=== PATIENT | male | born 1945 | race Caucasian/White ===

== ENCOUNTER → 2017-05-29 | Outpatient (CLI) | payer OTHER, MEDICARE | LOC: FIMAGING 08:00 | PROVIDERS: ATTEND Internal Medicine Gastroenterology | DX: R16.0 Hepatomegaly, not elsewhere classified (principal); K74.60 Unspecified cirrhosis of liver; K22.70 Barrett's esophagus without dysplasia; K50.10 Crohn's disease of large intestine without complications; N28.1 Cyst of kidney, acquired ==

== ENCOUNTER → 2017-08-28 | Outpatient (CLI) | payer OTHER, MEDICARE | LOC: FIMAGING 14:12 | PROVIDERS: ATTEND Internal Medicine | DX: H34.8111 Central retinal vein occlusion, right eye, with retinal neovascularization (principal); I10 Essential (primary) hypertension ==

== ENCOUNTER → 2017-11-28 | Outpatient (CLI) | payer OTHER, MEDICARE | LOC: FIMAGING 09:23 | PROVIDERS: ATTEND Internal Medicine Gastroenterology | DX: K70.30 Alcoholic cirrhosis of liver without ascites (principal) ==

== ENCOUNTER 2018-01-27 09:04 | Outpatient (CLI) | payer OTHER, MEDICARE ==
[2018-01-27] MEDS ORDERED: fentaNYL 100 MCG/2 ML INJ IVP PRN (09:17)
[2018-01-27] MEDS ORDERED: MEPERIDINE 25 MG/ML SYR IVP PRN (09:17)
[2018-01-27] MEDS ORDERED: MIDAZOLAM 2 MG/2 ML VIAL IVP PRN (09:17)
[2018-01-27] MEDS ORDERED: NALOXONE HCL 0.4 MG/ML INJ IVP PRN (09:17)
[2018-01-27] MEDS ORDERED: FLUMAZENIL 0.5 MG/5 ML MDV IVP PRN (09:17)
[2018-01-27] MEDS ORDERED: NS 1,000 ML IV SCH (09:30)
[2018-01-27 10:08] LABS: INR 1.09 (0.83-1.16); PROTIME(PATIENT) 14.3 SEC (12.0-15.0)
[2018-01-27] MEDS ORDERED: LIDOCAINE 1% 300 MG/30 ML SDV ONE (10:10)
--- NOTE | 2018-01-27 10:44 | PDRADPRE ---
Radiology History & Physical Indication for procedure: liver disease Home medications: Pantoprazole Sodium 20 mg PO DAILY 12/17/12 [Last Taken 01/27/18] amLODIPine BESYLATE [Norvasc 10 mg (*)] 10 mg PO DAILY 12/17/12 [Last Taken ] Levoxyl 200 mcg PO 01/27/18 [Last Taken 01/27/18] Nadolol 40 mg PO 01/27/18 [Last Taken 01/27/18] azaTHIOprine 50 mg PO 01/27/18 [Last Taken 01/27/18] Allergies/Adverse Reactions: mesalamine Allergy (Verified 06/09/15 15:23) DUST Allergy (Mild, Uncoded 12/17/12 02:53) Other-Enter Comments Mental status: A&Ox3 Heart exam: regular rate and rhythm Lungs exam: clear to auscultation Mallampati Score: Class 2
--- NOTE | 2018-01-27 10:44 | PDPROPOC ---
Sedation Plan of Care Sedation Plan of Care: vital signs stable, mental status noted, patient educated of risks, benefits, alternatives, patient can tolerate sedation ASA Classification: ASA 2 Planned drugs: fentanyl, midazolam Mallampati Score: Class 2 Mallampati Reference Image: Patient passed 3-3-2 rule?: Yes
--- NOTE | 2018-01-27 11:20 | PDRADPN ---
Radiology Procedure Note Date of Procedure: 01/27/18 Radiologist: Hemanth Joiner Anesthesia: IV Sedation Pre-op Diagnosis: Liver diseaase Post-op Diagnosis: Liver disease Indication: Elevated LFTs Procedure: US guided liver biopsy Finding(s): 18 ga cores Inf/Abcess present in the surg proc area at time of surgery?: No
[2018-01-27] MEDS ORDERED: ONDANSETRON 4 MG/2 ML VIAL IVP PRN (11:21)
[2018-01-27] MEDS ORDERED: oxyCODONE IR 5 MG TAB PO PRN (11:21)
[2018-01-27 18:50] VITALS: BP 117/76
== END 2018-01-27 14:35 | disposition home or self-care (01) ==
LOC: FIMAGING 09:04
PROVIDERS: ATTEND Internal Medicine Gastroenterology
PROC: 0FB03ZX Excision of Liver, Percutaneous Approach, Diagnostic (ICD-10-PCS; principal; 2018-01-27 11:27)
DX: K74.0 Hepatic fibrosis (principal)
CPT/HCPCS: 47000; 76942; 88307; 88312; 88313; 88342; J2250; J3010; J2310

== ENCOUNTER → 2018-04-18 | Outpatient (CLI) | payer OTHER, MEDICARE | LOC: FIMAGING 13:11 | PROVIDERS: ATTEND Nurse Practitioner Family | DX: K70.30 Alcoholic cirrhosis of liver without ascites (principal) ==

== ENCOUNTER → 2018-04-23 | Outpatient (CLI) | payer OTHER, MEDICARE | LOC: FIMAGING 14:17 | PROVIDERS: ATTEND Internal Medicine | DX: R93.2 Abnormal findings on diagnostic imaging of liver and biliary tract (principal); K74.69 Other cirrhosis of liver; K76.6 Portal hypertension; R16.1 Splenomegaly, not elsewhere classified ==

== ENCOUNTER 2018-06-07 11:29 | Inpatient (IN) | payer OTHER, MEDICARE ==
--- NOTE | 2018-06-07 12:29 | EDPHY ---
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 He had family from [place] visiting his home over the holiday and spent some time at the airport earlier this week and yesterday due to this. He describes feeling extremely low energy and fatigued with a subjective fever that he has been treating with Tylenol. He has spent much of the last 24 hours sleeping and noticed decreased appetite today. His believes he is more jaundiced and his abdomen is more distended than baseline. He denies rigors, cough, abdominal pain, vomiting, diarrhea, urinary symptoms. He had an ERCP and stent placed at the end of April and reports there's been some concern about the functioning of this stent. He is scheduled for a second ERCP in June at [facility]. REVIEW OF SYSTEMS: A comprehensive 10 system review of systems is otherwise negative aside from elements mentioned in the history of present illness. PMH: Liver disease - Suspected primary sclerosing cholangitis, ERCP and stent placed 05/08/18 at [facility] by Dr. Delgadillo; arthritis - shoulders and knees SOCIAL HISTORY: at bedside. Lives in [place]. Retired. GI: Dr. Howe PHYSICAL EXAM: General:Patient is alert, in no acute distress. ENT:Eyes are normal to inspection. ENT inspection normal. Neck: Normal inspection. Full range of motion. Respiratory:No respiratory distress. Breath sounds normal bilaterally. Cardiovascular: Regular rate and rhythm. Strong peripheral pulses. Normal cap refill. Abdomen:The abdomen is nontender to palpation. Abdominal distension. There are no peritoneal signs. Back: Normal to inspection. No tenderness to palpation. Skin: Jaundiced. No rash. Warm and dry. Extremities: Normal appearance. Full range of motion. Neuro: Oriented x3. Normal motor function. Normal sensory function. ED Course: This is a 72 y/o male with liver disease who presents with a 1-day history of progressing global weakness, fatigue, and subjective fever. He is jaundiced with a distended and nontender abdomen on exam. Lungs are clear to auscultation and he is afebrile here. Plan for IV, labs, flu swab, UA, chest x-ray. Chest x-ray: no infiltrate Bilirubin elevated at 13, the highest in recent records. LFTs also elevated. 1400: Consulted with [facility]. Their service will consult during admission. Reassessed patient and discussed findings. He agrees to admission. Spoke with hospitalist service. Dr. Eller accepts admission. - Data Points Imaging Results: Imaging Impressions Chest X-Ray 06/07/18 11:41 Impression: Question mild bronchitis. No other findings for acute cardiopulmonary abnormality. Imaging: I viewed and interpreted images myself Laboratory Results: Laboratory Results 06/07/18 12:42 06/07/18 12:42 06/07/18 06/07/18 06/07/18 12:42 12:42 12:40 WBC 5.09 10^3/uL 10^3/uL (3.80-9.50) RBC 4.02 10^6/uL L 10^6/uL (4.40-6.38) Hgb 13.3 g/dL L g/dL (13.7-17.5) Hct 39.9 % L % (40.0-51.0) MCV 99.3 fL fL (81.5-99.8) MCH 33.1 pg pg (27.9-34.1) MCHC 33.3 g/dL g/dL (32.4-36.7) RDW 16.0 % H % (11.5-15.2) Plt Count 92 10^3/uL L 10^3/uL (150-400) MPV 10.2 fL fL (8.7-11.7) Neut % (Auto) Not Reported Lymph % (Auto) Not Reported Stark % (Auto) Not Reported Eos % (Auto) Not Reported Baso % (Auto) Not Reported Nucleat RBC Rel Count Not Reported Absolute Neuts (auto) Not Reported Absolute Lymphs (auto) Not Reported Absolute Monos (auto) Not Reported Absolute Eos (auto) Not Reported Absolute Basos (auto) Not Reported Absolute Nucleated RBC Not Reported Immature Gran % Not Reported Seg Neutrophils % 67.0 % % Band Neutrophils % 18.0 % % Lymphocytes % 8.0 % % Monocytes % 1.0 % % Eosinophils % 3.0 % % Basophils % 3.0 % % Metamyelocytes % 0.0 % % Myelocytes % 0.0 % % Promyelocytes % 0.0 % % Blast Cells % 0.0 % % Immature Gran # Not Reported Absolute Seg Neuts 3.41 10^3/uL 10^3/uL (1.70-6.50) Absolute Band Neuts 0.92 10^3/uL H 10^3/uL (0.00-0.70) Absolute Lymphocytes 0.41 10^3/uL L 10^3/uL (1.00-3.00) Absolute Monocytes 0.05 10^3/uL L 10^3/uL (0.30-0.80) Absolute Eosinophils 0.15 10^3/uL 10^3/uL (0.03-0.40) Absolute Basophils 0.15 10^3/uL H 10^3/uL (0.02-0.10) Absolute Metamyelocyte 0.00 10^3/mL 10^3/mL (0.00-0.00) Absolute Myelocytes 0.00 10^3/mL 10^3/mL (0.00-0.00) Absolute Promyelocytes 0.00 10^3/uL 10^3/uL (0.00-0.00) Absolute Plasma Cells 0.00 10^3/uL 10^3/uL (0.00-0.00) Nucleated RBCs 0 /100 WBC /100 WBC (0-0) Absolute Blast Cells 0.00 10^3/uL 10^3/uL (0.00-0.00) Plasma Cells % 0.0 % % Platelet Estimate DECREASED L (ADEQ) Polychromasia 1+ H Oval Macrocytes 1+ H Echinocytes 1+ H Elliptocytes 1+ H VBG Lactic Acid 1.9 mmol/L mmol/L (0.7-2.1) Sodium 140 mEq/L mEq/L (135-145) Potassium 3.2 mEq/L L mEq/L (3.5-5.2) Chloride 105 mEq/L mEq/L (97-110) Carbon Dioxide 24 mEq/l mEq/l (22-31) Anion Gap 11 mEq/L mEq/L (6-14) BUN 14 mg/dL mg/dL (7-23) Creatinine 0.8 mg/dL mg/dL (0.7-1.3) Estimated GFR > 60 Glucose 113 mg/dL H mg/dL (70-100) Calcium 8.7 mg/dL mg/dL (8.5-10.4) Total Bilirubin 13.4 mg/dL H mg/dL (0.1-1.4) Conjugated Bilirubin 11.0 mg/dL H mg/dL (0.0-0.5) Unconjugated Bilirubin 2.4 mg/dL H mg/dL (0.0-1.1) Icterus Index 7 AST 126 IU/L H IU/L (17-59) ALT 83 IU/L H IU/L (21-72) Alkaline Phosphatase 523 IU/L H IU/L (38-126) Total Protein 7.3 g/dL g/dL (6.3-8.2) Albumin 3.7 g/dL g/dL (3.5-5.0) Nasal Influenza A PCR Nasal Influenza B PCR 06/07/18 11:45 WBC RBC Hgb Hct MCV MCH MCHC RDW Plt Count MPV Neut % (Auto) Lymph % (Auto) Stark % (Auto) Eos % (Auto) Baso % (Auto) Nucleat RBC Rel Count Absolute Neuts (auto) Absolute Lymphs (auto) Absolute Monos (auto) Absolute Eos (auto) Absolute Basos (auto) Absolute Nucleated RBC Immature Gran % Seg Neutrophils % Band Neutrophils % Lymphocytes % Monocytes % Eosinophils % Basophils % Metamyelocytes % Myelocytes % Promyelocytes % Blast Cells % Immature Gran # Absolute Seg Neuts Absolute Band Neuts Absolute Lymphocytes Absolute Monocytes Absolute Eosinophils Absolute Basophils Absolute Metamyelocyte Absolute Myelocytes Absolute Promyelocytes Absolute Plasma Cells Nucleated RBCs Absolute Blast Cells Plasma Cells % Platelet Estimate Polychromasia Oval Macrocytes Echinocytes Elliptocytes VBG Lactic Acid Sodium Potassium Chloride Carbon Dioxide Anion Gap BUN Creatinine Estimated GFR Glucose Calcium Total Bilirubin Conjugated Bilirubin Unconjugated Bilirubin Icterus Index AST ALT Alkaline Phosphatase Total Protein Albumin Nasal Influenza A PCR NEGATIVE FOR FLU A (NEGATIVE) Nasal Influenza B PCR NEGATIVE FOR FLU B (NEGATIVE) General Time Seen by Provider: 06/07/18 12:04 Initial Vital Signs: Initial Vital Signs Temperature (C) 37.1 C 06/07/18 11:33 Heart Rate 78 06/07/18 11:33 Respiratory Rate 16 06/07/18 11:33 Blood Pressure 140/80 H 06/07/18 11:33 O2 Sat (%) 94 06/07/18 11:33 O2 Delivery Mode Room Air Allergies/Adverse Reactions: No Known Allergies Allergy (Unverified 06/07/18 11:39) Home Medications: Medication Instructions Recorded azaTHIOprine [Imuran 50 mg (*)] 100 mg PO BID 01/27/18 Calcium Carbonate/Vitamin D3 1 each PO BID 06/07/18 [Calcium 500 mg-Vit D3 600 Unit] Chlorpheniramine Maleate 4 mg PO DAILY PRN 06/07/18 Ferrous Sulfate [Ferrous Sulf 325 325 mg PO DAILY 06/07/18 MG (*)] Glucosamine/Chondroitin 1 each PO BID 06/07/18 [Glucosamine/Chondroitin (*)] Levothyroxine [Synthroid 175 mcg 175 mcg PO DAILY06 06/07/18 (*)] Multivitamins [Multivitamin (*)] 1 each PO DAILY 06/07/18 Oxymetazoline HCl [Afrin Nasal 1 spray EACHNARE DAILY PRN 06/07/18 [place] (OTC)] Pantoprazole Sodium [Protonix 40mg 40 mg PO DAILY 06/07/18 (*)] Propranolol HCl [Inderal 20mg (*)] 20 mg PO BID 06/07/18 amLODIPine BESYLATE [Norvasc 10 mg 10 mg PO DAILY 06/07/18 (*)] diphenhydrAMINE [Benadryl 25 MG 25 mg PO DAILY PRN 06/07/18 (*)] Departure - Departure Disposition: [facility] Acute Clinical Impression: Hyperbilirubinemia, Weakness Fever Qualifiers: Fever type: unspecified Qualified Code(s): R50.9 - Fever, unspecified Condition: Fair Referrals: Chuckie López MD [Primary Care Provider] - As per Instructions Report Scribed for: Neptali Hawkins Report Scribed by: Catalina Medrano Date of Report: 06/07/18 Time of Report: 12:05 Physician Review and Approval Statement: Portions of this note were transcribed by an ED scribe. I personally performed the history, physical exam, and medical decision making; and confirm the accuracy of the information in the transcribed note.
[2018-06-07 13:10] LABS: PLATELET COUNT 92 10^3/uL (150-400)
[2018-06-07] MEDS ORDERED: PROTOCOL POTASSIUM 1 DOSE MISC PRN (14:31)
[2018-06-07] MEDS ORDERED: ONDANSETRON 4 MG/2 ML VIAL IVP PRN (14:31)
[2018-06-07] MEDS ORDERED: PROTOCOL MAGNESIUM 1 DOSE IV PRN (14:31)
[2018-06-07] MEDS ORDERED: ONDANSETRON DISINTEGRATING 4 MG TAB PO PRN (14:31)
[2018-06-07] MEDS ORDERED: PROTOCOL K PHOSPHATE 1 DOSE IV PRN (14:31)
--- NOTE | 2018-06-07 14:52 | PDGENHP ---
History and Physical - Chief Complaint weakness - History of Present Illness Mr. Rojas is a 72 year old male with pmh of Primary sclerosing cholangitis, portal hypertension, hypothyroid who presented to the Er with complaints of increased weakness and jaundice for the last 24 hours. Per the patients , he has had ongoing problems with becoming jaundiced intermittently for the last few months, but in the last 24 hours she noticed that he had become yellow. He has had no pain, but some subjective fevers, and chills. His only symptoms were some increased weakness. He denied any abdominal pain whatsoever and has had no nausea vomiing, chest pain, diarrhea, black or bloody stools, dysuria or other symptoms. He had a stent placed in April at [facility] with Dr. Delgadillo. He Follows with Dr. Ling (?) for his liver disease and follows with Dr. Johnston for the management of his Crohns. Apparently he has been having intermittent Jaundice and there has been discussion about evaluating the stent he had placed in April but nothing has been done yet. History Information - Allergies/Home Medication List Allergies/Adverse Reactions: No Known Allergies Allergy (Unverified 06/07/18 11:39) Home Medications: azaTHIOprine [Imuran 50 mg (*)] 100 mg PO BID 01/27/18 [Last Taken 06/07/18] Calcium Carbonate/Vitamin D3 [Calcium 500 mg-Vit D3 600 Unit] 1 each PO BID [Last Taken 06/07/18] Chlorpheniramine Maleate 4 mg PO DAILY PRN 06/07/18 [Last Taken Unknown] Ferrous Sulfate [Ferrous Sulf 325 MG (*)] 325 mg PO DAILY 06/07/18 [Last Taken 06/07/18] Glucosamine/Chondroitin [Glucosamine/Chondroitin (*)] 1 each PO BID 06/07/18 [ Last Taken 06/07/18] Levothyroxine [Synthroid 175 mcg (*)] 175 mcg PO DAILY06 06/07/18 [Last Taken ] Multivitamins [Multivitamin (*)] 1 each PO DAILY 06/07/18 [Last Taken 06/07/18] Oxymetazoline HCl [Afrin Nasal [place] (OTC)] 1 spray EACHNARE DAILY PRN 06/07/18 [Last Taken Unknown] Pantoprazole Sodium [Protonix 40mg (*)] 40 mg PO DAILY 06/07/18 [Last Taken ] Propranolol HCl [Inderal 20mg (*)] 20 mg PO BID 06/07/18 [Last Taken 06/07/18] amLODIPine BESYLATE [Norvasc 10 mg (*)] 10 mg PO DAILY 06/07/18 [Last Taken ] diphenhydrAMINE [Benadryl 25 MG (*)] 25 mg PO DAILY PRN 06/07/18 [Last Taken Unknown] I have personally reviewed and updated: family history, medical history, social history, surgical history - Past Medical History Crohn's Disease (hypothyroid, HTN, primary sclerosing cholangitis. ) - Surgical History Reports: appendectomy, cholecystectomy, thyroid surgery - Family History Positive for: non-pertinent - Social History Smoking Status: Never smoked Alcohol Use: None Drug Use: None Review of Systems Review of Systems: ROS: 10pt was reviewed & negative except for what was stated in HPI & below Physical Exam Physical Exam: Temp Pulse Resp BP Pulse Ox 37.1 C 78 16 123/78 H 94 06/07/18 11:33 06/07/18 12:57 06/07/18 12:57 06/07/18 12:57 06/07/18 12:57 Constitutional: no apparent distress, appears nourished, not in pain Eyes: PERRL, anicteric sclera, EOMI Ears, Nose, Mouth, Throat: moist mucous membranes, hearing normal, ears appear normal, no oral mucosal ulcers Cardiovascular: regular rate and rhythym, no murmur, rub, or gallop, No edema Respiratory: no respiratory distress, no rales or rhonchi, clear to auscultation Gastrointestinal: normoactive bowel sounds, soft, non-tender abdomen, no palpable masses Genitourinary: no bladder fullness, no bladder tenderness Skin: no induration, other (Jaundice noted), No mottled Musculoskeletal: full muscle strength, no muscle tenderness, normal joint ROM, no joint effusions Psychiatric: interacting appropriately, not anxious, not encephalopathic, thought process linear Lymph, Heme, Immunologic: no cervical LAD, no supraclavicular LAD Lab Data & Imaging Review 06/07/18 12:42 06/07/18 12:42 WBC 5.09 10^3/uL (3.80-9.50) 06/07/18 12:42 RBC 4.02 10^6/uL (4.40-6.38) L 06/07/18 12:42 Hgb 13.3 g/dL (13.7-17.5) L 06/07/18 12:42 Hct 39.9 % (40.0-51.0) L 06/07/18 12:42 MCV 99.3 fL (81.5-99.8) 06/07/18 12:42 MCH 33.1 pg (27.9-34.1) 06/07/18 12:42 MCHC 33.3 g/dL (32.4-36.7) 06/07/18 12:42 RDW 16.0 % (11.5-15.2) H 06/07/18 12:42 Plt Count 92 10^3/uL (150-400) L 06/07/18 12:42 MPV 10.2 fL (8.7-11.7) 06/07/18 12:42 Neut % (Auto) Not Reported 06/07/18 12:42 Lymph % (Auto) Not Reported 06/07/18 12:42 [place] % (Auto) Not Reported 06/07/18 12:42 Eos % (Auto) Not Reported 06/07/18 12:42 Baso % (Auto) Not Reported 06/07/18 12:42 Nucleat RBC Rel Count Not Reported 06/07/18 12:42 Absolute Neuts (auto) Not Reported 06/07/18 12:42 Absolute Lymphs (auto) Not Reported 06/07/18 12:42 Absolute Monos (auto) Not Reported 06/07/18 12:42 Absolute Eos (auto) Not Reported 06/07/18 12:42 Absolute Basos (auto) Not Reported 06/07/18 12:42 Absolute Nucleated RBC Not Reported 06/07/18 12:42 Immature Gran % Not Reported 06/07/18 12:42 Seg Neutrophils % 67.0 % 06/07/18 12:42 Band Neutrophils % 18.0 % 06/07/18 12:42 Lymphocytes % 8.0 % 06/07/18 12:42 Monocytes % 1.0 % 06/07/18 12:42 Eosinophils % 3.0 % 06/07/18 12:42 Basophils % 3.0 % 06/07/18 12:42 Metamyelocytes % 0.0 % 06/07/18 12:42 Myelocytes % 0.0 % 06/07/18 12:42 Promyelocytes % 0.0 % 06/07/18 12:42 Blast Cells % 0.0 % 06/07/18 12:42 Immature Gran # Not Reported 06/07/18 12:42 Absolute Seg Neuts 3.41 10^3/uL (1.70-6.50) 06/07/18 12:42 Absolute Band Neuts 0.92 10^3/uL (0.00-0.70) H 06/07/18 12:42 Absolute Lymphocytes 0.41 10^3/uL (1.00-3.00) L 06/07/18 12:42 Absolute Monocytes 0.05 10^3/uL (0.30-0.80) L 06/07/18 12:42 Absolute Eosinophils 0.15 10^3/uL (0.03-0.40) 06/07/18 12:42 Absolute Basophils 0.15 10^3/uL (0.02-0.10) H 06/07/18 12:42 Absolute Metamyelocyte 0.00 10^3/mL (0.00-0.00) 06/07/18 12:42 Absolute Myelocytes 0.00 10^3/mL (0.00-0.00) 06/07/18 12:42 Absolute Promyelocytes 0.00 10^3/uL (0.00-0.00) 06/07/18 12:42 Absolute Plasma Cells 0.00 10^3/uL (0.00-0.00) 06/07/18 12:42 Nucleated RBCs 0 /100 WBC (0-0) 06/07/18 12:42 Absolute Blast Cells 0.00 10^3/uL (0.00-0.00) 06/07/18 12:42 Plasma Cells % 0.0 % 06/07/18 12:42 Platelet Estimate DECREASED (ADEQ) L 06/07/18 12:42 Polychromasia 1+ H 06/07/18 12:42 Oval Macrocytes 1+ H 06/07/18 12:42 Echinocytes 1+ H 06/07/18 12:42 Elliptocytes 1+ H 06/07/18 12:42 VBG Lactic Acid 1.9 mmol/L (0.7-2.1) 06/07/18 12:40 Sodium 140 mEq/L (135-145) 06/07/18 12:42 Potassium 3.2 mEq/L (3.5-5.2) L 06/07/18 12:42 Chloride 105 mEq/L (97-110) 06/07/18 12:42 Carbon Dioxide 24 mEq/l (22-31) 06/07/18 12:42 Anion Gap 11 mEq/L (6-14) 06/07/18 12:42 BUN 14 mg/dL (7-23) 06/07/18 12:42 Creatinine 0.8 mg/dL (0.7-1.3) 06/07/18 12:42 Estimated GFR > 60 06/07/18 12:42 Glucose 113 mg/dL (70-100) H 06/07/18 12:42 Calcium 8.7 mg/dL (8.5-10.4) 06/07/18 12:42 Total Bilirubin 13.4 mg/dL (0.1-1.4) H 06/07/18 12:42 Conjugated Bilirubin 11.0 mg/dL (0.0-0.5) H 06/07/18 12:42 Unconjugated Bilirubin 2.4 mg/dL (0.0-1.1) H 06/07/18 12:42 Icterus Index 7 06/07/18 12:42 AST 126 IU/L (17-59) H 06/07/18 12:42 ALT 83 IU/L (21-72) H 06/07/18 12:42 Alkaline Phosphatase 523 IU/L (38-126) H 06/07/18 12:42 Total Protein 7.3 g/dL (6.3-8.2) 06/07/18 12:42 Albumin 3.7 g/dL (3.5-5.0) 06/07/18 12:42 Urine Color JERAMIE 06/07/18 14:18 Urine Appearance CLEAR 06/07/18 14:18 Urine pH 5.0 (5.0-7.5) 06/07/18 14:18 Ur Specific [place] 1.017 (1.002-1.030) 06/07/18 14:18 Urine Protein NEGATIVE (NEGATIVE) 06/07/18 14:18 Urine Ketones NEGATIVE (NEGATIVE) 06/07/18 14:18 Urine Blood 1+ (NEGATIVE) H 06/07/18 14:18 Urine Nitrate NEGATIVE (NEGATIVE) 06/07/18 14:18 Urine Bilirubin POSITIVE (NEGATIVE) H 06/07/18 14:18 Urine Urobilinogen 4.0 EU (0.2-1.0) H 06/07/18 14:18 Ur Leukocyte Esterase NEGATIVE (NEGATIVE) 06/07/18 14:18 Urine Glucose NEGATIVE (NEGATIVE) 06/07/18 14:18 Nasal Influenza A PCR NEGATIVE FOR FLU A (NEGATIVE) 06/07/18 11:45 Nasal Influenza B PCR NEGATIVE FOR FLU B (NEGATIVE) 06/07/18 11:45 Assessment & Plan Assessment: Fever (Acute) Hyperbilirubinemia (Acute) Weakness (Acute) Plan: Hyperbilirubinemia- with transaminitis suggestive of obstruction. he has no pain however. Bilirubin is 13 and has been climbing. I discussed his case with the ER physician and GI has been consulted. Dr. Armas will see patient. Examination is notable only for Marked Jaundice. Vitals remain reassuring, and aside from LFTs labs WNL as well. I reviewed his CXR as well myself and find no abnormality. -GI to see -Levaquin and flagyl -NPO until GI sees -Gentle fluids -Monitor LFTs Crohns- on azothioprine for this. Will hold until after GI sees, and in case of infection. Portal hypertension- per patient has hx of varices. on inderal. Will continue propranolol at 20mg BID HTN- On norvasc, and inderal. cont GERD- Cont Protonix. Hypothyroid- cont synthroid 175mcg PPX- SCds, No heparin until after ERCP Fluids- NS at 50 Lytes- WNL, on protocol Nutrition- NPO until after GI sees in case htey want to do ERCP tonight Cor- Full Dispo- observation for hyperbilirubinemia, transaminitis, Jaundice.
--- NOTE | 2018-06-07 16:35 | GCON ---
INPATIENT CONSULTATION NOTE REFERRING PHYSICIAN: Lesly Stokes MD REASON FOR CONSULTATION: Jaundice. Briefly, the patient is a pleasant 72-year-old male with a past medical history significant for primary sclerosing cholangitis complicated by portal hypertension, who presented to the emergency room with complaints of increased weakness, fatigue, and jaundice. He also describes subjective fevers and chills , although does not actually document a febrile episode. He has had a decreased appetite and significant weakness. He has been having a difficult time even getting out of bed due to weakness symptoms. Over the last several weeks, he reports having intermittent worsening of jaundice. He underwent an ERCP with spy glass and bile duct brushing approximately 1 month ago. At that time, he had biliary ductal stenting as well. He recovered from that procedure , but began to decline over the last several days. He also describes an underlying history of inflammatory bowel disease, as well as hypothyroidism. ALLERGIES: None. HOME MEDICATIONS: Imuran, calcium, chlorpheniramine, iron, glucosamine chondroitin sulfate, Synthroid, multivitamins, nasal spray, Protonix, propranolol, amlodipine, and Benadryl. PAST MEDICAL HISTORY: Includes Crohn disease, hypothyroidism, hypertension, and PSC. SURGICAL HISTORY: Includes appendectomy, thyroid surgery, and cholecystectomy. FAMILY HISTORY: Negative for inflammatory bowel disease or cirrhosis. SOCIAL HISTORY: Does not smoke, drink or use drugs. REVIEW OF SYSTEMS: A complete 10-system review was undertaken with the patient. The pertinent positives and negatives are detailed in the History of Present Illness. PHYSICAL EXAM: GENERAL: This is a well-developed, well-nourished male in no apparent distress. HEENT: His pupils are equal, round, reactive to light and accommodation. His sclerae are icteric. HEART: Regular without murmur. ABDOMEN: Soft, nontender with normoactive bowel sounds. EXTREMITIES: Free of cyanosis, clubbing, and edema. NEURO: Grossly nonfocal. VITAL SIGNS: His temperature was 37.1. SKIN: Warm and dry but jaundiced. PSYCH: Exam reveals normal mood and affect. LABORATORY TESTING: Shows a white count of 5.09, hemoglobin of 13.3, hematocrit of 39.9, platelet count of 92. Sodium of 140, potassium of 3.2, chloride of 105, bicarb of 24, BUN of 14, creatinine of 0.8, total bilirubin of 13.1, conjugated of 11.0, AST of 126, ALT of 83, alkaline phosphatase of 523, total protein of 7.3, albumin of 3.7, magnesium of 1.8, phosphorus of 2.4. Chest x-ray is nondiagnostic. IMPRESSION/RECOMMENDATIONS: The patient is admitted to the hospital with subjective fevers and chills and weakness in the setting of worsening jaundice. I am suspicious for mild cholangitis in the setting of primary sclerosing cholangitis. It is possible that his recently placed biliary stent has become dislodged or clogged as well. Recommend empiric antibiotic therapies. We will pursue a diagnostic imaging workup of his biliary tract to identify his stent placement and location. Recommend a febrile workup, including blood cultures. Pending the results of his clinical course and his imaging workup, we will need to consider whether or not he merits transfer to the [facility] for additional biliary tract management. This has, apparently, been under discussion as an outpatient. He currently has an appointment with the [facility] later next month. /[id number]/MODL MTDD
[2018-06-07] MEDS ORDERED: POTASSIUM CL 10 MEQ TAB PO ONE ×2 (16:54→20:25)
[2018-06-07] MEDS ORDERED: MAGNESIUM SULF 1 GM/DEXTROSE 100 ML IV ONE (16:55)
[2018-06-07] MEDS: NS 1,000 ML IV SCH (17:24)
[2018-06-07] MEDS ORDERED: PROPRANOLOL HCL 20 MG TAB PO SCH (21:00)
[2018-06-07] MEDS: PROPRANOLOL HCL 20 MG TAB PO SCH (21:17)
[2018-06-08] MEDS ORDERED: oxyCODONE IR 5 MG TAB PO ONE (00:26)
[2018-06-08 04:44] LABS: INR 1.38 (0.83-1.16); PROTIME(PATIENT) 17.1 SEC (12.0-15.0)
[2018-06-08 04:54] LABS: PLATELET COUNT 63 10^3/uL (150-400)
[2018-06-08] MEDS ORDERED: POTASSIUM CL 10 MEQ TAB PO ONE ×4 (06:02→20:23)
[2018-06-08] MEDS: LEVOTHYROXINE 175 MCG TAB PO SCH (06:08)
[2018-06-08] MEDS: PIPERACILLIN/TAZO 3.375 GM/DEX 50 ML IV SCH ×3 (08:31→20:45)
[2018-06-08] MEDS: PANTOPRAZOLE SODIUM 40 MG TAB PO SCH (08:32)
[2018-06-08] MEDS: PROPRANOLOL HCL 20 MG TAB PO SCH ×2 (08:33→20:50)
--- NOTE | 2018-06-08 08:50 | SOAPPROG ---
SOAP Progress Note Assessment/Plan: Assessment/plan: 1. PSC - jaundice and subjective fever - improved after IV abx - bili slightly improved - maybe large duct obstruction (if stent migrated or dislodged) - which would require replacement of stent - maybe small duct obstruction (in proximal branches of biliary tree) - which should improve with abx alone - MRCP today to evaluate stent and biliary tree - continue IV abx - follow LFTs 2. IBD - ok to continue imuran 3. Portal HTN - no evidence of decompensation 4. F/E/N - ok to eat - if will need ERCP, would transfer to [facility] to adopt his biliary care, so doubt intervention today is imminent 5. Dispo - will follow, call with questions - hope for ongoing improvement and possible dc home tomorrow to complete 10- 14d of oral abx 06/08/18 08:46 Subjective: CC: psc S: feeling much much better, but still weak with low appetite no fever no pain no diarrhea no sob no cp no cough Objective: Vital Signs Temp Pulse Resp BP Pulse Ox 36.6 C 63 16 112/73 94 06/08/18 07:59 06/08/18 08:33 06/08/18 07:59 06/08/18 08:33 06/08/18 07:59 Laboratory Results 06/08/18 04:14 06/08/18 04:14 06/07/18 06/08/18 06/09/18 05:59 05:59 05:59 Intake Total 1250 Output Total 224 Balance 1026 PT 17.1 SEC (12.0-15.0) H 06/08/18 04:14 INR 1.38 (0.83-1.16) H 06/08/18 04:14 Laboratory Tests 06/07/18 06/08/18 12:42 04:14 Total Bilirubin 13.4 H 10.2 H Conjugated Bilirubin 11.0 H 8.4 H Unconjugated Bilirubin 2.4 H 1.8 H AST 126 H 93 H ALT 83 H 70 Alkaline Phosphatase 523 H 373 H Physical Exam - Physical Exam EENT: TM abnormal (R), scleral icterus (L) Neck: supple Respiratory: chest non-tender, lungs clear Cardiac/Chest: normal peripheral pulses, regular rate, rhythm, No edema Abdomen: normal bowel sounds, non-tender, soft, No organomegaly, No distended, No guarding, No rebound Skin: normal color Extremities: normal range of motion Neuro/Psych: no motor/sensory deficits ICD10 Worksheet Patient Problems: Problems Problem Status Onset Fever Acute Hyperbilirubinemia Acute Weakness Acute Thyroid cancer Acute
[2018-06-08] MEDS ORDERED: levOFLOXACIN 500 MG/DEXTROSE 100 ML IV SCH (09:00)
--- NOTE | 2018-06-08 09:13 | HOSPPROG ---
Hospitalist Progress Note Assessment/Plan: 72yo M with PSC and recent biliary stent placement here with weakness and elevated bilirubin, now with bacteremia. 1. Enterococcus bacteremia: Biliary source. Not septic (appears better than expected) but had low grade fever. - Started on zosyn this AM. ID consulted. Likely need 10-14 day course of abx. - Mgmt of suspected biliary obstruction per below 2. Hyperbilirubinemia: Down-trending today. Suspect biliary obstruction in setting of PSC. - GI consulted - MRCP ordered to eval biliary system - May need ERCP depending on imaging - Trend LFTs daily 3. IBD/Crohn's: No acute flare. - Continue imuran. If gets sicker, will hold 4. Thrombocytopenia: Down a bit today. Possibly consumption in setting of infection vs imuran side effect (although has been on for years). Early for HIT. Not bleeding. - Monitor daily. If worsens, will send DIC panel 5. Portal HTN: Compensated. 6. HTN: Continue home meds for now 7. GERD: On PPI 8. Hypothyroid: Cont home LT4 replacement VTE ppx: SCDs given thrombocytopenia Diet: ok to eat per GI Code: full Dispo: Remain inpatient. If needs ERCP, GI recommends transfer to [facility] as they are planning on taking over his biliary care. Subjective: No fevers. Feeling pretty well, just weak. No abdominal pain, n/v/d. Objective: Vital Signs Temp Pulse Resp BP Pulse Ox 36.6 C 63 16 112/73 94 06/08/18 07:59 06/08/18 08:33 06/08/18 07:59 06/08/18 08:33 06/08/18 07:59 Laboratory Results 06/08/18 04:14 06/08/18 04:14 06/07/18 06/08/18 06/09/18 05:59 05:59 05:59 Intake Total 1250 Output Total 224 Balance 1026 PT 17.1 SEC (12.0-15.0) H 06/08/18 04:14 INR 1.38 (0.83-1.16) H 06/08/18 04:14 - Physical Exam Constitutional: no apparent distress, appears nourished, not in pain Eyes: icteric sclera Ears, Nose, Mouth, Throat: moist mucous membranes, hearing normal, ears appear normal, no oral mucosal ulcers Cardiovascular: regular rate and rhythym, no murmur, rub, or gallop, No edema Respiratory: no respiratory distress, no rales or rhonchi, clear to auscultation Gastrointestinal: normoactive bowel sounds, soft, non-tender abdomen, no palpable masses Genitourinary: no bladder fullness, no bladder tenderness, no renal bruits Skin: other (jaundiced) Musculoskeletal: full muscle strength, no muscle tenderness, normal joint ROM Neurologic: AAOx3, sensation intact bilaterally, No asterixes Psychiatric: interacting appropriately, not anxious, not encephalopathic, thought process linear ICD10 Worksheet Patient Problems: Problems Problem Status Onset Fever Acute Hyperbilirubinemia Acute Weakness Acute Thyroid cancer Acute
--- NOTE | 2018-06-08 13:23 | ASMTCMCOM ---
CM Note CM Note Notes: Patient plan of care reviewed in rounds. Patient is a 72 year old male with known liver disease and Chrons admitted with weakness and elevated bilirubin, consult to GI. CM to follow for needs. Plan: TBD Date Signed: 06/08/2018 01:23 PM Electronically Signed By:Laura Hernandez RN
[2018-06-08] MEDS: azaTHIOprine 50 MG TAB PO SCH ×3 (13:33→20:54)
--- NOTE | 2018-06-08 15:10 | GCON ---
INFECTIOUS DISEASE CONSULT DATE OF CONSULTATION: 06/08/2018 PERSON REQUESTING CONSULT: Dr. Kofi Gamboa. REASON FOR CONSULTATION: To assist in management of this 72-year-old male with primary sclerosing cholangitis, now admitted with bacteremia. HISTORY OF PRESENT ILLNESS: Mr. Rojas is a very pleasant 72-year-old male whose previous medical history is notable for the followin. 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 2. Hypothyroidism. 3. Hypertension. 4. History of alcoholism, sober for 30 years. Regarding his present issues, the patient states that his [address] Howe [address]. Johnston, but he is in the process of transitioning all of his care to the [facility], where apparently there is a primary sclerosing cholangitis center. He states that his new interventional rheologist is Dr. Mehul Ledezma. By report, the patient underwent an ERCP with Spyglass and bile duct brushing approximately [address] Kaylyn Delgadillo. He had a biliary duct stent placed, in addition. The patient states he has had 1 other stent in the past that was previously removed. The patient states that he had no complications from that procedure. Upon talking with him today, he tells me that he has been feeling more phlegmatic and not himself over the past several weeks. However, he has been acutely unwell over the past 72 hours. He states that on Saturday, he drove to the airport to transport his daughter and family there, and when he came back, he felt that he had done "too much." He states he felt extremely tired and felt the need to go to bed. Also of note, his around that time noticed increasing jaundice. He adamantly denies any abdominal pain whatsoever, nausea or vomiting. He denies any fevers or shaking chills at home. On Saturday, he continued to feel unwell and called the rheologist conveyor technician and was told to come to the emergency room. In the emergency room, the patient had a temperature of 37.9. He was also found to have a significantly elevated bilirubin of 13.4, with an alkaline phosphatase of 523. Blood cultures were drawn, and he was started on levofloxacin and metronidazole and admitted to the floor. Blood cultures are now growing a gram-negative stacia, as well as an Enterococcus. I am now asked to assist in his management. The patient states he feels much better since hospital admission. Again, he has no abdominal pain. He underwent an MRCP earlier today that I reviewed with Dr. Barraza. It appears that the biliary stent is in place, but the function of the stent is not obtainable through this study. Otherwise, there was no evidence of hepatic abscess or other acute abnormality. REVIEW OF SYSTEMS: Although he feels tired, 10 systems were reviewed otherwise and all are negative. PREVIOUS MEDICAL HISTORY: As outlined above. ALLERGIES: No known drug allergies. MEDICATIONS: 1. Presently includes Zosyn 3.375 g IV q.6 hours (I discontinued levofloxacin and metronidazole this morning upon reviewing the patient's microbiologic data prior to performing this consult). 2. Azathioprine 100 mg p.o. twice daily. 3. Amlodipine 10 mg p.o. daily. 4. Levothyroxine 175 mcg daily. 5. Zofran. 6. Protonix 40 mg p.o. daily. 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 He has a cat and a puppy. No recent travel within or outside the [place]. No tobacco. He is a recovering alcoholic and sober for 30 years. FAMILY HISTORY: Not relevant. PHYSICAL EXAM: VITAL SIGNS: T-current 36.6, T-max is 37.9, heart rate is 63, blood pressure 112/73. GENERAL: Jaundiced male, nontoxic, sitting up in bed, no apparent distress. HEENT: Atraumatic, normocephalic. Pupils are equal, round, reactive to light. Extraocular movements are intact. He clearly has scleral icterus. Mucous membranes are moist. No oral lesions noted. Dentition in fair repair. No sinus tenderness or discharge from the nares. Trachea is midline. No cervical or supraclavicular adenopathy. CARDIOVASCULAR : S1, S2. No rubs, gallops, or murmurs. LUNGS: No increased respiratory effort. Clear to auscultation bilaterally with no rales, rhonchi or wheeze. ABDOMEN: Protuberant but soft. No tenderness to palpation. No stigmata of end -stage liver disease. No tenderness whatsoever in his right upper quadrant. EXTREMITIES: No clubbing, cyanosis, or edema. No muscle belly tenderness or evidence of osteoarthritis. SKIN: Jaundiced, large ecchymoses of prior blood drawn on his right forearm, otherwise no rashes. No embolic stigmata. NEUROLOGIC: He is alert and oriented x3. LABORATORY DATA: Blood cultures on 06/07 are growing a gram-negative stacia and Enterococcus species. BUN and creatinine 14/0.7, total bilirubin 10.2, down from 13.4, direct of 8.4, indirect of 1.8, AST 93, ALT 70, alkaline phosphatase 373 down from 523, albumin of 2.6, white blood cell count of 2.68, down from 5 on admission, hematocrit 33, platelet count of 63, down from 92. RADIOGRAPHIC DATA: MRCP as outlined above. Chest x-ray without evidence of infiltrates. IMPRESSION: 72-year-old male with Crohn's disease, primary sclerosing cholangitis and portal hypertension status post biliary stenting in April, who now presents with polymicrobial bacteremia. This is almost certainly secondary to a transient biliary obstruction. MRCP does not show evidence of dislodged stent or hepatic abscess, but functionality of stent cannot be assessed via MRCP. Discussed with the patient that stent should be evaluated by ERCP sooner than later, preferably while he is on antibiotics and stent should be replaced. PLAN: 1. Continue Zosyn at present dose pending further cultivation of blood cultures. 2. Would like repeat blood cultures to be obtained in this setting; I have ordered them for tomorrow. 3. The patient will likely need 10 days of therapy for bacteremia. Thank you very much for consulting Infectious Diseases. We will continue to follow this patient with you. /[id number]/MODL MTDD
--- NOTE | 2018-06-08 17:04 | PDMN ---
Medical Necessity Medical necessity: [facility] Systemic or Infectious Condition: 72 yo presents w / hyperbilirubinemia w/ transaminitis suggestive of obstruction, fevers and weakness. Initially OBS for workup but after dx testing pt dx w/ enterococcus bacteremia, biliary source. ID consult. GI consulted for hyperbilirubinemia. Pt meets [facility] IP criteria for [facility] w/ +bacteremia w/ bili>4 (10.2), remains on IVF and IV antibx. Hx chrohn's, HTN, sclerosing cholangitis, hypothyroid. Change to IP status 06/08/18@1612 per order.
[2018-06-08] MEDS: NS 1,000 ML IV SCH (19:07)
[2018-06-09] MEDS: PIPERACILLIN/TAZO 3.375 GM/DEX 50 ML IV SCH ×4 (01:14→21:14)
[2018-06-09] MEDS: LEVOTHYROXINE 175 MCG TAB PO SCH (05:56)
[2018-06-09] MEDS ORDERED: POTASSIUM CL 10 MEQ TAB PO ONE ×2 (07:25→19:54)
[2018-06-09] MEDS: azaTHIOprine 50 MG TAB PO SCH (08:01)
[2018-06-09] MEDS: PROPRANOLOL HCL 20 MG TAB PO SCH ×2 (08:01→21:19)
[2018-06-09] MEDS: PANTOPRAZOLE SODIUM 40 MG TAB PO SCH (08:01)
--- NOTE | 2018-06-09 08:22 | CPEKG ---
Test Reason : OPEN Blood Pressure : / mmHG Vent. Rate : 073 BPM Atrial Rate : 073 BPM P-R Int : 164 ms QRS Dur : 116 ms QT Int : 447 ms P-R-T Axes : 013 -21 025 degrees QTc Int : 493 ms Sinus rhythm Nonspecific intraventricular conduction delay Confirmed by Tenzin Ma ([id number]) on 06/09/2018 8:22:24 AM Referred By: Confirmed By:Tenzin Ma
[2018-06-09] MEDS ORDERED: LR 1,000 ML IV ONE (14:09)
[2018-06-09] MEDS ORDERED: GLUCAGON HCL 1 MG VIAL ONE (14:11)
[2018-06-09] MEDS ORDERED: IOTHALAMATE MEG (CONRAY) 50 ML VIAL IV ONE (14:11)
--- NOTE | 2018-06-09 14:34 | PCMIDPN ---
Assessment/Plan: Assessment: Plan: Subjective: I, Barb Ospina, am scribing for, and in the presence of, Navarro Urias MD. I, Navarro Urias MD, personally performed the services described in this documentation, as scribed by Barb Ospina in my presence, and it is both accurate and complete. Objective: Vital Signs Temp Pulse Resp BP Pulse Ox 36.4 C 67 16 101/70 94 06/09/18 11:30 06/09/18 08:01 06/09/18 07:45 06/09/18 08:01 06/09/18 07:45 Laboratory Results 06/09/18 04:50 06/09/18 04:50 06/08/18 06/09/18 06/10/18 05:59 05:59 05:59 Intake Total 1290 835 Balance 1290 835 Microbiology: 06/05/18 Blood cx 2/2 sets grew, Enterococcus and Klebsiella variicola. Blood cx (2) pending results. ICD10 Worksheet Patient Problems: Problems Problem Status Onset Fever Acute Hyperbilirubinemia Acute Weakness Acute Thyroid cancer Acute
--- NOTE | 2018-06-09 15:08 | ASMTCMCOM ---
CM Note CM Note Notes: Patient discussed during clinical rounds. Patient to undergo ERCP this afternoon. CM to follow. D/C Plan: TBD. Date Signed: 06/09/2018 03:07 PM Electronically Signed By:Elva Godinez
[2018-06-09] MEDS ORDERED: MIDAZOLAM 2 MG/2 ML VIAL IVP ONE (15:24)
[2018-06-09] MEDS ORDERED: MIDAZOLAM 2 MG/2 ML VIAL ONE (15:25)
--- NOTE | 2018-06-09 15:30 | PDANEPAE ---
ANE History of Present Illness ERCP stent change ANE Past Medical History - Cardiovascular History Hx Hypertension: Yes Hx Arrhythmias: No Hx Chest Pain: No Hx Coronary Artery / Peripheral Vascular Disease: No Hx CHF / Valvular Disease: No Hx Palpitations: No - Pulmonary History Hx COPD: No Hx Asthma/Reactive Airway Disease: No Hx Recent Upper Respiratory Infection: No Hx Oxygen in Use at Home: No Hx Sleep Apnea: No Sleep Apnea Screening Result - Last Documented: Positive - Neurologic History Hx Cerebrovascular Accident: No Hx Seizures: No Hx Dementia: No - Endocrine History Hx Diabetes: No Endocrine History Comment: THYROIDECTOMY - Renal History Hx Renal Disorders: No - Liver History Hx Hepatic Disorders: Yes Hepatic History Comment: CIRRHOSIS. PREV ETOH ABUSE - NONE IN 27 YRS - Neurological & Psychiatric Hx Hx Neurological and Psychiatric Disorders: No - Cancer History Hx Cancer: Yes Cancer History Comment: THYROID - Congenital Disorder History Hx Congenital Disorders: No - GI History Hx Gastrointestinal Disorders: Yes Gastrointestinal History Comment: CHRONS DISEASE - CONTROLLED. ESOPHAGEAL VARICES - Other Health History Other Health History: NEG - Chronic Pain History Chronic Pain: No - Surgical History Prior Surgeries: APPY. THYROID. VASECTOMY ANE Review of Systems Review of Systems: - Exercise capacity METS (RN): 4 METS ANE Patient History - Allergies Allergies/Adverse Reactions: No Known Allergies Allergy (Unverified 06/07/18 11:39) - Home Medications Home Medications: azaTHIOprine [Imuran 50 mg (*)] 100 mg PO DAILY 01/27/18 [Last Taken 06/07/18] Calcium Carbonate/Vitamin D3 [Calcium 500 mg-Vit D3 600 Unit] 1 each PO BID [Last Taken 06/07/18] Chlorpheniramine Maleate 4 mg PO DAILY PRN 06/07/18 [Last Taken Unknown] Ferrous Sulfate [Ferrous Sulf 325 MG (*)] 325 mg PO DAILY 06/07/18 [Last Taken 06/07/18] Glucosamine/Chondroitin [Glucosamine/Chondroitin (*)] 1 each PO BID 06/07/18 [ Last Taken 06/07/18] Levothyroxine [Synthroid 175 mcg (*)] 175 mcg PO DAILY06 06/07/18 [Last Taken ] Multivitamins [Multivitamin (*)] 1 each PO DAILY 06/07/18 [Last Taken 06/07/18] Oxymetazoline HCl [Afrin Nasal [place] (OTC)] 1 spray EACHNARE DAILY PRN 06/07/18 [Last Taken Unknown] Pantoprazole Sodium [Protonix 40mg (*)] 40 mg PO DAILY 06/07/18 [Last Taken ] Propranolol HCl [Inderal 20mg (*)] 20 mg PO BID 06/07/18 [Last Taken 06/07/18] amLODIPine BESYLATE [Norvasc 10 mg (*)] 10 mg PO DAILY 06/07/18 [Last Taken ] diphenhydrAMINE [Benadryl 25 MG (*)] 25 mg PO DAILY PRN 06/07/18 [Last Taken Unknown] - NPO status NPO Status: no food or drink >8 hours NPO Since - Liquids (Date): 06/09/18 NPO Since - Liquids (Time): 07:00 NPO Since - Solids (Date): 06/09/18 NPO Since - Solids (Time): 07:00 - Smoking Hx Smoking Status: Never smoked - Alcohol Use Alcohol Use: None - Family Anes Hx Family Hx Anesthesia Complications: NEG ANE Labs/Vital Signs - Labs Result Diagrams: 06/09/18 04:50 06/09/18 04:50 - Vital Signs Blood Pressure: 101/78 Heart Rate: 61 Respiratory Rate: 16 O2 Sat (%): 93 Height: 177.8 cm Weight: 97.9 kg ANE Physical Exam - Airway Neck exam: decreased ROM Mallampati Score: Class 2 Mouth exam: normal dental/mouth exam, poor dentition - Pulmonary Pulmonary: no respiratory distress, no rales or rhonchi - Cardiovascular Cardiovascular: regular rate and rhythym, no murmur, rub, or gallop - ASA Status ASA Status: III ANE Anesthesia Plan Anesthesia Plan: general endotracheal anesthesia
[2018-06-09] MEDS ORDERED: PROPOFOL/EMULSION 500 MG/50 ML BOTTLE IV ONE (15:38)
[2018-06-09] MEDS ORDERED: fentaNYL 100 MCG/2 ML INJ ONE ×2 (15:38→15:55)
--- NOTE | 2018-06-09 16:23 | SUROPNOTE ---
[facility]N Operative Report - Surgery BRIEF ERCP NOTE INDICATION: cholangitis, PSC MEDICATION: per anesthesia COMPLICATION: none acutely FINDINGS: 1. clogged [id number] plastic stent noted, removed with snare 2. cannulation/injection of bile duct revealed filling defects, sludge, stones 3. 15mm balloon sweep from bifurcation delivered stones and debris 4. proximal biliary tree with strictures consistent with PSC, unable to advance wire about the bifurcation 5. new [id number] stent places across sphincter, with good bile flow through stent noted IMPRESSION/RECS: 1. cholangitis - suspect clogged biliary drain partly to blame - now replaced with shorter 10Fr stent for better flow - no CBD stenosis noted - sludge and debris removed - continue abx, per ID - follow-up 06/24/18 at [facility] therapeutic endo, as already scheduled for additional bile duct manipulation and spyglass and biliary duct sampling - clears tonight, can advance diet in AM if doing well - monitor for ERCP complications - will follow, call with questions
[2018-06-09] MEDS ORDERED: NEOSTIGMINE METHYLSULFATE 5 MG/5 ML SYR ONE (16:24)
[2018-06-09] MEDS ORDERED: GLYCOPYRROLATE 0.2 MG/1 ML VIAL ONE ×2 (16:24→16:25)
[2018-06-09] MEDS ORDERED: PHENYLEPHRINE HCL 100 MCG/ML SYR ONE (16:25)
--- NOTE | 2018-06-09 16:33 | GIREPORT ---
[facility] - Endoscopy Department Patient Name: Cullen Rojas Procedure Date: 06/09/2018 2:28 PM Patient Type: Inpatient Attending MD/ ER Physician: Lisa Sparrow MD Procedure: ERCP Indications: Primary sclerosing cholangitis, Elevated liver enzymes Providers: Lisa Sparrow MD Medicines: See the Anesthesia note for documentation of the administered medicatio ns Complications: No immediate complications. Description of Procedure: After obtaining informed consent, the scope was passed under direct vis ion. Throughout the procedure, the patient's blood pressure, pulse, and oxyg en saturations were monitored continuously. The Duodenalscope was introduc ed through the mouth, and advanced to the duodenum and used to inject cont rast into the bile duct. The ERCP was accomplished without difficulty. The patient tolerated the procedure well. Findings: A biliary stent was visible on the panel cutter film. The esophagus was successfully intubated under direct vision. The scope was advanced to a normal major papilla in the descending duodenum without detailed examin ation of the pharynx, larynx and associated structures, and upper GI tract. T he upper GI tract was grossly normal. One stent was removed from the bilia ry tree using a snare. The bile duct was deeply cannulated with the short- nosed traction sphincterotome. Contrast was injected. I personally interprete d the bile duct images. The middle third of the main bile duct contained fill ing defect(s) thought to be sludge. A straight Roadrunner wire was passed i nto the biliary tree. The biliary tree was swept with a 15 mm balloon start ing at the bifurcation. Sludge was swept from the duct. Many stones were removed. No stones remained. One 10 Fr by 5 cm plastic stent with a sin gle external flap and a single internal flap was placed 4.5 cm into the com mon bile duct. Bile flowed through the stent. The stent was in good positio n. Estimated Blood Loss: Estimated blood loss: none. Post Op Diagnosis: - The examination was suspicious for sludge. - Choledocholithiasis was found. Complete removal was accomplished by balloon extraction. - One 10Fr x 7cm plastic stent was removed from the biliary tree. - The biliary tree was swept. Stone/Debris removed. - One 10Fr x 5cm plastic stent was placed into the common bile duct. Recommendation: - [facility]. - Use broad spectrum antibiotics, per ID, to treat GNR bacteremia. - [place] [facility] [place] for additional PSC manag ement. - Clear liquids tonight, consider diet advancement tomorrow, if clinica lly well. - Monitor for complications. Attending Participation: I personally performed the entire procedure. Lisa Sparrow MD Lisa Sparrow MD 06/09/2018 4:33:20 PM This report has been signed electronicallyDaus Kyara MD Number of Addenda: 0 Note Initiated On: 06/09/2018 2:28 PM [email or web address]
[2018-06-09] MEDS ORDERED: fentaNYL 100 MCG/2 ML INJ IVP PRN (16:52)
[2018-06-09] MEDS ORDERED: ONDANSETRON 4 MG/2 ML VIAL IVP PRN (16:52)
[2018-06-09] MEDS ORDERED: HYDROmorphONE/DILAUDID 2 MG/ML INJ IVP PRN (16:52)
[2018-06-09] MEDS ORDERED: NALOXONE HCL 0.4 MG/ML INJ IVP PRN (16:52)
--- NOTE | 2018-06-09 16:54 | POSTANESTH ---
Post Anesthetic Evaluation Cardiovascular Status: Normal, Stable Respiratory Status: Normal, Stable Level of Consciousness/Mental Status: Can Participate in Eval Pain Control: Adequate, Prn Tx Ordered Nausea/Vomiting Control: Adequate, Prn Tx Ordered Complications Possibly Related to Anesthesia: None Noted
--- NOTE | 2018-06-09 17:57 | HOSPPROG ---
Hospitalist Progress Note Assessment/Plan: 72yo M with PSC and recent biliary stent placement here with weakness and elevated bilirubin, now with bacteremia. 1. Polymicrobial bacteremia: Biliary source. Klebsiella and Enterococcus. Not septic, no fevers. - Continue IV zosyn, ID following, awaiting sensitivities - Follow up repeat BCx from today 2. Cholangitis/choledocholithiasis: Bilirubin down-trending today. - s/p ERCP today with removal of stones, swept biliary tree, removed and replaced CBD stent - Trend LFTs daily, monitor for complications of ERCP (ie. pancreatitis) 3. IBD/Crohn's: No acute flare. - Continue imuran. If gets sicker, will hold 4. Thrombocytopenia: Improved, likely due to infection. Not bleeding. - Monitor daily 5. Portal HTN: Compensated. 6. HTN: Continue home meds for now 7. GERD: On PPI 8. Hypothyroid: Cont home LT4 replacement VTE ppx: SCDs given thrombocytopenia Diet: clears, advance to regular tomorrow Code: full Dispo: Remain inpatient. Dc once tolerating PO, repeat cultures cleared, antibiotic plan. Subjective: Did well with ERCP. Strength coming back. No n/v/d. No fevers. Objective: Vital Signs Temp Pulse Resp BP Pulse Ox 36.4 C 56 L 16 102/73 91 L 06/09/18 17:30 06/09/18 17:30 06/09/18 17:30 06/09/18 17:30 06/09/18 17:30 Laboratory Results 06/09/18 04:50 06/08/18 06/09/18 06/10/18 05:59 05:59 05:59 Intake Total 1290 2313 Output Total 0 Balance 1290 2313 PT 17.1 SEC (12.0-15.0) H 06/08/18 04:14 INR 1.38 (0.83-1.16) H 06/08/18 04:14 - Physical Exam Constitutional: no apparent distress, appears nourished, not in pain Eyes: PERRL, EOMI, icteric sclera Ears, Nose, Mouth, Throat: moist mucous membranes, hearing normal, ears appear normal, no oral mucosal ulcers Cardiovascular: regular rate and rhythym, no murmur, rub, or gallop Respiratory: no respiratory distress, no rales or rhonchi, clear to auscultation Gastrointestinal: normoactive bowel sounds, soft, non-tender abdomen, no palpable masses Genitourinary: no bladder fullness, no bladder tenderness, no renal bruits Skin: other (jaundiced) Musculoskeletal: full muscle strength, no muscle tenderness, normal joint ROM Neurologic: AAOx3, sensation intact bilaterally Psychiatric: interacting appropriately, not anxious, not encephalopathic, thought process linear ICD10 Worksheet Patient Problems: Problems Problem Status Onset Fever Acute Hyperbilirubinemia Acute Weakness Acute Thyroid cancer Acute
[2018-06-09] MEDS: NS 1,000 ML IV SCH (21:14)
[2018-06-10] MEDS: PIPERACILLIN/TAZO 3.375 GM/DEX 50 ML IV SCH ×3 (03:03→13:20)
[2018-06-10] MEDS: LEVOTHYROXINE 175 MCG TAB PO SCH (06:18)
[2018-06-10] MEDS ORDERED: POTASSIUM CL 10 MEQ TAB PO ONE (07:13)
--- NOTE | 2018-06-10 07:48 | SOAPPROG ---
SOAP Progress Note Assessment/Plan: Assessment/plan: 1. PSC - jaundice and subjective fever - blood cultures with GNR, now on IV abx - s/p ERC on 06/09 with biliary stent change (prior stent did appear to have reduced flow, but not much change in bili overnight) 2. IBD - ok to continue imuran - of note, patient reports intake error with dose of this medication, now on correct dose 3. Portal HTN - no evidence of decompensation 4. Bacteremia - on abx - appreciate ID involvement - has intervention on 06/24/18, may want to consider abx coverage up until that procedure? defer to ID on the length of abx course - repeat blood cultures pending 4. Dispo - at this point depends on ID care - has f/u with [facility] GI therapeutic division 06/24 - will sign off, call for any evidence of clinical worsening. 06/10/18 08:02 Subjective: CC: jaundice S: no fever no pain hungry and wants to eat more energy no cp no sob no nausea/vomiting Objective: Vital Signs Temp Pulse Resp BP Pulse Ox 36.6 C 54 L 18 101/71 94 06/10/18 03:06 06/10/18 03:06 06/10/18 03:06 06/10/18 03:06 06/10/18 03:06 Laboratory Results 06/10/18 04:22 06/10/18 04:22 06/09/18 06/10/18 06/11/18 05:59 05:59 05:59 Intake Total 1290 4119 Output Total 100 Balance 1290 4019 PT 17.1 SEC (12.0-15.0) H 06/08/18 04:14 INR 1.38 (0.83-1.16) H 06/08/18 04:14 Microbiology 06/07/18 13:05 Blood Blood Culture - Final 06/07/18 13:05 Blood Blood Panel (PCR) - Final Klebsiella Variicola No Organism Detected By Pcr 06/09/18 04:55 Blood Blood Culture - Preliminary 06/09/18 04:50 Blood Blood Culture - Preliminary Laboratory Tests 06/10/18 06/10/18 04:22 04:22 WBC 2.72 L Hct 35.3 L MCV 102.3 H Plt Count 95 L Total Bilirubin 9.5 H Conjugated Bilirubin 7.6 H Unconjugated Bilirubin 1.9 H AST 112 H ALT 62 Alkaline Phosphatase 370 H Physical Exam - Physical Exam General Appearance: WD/WN, alert, no apparent distress EENT: PERRL/EOMI, scleral icterus (R), scleral icterus (L) Respiratory: chest non-tender, lungs clear, normal breath sounds Cardiac/Chest: normal peripheral pulses, regular rate, rhythm, No edema Abdomen: normal bowel sounds, non-tender, soft, No distended, No guarding, No rebound Skin: normal color Extremities: normal range of motion Neuro/Psych: no motor/sensory deficits ICD10 Worksheet Patient Problems: Problems Problem Status Onset Fever Acute Hyperbilirubinemia Acute Weakness Acute Thyroid cancer Acute
[2018-06-10] MEDS: PROPRANOLOL HCL 20 MG TAB PO SCH (08:20)
[2018-06-10] MEDS: PANTOPRAZOLE SODIUM 40 MG TAB PO SCH (08:20)
[2018-06-10] MEDS ORDERED: azaTHIOprine 50 MG TAB PO SCH (09:00)
--- NOTE | 2018-06-10 09:15 | HOSPPROG ---
Hospitalist Progress Note Assessment/Plan: 72yo M with PSC and recent biliary stent placement here with weakness and elevated bilirubin, now with bacteremia. 1. Polymicrobial bacteremia: Biliary source. Klebsiella and Enterococcus. Not septic, no fevers. - Continue IV zosyn, awaiting sensitivities to Enterococcus. Possibly switch to PO antibiotics to complete outpatient course, appreciate ID recs - Repeat BCx negative thus far 2. Cholangitis/choledocholithiasis with underlying PSC: Bilirubin same. - s/p ERCP with removal of stones, swept biliary tree, removed and replaced CBD stent - Trend LFTs daily, monitor for complications of ERCP (ie. pancreatitis) - planning on establishing care with GI group at [facility] on 06/24 3. IBD/Crohn's: No acute flare. - Continue imuran. If gets sicker, will hold 4. Thrombocytopenia: Improved, likely due to infection. Not bleeding. - Monitor daily 5. Portal HTN: Compensated. 6. HTN: Continue home meds for now 7. GERD: On PPI 8. Hypothyroid: Cont home LT4 replacement VTE ppx: SCDs given thrombocytopenia Diet: advance to regular today Code: full Dispo: Remain inpatient. Dc once have antibiotic plan Subjective: Getting stronger. No abdominal pain, n/v. No fevers Objective: Vital Signs Temp Pulse Resp BP Pulse Ox 36.9 C 53 L 18 110/74 94 06/10/18 08:00 06/10/18 08:00 06/10/18 08:00 06/10/18 08:20 06/10/18 08:00 Laboratory Results 06/10/18 04:22 06/10/18 04:22 06/09/18 06/10/18 06/11/18 05:59 05:59 05:59 Intake Total 1290 4119 Output Total 100 Balance 1290 4019 PT 17.1 SEC (12.0-15.0) H 06/08/18 04:14 INR 1.38 (0.83-1.16) H 06/08/18 04:14 - Physical Exam Constitutional: no apparent distress, appears nourished, not in pain Eyes: PERRL, EOMI, icteric sclera Ears, Nose, Mouth, Throat: moist mucous membranes, hearing normal, ears appear normal, no oral mucosal ulcers Cardiovascular: regular rate and rhythym, no murmur, rub, or gallop, No edema Respiratory: no respiratory distress, no rales or rhonchi, clear to auscultation Gastrointestinal: normoactive bowel sounds, soft, non-tender abdomen, no palpable masses, distension Genitourinary: no bladder fullness, no bladder tenderness, no renal bruits Skin: other (jaundiced) Musculoskeletal: full muscle strength, no muscle tenderness, normal joint ROM Neurologic: AAOx3, sensation intact bilaterally Psychiatric: interacting appropriately, not anxious, not encephalopathic, thought process linear ICD10 Worksheet Patient Problems: Problems Problem Status Onset Fever Acute Hyperbilirubinemia Acute Weakness Acute Thyroid cancer Acute
--- NOTE | 2018-06-10 09:33 | PCMIDPN ---
Assessment/Plan: Assessment: Klebsiella bacteremia with Enterococcus in 1/2 sets of cultures. Patient has been on IV Zosyn since admission. Suspect that we can change antibiotic coverage to p.o. Levaquin and metronidazole to complete another 10 days from discharge. Patient is going to have another ERCP on June 24 at the [facility]. Plan: 1. Change antibiotics to oral Levaquin 750 mg daily. Also will need metronidazole 500 mg orally 3 times a day. Duration another 10 days. 2. Cleared for discharge home by Infectious Disease. 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 Yesterday, pt underwent removal of his 10Fr x 7 cm plastic stent from the biliary tree notable for choledocholithiasis. A new 10 Fr x 5 cm plastic stent was replaced in the common bile duct. He is currently on Zosyn for polymicrobial bacteremia with no new complaints. Today states that he is feeling much better, able to ambulate independently, and is very happy about that. Provides that his appetite is improving. Notes that his ERCP is scheduled for 06/24/2018. Also, would like to note that when he was 16 years of age, in 1960, was dx with hepatitis with associated jaundice and was tx successful. 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 No known allergies to antibiotics. Is unable to recall if he has been treated with Cipro or Levaquin in the past. IBarb, am scribing for, and in the presence of, Navarro Urias MD. INavarro MD, personally performed the services described in this documentation, as scribed by Barb Ospina in my presence, and it is both accurate and complete. Objective: Vital Signs Temp Pulse Resp BP Pulse Ox 36.9 C 53 L 18 110/74 94 06/10/18 08:00 06/10/18 08:00 06/10/18 08:00 06/10/18 08:20 06/10/18 08:00 Laboratory Results 06/10/18 04:22 06/10/18 04:22 06/09/18 06/10/18 06/11/18 05:59 05:59 05:59 Intake Total 1290 4119 Output Total 100 Balance 1290 4019 Microbiology: 06/07/18 Blood cx 2/2 sets grew, Enterococcus and Klebsiella variicola. Blood cx (2) pending results, NGTD. - Physical Exam General Appearance: alert, no apparent distress Skin: normal color, No rash Neuro/Psych: oriented x 3 - Time Spent With Patient Time Spent with Patient: greater than 25 minutes Time Spent with Patient: Greater than 25 minutes spent on this patients care, greater than 50% of time spent counseling, educating, and coordinating care regarding the above mentioned plan. ICD10 Worksheet Patient Problems: Problems Problem Status Onset Fever Acute Hyperbilirubinemia Acute Weakness Acute Thyroid cancer Acute
[2018-06-10] MEDS ORDERED: MAGNESIUM SULF 1 GM/DEXTROSE 100 ML IV ONE (09:36)
[2018-06-10 11:47] VITALS: BP 96/58
--- NOTE | 2018-06-10 13:26 | PDDCSUM ---
Discharge Summary Discharge Summary: Date of Admission: 06/07/2018 Date of Discharge: 06/10/2018 Consultants: gastroenterology (Lisa Sparrow), ID (Adonay Jauregui) Studies: 1. MRCP 2. ERCP with removal of CBD stones and CBD stent exchange Discharge Diagnoses: 1. Cholangitis with choledocholithiasis 2. Polymicrobial bacteremia 3. Primary sclerosing cholangitis with recent CBD stent placement 4. Hyperbilirubinemia and transaminitis 5. Thrombocytopenia 6. Portal hypertension, compensated 7. Crohn's disease on imuran 8. HTN 9. Hypothyroidism Brief Hospital Course: 72yo M with PSC and recent biliary stent placement presented with several days of worsening weakness and yellowing of skin. He was found to have hyperbilirubinemia and bacteremia. MRCP showed previous biliary stent with good placement but because of his bacteremia he underwent ERCP. CBD stent was exchanged and CBD stones were retrieved and biliary system swept. He had no complications from the ERCP. His bilirubin was stable at time of discharge and I suspect this will decrease over the coming days. His blood cultures grew Enterococcus and Klebsiella and he was discharged to complete 10 more days of levofloxacin and flagyl per ID recommendations. Repeat blood cultures remained negative. He did develop a mild thrombocytopenia while here which I suspect was consumptive in the setting of infection. His platelets had improved prior to discharging. He was continued on his imuran for his Crohn's disease. There was no evidence of a flare of this. Medications: Please refer to EMR. Prescriptions for the following were sent to his pharmacy: 1. Levofloxacin 750mg QD #10, 0 refills 2. Metronidazole 500mg TID #30, 0 refills Follow Up Plan: 1. He is planning on establishing care with the GI group at [facility] 2. Follow up finalized blood cultures from 06/09/2018 Physical Exam: Vitals reviewed, afebrile and normotensive. Alert and oriented, rrr without m/r/g, lungs clear, abdomen soft and nontender, jaundiced with scleral icterus, no asterixis, no edema.
--- NOTE | 2018-06-10 13:55 | ASMTLACE ---
LACE Length of stay for Answers: 3 days current admission Acuity / Level of Answers: Yes Care: Did the patient have an inpatient admission? Comorbidities - select Answers: Moderate or severe liver all that apply or renal disease # of Emergency department Answers: 1-2 visits in the last 6 months Score: 11 Date Signed: 06/10/2018 01:55 PM Electronically Signed By:SHANNAN Boogie
--- NOTE | 2018-06-10 13:57 | ASMTCMCOM ---
CM Note CM Note Notes: Pt medically stable for d/c on oral antibiotics. Pt to have another ERCP at [place] 06/24/18. No CM d/c needs identified. Date Signed: 06/10/2018 01:56 PM Electronically Signed By:SHANNAN Boogie
== END 2018-06-10 14:37 | disposition home or self-care (01) | DRG 445 ==
LOC: INTOOBSV 14:14 → F1N 16:28 → OBSVTOIN 06-08 16:12
PROVIDERS: ADMIT Internal Medicine; ATTEND Internal Medicine
PROC: 0FPB8DZ Removal of Intraluminal Device from Hepatobiliary Duct, Via Natural or Artificial Opening Endoscopic (ICD-10-PCS; principal; 2018-06-09 15:15)
PROC: 0F798DZ Dilation of Common Bile Duct with Intraluminal Device, Via Natural or Artificial Opening Endoscopic (ICD-10-PCS; principal; 2018-06-09 15:15)
PROC: 0FC98ZZ Extirpation of Matter from Common Bile Duct, Via Natural or Artificial Opening Endoscopic (ICD-10-PCS; principal; 2018-06-09 15:15)
DX: K80.30 Calculus of bile duct with cholangitis, unspecified, without obstruction (principal); R78.81 Bacteremia; K76.6 Portal hypertension; K50.90 Crohn's disease, unspecified, without complications; D69.6 Thrombocytopenia, unspecified; I10 Essential (primary) hypertension; E03.9 Hypothyroidism, unspecified; B95.2 Enterococcus as the cause of diseases classified elsewhere; B96.1 Klebsiella pneumoniae [K. pneumoniae] as the cause of diseases classified elsewhere
CPT/HCPCS: 96374; C2625; G0378; J1610; J1956; J2250; J2370; J2543; J2704; J2710; J3010; J3475; J7500; Q9961

== ENCOUNTER → 2018-07-23 | Outpatient (CLI) | payer OTHER, MEDICARE ==
[~2018-07-23] MED LIST: GADOBUTROL 10 ML VIAL IVP ONE
== END ==
LOC: FIMAGING 12:25
DX: K74.60 Unspecified cirrhosis of liver (principal); R16.1 Splenomegaly, not elsewhere classified; I85.00 Esophageal varices without bleeding
CPT/HCPCS: 74183; A9585

== ENCOUNTER 2018-08-31 18:28 | Inpatient (IN) | payer OTHER, MEDICARE ==
--- NOTE | 2018-08-31 18:39 | EDPHY ---
H & P Time Seen by Provider: 08/31/18 18:39 HPI/ROS: CHIEF COMPLAINT: Vomiting blood HISTORY OF PRESENT ILLNESS: 73-year-old man with history of primary sclerosing cholangitis and varices presents with a single episode of vomiting blood today at 6:15 p.m. He has a history of esophageal varices and Crohn's disease and cirrhosis. He felt unwell all day with nausea, had a single episode at 6:15 p.m. Of vomiting blood. Associated with feeling dizzy and lightheaded but not with abdominal pain. No melena. Denies chest pain or shortness of breath. Symptoms moderate. REVIEW OF SYSTEMS: Eye: no change in vision ENT: no sore throat Cardiac: no chest pain or syncope Pulmonary: no cough or SOB Abdomen: HPI Musculoskeletal: no back pain Skin: Jaundice Neuro: no headache Constitutional: no fever : no urinary symptoms A comprehensive 10 point review of systems is otherwise negative aside from elements mentioned in the history of present illness. PAST MEDICAL HISTORY: Includes primary sclerosing cholangitis, Crohn's, thyroid disease, hypertension, cholecystectomy and appendectomy, renal stones, portal hypertension and esophageal varices. Social history: , Dr. Johnston and Dr. López General Appearance: Alert and conversant, cooperative. Eyes: Scleral icterus. ENT, Mouth: Normal mucous membranes. Respiratory: Normal respiratory effort, breath sounds equal, lungs are clear to auscultation. Cardiovascular: Regular rate and rhythm. Gastrointestinal: Abdomen is soft and non tender. Neurological: Alert, face symmetric, normal motor and sensory in extremities. Skin: Jaundice. Musculoskeletal: No peripheral edema. Psychiatric: Not agitated. Emergency Department course/MDM: Patient presents with upper GI bleed and history of esophageal varices and initial blood pressure of 77 systolic. Normal saline 1 L IV, i-STAT hematocrit, labs to include CBC chemistry LFTs and coags. IV ceftriaxone 1 g, started on octreotide and proton pump inhibitor drip. Type and screen. GI consulted to see the patient tonight in the ICU. Zofran 4 mg IV for nausea. 1941: Systolic blood pressure greater than 80. 1857: I-STAT hemoglobin hematocrit is 8 and 25. Transfusion ordered, ICU admission; fresh frozen plasma and packed red blood cells ordered for active bleeding and history of varices and elevated INR and hypotension. Smoking Status: Never smoked Constitutional: Initial Vital Signs Temperature (C) 36.9 C 08/31/18 18:33 Heart Rate 71 08/31/18 18:33 Respiratory Rate 18 08/31/18 18:33 Blood Pressure 77/60 L 08/31/18 18:33 O2 Sat (%) 97 08/31/18 18:33 O2 Delivery Mode Room Air Allergies/Adverse Reactions: No Known Allergies Allergy (Verified 08/31/18 19:48) Home Medications: Medication Instructions Recorded azaTHIOprine [Imuran 50 mg (*)] 100 mg PO DAILY 01/27/18 Levothyroxine [Synthroid 175 mcg 175 mcg PO DAILY06 06/07/18 (*)] Pantoprazole Sodium [Protonix 40mg 40 mg PO DAILY 06/07/18 (*)] Propranolol HCl [Inderal 20mg (*)] 20 mg PO BID 06/07/18 amLODIPine BESYLATE [Amlodipine 5 mg PO DAILY 08/31/18 Besylate] Medical Decision Making - Diagnostics EKG Interpretation: 12-lead EKG interpreted by me; official reading is in computer system. My interpretation is sinus rhythm rate 68 with intraventricular conduction delay, and low precordial voltage rate 68 Consult/Admit Bed Type: [facility] , [facility] [address] Critical Care Time: Critical care time spent by me, Dr. Coats, exclusively with the care of this patient was 45 minutes, exclusive of PA or MANAGEMENT TECH time and exclusive of separate procedures. The organ system at risk was gastrointestinal and I ordered transfusion, ppi, octreotide, antibiotics, IV fluids and specialist consultation to stabilize the patient and prevent worsening of the patient's condition. - Data Points Laboratory Results: Laboratory Results 08/31/18 18:52 08/31/18 18:52 08/31/18 08/31/18 08/31/18 18:57 18:52 18:52 WBC RBC Hgb POC Hgb 8.5 gm/dL L gm/dL (13.7-17.5) Hct POC Hct 25 % L % (40-51) MCV MCH MCHC RDW Plt Count MPV Neut % (Auto) Lymph % (Auto) [place] % (Auto) Eos % (Auto) Baso % (Auto) Nucleat RBC Rel Count Absolute Neuts (auto) Absolute Lymphs (auto) Absolute Monos (auto) Absolute Eos (auto) Absolute Basos (auto) Absolute Nucleated RBC Immature Gran % Immature Gran # Platelet Estimate Hypochromasia Oval Macrocytes PT INR APTT POC Sodium 146 mEq/L H mEq/L (135-145) Sodium 140 mEq/L mEq/L (135-145) POC Potassium 3.8 mEq/L mEq/L (3.3-5.0) Potassium 3.8 mEq/L mEq/L (3.5-5.2) POC Chloride 115 mEq/L H mEq/L (97-110) Chloride 117 mEq/L H mEq/L (97-110) Carbon Dioxide 16 mEq/l L mEq/l (22-31) POC Total CO2 17 mEq/L L mEq/L (22-31) Anion Gap 7 mEq/L mEq/L (6-14) POC BUN 24 mg/dL H mg/dL (7-23) BUN 25 mg/dL H mg/dL (7-23) Creatinine 1.3 mg/dL mg/dL (0.7-1.3) POC Creatinine 1.3 mg/dL mg/dL (0.7-1.3) Estimated GFR 54 Glucose 128 mg/dL H mg/dL (70-100) POC Glucose 135 mg/dL H mg/dL (70-100) Calcium 7.9 mg/dL L mg/dL (8.5-10.4) Total Bilirubin 16.9 mg/dL H mg/dL (0.1-1.4) Conjugated Bilirubin 15.0 mg/dL H mg/dL (0.0-0.5) Unconjugated Bilirubin 1.9 mg/dL H mg/dL (0.0-1.1) Icterus Index 14 AST 145 IU/L H IU/L (17-59) ALT 59 IU/L IU/L (21-72) Alkaline Phosphatase 588 IU/L H IU/L (38-126) Total Protein 5.2 g/dL L g/dL (6.3-8.2) Albumin 2.2 g/dL L g/dL (3.5-5.0) Patient ABO/Rh O POSITIVE Antibody Screen NEGATIVE Crossmatch IS Only See Detail 08/31/18 08/31/18 18:52 18:52 WBC 6.77 10^3/uL 10^3/uL (3.80-9.50) RBC 2.35 10^6/uL L 10^6/uL (4.40-6.38) Hgb 8.6 g/dL L g/dL (13.7-17.5) POC Hgb Hct 25.8 % L % (40.0-51.0) POC Hct MCV 109.8 fL H fL (81.5-99.8) MCH 36.6 pg H pg (27.9-34.1) MCHC 33.3 g/dL g/dL (32.4-36.7) RDW 20.4 % H % (11.5-15.2) Plt Count 234 10^3/uL 10^3/uL (150-400) MPV 10.5 fL fL (8.7-11.7) Neut % (Auto) 67.9 % % (39.3-74.2) Lymph % (Auto) 19.9 % % (15.0-45.0) [place] % (Auto) 4.9 % % (4.5-13.0) Eos % (Auto) 5.2 % % (0.6-7.6) Baso % (Auto) 1.5 % % (0.3-1.7) Nucleat RBC Rel Count 0.9 % H % (0.0-0.2) Absolute Neuts (auto) 4.60 10^3/uL 10^3/uL (1.70-6.50) Absolute Lymphs (auto) 1.35 10^3/uL 10^3/uL (1.00-3.00) Absolute Monos (auto) 0.33 10^3/uL 10^3/uL (0.30-0.80) Absolute Eos (auto) 0.35 10^3/uL 10^3/uL (0.03-0.40) Absolute Basos (auto) 0.10 10^3/uL 10^3/uL (0.02-0.10) Absolute Nucleated RBC 0.06 10^3/uL H 10^3/uL (0-0.01) Immature Gran % 0.6 % % (0.0-1.1) Immature Gran # 0.04 10^3/uL 10^3/uL (0.00-0.10) Platelet Estimate ADEQUATE (ADEQ) Hypochromasia 2+ H Oval Macrocytes 2+ H PT 16.7 SEC H SEC (12.0-15.0) INR 1.42 H (0.83-1.16) APTT 41.9 SEC H SEC (23.0-38.0) POC Sodium Sodium POC Potassium Potassium POC Chloride Chloride Carbon Dioxide POC Total CO2 Anion Gap POC BUN BUN Creatinine POC Creatinine Estimated GFR Glucose POC Glucose Calcium Total Bilirubin Conjugated Bilirubin Unconjugated Bilirubin Icterus Index AST ALT Alkaline Phosphatase Total Protein Albumin Patient ABO/Rh Antibody Screen Crossmatch IS Only Medications Given: Hydromorphone HCl (Dilaudid) 0.2 - 0.4 mg IVP Q4HRS PRN PRN Reason: pain, moderate to severe Stop: 09/10/18 19:37 Last Admin: 09/01/18 05:32 Dose: 0.2 mg Octreotide Acetate 500 mcg/ (Sodium Chloride) 51 mls @ 5 mls/hr IV CONT JAMES Stop: 02/28/19 01:59 Last Admin: 09/01/18 02:12 Dose: 51 mls Ondansetron HCl (Zofran) 4 mg IVP Q4HRS PRN PRN Reason: Nausea/Vomiting, Can't Take PO Stop: 02/27/19 19:37 Last Admin: 08/31/18 22:18 Dose: 4 mg Pantoprazole Sodium (Protonix) 40 mg IVP Q6HRS JAMES Stop: 02/28/19 00:00 Last Admin: 09/01/18 05:37 Dose: 40 mg Promethazine HCl (Phenergan) 6.25 - 12.5 mg IVP Q6HRS PRN PRN Reason: Nausea/Vomiting, Use 2nd Stop: 02/27/19 19:37 Last Admin: 09/01/18 00:53 Dose: 6.25 mg Discontinued Medications Ceftriaxone Sodium/Dextrose (Rocephin 1 Gm (Premix)) 50 mls @ 100 mls/hr IV EDNOW ONE PRN Reason: Protocol Stop: 08/31/18 19:17 Last Admin: 08/31/18 19:03 Dose: 50 mls Octreotide Acetate 500 mcg/ (Sodium Chloride) 51 mls @ 5 mls/hr IV CONT JAMES Stop: 09/01/18 05:00 Last Admin: 08/31/18 19:15 Dose: 51 mls Sodium Chloride (Ns) 1,000 mls @ 0 mls/hr IV EDNOW ONE; Wide Open PRN Reason: Protocol Stop: 08/31/18 18:50 Last Admin: 08/31/18 19:02 Dose: 1,000 mls Ondansetron HCl (Zofran) 4 mg IVP EDNOW ONE Stop: 08/31/18 18:52 Last Admin: 08/31/18 19:02 Dose: 4 mg Pantoprazole Sodium (Protonix) 80 mg IVP EDNOW ONE Stop: 08/31/18 18:49 Last Admin: 08/31/18 19:06 Dose: 80 mg Point of Care Test Results: Chemistry 08/31/18 18:57 POC Sodium 146 mEq/L H mEq/L (135-145) POC Potassium 3.8 mEq/L mEq/L (3.3-5.0) POC Chloride 115 mEq/L H mEq/L (97-110) POC Total CO2 17 mEq/L L mEq/L (22-31) POC BUN 24 mg/dL H mg/dL (7-23) POC Creatinine 1.3 mg/dL mg/dL (0.7-1.3) POC Glucose 135 mg/dL H mg/dL (70-100) ISTAT H&H 08/31/18 18:57 POC Hgb 8.5 gm/dL L gm/dL (13.7-17.5) POC Hct 25 % L % (40-51) Departure - Departure Disposition: [facility] Inpatient Acute Clinical Impression: Upper GI hemorrhage Condition: Critical
[2018-08-31] MEDS ORDERED: PANTOPRAZOLE SODIUM 40 MG VIAL IVP ONE (18:48)
[2018-08-31] MEDS ORDERED: NS 1,000 ML IV ONE (18:49)
[2018-08-31] MEDS ORDERED: ONDANSETRON 4 MG/2 ML VIAL IVP ONE (18:51)
[2018-08-31] MEDS ORDERED: OCTREOTIDE ACETATE 500 MCG in NS 50 ML IV SCH (19:00)
[2018-08-31 19:14] LABS: PLATELET COUNT 234 10^3/uL (150-400)
[2018-08-31 19:27] LABS: INR 1.42 (0.83-1.16); PROTIME(PATIENT) 16.7 SEC (12.0-15.0)
[2018-08-31] MEDS ORDERED: ACETAMINOPHEN 325 MG TAB PO PRN (19:38)
[2018-08-31] MEDS ORDERED: ONDANSETRON 4 MG/2 ML VIAL IVP PRN (19:38)
[2018-08-31] MEDS ORDERED: ONDANSETRON DISINTEGRATING 4 MG TAB PO PRN (19:38)
[2018-08-31] MEDS ORDERED: LORazepam 2 MG/ML INJ IVP PRN (19:38)
--- NOTE | 2018-08-31 20:55 | PDGENHP ---
History and Physical - Chief Complaint vomiting blood - History of Present Illness 73 yo M with PMH that includes PSC and resultant cirrhosis and portal HTN with known gastroesophageal varices status post banding with reported bands having fallen off since then presenting with vomiting bright red blood today. He notes that he did not feel well all day, though also admits that he really has not felt well in quite some time. Regardless, today, he was feeling worse than usual though he has a hard time describing in what way. He notes that he has not been able to eat much, had no appetite really, felt exhausted and just overall sick. He began vomiting shortly before coming to the ER and notes that it was some phlegm mixed with bright red blood, and it filled about a 1/2 inch of the bottom of a large cup. He has felt dizzy since then. He has not had any change in his usual abdominal discomfort. He has had more swelling recently both in his legs and abdomen. He is followed by GI both at [facility] and GI of the [facility], he has had issues with recurrent biliary strictures and multiple biliary stents and stent replacements but has been getting increasingly jaundiced despite that. History Information - Allergies/Home Medication List Allergies/Adverse Reactions: No Known Allergies Allergy (Verified 08/31/18 19:48) Home Medications: azaTHIOprine [Imuran 50 mg (*)] 100 mg PO DAILY 01/27/18 [Last Taken 08/31/18] Levothyroxine [Synthroid 175 mcg (*)] 175 mcg PO DAILY06 06/07/18 [Last Taken ] Pantoprazole Sodium [Protonix 40mg (*)] 40 mg PO DAILY 06/07/18 [Last Taken ] Propranolol HCl [Inderal 20mg (*)] 20 mg PO BID 06/07/18 [Last Taken 08/31/18 08 :00] amLODIPine BESYLATE [Amlodipine Besylate] 5 mg PO DAILY 08/31/18 [Last Taken ] I have personally reviewed and updated: family history, medical history, social history, surgical history - Past Medical History coronary artery disease, Crohn's Disease (hypothyroid, HTN, primary sclerosing cholangitis. ), hypertension, SVT Additional medical history: PSC. cirrhosis/portal htn. recurrent biliary strictures. hypothyroid. SVT - Surgical History Reports: appendectomy, cholecystectomy, thyroid surgery - Family History Positive for: non-pertinent - Social History Smoking Status: Never smoked Alcohol Use: None Drug Use: None ( lives with his ) Review of Systems Review of Systems: ROS: 10pt was reviewed & negative except for what was stated in HPI & below Physical Exam Physical Exam: Temp Pulse Resp BP Pulse Ox 36.9 C 65 20 84/60 L 95 08/31/18 18:33 08/31/18 19:42 08/31/18 19:42 08/31/18 19:42 08/31/18 19:42 Constitutional: chronically ill appearing, uncomfortable Eyes: EOMI, icteric sclera Ears, Nose, Mouth, Throat: dry mucous membranes, other (blood in mouth/lips) Cardiovascular: regular rate and rhythym, no murmur, rub, or gallop, edema (2-3+ pitting edema) Respiratory: no respiratory distress, reduced air movement Gastrointestinal: tenderness, ascites, distension Genitourinary: no bladder tenderness Skin: warm, other (jaundiced) Musculoskeletal: generalized weakness, No asymmetric calves Neurologic: AAOx3 Psychiatric: interacting appropriately, not anxious, not encephalopathic Lab Data & Imaging Review 08/31/18 18:52 08/31/18 18:52 WBC 6.77 10^3/uL (3.80-9.50) 08/31/18 18:52 RBC 2.35 10^6/uL (4.40-6.38) L 08/31/18 18:52 Hgb 8.6 g/dL (13.7-17.5) L 08/31/18 18:52 POC Hgb 8.5 gm/dL (13.7-17.5) L 08/31/18 18:57 Hct 25.8 % (40.0-51.0) L 08/31/18 18:52 POC Hct 25 % (40-51) L 08/31/18 18:57 MCV 109.8 fL (81.5-99.8) H 08/31/18 18:52 MCH 36.6 pg (27.9-34.1) H 08/31/18 18:52 MCHC 33.3 g/dL (32.4-36.7) 08/31/18 18:52 RDW 20.4 % (11.5-15.2) H 08/31/18 18:52 Plt Count 234 10^3/uL (150-400) 08/31/18 18:52 MPV 10.5 fL (8.7-11.7) 08/31/18 18:52 Neut % (Auto) 67.9 % (39.3-74.2) 08/31/18 18:52 Lymph % (Auto) 19.9 % (15.0-45.0) 08/31/18 18:52 Mcdowell % (Auto) 4.9 % (4.5-13.0) 08/31/18 18:52 Eos % (Auto) 5.2 % (0.6-7.6) 08/31/18 18:52 Baso % (Auto) 1.5 % (0.3-1.7) 08/31/18 18:52 Nucleat RBC Rel Count 0.9 % (0.0-0.2) H 08/31/18 18:52 Absolute Neuts (auto) 4.60 10^3/uL (1.70-6.50) 08/31/18 18:52 Absolute Lymphs (auto) 1.35 10^3/uL (1.00-3.00) 08/31/18 18:52 Absolute Monos (auto) 0.33 10^3/uL (0.30-0.80) 08/31/18 18:52 Absolute Eos (auto) 0.35 10^3/uL (0.03-0.40) 08/31/18 18:52 Absolute Basos (auto) 0.10 10^3/uL (0.02-0.10) 08/31/18 18:52 Absolute Nucleated RBC 0.06 10^3/uL (0-0.01) H 08/31/18 18:52 Immature Gran % 0.6 % (0.0-1.1) 08/31/18 18:52 Immature Gran # 0.04 10^3/uL (0.00-0.10) 08/31/18 18:52 Platelet Estimate ADEQUATE (ADEQ) 08/31/18 18:52 Hypochromasia 2+ H 08/31/18 18:52 Oval Macrocytes 2+ H 08/31/18 18:52 PT 16.7 SEC (12.0-15.0) H 08/31/18 18:52 INR 1.42 (0.83-1.16) H 08/31/18 18:52 APTT 41.9 SEC (23.0-38.0) H 08/31/18 18:52 VBG Lactic Acid 2.4 mmol/L (0.7-2.1) H 08/31/18 20:00 POC Sodium 146 mEq/L (135-145) H 08/31/18 18:57 Sodium 140 mEq/L (135-145) 08/31/18 18:52 POC Potassium 3.8 mEq/L (3.3-5.0) 08/31/18 18:57 Potassium 3.8 mEq/L (3.5-5.2) 08/31/18 18:52 POC Chloride 115 mEq/L (97-110) H 08/31/18 18:57 Chloride 117 mEq/L (97-110) H 08/31/18 18:52 Carbon Dioxide 16 mEq/l (22-31) L 08/31/18 18:52 POC Total CO2 17 mEq/L (22-31) L 08/31/18 18:57 Anion Gap 7 mEq/L (6-14) 08/31/18 18:52 POC BUN 24 mg/dL (7-23) H 08/31/18 18:57 BUN 25 mg/dL (7-23) H 08/31/18 18:52 Creatinine 1.3 mg/dL (0.7-1.3) 08/31/18 18:52 POC Creatinine 1.3 mg/dL (0.7-1.3) 08/31/18 18:57 Estimated GFR 54 08/31/18 18:52 Glucose 128 mg/dL (70-100) H 08/31/18 18:52 POC Glucose 135 mg/dL (70-100) H 08/31/18 18:57 Calcium 7.9 mg/dL (8.5-10.4) L 08/31/18 18:52 Total Bilirubin 16.9 mg/dL (0.1-1.4) H 08/31/18 18:52 Conjugated Bilirubin 15.0 mg/dL (0.0-0.5) H 08/31/18 18:52 Unconjugated Bilirubin 1.9 mg/dL (0.0-1.1) H 08/31/18 18:52 Icterus Index 14 08/31/18 18:52 AST 145 IU/L (17-59) H 08/31/18 18:52 ALT 59 IU/L (21-72) 08/31/18 18:52 Alkaline Phosphatase 588 IU/L (38-126) H 08/31/18 18:52 Total Protein 5.2 g/dL (6.3-8.2) L 08/31/18 18:52 Albumin 2.2 g/dL (3.5-5.0) L 08/31/18 18:52 Patient ABO/Rh O POSITIVE 08/31/18 18:52 Antibody Screen NEGATIVE 08/31/18 18:52 Crossmatch IS Only See Detail 08/31/18 18:52 Assessment & Plan Assessment: Upper GI hemorrhage (Acute) 73 yo M with cirrhosis 2/2 PSC with known gastroesophageal varices presenting with UGIB # UGIB: patient vomiting bright red blood at home in the setting of known varices and recent failed banding. Started on PPI, octreotide gtts. Serial h/h ordered. GI consulted and plans to perform EGD tonight. # acute blood loss anemia: in the setting of above with hct of 25 on arrival with a baseline closer to 35, trending h/h as above, will transfuse for h/h < 7/ 21 or recurrent bleeding # cirrhosis: due to PSC with recurrent biliary strictures requiring stents but worsening jaundice recently, followed by Dr. Howe as well as [facility] GI service. Sounds as though most recent stent was placed on 08/11 with biopsies obtained at that time. # crohns disease: continued on imuran, followed by Dr. Johnston # hx of SVT, CAD: will monitor on tele, no complaints of chest pain or palpitations # IP status, patient critically ill and will require ICU level care for emergent EGD and close monitoring of h/h and vital signs, > 35 minutes of critical care time in addition to usual care required for evaluation of labs and reviewing records and plan of care with specialists and ER doctor Patient new to my care. Old records reviewed and summarized as above. Further hx obtained from patients present at bedside.
--- NOTE | 2018-08-31 22:33 | PDANEPAE ---
ANE History of Present Illness here for EGD banding variceal bleed ANE Past Medical History - Cardiovascular History Hx Hypertension: Yes Hx Arrhythmias: No Hx Chest Pain: No Hx Coronary Artery / Peripheral Vascular Disease: No Hx CHF / Valvular Disease: No Hx Palpitations: No - Pulmonary History Hx COPD: No Hx Asthma/Reactive Airway Disease: No Hx Recent Upper Respiratory Infection: No Hx Oxygen in Use at Home: No Hx Sleep Apnea: No - Neurologic History Hx Cerebrovascular Accident: No Hx Seizures: No Hx Dementia: No - Endocrine History Hx Diabetes: No Endocrine History Comment: THYROIDECTOMY - Renal History Hx Renal Disorders: No - Liver History Hx Hepatic Disorders: Yes Hepatic History Comment: CIRRHOSIS. PREV ETOH ABUSE - NONE IN 27 YRS - Neurological & Psychiatric Hx Hx Neurological and Psychiatric Disorders: No - Cancer History Hx Cancer: Yes Cancer History Comment: THYROID - Congenital Disorder History Hx Congenital Disorders: No - GI History Hx Gastrointestinal Disorders: Yes Gastrointestinal History Comment: CHRONS DISEASE - CONTROLLED. ESOPHAGEAL VARICES - Other Health History Other Health History: NEG - Chronic Pain History Chronic Pain: No - Surgical History Prior Surgeries: APPY. THYROID. VASECTOMY ANE Review of Systems Review of systems is: negative Review of Systems: - Exercise capacity Exercise capacity: <4 METS ANE Patient History - Allergies Allergies/Adverse Reactions: No Known Allergies Allergy (Verified 08/31/18 19:48) - Home Medications Home medications: home medication list seen and reviewed Home Medications: azaTHIOprine [Imuran 50 mg (*)] 100 mg PO DAILY 01/27/18 [Last Taken 08/31/18] Levothyroxine [Synthroid 175 mcg (*)] 175 mcg PO DAILY06 06/07/18 [Last Taken ] Pantoprazole Sodium [Protonix 40mg (*)] 40 mg PO DAILY 06/07/18 [Last Taken ] Propranolol HCl [Inderal 20mg (*)] 20 mg PO BID 06/07/18 [Last Taken 08/31/18 08 :00] amLODIPine BESYLATE [Amlodipine Besylate] 5 mg PO DAILY 08/31/18 [Last Taken ] - NPO status NPO Status: no food or drink >8 hours - Smoking Hx Smoking Status: Never smoked - Alcohol Use Alcohol Use: None - Family Anes Hx Family Hx Anesthesia Complications: NEG ANE Labs/Vital Signs - Labs Result Diagrams: 08/31/18 18:52 08/31/18 18:52 - Vital Signs Vital Signs: reviewed preoperatively; see RN documention for details Blood Pressure: 90/54 Heart Rate: 62 Respiratory Rate: 26 O2 Sat (%): 94 Height: 180.34 cm Weight: 99.79 kg ANE Physical Exam - Airway Neck exam: FROM Mallampati Score: Class 1 Mouth exam: normal dental/mouth exam - Pulmonary Pulmonary: no respiratory distress - Cardiovascular Cardiovascular: regular rate and rhythym - ASA Status ASA Status: IV, E ANE Anesthesia Plan Anesthesia Plan: general endotracheal anesthesia
[2018-08-31] MEDS ORDERED: PROPOFOL/EMULSION 500 MG/50 ML BOTTLE IV ONE (22:53)
[2018-08-31] MEDS ORDERED: PHENYLEPHRINE HCL 100 MCG/ML SYR ONE (22:53)
[2018-08-31] MEDS ORDERED: fentaNYL 100 MCG/2 ML INJ ONE (23:01)
--- NOTE | 2018-08-31 23:51 | GIREPORT ---
[facility] Surgical Services - Endoscopy Department Patient Name: Cullen Rojas Procedure Date: 08/31/2018 10:50 PM Patient Type: Inpatient Attending MD/ ER Physician: William Mercedes MD Procedure: Upper GI endoscopy Indications: Hematemesis, Cirrhosis with UGI bleeding suspected esophageal varices , Acute post hemorrhagic anemia Providers: William Mercedes MD Medicines: General Anesthesia Complications: No immediate complications. Description of Procedure: After obtaining informed consent, the endoscope was passed under direct vision. Throughout the procedure, the patient's blood pressure, pulse, and oxygen saturations were monitored continuously. The Endoscope was intro duced through the mouth, and advanced to the second part of duodenum. [facility]oscopy was accomplished without difficulty. The patient tolerated th e procedure well. Findings: Three columns of spurting grade III, large (> 5 mm) varices were found in the middle third of the esophagus and in the lower third of the esophag us, 30 cm from the incisors. They were 8 mm in largest diameter. Stigmata o f recent bleeding were evident and no red jeri signs were present. Five b ands were successfully placed with complete eradication, resulting in deflat ion of varices. Bleeding had stopped at the end of the procedure. Red blood was found in the gastric fundus and in the gastric body. Red blood was found in the duodenal bulb, in the first portion of the duodenum and in the second portion of the duodenum. Estimated Blood Loss: Estimated blood loss was minimal. Post Op Diagnosis: - Bleeding grade III and large (> 5 mm) esophageal varices. Completely eradicated. Banded. - Red blood in the gastric fundus and in the gastric body. - Blood in the duodenal bulb and in the second portion of the duodenum. - No specimens collected. Recommendation: - Return patient to ICU for ongoing care. - NPO today. - Continue present medications. - Check hemoglobin q 6 hours for one day. Attending Participation: I personally performed the entire procedure. William Mercedes MD William Mercedes MD 08/31/2018 11:50:54 PM This report has been signed electronicallyWilliam Mercedes MD Number of Addenda: 0 Note Initiated On: 08/31/2018 10:50 PM [email or web address]
[2018-09-01] MEDS: HYDROmorphONE/DILAUDID 1 MG/ML INJ IVP PRN ×2 (00:28→05:32)
[2018-09-01] MEDS: PANTOPRAZOLE SODIUM 40 MG VIAL IVP SCH ×4 (00:31→19:38)
[2018-09-01] MEDS: PROMETHAZINE HCL 25 MG/ML INJ IVP PRN ×2 (00:53→08:46)
[2018-09-01] MEDS: OCTREOTIDE ACETATE 500 MCG in NS 50 ML IV SCH ×3 (02:12→22:59)
--- NOTE | 2018-09-01 05:53 | GCON ---
[f rep st] CONSULTATION GI CONSULTATION DATE OF CONSULTATION: 08/31/2018 REQUESTING PHYSICIAN: Dr. Brianne Richard. REASON FOR CONSULTATION: Hematemesis, in the setting of known esophageal varices. HISTORY OF PRESENT ILLNESS: The patient is a 73-year-old gentleman with a chronic history of Crohn's colitis, as well as a history of primary sclerosing cholangitis, with cirrhosis, portal hypertension, esophageal varices, and bile duct stricture, with high-grade dysplasia. Patient has been followed in our practice by Dr. Papito Johnston since 2001 for Crohn's colitis, which has been treated effectively with immunomodulators. He did present with cirrhosis first noted on CT scan in 2010, and then later developed biliary dilation, choledocholithiasis, and multiple bile duct strictures in 2014. He was noted to develop esophageal varices, initially grade 1 in 2010, although this did progress to grade 2 varices on his most recent EGD on 08/06/2018, at which time Dr. Johnston noted grade 2 varices in the mid and lower esophagus, which were banded x5. The patient was seen at the [facility] for liver transplant evaluation in late 2017, and early 2018. He did have stents placed in his bile duct initially in our practice in 2017 and 2017, and has had stents recently placed at the [facility] several weeks ago. He was deemed not to be a liver transplant candidate due to high-grade dysplasia and a stricture, and advanced age. The patient was admitted through the emergency room today after 2 episodes of hematemesis and passage of dark bowel movements. This was associated with dizziness. He is now in the ICU, has received IV hydration, 1 unit of packed red blood cells, and 2 units of FFP. Again, he is hemodynamically stable. HOME MEDICATIONS: Azathioprine 100 mg p.o. daily, levothyroxine 175 mcg p.o. daily, pantoprazole 40 mg p.o. daily, propranolol 20 mg p.o. b.i.d., , amlodipine 5 mg p.o. daily. ALLERGIES: He has no known drug allergies. PAST MEDICAL HISTORY: As noted in HPI. Also positive for coronary artery disease, Crohn disease, which has been inactive for many years, and had every 2 year surveillance colonoscopy with random biopsies, negative for dysplasia, hypothyroidism, hypertension, primary sclerosing cholangitis with strictures and chronic stenting, history of SVT. PAST SURGICAL HISTORY: Significant for appendectomy, cholecystectomy, and thyroid surgery. FAMILY HISTORY: Negative for inflammatory bowel disease or GI malignancies. SOCIAL HISTORY: He is a nonsmoker. He does not consume alcohol. He lives with his in [facility]. REVIEW OF SYSTEMS: Other than as noted in HPI were negative for comprehensive review of systems. PHYSICAL EXAMINATION: VITAL SIGNS: On my examination today, temperature was 36.3 Celsius, pulse 61 and regular, blood pressure 90/54, respiratory rate was 18 to 20, O2 saturation 94% on room air. GENERAL: A well-developed, deeply jaundiced gentleman, looking fatigued. INTEGUMENT: Jaundice, and AVMs of the chest and upper arms, and abdomen. HEENT: Head atraumatic, normocephalic. Pupils equally round, and reactive to light. Sclerae icteric. Nares patent. Mucous membranes moist. Dentition good. NECK: Supple. Trachea midline. LYMPHATICS: No axillary or cervical adenopathy palpated. PULMONARY: Lungs clear to percussion and auscultation. CARDIOVASCULAR: Regular rhythm and rate. Normal S1, S2, without murmur. Peripheral pulses decreased bilaterally, with +1 to 2 pedal edema bilaterally. GASTROINTESTINAL: Abdomen distended. Positive bowel sounds. No liver or spleen tip palpable. No appreciable fluid wave. EXTREMITIES: Without deformity. NEURO: Patient was alert and oriented x3, with no focal neurologic deficits. LABS: White count 6.77, hemoglobin 8.6, hematocrit 25.8, MCV 109.8, platelets 234,000. Pro time 16.7, INR 1.42, PTT 41.9. Lactic acid 2.4. Electrolytes normal. Anion gap 7, BUN 25, creatinine 1.3, glucose 128, total bilirubin 16.9 , conjugated 15, unconjugated 1.9, AST 145, ALT 59, ALT 588, albumin 2.2. IMPRESSION: 1. Hematemesis in a gentleman with known esophageal varices, with last banding on 08/06/2018, rule out recurrent variceal bleed. 2. Primary sclerosing cholangitis with cirrhosis, portal hypertension, and biliary strictures, with chronic indwelling stents.Not deemed at liver transplant candidate per [facility]. 3. History of high-grade dysplasia on dominant distal common bile duct stricture. 4. Coagulopathy, secondary to liver disease. RECOMMENDATIONS: 1. Agree with transfusion of 2 units of fresh frozen plasma, and 2 units of packed red blood cells (1 given so far). 2. IV proton pump inhibitor therapy. 3. IV octreotide drip. 4. Urgent esophagogastroduodenoscopy, with endotracheal intubation tonight. Patient is at very high risk of complication due to multiple medical problems as listed above and probable acute esophageal variceal bleed. He is ASA IV. /[id number]/MODL MTDD
[2018-09-01 06:00] LABS: INR 1.52 (0.83-1.16); PROTIME(PATIENT) 17.6 SEC (12.0-15.0)
[2018-09-01 06:05] LABS: PLATELET COUNT 80 10^3/uL (150-400)
[2018-09-01] MEDS: NS 1,000 ML IV SCH (10:36)
--- NOTE | 2018-09-01 10:43 | HOSPPROG ---
Hospitalist Progress Note Assessment/Plan: #Acute GIB: due to known varices. s/p banding. NPO today, serial H/H. Octreotide , CTX, IV PPI #ABLA: due to above. 2 units blood last night #PSC with cirrhosis: followed by Hepatology at [facility] -resume Imuran when taking PO -BR 15 today #CAD: no CP #Metabolic encephalopathy: due to acute GIB. Electrolytes WNL. No asterixis #Crohn's: follows with Dr. Johnston #HTN: hold antihypertensives with soft BP, GIB #Hypothyroidism: resume when taking PO #Diet: IVFs #DVT ppx: SCDs Disp: inpatient admission with hematemesis, high-risk for bleeding Subjective: "when can I eat?" Objective: Vital Signs Temp Pulse Resp BP Pulse Ox 36.4 C 60 11 L 91/56 L 96 09/01/18 04:15 09/01/18 09:00 09/01/18 09:00 09/01/18 09:00 09/01/18 09:00 Laboratory Results 09/01/18 08:45 09/01/18 05:35 08/31/18 09/01/18 09/02/18 05:59 05:59 05:59 Intake Total 4826 Output Total 825 Balance 4001 PT 17.6 SEC (12.0-15.0) H 09/01/18 05:35 INR 1.52 (0.83-1.16) H 09/01/18 05:35 - Time Spent With Patient Time Spent with Patient: greater than 35 minutes Time Spent with Patient: Greater than 35 minutes spent on this patients care, greater than 50% of time spent counseling, educating, and coordinating care regarding the above mentioned plan. - Physical Exam Constitutional: other Eyes: PERRL, icteric sclera Ears, Nose, Mouth, Throat: moist mucous membranes Cardiovascular: regular rate and rhythym Gastrointestinal: normoactive bowel sounds, distension, No tenderness Genitourinary: no bladder fullness Skin: warm, other (jaundiced) Neurologic: CN II-XII Intact, No asterixes Psychiatric: encephalopathic ICD10 Worksheet Patient Problems: Problems Problem Status Onset Upper GI hemorrhage Acute Fever Acute Hyperbilirubinemia Acute Thyroid cancer Acute Weakness Acute
--- NOTE | 2018-09-01 11:05 | PDMN ---
Medical Necessity Medical necessity: Pt meets IP criteria as of 08/31/18 per MD and MCG M-180 ( Gastrointestinal bleeding, upper); est los > 2 mn for ongoing tx and management of upper GI bleed with acute blood loss anemia and hypotension in the setting of known varices and recent failed banding, pt with cirrhosis secondary to PSC. Hx CAD, Crohn's disease, hypothyroid, HTN, primary sclerosing cholangitis, and SVT.
--- NOTE | 2018-09-01 11:17 | ASMTCMCOM ---
CM Note CM Note Notes: Patient admitted after vomiting BRB at home. He has a hx of known varices w recent failed banding. Also hx of Crohn's and cirrhosis secondary to PSC. He lives with his Corin and is normally independent. PT/OT evals and GI consult ordered. Case Management will follow for d.c planning. Date Signed: 09/01/2018 11:16 AM Electronically Signed By:Erika Arteaga RN
--- NOTE | 2018-09-01 15:17 | SOAPPROG ---
SOAP Progress Note Assessment/Plan: Assessment: 1. EVB; stable without evidence of active bleeding today after EV Banding last night. 2. PSC with cirrhosis/portal HTN and likely some ascites today. 3. Post hemorrhagic anemia. Plan: 1. Full liquid diet. 2. Continue octreotide gtt addition 48 hours. 3. Will follow with you. William Mercedes MD [phone] 09/01/18 15:18 Subjective: CC: No complaints of abdominal pain or N/V. No BRB per rectum today. Objective: Vital Signs Temp Pulse Resp BP Pulse Ox 36.4 C 64 14 90/57 L 96 09/01/18 04:15 09/01/18 13:00 09/01/18 13:00 09/01/18 13:00 09/01/18 13:00 Laboratory Results 09/01/18 13:25 09/01/18 05:35 08/31/18 09/01/18 09/02/18 05:59 05:59 05:59 Intake Total 4826 Output Total 825 Balance 4001 PT 17.6 SEC (12.0-15.0) H 09/01/18 05:35 INR 1.52 (0.83-1.16) H 09/01/18 05:35 Physical Exam - Physical Exam General Appearance: WD/WN, no apparent distress Respiratory: lungs clear, normal breath sounds Abdomen: non-tender, soft, distended Skin: jaundice Neuro/Psych: alert, normal mood/affect, oriented x 3 ICD10 Worksheet Patient Problems: Problems Problem Status Onset Upper GI hemorrhage Acute Fever Acute Hyperbilirubinemia Acute Thyroid cancer Acute Weakness Acute
--- NOTE | 2018-09-01 18:10 | GCON ---
[f rep st] CONSULTATION CRITICAL CARE CONSULTATION DATE OF CONSULTATION: 09/01/2018 REASON FOR CONSULTATION: Upper GI bleed. HISTORY: Patient is a very pleasant 73-year-old man with a long history of GI disease. 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 This is associated w ith cirrhosis, portal hypertension, and known esophageal varices. He has had banding in the past, bu t no previous upper GI bleed. He is followed at the [place] for his primary sclerosing cholangiti s and in [place] by Dr. Ponce for his Crohn's. He presented yesterday with hematemesis. Endoscopy wa s performed. He was found to have bleeding varices and banding was performed. He has received a total of 2 units of packed red blood cells and 1 unit of fresh frozen plasma. Alvaro tocrit was 21.7 on admission. Subsequent hematocrits have been in the 24 range, with the most recent hematocrit this afternoon of 25.1. He is no longer lightheaded. He has ambulated in the siu with a walker. He denies any pain or any shortness of breath. PAST MEDICAL HISTORY: Remarkable for the GI issues as noted above, including Crohn's, sclerosing cho langitis, esophageal varices, biliary stenting, coronary artery disease, systemic hypertension, hypot hyroidism, and a history of SVT in the past. PAST SURGICAL HISTORY: Remarkable for the stenting procedures with a biopsy showing biliary dysplasi a. He has had a cholecystectomy, appendectomy, and thyroid surgery. SOCIAL HISTORY: The patient is . He drank alcohol last approximately 20 years ago. Tobacco is negative. He is . FAMILY HISTORY: Noncontributory/negative. REVIEW OF SYSTEMS: A 10-point review of systems is negative except as mentioned above. PHYSICAL EXAMINATION: GENERAL: Reveals a gentleman who is icteric, somewhat thin in appearance. He is in no distress. He is on room air. VITAL SIGNS: Saturations are 96%. Blood pressure is approx imately 90/60, heart rate 64 with sinus rhythm on the monitor. Respiratory rate is 14. He is afebri le. NECK: Unremarkable for lymphadenopathy or thyromegaly. There is no jugular venous distention. CHEST: Clear bilaterally. HEART: Regular in rate and rhythm. There are no significant murmurs, n o gallops. ABDOMEN: Distended. Ascites is present. Bowel sounds are present but diminished. Ther e is no significant tenderness. No Higgins catheter is in place. EXTREMITIES: Remarkable for 1+ daniel a bilaterally. NEUROLOGIC: Examination is nonfocal with mental status intact and normal. LABORATORY: Current hematocrit is 25. This is stable from 24 this morning. Hematocrit on admission was 25.8 and dropped to 21.7 prior to blood. White blood cell count is 5400, platelets are 80,000, down from 234,000 on admission. PT is 17.6 with an INR of 1.52. Sodium is 144, potassium 4.2, CO2 2 0, BUN 25, with creatinine of 1.1. Glucose is 121, bilirubin 15.4 with an AST of 122, and an ALT of 59. Albumin is 1.9. ASSESSMENT: 1. Upper gastrointestinal bleed secondary to varices. He is status post banding with no evidence of recurrent bleeding thus far. Hemoglobin and hematocrit are being followed. He is allowed to have o nly clear liquids. He is on pantoprazole at 40 mg every 6 hours, an octreotide drip, and prophylacti c ceftriaxone. 2. Cirrhosis. 3. Sclerosing cholangitis. 4. History of Crohn's, inactive. 5. History of other medical problems as outlined in the HPI. These include systemic hypertension an d coronary artery disease. 6. Immunosuppression. The patient is being treated with azathioprine 100 mg daily. This is current ly on hold. PLAN AND RECOMMENDATIONS: Patient will be kept in the intensive care unit. Hemoglobin and hematocri t will be followed. Clinical status for recurrent bleeding will be followed. GI will continue to fo llow the patient for now. Octreotide, pantoprazole, and ceftriaxone will all be continued. Anti-hyp ertensives will be held for now as blood pressure remains low. Clear liquids will be continued. Further plans and recommendations will be made based on his progress over the next 12-24 hours. /[id number]/MODL
[2018-09-02] MEDS: PANTOPRAZOLE SODIUM 40 MG VIAL IVP SCH ×4 (02:08→18:24)
[2018-09-02] MEDS: NS 1,000 ML IV SCH (06:22)
[2018-09-02 06:50] LABS: INR 1.5 (0.83-1.16); PROTIME(PATIENT) 17.4 SEC (12.0-15.0)
--- NOTE | 2018-09-02 09:49 | HOSPPROG ---
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 if will need further transfusion * stop iv fluid * continue octreotide drip and protonix * I have stopped the prn narcotic and ativan orders in this pt w encephalopathy hx * resume his levothyroxine * will review w Dr Mercedes if he should resume imuran at this time or any reason to delay that Seen by me today on hospitalist rounds as well as multidisciplinary rounds Reviewed with Dr. 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: Exam: alert oriented skin warm dry color ok resps not labored lungs clear BSs heart regular abd soft nondistended nontender, bowel sounds present limbs warm, no edema iv site ok Lab data: Hemoglobin down a bit further at 7.4 this morning Platelets low 83,000 INR 1.5 Objective: Vital Signs Temp Pulse Resp BP Pulse Ox 36.4 C 70 14 98/60 L 93 09/02/18 07:48 09/02/18 07:48 09/02/18 07:48 09/02/18 07:48 09/02/18 07:48 Laboratory Results 09/02/18 06:10 09/01/18 05:35 09/01/18 09/02/18 09/03/18 06:59 06:59 06:59 Intake Total 4826 3555.3 Output Total 825 Balance 4001 3555.3 PT 17.4 SEC (12.0-15.0) H 09/02/18 06:10 INR 1.50 (0.83-1.16) H 09/02/18 06:10 - Time Spent With Patient Time Spent with Patient: greater than 35 minutes Time Spent with Patient: Greater than 35 minutes spent on this patients care, greater than 50% of time spent counseling, educating, and coordinating care regarding the above mentioned plan. ICD10 Worksheet Patient Problems: Problems Problem Status Onset Upper GI hemorrhage Acute Fever Acute Hyperbilirubinemia Acute Thyroid cancer Acute Weakness Acute
[2018-09-02] MEDS: LEVOTHYROXINE 175 MCG TAB PO SCH (12:03)
[2018-09-02] MEDS: OCTREOTIDE ACETATE 500 MCG in NS 50 ML IV SCH ×2 (12:03→21:47)
--- NOTE | 2018-09-02 14:13 | PDINTPN ---
[employer] Progress Note Assessment/Plan: Assessment: Variceal bleed. Status post banding. No evidence of recurrent bleeding. Plan is for repeat upper endoscopy. Timing to be determined by GI. Remains on an octreotide drip, high-dose pantoprazole, and Rocephin. Acute blood-loss anemia. Hematocrit drifting down to 22. 25 range yesterday post transfusion of 2 units. For repeat H/H this afternoon. History of cirrhosis, sclerosing cholangitis, Crohn's disease. LFTs remain elevated. History of hypertension. Blood pressures remain soft, in the 95 systolic range. Antihypertensives on hold. History of coronary artery disease. DVT prophylaxis: SCDs only. Lovenox contraindicated. Plan: Continue care in the intensive care unit for now. He potentially could be transferred to a medical-surgical bed today. For upper endoscopy per Gastroenterology: ? later today versus tomorrow.. Continue octreotide and pantoprazole. Follow hemoglobin/hematocrit later this afternoon. Follow laboratory in a.m.. Continue to monitor hemodynamic status. 25 min of critical care time spent directly with the patient. Discussed with the patient and his , hospitalist, nursing, and the ICU multi disciplinary team. Subjective: Feels okay, tired, no further hemoptysis or melena. Objective: Vital Signs Temp Pulse Resp BP Pulse Ox 36.3 C 63 18 95/71 L 96 09/02/18 12:32 09/02/18 12:32 09/02/18 12:32 09/02/18 12:32 09/02/18 12:32 Laboratory Results 09/02/18 06:10 09/01/18 05:35 09/01/18 09/02/18 09/03/18 05:59 05:59 05:59 Intake Total 4826 3555.3 Output Total 825 Balance 4001 3555.3 PT 17.4 SEC (12.0-15.0) H 09/02/18 06:10 INR 1.50 (0.83-1.16) H 09/02/18 06:10 Physical Exam - Physical Exam General Appearance: alert, no apparent distress EENT: PERRL/EOMI, scleral icterus (R), other (On room air) Neck: normal inspection (No JVD) Respiratory: lungs clear, decreased breath sounds Cardiac/Chest: regular rate, rhythm, systolic murmur Abdomen: non-tender, distended, ascites, No normal bowel sounds (Decreased, present) Male Genitalia: other (Using urinal) Skin: warm/dry, jaundice Extremities: pedal edema (Trace +. Significantly decreased) Neuro/Psych: no motor/sensory deficits, No cognition abnormalities ICD10 Worksheet Patient Problems: Problems Problem Status Onset Upper GI hemorrhage Acute Fever Acute Hyperbilirubinemia Acute Thyroid cancer Acute Weakness Acute
--- NOTE | 2018-09-02 16:25 | SOAPPROG ---
[facility] Progress Note Assessment/Plan: Assessment: 1. EVB; stable without evidence of active bleeding today after EV Banding last night. 2. PSC with cirrhosis/portal HTN and worsening ascites. 3. Post hemorrhagic anemia. 4. Poor appetitie. Plan: 1. Full liquid diet. 2. Continue octreotide gtt. 3. High volume paracentesis. William Mercedes MD [phone] 09/02/18 16:22 Subjective: CC: EV Bleed, PSC, Ascites. Interval HPI: C/O abdominal distension and poor appetite. No melena or hematemesis. Objective: Vital Signs Temp Pulse Resp BP Pulse Ox 36.3 C 73 18 102/74 94 09/02/18 12:32 09/02/18 16:00 09/02/18 16:00 09/02/18 16:00 09/02/18 16:00 Laboratory Results 09/02/18 15:42 09/01/18 05:35 09/01/18 09/02/18 09/03/18 05:59 05:59 05:59 Intake Total 4826 3555.3 Output Total 825 Balance 4001 3555.3 PT 17.4 SEC (12.0-15.0) H 09/02/18 06:10 INR 1.50 (0.83-1.16) H 09/02/18 06:10 Physical Exam - Physical Exam General Appearance: alert, mild distress Respiratory: lungs clear, normal breath sounds Cardiac/Chest: regular rate, rhythm, edema (pedal) Abdomen: normal bowel sounds, non-tender, soft, ascites Skin: jaundice Neuro/Psych: alert, oriented x 3 ICD10 Worksheet Patient Problems: Problems Problem Status Onset Upper GI hemorrhage Acute Fever Acute Hyperbilirubinemia Acute Thyroid cancer Acute Weakness Acute
[2018-09-02] MEDS ORDERED: HYDROmorphONE/DILAUDID 1 MG/ML INJ IVP PRN (21:36)
[2018-09-03] MEDS: PANTOPRAZOLE SODIUM 40 MG VIAL IVP SCH ×4 (02:18→19:13)
[2018-09-03 05:40] LABS: INR 1.42 (0.83-1.16); PROTIME(PATIENT) 16.7 SEC (12.0-15.0)
[2018-09-03] MEDS: LEVOTHYROXINE 175 MCG TAB PO SCH (06:41)
[2018-09-03] MEDS ORDERED: NS 500 ML IV ONE (07:53)
[2018-09-03] MEDS: OCTREOTIDE ACETATE 500 MCG in NS 50 ML IV SCH (08:33)
--- NOTE | 2018-09-03 08:53 | HOSPPROG ---
Hospitalist Progress Note Assessment/Plan: Responded to stat team this morning Call was for tachycardia hypotension > 45 mins Critical Care bedside time today So arrived the patient was sleeping but easily arousable. He was in no discomfort not complaining of shortness of breath. The per nurses had noted 1 episode of clots passed per rectum last night. No further bleeding since then There been no fevers. His respirations are relaxed at 18 per minute. On my initial exam this morning his pulse is 100 50s and regular with a narrow complex. Voltages are low and it is not possible to determine whether there are P waves or flutter waves though looking at this EKG a believe that he probably has some retrograde conducted P-waves. His blood pressure 82/50 with a mean pressure of 62. He does have some ankle edema but no other signs of heart failure and is not having any anginal type symptoms. Neither the bus monitor or 12 lead EKG showed definite signs of ischemia though there are some slight ST abnormalities on the 12 lead EKG. Again voltages very low and drawing conclusions difficult. Hands and feet are warm, mentation is at baseline we wake him up. IV saline bolus was started and after 500 mL there are no change in any other vital signs or his examination. Labs were drawn and his hemoglobin is stable at 8.6 however his creatinine this morning is up to 1.5. Patient was given 6 mg adenosine bolus injection and this did result in a break in the cardiac rhythm leading to a sinus rhythm. I did not see any kind of flutter waves or fibrillations from the atria during the bradycardic. After adenosine. The after converting him to sinus rhythm his blood pressure has improved to his baseline which is mid 90s to 100s over 60s. 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 With his episode of SVT and hypotension this morning will . As he became fairly hypotensive with the SVT will PLANS: * transfer him to [facility] for further monitoring * repeat Hg this afternoon * check an echocardiogram to make sure that no other cardiac abnormalities * continue octreotide drip and protonix * I have stopped the prn narcotic and ativan orders in this pt w encephalopathy hx * Continue levothyroxine * will review w Dr Mercedes if he should resume imuran at this time or any reason to delay that SUBJECTIVE: feeling well no headache or other pain eating liquid diet without difficulty pt and nurses note no bleed or bruise OBJECTIVE Vitals reviewed: Blood pressure is borderline low, otherwise stable vitals without fever 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, 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: Exam: alert oriented skin warm dry color ok resps not labored lungs clear BSs heart regular abd soft nondistended nontender, bowel sounds present limbs warm, no edema iv site ok Lab data: Hemoglobin down a bit further at 7.4 this morning Platelets low 83,000 INR 1.5 Objective: Vital Signs Temp Pulse Resp BP Pulse Ox 36.3 C 154 H 16 82/62 L 94 09/03/18 07:45 09/03/18 07:45 09/03/18 07:45 09/03/18 07:45 09/03/18 07:45 Laboratory Results 09/03/18 08:00 09/03/18 04:50 09/02/18 09/03/18 09/04/18 06:59 06:59 06:59 Intake Total 3555.3 400 Balance 3555.3 400 PT 16.7 SEC (12.0-15.0) H 09/03/18 04:50 INR 1.42 (0.83-1.16) H 09/03/18 04:50 ICD10 Worksheet Patient Problems: Problems Problem Status Onset Upper GI hemorrhage Acute Fever Acute Hyperbilirubinemia Acute Thyroid cancer Acute Weakness Acute
[2018-09-03] MEDS ORDERED: ADENOSINE 6 MG/2 ML VIAL IVP ONE (09:00)
[2018-09-03] MEDS ORDERED: LIDOCAINE 1% 300 MG/30 ML SDV ONE (12:24)
[2018-09-03 15:23] LABS: INR 1.44 (0.83-1.16); PROTIME(PATIENT) 16.9 SEC (12.0-15.0)
--- NOTE | 2018-09-03 16:03 | PDANEPAE ---
ANE History of Present Illness GI bleeding ANE Past Medical History - Cardiovascular History Hx Hypertension: Yes Hx Arrhythmias: Yes Hx Chest Pain: No Hx Coronary Artery / Peripheral Vascular Disease: No Hx CHF / Valvular Disease: No Hx Palpitations: No Cardiovascular History Comment: episode of SVT resolved with adenosine - Pulmonary History Hx COPD: No Hx Asthma/Reactive Airway Disease: No Hx Recent Upper Respiratory Infection: No Hx Oxygen in Use at Home: No Hx Sleep Apnea: No Sleep Apnea Screening Result - Last Documented: Negative - Neurologic History Hx Cerebrovascular Accident: No Hx Seizures: No Hx Dementia: No - Endocrine History Hx Diabetes: No Hypothyroid: Yes Hyperthyroid: No Obesity: yes, mild Endocrine History Comment: THYROIDECTOMY - Renal History Hx Renal Disorders: Yes Renal History Comment: ARF Cr 1.5 - Liver History Hx Hepatic Disorders: Yes Hepatic History Comment: primary sclerosising cholangitis with CIRRHOSIS. PREV ETOH ABUSE - NONE IN 29 YRS - Neurological & Psychiatric Hx Hx Neurological and Psychiatric Disorders: No - Cancer History Hx Cancer: Yes Cancer History Comment: THYROID - Congenital Disorder History Hx Congenital Disorders: No - GI History GERD: no Hx Gastrointestinal Disorders: Yes Gastrointestinal History Comment: CHRONS DISEASE - CONTROLLED. ESOPHAGEAL VARICES - Other Health History Other Health History: NEG - Chronic Pain History Chronic Pain: No - Surgical History Prior Surgeries: APPY. THYROID. VASECTOMY ANE Review of Systems Review of systems is: negative Review of Systems: ANE Patient History - Allergies Allergies/Adverse Reactions: No Known Allergies Allergy (Verified 08/31/18 19:48) - Home Medications Home medications: home medication list seen and reviewed Home Medications: azaTHIOprine [Imuran 50 mg (*)] 100 mg PO DAILY 01/27/18 [Last Taken 08/31/18] Levothyroxine [Synthroid 175 mcg (*)] 175 mcg PO DAILY06 06/07/18 [Last Taken ] Pantoprazole Sodium [Protonix 40mg (*)] 40 mg PO DAILY 06/07/18 [Last Taken ] Propranolol HCl [Inderal 20mg (*)] 20 mg PO BID 06/07/18 [Last Taken 08/31/18 08 :00] amLODIPine BESYLATE [Amlodipine Besylate] 5 mg PO DAILY 08/31/18 [Last Taken ] - NPO status NPO Status: no food or drink >8 hours NPO Since - Liquids (Date): 09/03/18 NPO Since - Liquids (Time): 15:00 NPO Since - Solids (Date): 08/31/18 NPO Since - Solids (Time): 15:00 - Anes Hx Anes Hx: no prior problems - Smoking Hx Smoking Status: Never smoked - Alcohol Use Alcohol Use: None - Family Anes Hx Family Anes Hx: none Family Hx Anesthesia Complications: NEG ANE Labs/Vital Signs - Labs Result Diagrams: 09/03/18 15:05 09/03/18 04:50 - Vital Signs Blood Pressure: 97/69 Heart Rate: 65 Respiratory Rate: 16 O2 Sat (%): 98 Height: 177.8 cm Weight: 109.6 kg ANE Physical Exam - Airway Neck exam: FROM Mallampati Score: Class 2 Mouth exam: normal dental/mouth exam - Pulmonary Pulmonary: no respiratory distress, clear to auscultation - Cardiovascular Cardiovascular: regular rate and rhythym, no murmur, rub, or gallop - ASA Status ASA Status: IV, E ANE Anesthesia Plan Anesthesia Plan: general endotracheal anesthesia
[2018-09-03] MEDS ORDERED: LIDOCAINE 2% 2 ML INJ ONE ×2 (16:08→16:09)
[2018-09-03] MEDS ORDERED: PROPOFOL 200 MG/20 ML VIAL ONE (16:08)
[2018-09-03] MEDS ORDERED: LR 1,000 ML IV ONE (16:47)
[2018-09-03] MEDS ORDERED: SUCCINYLCHOLINE CHLORIDE 200 MG/10 ML SYR IVP ONE (17:01)
[2018-09-03] MEDS ORDERED: PHENYLEPHRINE HCL 100 MCG/ML SYR ONE (17:01)
--- NOTE | 2018-09-03 17:35 | GIREPORT ---
[facility] - Endoscopy Department Patient Name: Cullen Rojas Procedure Date: 09/03/2018 4:58 PM Patient Type: Inpatient Attending MD/ ER Physician: William Mercedes MD Procedure: Upper GI endoscopy Indications: Active gastrointestinal bleeding, For therapy of esophageal varices Providers: William Mercedes MD Medicines: General Anesthesia Complications: No immediate complications. Description of Procedure: After obtaining informed consent, the endoscope was passed under direct vision. Throughout the procedure, the patient's blood pressure, pulse, and oxygen saturations were monitored continuously. The Endoscope was intro duced through the mouth, and advanced to the fundus of the stomach. The upper GI endoscopy was accomplished without difficulty. The patient tolerated th e procedure well. Findings: Two columns of spurting grade II varices were found in the lower third of the esophagus,. They were 6 mm in largest diameter. Stigmata of recent bleeding were evident and no red jeri signs were present. The varices appeared smaller than they were at prior exam. Four bands were successf ully placed with complete eradication, resulting in deflation of varices. Bleeding had stopped at the end of the procedure. The cardia and gastric fundus were normal. Estimated Blood Loss: Estimated blood loss: none. Post Op Diagnosis: - Bleeding grade II esophageal varices. Completely eradicated. Banded. - Normal cardia and gastric fundus. - No specimens collected. Recommendation: - Return patient to [facility] for [facility] care. - Clear liquid diet today. - Continue present medications. - Check hemogram with white blood cell count and platelets and NH3 in morning. - The findings and recommendations were discussed with the patient and their spouse. Attending Participation: I personally performed the entire procedure. William Mercedes MD William Mercedes MD 09/03/2018 5:34:17 PM This report has been signed electronicallyWilliam Mercedes MD Number of Addenda: 0 Note Initiated On: 09/03/2018 4:58 PM [email or web address]
[2018-09-03] MEDS ORDERED: NALOXONE HCL 0.4 MG/ML INJ IVP PRN (17:39)
[2018-09-04] MEDS: PANTOPRAZOLE SODIUM 40 MG VIAL IVP SCH ×4 (00:56→18:40)
[2018-09-04] MEDS: OCTREOTIDE ACETATE 500 MCG in NS 50 ML IV SCH ×3 (02:24→21:06)
[2018-09-04 03:59] LABS: PLATELET COUNT 121 10^3/uL (150-400)
[2018-09-04] MEDS: LEVOTHYROXINE 175 MCG TAB PO SCH (05:59)
--- NOTE | 2018-09-04 08:57 | CPEKG ---
Test Reason : Blood Pressure : / mmHG Vent. Rate : 068 BPM Atrial Rate : 068 BPM P-R Int : 192 ms QRS Dur : 116 ms QT Int : 506 ms P-R-T Axes : 007 -22 -04 degrees QTc Int : 539 ms Sinus rhythm Nonspecific intraventricular conduction delay Low voltage, precordial leads Nonspecific T abnormalities, anterior leads Low voltage is new in comparison to prior Confirmed by Tenzin Ma ([id number]) on 09/04/2018 8:56:59 AM Referred By: Brianne Richard Confirmed By:Tenzin Ma
--- NOTE | 2018-09-04 09:52 | HOSPPROG ---
Hospitalist Progress Note Assessment/Plan: Responded to stat team this morning Call was for tachycardia hypotension > 45 mins Critical Care bedside time today So arrived the patient was sleeping but easily arousable. He was in no discomfort not complaining of shortness of breath. The per nurses had noted 1 episode of clots passed per rectum last night. No further bleeding since then There been no fevers. His respirations are relaxed at 18 per minute. On my initial exam this morning his pulse is 100 50s and regular with a narrow complex. Voltages are low and it is not possible to determine whether there are P waves or flutter waves though looking at this EKG a believe that he probably has some retrograde conducted P-waves. His blood pressure 82/50 with a mean pressure of 62. He does have some ankle edema but no other signs of heart failure and is not having any anginal type symptoms. Neither the monitoring and evaluation advisor or 12 lead EKG showed definite signs of ischemia though there are some slight ST abnormalities on the 12 lead EKG. Again voltages very low and drawing conclusions difficult. Hands and feet are warm, mentation is at baseline we wake him up. IV saline bolus was started and after 500 mL there are no change in any other vital signs or his examination. Labs were drawn and his hemoglobin is stable at 8.6 however his creatinine this morning is up to 1.5. Patient was given 6 mg adenosine bolus injection and this did result in a break in the cardiac rhythm leading to a sinus rhythm. I did not see any kind of flutter waves or fibrillations from the atria during the bradycardic. After adenosine. The after converting him to sinus rhythm his blood pressure has improved to his baseline which is mid 90s to 100s over 60s. 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, on chronic Imuran * Acute metabolic encephalopathy, resolved * History of Crohn's disease * History of CAD, hypertension, stable PLANS: * continue monitoring and evaluation advisor * follow closely for any further sign bleeding * check an echocardiogram to make sure that no other cardiac abnormalities * continue octreotide drip and protonix * Continue levothyroxine * await creatinine results, electroytes SUBJECTIVE: has no recollection of yesterday's events no pain or nausea had a BM just now w very small amt of dark clot no nausea or vomiting OBJECTIVE Vitals reviewed: Blood pressure is borderline low, otherwise stable vitals without fever 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, 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: Exam: alert oriented skin warm dry color ok resps not labored lungs clear BSs heart regular abd soft nondistended nontender, bowel sounds present limbs warm, no edema iv site ok Lab data: Hemoglobin stable 8.4 Platelets up to 121k creat pending Objective: Vital Signs Temp Pulse Resp BP Pulse Ox 36.7 C 75 12 117/74 97 09/04/18 03:46 09/04/18 03:46 09/04/18 03:46 09/04/18 03:46 09/04/18 03:46 Laboratory Results 09/04/18 03:52 09/03/18 04:50 09/03/18 09/04/18 09/05/18 06:59 06:59 06:59 Intake Total 400 400 Output Total 1200 Balance 400 -800 PT 16.9 SEC (12.0-15.0) H 09/03/18 15:05 INR 1.44 (0.83-1.16) H 09/03/18 15:05 - Time Spent With Patient Time Spent with Patient: greater than 35 minutes Time Spent with Patient: Greater than 35 minutes spent on this patients care, greater than 50% of time spent counseling, educating, and coordinating care regarding the above mentioned plan. ICD10 Worksheet Patient Problems: Problems Problem Status Onset Upper GI hemorrhage Acute Fever Acute Hyperbilirubinemia Acute Thyroid cancer Acute Weakness Acute
--- NOTE | 2018-09-04 10:28 | CPEKG ---
Test Reason : OPEN Blood Pressure : / mmHG Vent. Rate : 157 BPM Atrial Rate : 000 BPM P-R Int : 000 ms QRS Dur : 088 ms QT Int : 282 ms P-R-T Axes : 000 000 230 degrees QTc Int : 456 ms Supraventricular tachycardia Repolarization abnormality, prob rate related SVT is new in comparison to prior Confirmed by Tenzin Ma ([id number]) on 09/04/2018 10:28:30 AM Referred By: Brianne Richard Confirmed By:Tenzin Ma
--- NOTE | 2018-09-04 10:36 | CPEKG ---
Test Reason : OPEN Blood Pressure : / mmHG Vent. Rate : 079 BPM Atrial Rate : 079 BPM P-R Int : 151 ms QRS Dur : 109 ms QT Int : 462 ms P-R-T Axes : 013 -09 015 degrees QTc Int : 530 ms Sinus rhythm Low voltage, precordial leads Nonspecific T abnormalities, anterior leads Prolonged QT interval sinus rhythm has replaced SVT noted on prior ECG Confirmed by Tenzin Ma ([id number]) on 09/04/2018 10:35:25 AM Referred By: Brianne iRchard Confirmed By:Tenzin Ma
--- NOTE | 2018-09-04 11:53 | ASMTCMCOM ---
CM Note CM Note Notes: Pts case discussed w/ LIAT Gimenez. Therapies are recommending SNF. CM met w/ pt and Corin for dispo planning. CM provided them w/ the senior blue book. Corin wants CM to hold off on making referrals to SNF. Corin wants to see how pt will progress. Corin ideally wants to have pt back home. CM to follow. Plan: TBD Date Signed: 09/04/2018 11:52 AM Electronically Signed By:MAGALYS Patrick
[2018-09-04] MEDS ORDERED: POTASSIUM CL 20 MEQ/15 ML UDCUP PO ONE (15:33)
--- NOTE | 2018-09-04 17:49 | SOAPPROG ---
SOAP Progress Note Assessment/Plan: Assessment: 1. EVB; stable without evidence of active bleeding today after 2nd EV Banding of acutely bleeding EV's last night. 2. PSC with cirrhosis/portal HTN. 3. Ascites; taped. 3. Post hemorrhagic anemia; stable. 4. Mild hepatic encephalopathy secondary to blood in ISAK tract; clearing. Plan: 1. Full liquid diet. 2. Continue octreotide gtt. 3. Continue IV antibiotics. William Mercedes MD [phone] 09/04/18 17:46 Subjective: CC: EVB. Interval HPI: No signs of GI bleed after second EGD with variceal banding. Patient mentally brighter today. Objective: Vital Signs Temp Pulse Resp BP Pulse Ox 37.0 C 68 17 114/73 96 09/04/18 16:13 09/04/18 16:13 09/04/18 16:13 09/04/18 16:13 09/04/18 16:13 Laboratory Results 09/04/18 03:52 09/04/18 03:52 09/03/18 09/04/18 09/05/18 05:59 05:59 05:59 Intake Total 400 400 905 Output Total 1200 Balance 400 -800 905 PT 16.9 SEC (12.0-15.0) H 09/03/18 15:05 INR 1.44 (0.83-1.16) H 09/03/18 15:05 Laboratory Tests 09/04/18 03:52 Ammonia 43.0 H Physical Exam - Physical Exam General Appearance: alert, no apparent distress Respiratory: lungs clear, normal breath sounds Cardiac/Chest: regular rate, rhythm, edema (bilateral pedal) Abdomen: normal bowel sounds, non-tender, soft, distended Neuro/Psych: alert, normal mood/affect, oriented x 3 ICD10 Worksheet Patient Problems: Problems Problem Status Onset Upper GI hemorrhage Acute Fever Acute Hyperbilirubinemia Acute Thyroid cancer Acute Weakness Acute
[2018-09-05] MEDS: PANTOPRAZOLE SODIUM 40 MG VIAL IVP SCH ×4 (00:11→14:27)
[2018-09-05] MEDS: OCTREOTIDE ACETATE 500 MCG in NS 50 ML IV SCH ×2 (05:30→14:45)
[2018-09-05] MEDS: LEVOTHYROXINE 175 MCG TAB PO SCH (05:31)
--- NOTE | 2018-09-05 12:06 | SOAPPROG ---
SOAP Progress Note Assessment/Plan: Assessment: 1. EVB; stable without evidence of active bleeding x 48hrs since last EVB. 2. PSC with cirrhosis/portal HTN. 3. Ascites; taped. 3. Post hemorrhagic anemia; stable. 4. Mild hepatic encephalopathy secondary to blood in ISAK tract; cleared.. Plan: 1. Change to Protonix 40 mg PO BID. 2. Continue octreotide gtt. 3. Continue IV antibiotics. William Mercedes MD [phone] 09/05/18 12:03 Subjective: CC: Brown BM today. Mentally more clear per patient and . Tolerating po diet. Objective: Vital Signs Temp Pulse Resp BP Pulse Ox 36.4 C 86 12 105/77 96 09/05/18 11:08 09/05/18 11:08 09/05/18 11:08 09/05/18 11:08 09/05/18 11:08 Laboratory Results 09/04/18 03:52 09/04/18 03:52 09/04/18 09/05/18 09/06/18 05:59 05:59 05:59 Intake Total 400 2215 Output Total 1200 1000 Balance -800 1215 PT 16.9 SEC (12.0-15.0) H 09/03/18 15:05 INR 1.44 (0.83-1.16) H 09/03/18 15:05 Physical Exam - Physical Exam General Appearance: alert, no apparent distress Respiratory: lungs clear, normal breath sounds Cardiac/Chest: regular rate, rhythm, edema (+1 pedal edema) Abdomen: normal bowel sounds, non-tender, distended Skin: jaundice Neuro/Psych: alert, normal mood/affect, oriented x 3 ICD10 Worksheet Patient Problems: Problems Problem Status Onset Upper GI hemorrhage Acute Fever Acute Hyperbilirubinemia Acute Thyroid cancer Acute Weakness Acute
[2018-09-05] MEDS ORDERED: PANTOPRAZOLE SODIUM 40 MG VIAL IVP ONE (13:00)
--- NOTE | 2018-09-05 15:22 | HOSPPROG ---
Hospitalist Progress Note Assessment/Plan: Responded to stat team this morning Call was for tachycardia hypotension > 45 mins Critical Care bedside time today So arrived the patient was sleeping but easily arousable. He was in no discomfort not complaining of shortness of breath. The per nurses had noted 1 episode of clots passed per rectum last night. No further bleeding since then There been no fevers. His respirations are relaxed at 18 per minute. On my initial exam this morning his pulse is 100 50s and regular with a narrow complex. Voltages are low and it is not possible to determine whether there are P waves or flutter waves though looking at this EKG a believe that he probably has some retrograde conducted P-waves. His blood pressure 82/50 with a mean pressure of 62. He does have some ankle edema but no other signs of heart failure and is not having any anginal type symptoms. Neither the personnel monitor or 12 lead EKG showed definite signs of ischemia though there are some slight ST abnormalities on the 12 lead EKG. Again voltages very low and drawing conclusions difficult. Hands and feet are warm, mentation is at baseline we wake him up. IV saline bolus was started and after 500 mL there are no change in any other vital signs or his examination. Labs were drawn and his hemoglobin is stable at 8.6 however his creatinine this morning is up to 1.5. Patient was given 6 mg adenosine bolus injection and this did result in a break in the cardiac rhythm leading to a sinus rhythm. I did not see any kind of flutter waves or fibrillations from the atria during the bradycardic. After adenosine. The after converting him to sinus rhythm his blood pressure has improved to his baseline which is mid 90s to 100s over 60s. 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, on chronic Imuran * Acute metabolic encephalopathy, resolved * History of Crohn's disease * History of CAD, hypertension, stable PLANS: * continue personnel monitor * follow closely for any further sign bleeding * continue octreotide ip and protonix, antibiotic * Continue levothyroxine * continue to increase activity as able * repeat labs in am * begin planning for probable SNF rehab at [place], if not then home PT OT SUBJECTIVE: Feels stronger today did some walking No pain OBJECTIVE Vitals reviewed: Blood pressure is a bit better fuller stable without fever Field Enumerator, my review: Sinus without recurrence of SVT Exam: alert oriented looks slightly more energetic today skin warm dry remains jaundiced resps not labored lungs clear BSs heart regular abd soft nondistended nontender, bowel sounds present limbs warm, no edema iv site ok Objective: Vital Signs Temp Pulse Resp BP Pulse Ox 36.4 C 86 12 105/77 96 09/05/18 11:08 09/05/18 11:08 09/05/18 11:08 09/05/18 11:08 09/05/18 11:08 Laboratory Results 09/04/18 03:52 09/04/18 03:52 09/04/18 09/05/18 09/06/18 06:59 06:59 06:59 Intake Total 400 2215 Output Total 1200 1000 400 Balance -800 1215 -400 PT 16.9 SEC (12.0-15.0) H 09/03/18 15:05 INR 1.44 (0.83-1.16) H 09/03/18 15:05 - Time Spent With Patient Time Spent with Patient: greater than 35 minutes Time Spent with Patient: Greater than 35 minutes spent on this patients care, greater than 50% of time spent counseling, educating, and coordinating care regarding the above mentioned plan. ICD10 Worksheet Patient Problems: Problems Problem Status Onset Upper GI hemorrhage Acute Fever Acute Hyperbilirubinemia Acute Thyroid cancer Acute Weakness Acute
--- NOTE | 2018-09-05 15:40 | ASMTCMCOM ---
CM Note CM Note Notes: Spoke with OT and pt's in the room. Per MD wants to plan for SNF in the event pt is not well enough to dc home on Saturday or Saturday as planned. Referrals sent to [facility] per 's request. CM to follow. d/c Plan: SNF v HHC. Date Signed: 09/05/2018 03:40 PM Electronically Signed By:Oksana Casillas
[2018-09-05] MEDS: PANTOPRAZOLE SODIUM 40 MG TAB PO SCH (22:12)
[2018-09-06] MEDS: OCTREOTIDE ACETATE 500 MCG in NS 50 ML IV SCH (02:46)
[2018-09-06] MEDS: LEVOTHYROXINE 175 MCG TAB PO SCH (05:35)
--- NOTE | 2018-09-06 08:02 | SOAPPROG ---
SOAP Progress Note Assessment/Plan: Assessment: GIB secondary to esophageal/varices/portal HTN. Patient with cirrhosis underlying PSC, crohns colitis. No signs or symptoms of GI bleeding. Plan: 1. PO PPI, Pantoprazole 40 mg PO BID 2. Can discontinue Octreotide today 3. Diet as tolerated 4. Monitor for signs or symptoms of rebleeding 5. Repeat EGD with banding in 4 weeks 09/06/18 08:05 Subjective: CC: GI bleed portal hypertension. cirrhosis. PSC Patient is s/p banding or esophageal varies. No signs or symptoms of recurrent bleeding. Objective: Vital Signs Temp Pulse Resp BP Pulse Ox 36.2 C 85 19 119/75 95 09/06/18 07:48 09/06/18 07:48 09/06/18 07:48 09/06/18 07:48 09/06/18 07:48 Laboratory Results 09/04/18 03:52 09/04/18 03:52 09/05/18 09/06/18 09/07/18 05:59 05:59 05:59 Intake Total 2215 1520 Output Total 1000 800 Balance 1215 720 PT 16.9 SEC (12.0-15.0) H 09/03/18 15:05 INR 1.44 (0.83-1.16) H 09/03/18 15:05 Generic Name Dose Route Start Last Admin Trade Name Freq PRN Reason Stop Dose Admin Acetaminophen 650 mg 08/31/18 19:38 09/03/18 18:35 Tylenol PO 02/27/19 19:37 650 mg Q4HRS PRN Administration Pain, Mild/Fever, Can Take PO Hydromorphone HCl 0.2 mg 09/02/18 21:36 09/03/18 02:25 Dilaudid IVP 09/12/18 21:35 0.2 mg Q2HRS PRN Administration Severe pain Ceftriaxone Sodium/Dextrose 50 mls @ 100 mls/hr 09/01/18 09:00 09/05/18 09:01 Rocephin 1 Gm (Premix) IV 10/01/18 08:59 50 mls DAILY JAMES Administration Protocol Octreotide Acetate 500 mcg/ 51 mls @ 5 mls/hr 09/01/18 02:00 09/06/18 02:46 Sodium Chloride IV 02/28/19 01:59 51 mls CONT JAMES Administration Levothyroxine Sodium 175 mcg 09/02/18 10:45 09/06/18 05:35 Synthroid PO 03/01/19 10:44 175 mcg DAILY06 JAMES Administration Ondansetron HCl 4 mg 08/31/18 19:38 Zofran Odt PO 02/27/19 19:37 Q4HRS PRN Nausea/Vomiting, Use 1st Pantoprazole Sodium 40 mg 09/05/18 21:00 09/05/18 22:12 Protonix PO 03/04/19 20:59 40 mg BID JAMES Administration Promethazine HCl 6.25 - 12.5 mg 08/31/18 19:38 09/01/18 08:46 Phenergan IVP 02/27/19 19:37 6.25 mg Q6HRS PRN Administration Nausea/Vomiting, Use 2nd Discontinued Medications Generic Name Dose Route Start Last Admin Trade Name Freq PRN Reason Stop Dose Admin Adenosine 6 mg 09/03/18 09:00 09/03/18 09:28 Adenosine IVP 09/03/18 09:01 Not Given ONCE ONE Fentanyl Confirm 08/31/18 23:01 Sublimaze Administered 08/31/18 23:02 Dose 100 mcg .ROUTE .STK-MED ONE Hydromorphone HCl 0.2 - 0.4 mg 08/31/18 19:38 09/01/18 05:32 Dilaudid IVP 09/10/18 19:37 0.2 mg Q4HRS PRN Administration pain, moderate to severe Ceftriaxone Sodium/Dextrose 50 mls @ 100 mls/hr 08/31/18 18:48 08/31/18 19:03 Rocephin 1 Gm (Premix) IV 08/31/18 19:17 50 mls EDNOW ONE Administration Protocol Octreotide Acetate 500 mcg/ 51 mls @ 5 mls/hr 08/31/18 19:00 08/31/18 19:15 Sodium Chloride IV 09/01/18 05:00 51 mls CONT JAMES Administration Sodium Chloride 1,000 mls @ 0 mls/hr 08/31/18 18:49 08/31/18 19:02 Ns IV 08/31/18 18:50 1,000 mls EDNOW ONE Administration Protocol Wide Open Sodium Chloride 1,000 mls @ 75 mls/hr 08/31/18 19:45 09/02/18 06:22 Ns IV 02/27/19 19:44 1,000 mls CONT JAMES Administration Sodium Chloride 500 mls @ 1,500 mls/hr 09/03/18 07:53 09/03/18 08:00 Ns IV 09/03/18 08:12 500 mls ONCE ONE Administration Lactated Ringer's 1,000 mls @ 0 mls/hr 09/03/18 16:47 09/03/18 18:13 Lr IV 09/03/18 16:48 Not Given ONCE ONE Per Protocol Lidocaine HCl Confirm 09/03/18 12:24 Lidocaine Hcl 1% Administered 09/03/18 12:25 Dose 300 mg .ROUTE .STK-MED ONE Lidocaine HCl Confirm 09/03/18 16:08 Lidocaine Hcl 2% Administered 09/03/18 16:09 Dose 2 ml .ROUTE .STK-MED ONE Lidocaine HCl Confirm 09/03/18 16:09 Lidocaine Hcl 2% Administered 09/03/18 16:10 Dose 2 ml .ROUTE .STK-MED ONE Lorazepam 0.5 - 1 mg 08/31/18 19:38 Ativan Injection IVP 02/27/19 19:37 Q8HRS PRN Anxiety, Unable to Take PO Naloxone HCl 0.1 mg 09/03/18 17:39 Narcan IVP 09/03/18 18:39 Q2M PRN PACU Resp Rate <10/min Ondansetron HCl 4 mg 08/31/18 18:51 08/31/18 19:02 Zofran IVP 08/31/18 18:52 4 mg EDNOW ONE Administration Ondansetron HCl 4 mg 08/31/18 19:38 08/31/18 22:18 Zofran IVP 02/27/19 19:37 4 mg Q4HRS PRN Administration Nausea/Vomiting, Can't Take PO Pantoprazole Sodium 80 mg 08/31/18 18:48 08/31/18 19:06 Protonix IVP 08/31/18 18:49 80 mg EDNOW ONE Administration Pantoprazole Sodium 40 mg 09/01/18 00:00 09/05/18 14:27 Protonix IVP 02/28/19 00:00 Not Given Q6HRS JAMES Pantoprazole Sodium 40 mg 09/05/18 13:00 09/05/18 14:19 Protonix IVP 09/05/18 13:01 40 mg ONCE ONE Administration Phenylephrine HCl Confirm 08/31/18 22:53 Neosynephrine Administered 08/31/18 22:54 Dose 1,000 mcg .ROUTE .STK-MED ONE Phenylephrine HCl Confirm 09/03/18 17:01 Neosynephrine Administered 09/03/18 17:02 Dose 1,000 mcg .ROUTE .STK-MED ONE Potassium Chloride 20 meq 09/04/18 15:33 09/04/18 16:32 Potassium Chloride Oral Liquid PO 09/04/18 15:34 20 meq ONCE ONE Administration Propofol Confirm 08/31/18 22:53 Diprivan 10 Mg/Ml (Premix) Administered 08/31/18 22:54 Dose 500 mg IV .STK-MED ONE Propofol Confirm 09/03/18 16:08 Diprivan Administered 09/03/18 16:09 Dose 200 mg .ROUTE .STK-MED ONE Succinylcholine Chloride Confirm 09/03/18 17:01 Quelicin Administered 09/03/18 17:02 Dose 200 mg IVP .STK-MED ONE Physical Exam - Physical Exam General Appearance: alert, no apparent distress Respiratory: normal breath sounds Cardiac/Chest: regular rate, rhythm Abdomen: soft, distended Skin: normal color, warm/dry Neuro/Psych: alert, normal mood/affect, oriented x 3 ICD10 Worksheet Patient Problems: Problems Problem Status Onset Upper GI hemorrhage Acute Fever Acute Hyperbilirubinemia Acute Thyroid cancer Acute Weakness Acute
[2018-09-06] MEDS: PANTOPRAZOLE SODIUM 40 MG TAB PO SCH ×2 (08:43→20:30)
--- NOTE | 2018-09-06 08:53 | HOSPPROG ---
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, on chronic Imuran * Acute metabolic encephalopathy, resolved * History of Crohn's disease * History of CAD, hypertension, stable PLANS: * continue cafeteria monitor * DC octreotide this am, continue protonix, antibiotic * trial of solid foods * follow closely for any further sign bleeding * Continue levothyroxine * continue to increase activity as able * repeat labs in am * begin planning for probable SNF rehab at [place], if not then home PT OT SUBJECTIVE: got better sleep last night though says still only 3 hours urine is lightening in color tolerating clear liquids well OBJECTIVE Vitals reviewed: one low BP yest tiana, otherwise stable without fever Instrumentation Instructor, my review: Sinus without recurrence of SVT Exam: alert oriented looks slightly more energetic today skin warm dry remains jaundiced though a bit less so today resps not labored lungs clear BSs heart regular abd soft nondistended nontender, bowel sounds present limbs warm, no edema iv site ok Objective: Vital Signs Temp Pulse Resp BP Pulse Ox 36.2 C 85 19 119/75 95 09/06/18 07:48 09/06/18 07:48 09/06/18 07:48 09/06/18 07:48 09/06/18 07:48 Laboratory Results 09/04/18 03:52 09/04/18 03:52 09/05/18 09/06/18 09/07/18 06:59 06:59 06:59 Intake Total 2215 1520 Output Total 1000 800 Balance 1215 720 PT 16.9 SEC (12.0-15.0) H 09/03/18 15:05 INR 1.44 (0.83-1.16) H 09/03/18 15:05 ICD10 Worksheet Patient Problems: Problems Problem Status Onset Upper GI hemorrhage Acute Fever Acute Hyperbilirubinemia Acute Thyroid cancer Acute Weakness Acute
[2018-09-07] MEDS: LEVOTHYROXINE 175 MCG TAB PO SCH (06:30)
[2018-09-07] MEDS: PANTOPRAZOLE SODIUM 40 MG TAB PO SCH ×2 (08:57→19:57)
[2018-09-07] MEDS ORDERED: SPIRONOLACTONE 50 MG TAB PO SCH (09:15)
[2018-09-07] MEDS ORDERED: ALBUMIN 25% 200 ML IV ONE (09:18)
--- NOTE | 2018-09-07 09:32 | HOSPPROG ---
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, on chronic Imuran -Bilirubin up notably today 16 > 20 * Hypokalemia: needs close follow now as beginning diuresis * Acute kidney injury, improving well * Acute metabolic encephalopathy, resolved * History of Crohn's disease * History of CAD, hypertension, stable PLANS: * continue secured entrance monitor * is off octreotide , continue protonix, * is on rocephin for banding varices - will review timing to stop w Dr Greer as he has had 2 banding procedures * continue solid foods and follow * follow closely for any further sign bleeding * begin diuresis for ascites/edema, will give albumin today as well * K protocol * continue to increase activity as able * repeat labs in am * begin planning for probable SNF rehab at [place], if not then home PT OT SUBJECTIVE: still sleeping only 3 hours tolerating solid food ok so far no pain, still very weak OBJECTIVE Vitals reviewed: overall stable w/o fever [employer] Driver, my review: Sinus without recurrence of SVT Exam: alert oriented looks slightly more energetic today skin warm dry remains jaundiced though a bit less so today resps not labored lungs clear BSs heart regular abd more distended and a bit tense this am, nontender, bowel sounds present limbs warm, notably increased bilateral leg edema today iv site ok Lab Data: Bili up to 20 today K still low BUN and creat improved Hg stable 8.2 Objective: Vital Signs Temp Pulse Resp BP Pulse Ox 36.4 C 90 19 113/86 H 94 09/07/18 07:36 09/07/18 07:36 09/07/18 07:36 09/07/18 07:36 09/07/18 07:36 Laboratory Results 09/07/18 03:25 09/07/18 03:25 09/06/18 09/07/18 09/08/18 06:59 06:59 06:59 Intake Total 1520 350 Output Total 800 375 200 Balance 720 -25 -200 PT 16.9 SEC (12.0-15.0) H 09/03/18 15:05 INR 1.44 (0.83-1.16) H 09/03/18 15:05 - Time Spent With Patient Time Spent with Patient: greater than 35 minutes Time Spent with Patient: Greater than 35 minutes spent on this patients care, greater than 50% of time spent counseling, educating, and coordinating care regarding the above mentioned plan. ICD10 Worksheet Patient Problems: Problems Problem Status Onset Upper GI hemorrhage Acute Fever Acute Hyperbilirubinemia Acute Thyroid cancer Acute Weakness Acute
[2018-09-07] MEDS: SPIRONOLACTONE 25 MG TAB PO SCH (10:26)
[2018-09-07] MEDS: FUROSEMIDE 40 MG TAB PO SCH (10:26)
--- NOTE | 2018-09-07 11:50 | SOAPPROG ---
SOAP Progress Note Assessment/Plan: Assessment: Crohns disease, PSC, Cirrhosis, portal HTN and ascites. No signs of recurrent GIB. s/p esophageal variceal banding. Plan: 1. Continue on PPI, Pantoprazole 40 mg PO BID 2. Low sodium diet. 3. Continue on diuretics. Currently on 40 mg Lasix Daily, Can increase Aldactone to 100 mg daily 4. Continue on antibiotics while in the hospital in setting of ascites and GIB 5. Large volume paracentesis as needed 6. Repeat EGD with banding in 4 weeks 09/07/18 11:52 Subjective: CC: GIB, PSC, Cirrhosis, portal HTN. Esophageal varices s/p banding. Objective: Vital Signs Temp Pulse Resp BP Pulse Ox 36.6 C 82 15 112/66 94 09/07/18 11:41 09/07/18 11:41 09/07/18 11:41 09/07/18 11:41 09/07/18 11:41 Laboratory Results 09/07/18 03:25 09/07/18 03:25 09/06/18 09/07/18 09/08/18 05:59 05:59 05:59 Intake Total 1520 350 Output Total 800 375 200 Balance 720 -25 -200 PT 16.9 SEC (12.0-15.0) H 09/03/18 15:05 INR 1.44 (0.83-1.16) H 09/03/18 15:05 Generic Name Dose Route Start Last Admin Trade Name Freq PRN Reason Stop Dose Admin Acetaminophen 650 mg 08/31/18 19:38 09/03/18 18:35 Tylenol PO 02/27/19 19:37 650 mg Q4HRS PRN Administration Pain, Mild/Fever, Can Take PO Azathioprine 100 mg 09/07/18 11:30 Imuran PO 03/06/19 11:29 DAILY JAMES Furosemide 40 mg 09/07/18 09:15 09/07/18 10:26 Lasix PO 03/06/19 09:14 40 mg DAILY JAMES Administration Ceftriaxone Sodium/Dextrose 50 mls @ 100 mls/hr 09/01/18 09:00 09/07/18 08:57 Rocephin 1 Gm (Premix) IV 10/01/18 08:59 50 mls DAILY JAMES Administration Protocol Levothyroxine Sodium 175 mcg 09/02/18 10:45 09/07/18 06:30 Synthroid PO 03/01/19 10:44 175 mcg DAILY06 JAMES Administration Ondansetron HCl 4 mg 08/31/18 19:38 Zofran Odt PO 02/27/19 19:37 Q4HRS PRN Nausea/Vomiting, Use 1st Pantoprazole Sodium 40 mg 09/05/18 21:00 09/07/18 08:57 Protonix PO 03/04/19 20:59 40 mg BID JAMES Administration Promethazine HCl 6.25 - 12.5 mg 08/31/18 19:38 09/01/18 08:46 Phenergan IVP 02/27/19 19:37 6.25 mg Q6HRS PRN Administration Nausea/Vomiting, Use 2nd Spironolactone 25 mg 09/07/18 09:30 09/07/18 10:26 Aldactone PO 03/06/19 09:29 25 mg DAILY JAMES Administration Discontinued Medications Generic Name Dose Route Start Last Admin Trade Name Freq PRN Reason Stop Dose Admin Adenosine 6 mg 09/03/18 09:00 09/03/18 09:28 Adenosine IVP 09/03/18 09:01 Not Given ONCE ONE Fentanyl Confirm 08/31/18 23:01 Sublimaze Administered 08/31/18 23:02 Dose 100 mcg .ROUTE .STK-MED ONE Hydromorphone HCl 0.2 - 0.4 mg 08/31/18 19:38 09/01/18 05:32 Dilaudid IVP 09/10/18 19:37 0.2 mg Q4HRS PRN Administration pain, moderate to severe Hydromorphone HCl 0.2 mg 09/02/18 21:36 09/03/18 02:25 Dilaudid IVP 09/12/18 21:35 0.2 mg Q2HRS PRN Administration Severe pain Ceftriaxone Sodium/Dextrose 50 mls @ 100 mls/hr 08/31/18 18:48 08/31/18 19:03 Rocephin 1 Gm (Premix) IV 08/31/18 19:17 50 mls EDNOW ONE Administration Protocol Octreotide Acetate 500 mcg/ 51 mls @ 5 mls/hr 08/31/18 19:00 08/31/18 19:15 Sodium Chloride IV 09/01/18 05:00 51 mls CONT JAMES Administration Sodium Chloride 1,000 mls @ 0 mls/hr 08/31/18 18:49 08/31/18 19:02 Ns IV 08/31/18 18:50 1,000 mls EDNOW ONE Administration Protocol Wide Open Sodium Chloride 1,000 mls @ 75 mls/hr 08/31/18 19:45 09/02/18 06:22 Ns IV 02/27/19 19:44 1,000 mls CONT JAMES Administration Octreotide Acetate 500 mcg/ 51 mls @ 5 mls/hr 09/01/18 02:00 09/06/18 02:46 Sodium Chloride IV 02/28/19 01:59 51 mls CONT JAMES Administration Sodium Chloride 500 mls @ 1,500 mls/hr 09/03/18 07:53 09/03/18 08:00 Ns IV 09/03/18 08:12 500 mls ONCE ONE Administration Lactated Ringer's 1,000 mls @ 0 mls/hr 09/03/18 16:47 09/03/18 18:13 Lr IV 09/03/18 16:48 Not Given ONCE ONE Per Protocol Albumin Human 200 mls @ 0 mls/hr 09/07/18 09:18 09/07/18 10:26 Flexbumin 25 % (Premix) IV 09/07/18 09:19 200 mls ONCE ONE Administration As Directed Lidocaine HCl Confirm 09/03/18 12:24 Lidocaine Hcl 1% Administered 09/03/18 12:25 Dose 300 mg .ROUTE .STK-MED ONE Lidocaine HCl Confirm 09/03/18 16:08 Lidocaine Hcl 2% Administered 09/03/18 16:09 Dose 2 ml .ROUTE .STK-MED ONE Lidocaine HCl Confirm 09/03/18 16:09 Lidocaine Hcl 2% Administered 09/03/18 16:10 Dose 2 ml .ROUTE .STK-MED ONE Lorazepam 0.5 - 1 mg 08/31/18 19:38 Ativan Injection IVP 02/27/19 19:37 Q8HRS PRN Anxiety, Unable to Take PO Naloxone HCl 0.1 mg 09/03/18 17:39 Narcan IVP 09/03/18 18:39 Q2M PRN PACU Resp Rate <10/min Ondansetron HCl 4 mg 08/31/18 18:51 08/31/18 19:02 Zofran IVP 08/31/18 18:52 4 mg EDNOW ONE Administration Ondansetron HCl 4 mg 08/31/18 19:38 08/31/18 22:18 Zofran IVP 02/27/19 19:37 4 mg Q4HRS PRN Administration Nausea/Vomiting, Can't Take PO Pantoprazole Sodium 80 mg 08/31/18 18:48 08/31/18 19:06 Protonix IVP 08/31/18 18:49 80 mg EDNOW ONE Administration Pantoprazole Sodium 40 mg 09/01/18 00:00 09/05/18 14:27 Protonix IVP 02/28/19 00:00 Not Given Q6HRS JAMES Pantoprazole Sodium 40 mg 09/05/18 13:00 09/05/18 14:19 Protonix IVP 09/05/18 13:01 40 mg ONCE ONE Administration Phenylephrine HCl Confirm 08/31/18 22:53 Neosynephrine Administered 08/31/18 22:54 Dose 1,000 mcg .ROUTE .STK-MED ONE Phenylephrine HCl Confirm 09/03/18 17:01 Neosynephrine Administered 09/03/18 17:02 Dose 1,000 mcg .ROUTE .STK-MED ONE Potassium Chloride 20 meq 09/04/18 15:33 09/04/18 16:32 Potassium Chloride Oral Liquid PO 09/04/18 15:34 20 meq ONCE ONE Administration Propofol Confirm 08/31/18 22:53 Diprivan 10 Mg/Ml (Premix) Administered 08/31/18 22:54 Dose 500 mg IV .STK-MED ONE Propofol Confirm 09/03/18 16:08 Diprivan Administered 09/03/18 16:09 Dose 200 mg .ROUTE .STK-MED ONE Spironolactone 50 mg 09/07/18 09:15 09/07/18 10:21 Aldactone PO 03/06/19 09:14 Not Given DAILY JAMES Succinylcholine Chloride Confirm 09/03/18 17:01 Quelicin Administered 09/03/18 17:02 Dose 200 mg IVP .STK-MED ONE Physical Exam - Physical Exam General Appearance: alert, no apparent distress Respiratory: lungs clear, normal breath sounds Cardiac/Chest: regular rate, rhythm Abdomen: distended, other (Ascites) Skin: warm/dry Neuro/Psych: alert, normal mood/affect, oriented x 3 ICD10 Worksheet Patient Problems: Problems Problem Status Onset Upper GI hemorrhage Acute Fever Acute Hyperbilirubinemia Acute Thyroid cancer Acute Weakness Acute
[2018-09-07] MEDS: azaTHIOprine 50 MG TAB PO SCH (12:43)
--- NOTE | 2018-09-07 16:10 | ASMTCMCOM ---
CM Note CM Note Notes: Spoke with the patient and his today. Cullen is hoping to go home with home health care vs. [facility]. They wondered if he is doing better, would it be an option and were reassured it would be an option. Patient's did visit [facility] this morning and it remains their first choice if he needs that level of care. CM will follow. Date Signed: 09/07/2018 04:10 PM Electronically Signed By:Tiffany Thrasher LCSW
[2018-09-08] MEDS ORDERED: ADENOSINE 6 MG/2 ML VIAL IVP ONE (05:09)
--- NOTE | 2018-09-08 05:41 | HOSPPROG ---
Hospitalist Progress Note Assessment/Plan: Hospitalist Night Float Note Called by RN. reporting patient with development of SVT 150s. pt feels a little fatigued but otherwise denies chest pain, palpitations, SOB worse from baseline. Pt reports 3rd episode of SVT recently. received 6mg adenosine yesterday with resolution. currently undergoing diuresis. 6mg adenosine given with continuous cardiac monitoring and myself at bedside. Patient responsive and converted to NSR initially sy briefly 10s-30s and subsequently stabilized 90s. Patient reported improvement in his symptoms immediately with improvement of HR to 70. check am labs/electrolytes. replacement prn. cards consult. Objective: Vital Signs Temp Pulse Resp BP Pulse Ox 36.8 C 70 13 111/72 95 09/08/18 04:00 09/08/18 04:00 09/08/18 04:00 09/08/18 04:00 09/08/18 04:00 Laboratory Results 09/07/18 03:25 09/07/18 03:25 09/06/18 09/07/18 09/08/18 05:59 05:59 05:59 Intake Total 1520 350 550 Output Total 609 545 5020 Balance PT 16.9 SEC (12.0-15.0) H 09/03/18 15:05 INR 1.44 (0.83-1.16) H 09/03/18 15:05 ICD10 Worksheet Patient Problems: Problems Problem Status Onset Upper GI hemorrhage Acute Fever Acute Hyperbilirubinemia Acute Thyroid cancer Acute Weakness Acute
[2018-09-08] MEDS: LEVOTHYROXINE 175 MCG TAB PO SCH (06:27)
--- NOTE | 2018-09-08 08:03 | SOAPPROG ---
SOAP Progress Note Assessment/Plan: Assessment: Crohns disease, PSC, Cirrhosis, portal HTN and ascites. Had episode of SVT this morning. Treated with Adenosine. No signs of bleeding. Plan: 1. Pantoprazole 40 mg PO BID 2. Continue low sodium diet. 3. Can use Lasix 40 mg daily and Aldactone 100 mg daily 4. Monitor renal function on diuretics 4. Continue on antibiotics for 7 - 10 days post bleed. Can swithc to oral anitbiotic, Cipro 500 mg po BID 5. s/p large volume paracentesis on 09/03. Repeat large volume paracentesis as needed 6. Repeat EGD with banding in 4 weeks 09/08/18 08:10 Subjective: CC: PSC, Cirrhosis, GIB esophageal varices. Feeling ok, nos signs of bleeding. No abdominal discomfort. Had SVT this am responded to adenosine. Objective: Vital Signs Temp Pulse Resp BP Pulse Ox 36.3 C 94 18 98/65 L 94 09/08/18 07:45 09/08/18 07:45 09/08/18 07:45 09/08/18 07:45 09/08/18 07:45 09/07/18 09/08/18 09/09/18 05:59 05:59 05:59 Intake Total 350 550 Output Total 375 2300 500 Balance -25 -1750 -500 PT 16.9 SEC (12.0-15.0) H 09/03/18 15:05 INR 1.44 (0.83-1.16) H 09/03/18 15:05 Generic Name Dose Route Start Last Admin Trade Name Freq PRN Reason Stop Dose Admin Acetaminophen 650 mg 08/31/18 19:38 09/03/18 18:35 Tylenol PO 02/27/19 19:37 650 mg Q4HRS PRN Administration Pain, Mild/Fever, Can Take PO Azathioprine 100 mg 09/07/18 11:30 09/07/18 12:43 Imuran PO 03/06/19 11:29 100 mg DAILY JAMES Administration Furosemide 40 mg 09/07/18 09:15 09/07/18 10:26 Lasix PO 03/06/19 09:14 40 mg DAILY JAMES Administration Ceftriaxone Sodium/Dextrose 50 mls @ 100 mls/hr 09/01/18 09:00 09/07/18 08:57 Rocephin 1 Gm (Premix) IV 10/01/18 08:59 50 mls DAILY JAMES Administration Protocol Levothyroxine Sodium 175 mcg 09/02/18 10:45 09/08/18 06:27 Synthroid PO 03/01/19 10:44 175 mcg DAILY06 JAMES Administration Ondansetron HCl 4 mg 08/31/18 19:38 Zofran Odt PO 02/27/19 19:37 Q4HRS PRN Nausea/Vomiting, Use 1st Pantoprazole Sodium 40 mg 09/05/18 21:00 09/07/18 19:57 Protonix PO 03/04/19 20:59 40 mg BID JAMES Administration Promethazine HCl 6.25 - 12.5 mg 08/31/18 19:38 09/01/18 08:46 Phenergan IVP 02/27/19 19:37 6.25 mg Q6HRS PRN Administration Nausea/Vomiting, Use 2nd Spironolactone 25 mg 09/07/18 09:30 09/07/18 10:26 Aldactone PO 03/06/19 09:29 25 mg DAILY JAMES Administration Discontinued Medications Generic Name Dose Route Start Last Admin Trade Name Freq PRN Reason Stop Dose Admin Adenosine 6 mg 09/03/18 09:00 09/03/18 09:28 Adenosine IVP 09/03/18 09:01 Not Given ONCE ONE Adenosine 6 mg 09/08/18 05:09 09/08/18 05:26 Adenosine IVP 09/08/18 05:10 6 mg ONCE ONE Administration Fentanyl Confirm 08/31/18 23:01 Sublimaze Administered 08/31/18 23:02 Dose 100 mcg .ROUTE .STK-MED ONE Hydromorphone HCl 0.2 - 0.4 mg 08/31/18 19:38 09/01/18 05:32 Dilaudid IVP 09/10/18 19:37 0.2 mg Q4HRS PRN Administration pain, moderate to severe Hydromorphone HCl 0.2 mg 09/02/18 21:36 09/03/18 02:25 Dilaudid IVP 09/12/18 21:35 0.2 mg Q2HRS PRN Administration Severe pain Ceftriaxone Sodium/Dextrose 50 mls @ 100 mls/hr 08/31/18 18:48 08/31/18 19:03 Rocephin 1 Gm (Premix) IV 08/31/18 19:17 50 mls EDNOW ONE Administration Protocol Octreotide Acetate 500 mcg/ 51 mls @ 5 mls/hr 08/31/18 19:00 08/31/18 19:15 Sodium Chloride IV 09/01/18 05:00 51 mls CONT JAMES Administration Sodium Chloride 1,000 mls @ 0 mls/hr 08/31/18 18:49 08/31/18 19:02 Ns IV 08/31/18 18:50 1,000 mls EDNOW ONE Administration Protocol Wide Open Sodium Chloride 1,000 mls @ 75 mls/hr 08/31/18 19:45 09/02/18 06:22 Ns IV 02/27/19 19:44 1,000 mls CONT JAMES Administration Octreotide Acetate 500 mcg/ 51 mls @ 5 mls/hr 09/01/18 02:00 09/06/18 02:46 Sodium Chloride IV 02/28/19 01:59 51 mls CONT JAMES Administration Sodium Chloride 500 mls @ 1,500 mls/hr 09/03/18 07:53 09/03/18 08:00 Ns IV 09/03/18 08:12 500 mls ONCE ONE Administration Lactated Ringer's 1,000 mls @ 0 mls/hr 09/03/18 16:47 09/03/18 18:13 Lr IV 09/03/18 16:48 Not Given ONCE ONE Per Protocol Albumin Human 200 mls @ 0 mls/hr 09/07/18 09:18 09/07/18 10:26 Flexbumin 25 % (Premix) IV 09/07/18 09:19 200 mls ONCE ONE Administration As Directed Lidocaine HCl Confirm 09/03/18 12:24 Lidocaine Hcl 1% Administered 09/03/18 12:25 Dose 300 mg .ROUTE .STK-MED ONE Lidocaine HCl Confirm 09/03/18 16:08 Lidocaine Hcl 2% Administered 09/03/18 16:09 Dose 2 ml .ROUTE .STK-MED ONE Lidocaine HCl Confirm 09/03/18 16:09 Lidocaine Hcl 2% Administered 09/03/18 16:10 Dose 2 ml .ROUTE .STK-MED ONE Lorazepam 0.5 - 1 mg 08/31/18 19:38 Ativan Injection IVP 02/27/19 19:37 Q8HRS PRN Anxiety, Unable to Take PO Naloxone HCl 0.1 mg 09/03/18 17:39 Narcan IVP 09/03/18 18:39 Q2M PRN PACU Resp Rate <10/min Ondansetron HCl 4 mg 08/31/18 18:51 08/31/18 19:02 Zofran IVP 08/31/18 18:52 4 mg EDNOW ONE Administration Ondansetron HCl 4 mg 08/31/18 19:38 08/31/18 22:18 Zofran IVP 02/27/19 19:37 4 mg Q4HRS PRN Administration Nausea/Vomiting, Can't Take PO Pantoprazole Sodium 80 mg 08/31/18 18:48 08/31/18 19:06 Protonix IVP 08/31/18 18:49 80 mg EDNOW ONE Administration Pantoprazole Sodium 40 mg 09/01/18 00:00 09/05/18 14:27 Protonix IVP 02/28/19 00:00 Not Given Q6HRS JAMES Pantoprazole Sodium 40 mg 09/05/18 13:00 09/05/18 14:19 Protonix IVP 09/05/18 13:01 40 mg ONCE ONE Administration Phenylephrine HCl Confirm 08/31/18 22:53 Neosynephrine Administered 08/31/18 22:54 Dose 1,000 mcg .ROUTE .STK-MED ONE Phenylephrine HCl Confirm 09/03/18 17:01 Neosynephrine Administered 09/03/18 17:02 Dose 1,000 mcg .ROUTE .STK-MED ONE Potassium Chloride 20 meq 09/04/18 15:33 09/04/18 16:32 Potassium Chloride Oral Liquid PO 09/04/18 15:34 20 meq ONCE ONE Administration Propofol Confirm 08/31/18 22:53 Diprivan 10 Mg/Ml (Premix) Administered 08/31/18 22:54 Dose 500 mg IV .STK-MED ONE Propofol Confirm 09/03/18 16:08 Diprivan Administered 09/03/18 16:09 Dose 200 mg .ROUTE .STK-MED ONE Spironolactone 50 mg 09/07/18 09:15 09/07/18 10:21 Aldactone PO 03/06/19 09:14 Not Given DAILY JAMES Succinylcholine Chloride Confirm 09/03/18 17:01 Quelicin Administered 09/03/18 17:02 Dose 200 mg IVP .STK-MED ONE Physical Exam - Physical Exam General Appearance: alert Respiratory: lungs clear Cardiac/Chest: regular rate, rhythm Abdomen: normal bowel sounds, non-tender, soft, distended Skin: jaundice Neuro/Psych: no motor/sensory deficits, alert, normal mood/affect ICD10 Worksheet Patient Problems: Problems Problem Status Onset Upper GI hemorrhage Acute Fever Acute Hyperbilirubinemia Acute Thyroid cancer Acute Weakness Acute
[2018-09-08] MEDS: FUROSEMIDE 40 MG TAB PO SCH (08:31)
[2018-09-08] MEDS: azaTHIOprine 50 MG TAB PO SCH (08:31)
[2018-09-08] MEDS: SPIRONOLACTONE 25 MG TAB PO SCH (08:31)
[2018-09-08] MEDS: PANTOPRAZOLE SODIUM 40 MG TAB PO SCH ×2 (08:31→20:28)
--- NOTE | 2018-09-08 09:30 | HOSPPROG ---
Hospitalist Progress Note Assessment/Plan: #Acute GIB: due to known varices. s/p banding 09/01 & 09/03 -s/p Octreotide. Cont PPI #ABLA: due to above. 2 units blood 09/01 #PSC with decompensated cirrhosis: followed by Hepatology at [facility] [place] -3.3L paracentesis 09/03 -increase diuretics to Lasix 40mg , Aldactone 100mg #Acute metabolic encephalopathy: resolved #BIN: resolved h/o Crohn's: Imuran #h/o CAD #HTN: hold BP with ABLA #Recurrent SVT: 09/03, 09/08. Responded to Adenosine. Dr. Ma evaluated will have EP consult #Hypokalemia: repleting #Diet: regular #DVT ppx: SCDs Inpatient admission for telemetry, diuresis. bedside and questions answered. Subjective: chest discomfort this morning with adenosine. None now Objective: Vital Signs Temp Pulse Resp BP Pulse Ox 36.3 C 94 18 98/65 L 94 09/08/18 07:45 09/08/18 07:45 09/08/18 07:45 09/08/18 07:45 09/08/18 07:45 Laboratory Results 09/08/18 07:04 09/08/18 07:04 09/07/18 09/08/18 09/09/18 05:59 05:59 05:59 Intake Total 350 550 Output Total 375 2300 500 Balance -25 -1750 -500 PT 16.9 SEC (12.0-15.0) H 09/03/18 15:05 INR 1.44 (0.83-1.16) H 09/03/18 15:05 - Time Spent With Patient Time Spent with Patient: greater than 35 minutes Time Spent with Patient: Greater than 35 minutes spent on this patients care, greater than 50% of time spent counseling, educating, and coordinating care regarding the above mentioned plan. - Physical Exam Constitutional: no apparent distress, chronically ill appearing Eyes: icteric sclera Ears, Nose, Mouth, Throat: moist mucous membranes Cardiovascular: regular rate and rhythym, edema Respiratory: no respiratory distress Gastrointestinal: normoactive bowel sounds, distension Genitourinary: no bladder fullness Skin: warm, other (jaundice) Musculoskeletal: generalized weakness Neurologic: CN II-XII Intact Psychiatric: interacting appropriately ICD10 Worksheet Patient Problems: Problems Problem Status Onset Upper GI hemorrhage Acute Fever Acute Hyperbilirubinemia Acute Thyroid cancer Acute Weakness Acute
[2018-09-08] MEDS ORDERED: POTASSIUM CL 20 MEQ TAB PO ONE (11:15)
--- NOTE | 2018-09-08 14:39 | PDCARCONS ---
Cardiology Consult Reason for Consult: Episodes of SVT Chief Complaint: Admission for vomiting up blood Requesting Physician: Hospitalist Team History of Present Illness: Patient is a 73 y/o male with history of PSC (primary sclerosing cholangitis) with cirrhosis, esophageal varices s/p banding in past as well as recently (09/01 and 09/03/18), portal HTN, and Crohn's Disease, who presented to [facility] with complaints of hematemasis on 08-31-18. Patient was admitted and GI consultation was rendered with aforementioned esophageal banding performed. Given the anemia appreciated, PRBC with two units of 09/01/18. Patient had been seen by [facility] for liver transplant work up, but deemed not a candidate. Over hospital stay, several bouts of pSVT have been noted - all of which reportedly required Adenosine to break the arrhythmia. In speaking with the patient and today, there is a remote history of SVT noted, but events have been quite rare and not of particularly long duration (from what patient described). No active cardiovascular complaints of chest pains or pressure. No PND or orthopnea. Patient with jaundice appearance, and severe abdominal distention noted. Patient does not, and has not been seen by cardiology in the past. Remainder of the 12 point review of systems was unremarkable. History Information - Allergies/Home Medication List Allergies/Adverse Reactions: No Known Allergies Allergy (Verified 08/31/18 19:48) Home Medications: azaTHIOprine [Imuran 50 mg (*)] 100 mg PO DAILY 01/27/18 [Last Taken 08/31/18] Levothyroxine [Synthroid 175 mcg (*)] 175 mcg PO DAILY06 06/07/18 [Last Taken ] Pantoprazole Sodium [Protonix 40mg (*)] 40 mg PO DAILY 06/07/18 [Last Taken ] Propranolol HCl [Inderal 20mg (*)] 20 mg PO BID 06/07/18 [Last Taken 08/31/18 08 :00] amLODIPine BESYLATE [Amlodipine Besylate] 5 mg PO DAILY 08/31/18 [Last Taken ] I have personally reviewed and updated: family history, medical history, social history, surgical history Past Medical History: - Past Medical History Crohn's Disease Additional medical history: Primary Sclerosing Cholangitis with cirrhosis and portal hypertension - Surgical History Additional surgical history: esophageal varicies with numerous banding procedures. bile duct stenting. - Family History Positive for: non-pertinent - Social History Smoking Status: Never smoked Alcohol Use: Sober (patient with history of "alcoholism" many years prior - sober for >30 years) Drug Use: None ( lives with his ) Cardiac History - Cardiac History Cardiac Risk Factors: age > 65, male Timing/Duration: Days Severity: moderate Severity Scale: 8 Activities at Onset: none Modifying Factors: improves with: other (variceal banding) Associated Symptoms: loss of appetite, nausea/vomiting, weakness Physical Exam Physical Exam: Temp Pulse Resp BP Pulse Ox 36.3 C 83 21 H 96/73 L 94 09/08/18 12:48 09/08/18 12:48 09/08/18 12:48 09/08/18 12:48 09/08/18 12:48 O2 (L/minute) 6 Constitutional: no apparent distress, not in pain, chronically ill appearing Eyes: PERRL, EOMI, icteric sclera Ears, Nose, Mouth, Throat: moist mucous membranes, hearing normal, ears appear normal Cardiovascular: regular rate and rhythym, no murmur, rub, or gallop, JVD Peripheral Pulses: 2+: dorsalis-pedis (R), dorsalis-pedis (L) Respiratory: no respiratory distress, no rales or rhonchi, clear to auscultation Gastrointestinal: ascites, distension Skin: other (jaundiced) Musculoskeletal: full muscle strength Neurologic: AAOx3, CN II-XII Intact Psychiatric: interacting appropriately, encephalopathic Lab and Imaging 09/08/18 07:04 09/08/18 07:04 WBC 5.19 10^3/uL (3.80-9.50) 09/04/18 03:52 RBC 2.45 10^6/uL (4.40-6.38) L 09/04/18 03:52 Hgb 9.6 g/dL (13.7-17.5) L 09/08/18 07:04 POC Hgb 8.5 gm/dL (13.7-17.5) L 08/31/18 18:57 Hct 28.3 % (40.0-51.0) L 09/08/18 07:04 POC Hct 25 % (40-51) L 08/31/18 18:57 MCV 104.1 fL (81.5-99.8) H 09/04/18 03:52 MCH 35.5 pg (27.9-34.1) H 09/04/18 03:52 MCHC 34.1 g/dL (32.4-36.7) 09/04/18 03:52 RDW 21.8 % (11.5-15.2) H 09/04/18 03:52 Plt Count 121 10^3/uL (150-400) L 09/04/18 03:52 MPV 9.9 fL (8.7-11.7) 09/04/18 03:52 Neut % (Auto) 66.0 % (39.3-74.2) 09/04/18 03:52 Lymph % (Auto) 21.2 % (15.0-45.0) 09/04/18 03:52 [place] % (Auto) 5.6 % (4.5-13.0) 09/04/18 03:52 Eos % (Auto) 5.2 % (0.6-7.6) 09/04/18 03:52 Baso % (Auto) 1.2 % (0.3-1.7) 09/04/18 03:52 Nucleat RBC Rel Count 0.8 % (0.0-0.2) H 09/04/18 03:52 Absolute Neuts (auto) 3.43 10^3/uL (1.70-6.50) 09/04/18 03:52 Absolute Lymphs (auto) 1.10 10^3/uL (1.00-3.00) 09/04/18 03:52 Absolute Monos (auto) 0.29 10^3/uL (0.30-0.80) L 09/04/18 03:52 Absolute Eos (auto) 0.27 10^3/uL (0.03-0.40) 09/04/18 03:52 Absolute Basos (auto) 0.06 10^3/uL (0.02-0.10) 09/04/18 03:52 Absolute Nucleated RBC 0.04 10^3/uL (0-0.01) H 09/04/18 03:52 Immature Gran % 0.8 % (0.0-1.1) 09/04/18 03:52 Immature Gran # 0.04 10^3/uL (0.00-0.10) 09/04/18 03:52 Platelet Estimate DECREASED (ADEQ) L 09/04/18 03:52 Polychromasia 1+ H 09/04/18 03:52 Hypochromasia 1+ H 09/04/18 03:52 Tear Drop Cells 1+ H 09/04/18 03:52 Oval Macrocytes 2+ H 09/04/18 03:52 Keratocytes 1+ H 09/04/18 03:52 Schistocytes 1+ H 09/04/18 03:52 PT 16.9 SEC (12.0-15.0) H 09/03/18 15:05 INR 1.44 (0.83-1.16) H 09/03/18 15:05 APTT 41.2 SEC (23.0-38.0) H 09/03/18 04:50 VBG Lactic Acid 2.4 mmol/L (0.7-2.1) H 08/31/18 20:00 POC Sodium 146 mEq/L (135-145) H 08/31/18 18:57 Sodium 140 mEq/L (135-145) 09/08/18 07:04 POC Potassium 3.8 mEq/L (3.3-5.0) 08/31/18 18:57 Potassium 3.1 mEq/L (3.5-5.2) L 09/08/18 07:04 POC Chloride 115 mEq/L (97-110) H 08/31/18 18:57 Chloride 108 mEq/L (97-110) 09/08/18 07:04 Carbon Dioxide 22 mEq/l (22-31) 09/08/18 07:04 POC Total CO2 17 mEq/L (22-31) L 08/31/18 18:57 Anion Gap 10 mEq/L (6-14) 09/08/18 07:04 POC BUN 24 mg/dL (7-23) H 08/31/18 18:57 BUN 16 mg/dL (7-23) 09/08/18 07:04 Creatinine 1.2 mg/dL (0.7-1.3) 09/08/18 07:04 POC Creatinine 1.3 mg/dL (0.7-1.3) 08/31/18 18:57 Estimated GFR 60 09/08/18 07:04 Glucose 99 mg/dL (70-100) 09/08/18 07:04 POC Glucose 135 mg/dL (70-100) H 08/31/18 18:57 Calcium 7.8 mg/dL (8.5-10.4) L 09/08/18 07:04 Phosphorus 4.6 mg/dL (2.5-4.5) H 09/01/18 05:35 Magnesium 1.9 mg/dL (1.6-2.3) 09/08/18 07:04 Total Bilirubin 26.0 mg/dL (0.1-1.4) H 09/08/18 07:04 Conjugated Bilirubin 23.0 mg/dL (0.0-0.5) H 09/08/18 07:04 Unconjugated Bilirubin 3.0 mg/dL (0.0-1.1) H 09/08/18 07:04 Icterus Index > 25 09/08/18 07:04 AST 170 IU/L (17-59) H 09/08/18 07:04 ALT 66 IU/L (21-72) 09/08/18 07:04 Alkaline Phosphatase 718 IU/L (38-126) H 09/08/18 07:04 Ammonia 43.0 uMOL/L (9.0-30.0) H 09/04/18 03:52 Total Protein 5.7 g/dL (6.3-8.2) L 09/08/18 07:04 Albumin 2.6 g/dL (3.5-5.0) L 09/08/18 07:04 Patient ABO/Rh O POSITIVE 08/31/18 18:52 Antibody Screen NEGATIVE 08/31/18 18:52 Crossmatch IS Only See Detail 08/31/18 18:52 EKG Interpretation: Positive for: normal sinsus rhythm, NS ST wave abnormalities Telemetry: Sinus rhythm A/P Assessment: Patient is a 73 y/o male with history of cirrhosis and PSC with close outpatient GI following (from [facility]). Patient had been seen by GI at for possible liver transplant, but comorbidities led to ineligibility for the patient. Admission to [facility] with hematemasis, and further esophageal banding was performed with this hospitalization. While in house, there have been two bouts of SVT noted, with one episode prior to this admission to [facility]. Remote history, according to the patient of SVT, but the frequency of the arrhythmia has not been bothersome to the patient. Both events noted in house have required Adenosine for conversion, and both are notably symptomatic for the patient. Plan: Would arrange for patient to be seen in consultation by EP for discussion about options, specifically ablation. I did speak with EP PA today, and attempt to see patient today is in motion, but EP clinic was relatively robust this afternoon. Patient likely not to be discharged today, and worst case scenario, patient to be seen tomorrow by the EP team for further discussion on treatment options.
--- NOTE | 2018-09-09 05:53 | CPEKG ---
Test Reason : OPEN Blood Pressure : / mmHG Vent. Rate : 155 BPM Atrial Rate : 156 BPM P-R Int : 236 ms QRS Dur : 099 ms QT Int : 288 ms P-R-T Axes : -35 -14 208 degrees QTc Int : 463 ms Atrial fibrillation Low voltage, precordial leads ST depression diffusely Confirmed by Aldo Barber ([id number]) on 09/09/2018 5:53:27 AM Referred By: Brianne Richard Confirmed By:Aldo Barber
--- NOTE | 2018-09-09 05:54 | CPEKG ---
Test Reason : OPEN Blood Pressure : / mmHG Vent. Rate : 086 BPM Atrial Rate : 086 BPM P-R Int : 161 ms QRS Dur : 114 ms QT Int : 444 ms P-R-T Axes : 016 -07 032 degrees QTc Int : 531 ms Sinus rhythm Low voltage, precordial leads Borderline T abnormalities, anterior leads Prolonged QT interval Confirmed by Aldo Barber ([id number]) on 09/09/2018 5:53:57 AM Referred By: Brianne Richard Confirmed By:Aldo Barber
[2018-09-09] MEDS: LEVOTHYROXINE 175 MCG TAB PO SCH (06:50)
[2018-09-09] MEDS: PANTOPRAZOLE SODIUM 40 MG TAB PO SCH ×2 (08:23→21:16)
[2018-09-09] MEDS: FUROSEMIDE 40 MG TAB PO SCH (08:23)
[2018-09-09] MEDS: azaTHIOprine 50 MG TAB PO SCH (08:24)
[2018-09-09] MEDS ORDERED: POTASSIUM CL 20 MEQ TAB PO ONE (08:37)
--- NOTE | 2018-09-09 08:38 | HOSPPROG ---
Hospitalist Progress Note Assessment/Plan: #Acute GIB: due to known varices. s/p banding 09/01 & 09/03 -s/p Octreotide. Cont PPI #Recurrent SVT: 09/03, 09/08. Responded to Adenosine. Dr. Ma evaluated will have EP consult -TSH <0.015. h/o thyroidectomy. Will d/w Dr. Guzman how much suppression desired -Atenolol added. Ablation would be risky with esophageal varices #ABLA: due to above. 2 units blood 09/01. H/H remains stable #PSC with decompensated cirrhosis: followed by Hepatology at [facility] -3.3L paracentesis 09/03 -change to IV Lasix for more aggressive diuresis, follow BMP #Acute metabolic encephalopathy: resolved #BIN: resolved h/o Crohn's: Imuran #h/o CAD #HTN: hold BP with ABLA #Hypokalemia: from diuresis, repleting #Diet: regular #DVT ppx: SCDs Inpatient admission for telemetry, diuresis. bedside and questions answered. Subjective: legs more swollen today Objective: Vital Signs Temp Pulse Resp BP Pulse Ox 36.7 C 86 20 108/71 92 09/09/18 08:00 09/09/18 08:00 09/09/18 08:00 09/09/18 08:00 09/09/18 08:00 Laboratory Results 09/09/18 03:25 09/09/18 03:25 09/08/18 09/09/18 09/10/18 05:59 05:59 05:59 Intake Total 550 1425 400 Output Total 2300 2075 Balance -1750 -650 400 PT 16.9 SEC (12.0-15.0) H 09/03/18 15:05 INR 1.44 (0.83-1.16) H 09/03/18 15:05 - Time Spent With Patient Time Spent with Patient: greater than 35 minutes Time Spent with Patient: Greater than 35 minutes spent on this patients care, greater than 50% of time spent counseling, educating, and coordinating care regarding the above mentioned plan. - Physical Exam Constitutional: no apparent distress, other Eyes: icteric sclera Ears, Nose, Mouth, Throat: moist mucous membranes Cardiovascular: regular rate and rhythym, edema (+2-3 LE edema) Gastrointestinal: normoactive bowel sounds, distension, No tenderness Genitourinary: No núñez in urethra Skin: warm, other (jaundiced) Musculoskeletal: full muscle strength Neurologic: AAOx3, CN II-XII Intact Psychiatric: interacting appropriately ICD10 Worksheet Patient Problems: Problems Problem Status Onset Upper GI hemorrhage Acute Fever Acute Hyperbilirubinemia Acute Thyroid cancer Acute Weakness Acute
[2018-09-09] MEDS ORDERED: SPIRONOLACTONE 25 MG TAB PO SCH (09:00)
[2018-09-09] MEDS ORDERED: SPIRONOLACTONE 50 MG TAB PO SCH (09:00)
[2018-09-09] MEDS ORDERED: ATENOLOL 25 MG TAB PO ONE (11:54)
--- NOTE | 2018-09-09 13:30 | PDCARPN ---
Cardiology Progress Note Chief Complaint: No cardiovascular complaints today. EP met with the patient yesterday Assessment/Plan: Assessment: 09-09-18 Patient with good discussion with EP yesterday (formal consult to be generated) . Patient without cardiovascular complaints today. No chest pains. No further bouts of SVT have been noted. Ongoing work with GI for management of PSC and esophageal varices. 09-08-18 Patient is a 73 y/o male with history of PSC (primary sclerosing cholangitis) with cirrhosis, esophageal varices s/p banding in past as well as recently (09/01 and 09/03/18), portal HTN, and Crohn's Disease, who presented to [facility] with complaints of hematemasis on 08-31-18. Patient was admitted and GI consultation was rendered with aforementioned esophageal banding performed. Given the anemia appreciated, PRBC with two units of 09/01/18. Patient had been seen by [facility] for liver transplant work up, but deemed not a candidate. Over hospital stay, several bouts of pSVT have been noted - all of which reportedly required Adenosine to break the arrhythmia. In speaking with the patient and today, there is a remote history of SVT noted, but events have been quite rare and not of particularly long duration (from what patient described). No active cardiovascular complaints of chest pains or pressure. No PND or orthopnea. Patient with jaundice appearance, and severe abdominal distention noted. Patient does not, and has not been seen by cardiology in the past. Remainder of the 12 point review of systems was unremarkable. Plan: (1) EP discussion was very helpful for the patient (2) Would continue outpatient management with GI (3) Further recommendations with EP consult report Subjective: No complaints Reviewed/Discussed With: family Objective: Vital Signs (8 Hrs) Temp Pulse Resp BP Pulse Ox 09/09/18 12:25 36.4 C 95 16 105/74 95 09/09/18 12:22 98 105/74 09/09/18 08:00 36.7 C 86 20 108/71 92 Intake/Output (24 Hrs) 09/08/18 09/09/18 09/10/18 05:59 05:59 05:59 Intake Total 550 1425 1020 Output Total 2300 2075 375 Balance -1750 -650 645 Intake: Oral (ml) 550 1425 1020 Output: Urine (ml) 2300 2075 375 Bedside Commode 200 200 Toilet 1200 1425 175 Urinal 900 650 Other: Weight 104.8 kg Number of Voids Bedside Commode 2 Number of Stools Bedside Commode 1 Toilet 1 1 Result Diagrams: 09/09/18 03:25 09/09/18 03:25 Telemetry: sinus rhythm - Physical Exam Constitutional: WDWN, no apparent distress Eyes: PERRL, EOMI, icteric sclera Ears, Nose, Mouth, Throat: moist mucous membranes Cardiovascular: regular rate and rhythm, jugular vein distention, pulses symmetric bilat, No systolic murmur Peripheral Pulses: 2+: dorsalis-pedis (R), dorsalis-pedis (L) Respiratory: clear to auscultate bilat, no crackles, no wheezes Gastrointestinal: ascites Skin: no edema Musculoskeletal: no muscular tenderness Neurologic: AAOx3, CN II-XII grossly intact Psychiatric: cooperative, interactive, following commands ICD10 Worksheet Patient Problems: Problems Problem Status Onset Upper GI hemorrhage Acute Fever Acute Hyperbilirubinemia Acute Thyroid cancer Acute Weakness Acute
--- NOTE | 2018-09-09 14:14 | SOAPPROG ---
SOAP Progress Note Assessment/Plan: Assessment: Crohns disease, PSC, Cirrhosis, portal HTN and ascites. SVT, cardiology seeing. Jaundice, liver failure and ascites. Review of outpatient records. 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 Given comorbid disease, [facility] had nothing to offer. Not a candidate for transplant of chemo or radiation and given high bilirubin not a candidate for chemo. Liver failure, as above. 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 No signs of bleeding. Plan: 1. Continue on Pantoprazole 40 mg PO BID 2. Continue low sodium diet. 3. Lasix 40 mg daily and Aldactone 100 mg daily,m onitor renal function on diuretics 4. As previously recommended continue on antibiotics for 7 - 10 days post bleed. Can switch to oral antibiotic, Cipro 500 mg po BID 5. s/p large volume paracentesis on 09/03. Repeat large volume paracentesis as needed 6. Repeat EGD with banding in 4 weeks 7. Supportive care. Consider palliative care consult 09/09/18 14:01 Subjective: CC: PSC, Crohns disease, cirrhosis. GIB from varices Edema, ascites. Had SVT yesterday. Objective: Vital Signs Temp Pulse Resp BP Pulse Ox 36.4 C 95 16 105/74 95 09/09/18 12:25 09/09/18 12:25 09/09/18 12:25 09/09/18 12:25 09/09/18 12:25 Laboratory Results 09/09/18 03:25 09/09/18 03:25 09/08/18 09/09/18 09/10/18 05:59 05:59 05:59 Intake Total 550 1425 1020 Output Total 2300 2075 375 Balance -1750 -650 645 PT 16.9 SEC (12.0-15.0) H 09/03/18 15:05 INR 1.44 (0.83-1.16) H 09/03/18 15:05 Generic Name Dose Route Start Last Admin Trade Name Freq PRN Reason Stop Dose Admin Acetaminophen 650 mg 08/31/18 19:38 09/03/18 18:35 Tylenol PO 02/27/19 19:37 650 mg Q4HRS PRN Administration Pain, Mild/Fever, Can Take PO Azathioprine 100 mg 09/07/18 11:30 09/09/18 08:24 Imuran PO 03/06/19 11:29 100 mg DAILY JAMES Administration Furosemide 40 mg 09/07/18 09:15 09/09/18 08:23 Lasix PO 03/06/19 09:14 40 mg DAILY JAMES Administration Levothyroxine Sodium 125 mcg 09/10/18 06:00 Synthroid PO 03/09/19 05:59 DAILY06 JAMES Ondansetron HCl 4 mg 08/31/18 19:38 Zofran Odt PO 02/27/19 19:37 Q4HRS PRN Nausea/Vomiting, Use 1st Pantoprazole Sodium 40 mg 09/05/18 21:00 09/09/18 08:23 Protonix PO 03/04/19 20:59 40 mg BID JAMES Administration Promethazine HCl 6.25 - 12.5 mg 08/31/18 19:38 09/01/18 08:46 Phenergan IVP 02/27/19 19:37 6.25 mg Q6HRS PRN Administration Nausea/Vomiting, Use 2nd Spironolactone 100 mg 09/09/18 09:00 09/09/18 08:24 Aldactone PO 03/08/19 08:59 100 mg DAILY JAMES Administration Discontinued Medications Generic Name Dose Route Start Last Admin Trade Name Freq PRN Reason Stop Dose Admin Adenosine 6 mg 09/03/18 09:00 09/03/18 09:28 Adenosine IVP 09/03/18 09:01 Not Given ONCE ONE Adenosine 6 mg 09/08/18 05:09 09/08/18 05:26 Adenosine IVP 09/08/18 05:10 6 mg ONCE ONE Administration Atenolol 12.5 mg 09/09/18 11:54 09/09/18 12:22 Tenormin PO 09/09/18 11:55 12.5 mg ONCE ONE Administration Fentanyl Confirm 08/31/18 23:01 Sublimaze Administered 08/31/18 23:02 Dose 100 mcg .ROUTE .STK-MED ONE Hydromorphone HCl 0.2 - 0.4 mg 08/31/18 19:38 09/01/18 05:32 Dilaudid IVP 09/10/18 19:37 0.2 mg Q4HRS PRN Administration pain, moderate to severe Hydromorphone HCl 0.2 mg 09/02/18 21:36 09/03/18 02:25 Dilaudid IVP 09/12/18 21:35 0.2 mg Q2HRS PRN Administration Severe pain Ceftriaxone Sodium/Dextrose 50 mls @ 100 mls/hr 08/31/18 18:48 08/31/18 19:03 Rocephin 1 Gm (Premix) IV 08/31/18 19:17 50 mls EDNOW ONE Administration Protocol Octreotide Acetate 500 mcg/ 51 mls @ 5 mls/hr 08/31/18 19:00 08/31/18 19:15 Sodium Chloride IV 09/01/18 05:00 51 mls CONT JAMES Administration Sodium Chloride 1,000 mls @ 0 mls/hr 08/31/18 18:49 08/31/18 19:02 Ns IV 08/31/18 18:50 1,000 mls EDNOW ONE Administration Protocol Wide Open Ceftriaxone Sodium/Dextrose 50 mls @ 100 mls/hr 09/01/18 09:00 09/08/18 08:31 Rocephin 1 Gm (Premix) IV 10/01/18 08:59 50 mls DAILY JAMES Administration Protocol Sodium Chloride 1,000 mls @ 75 mls/hr 08/31/18 19:45 09/02/18 06:22 Ns IV 02/27/19 19:44 1,000 mls CONT JAMES Administration Octreotide Acetate 500 mcg/ 51 mls @ 5 mls/hr 09/01/18 02:00 09/06/18 02:46 Sodium Chloride IV 02/28/19 01:59 51 mls CONT JAMES Administration Sodium Chloride 500 mls @ 1,500 mls/hr 09/03/18 07:53 09/03/18 08:00 Ns IV 09/03/18 08:12 500 mls ONCE ONE Administration Lactated Ringer's 1,000 mls @ 0 mls/hr 09/03/18 16:47 09/03/18 18:13 Lr IV 09/03/18 16:48 Not Given ONCE ONE Per Protocol Albumin Human 200 mls @ 0 mls/hr 09/07/18 09:18 09/07/18 10:26 Flexbumin 25 % (Premix) IV 09/07/18 09:19 200 mls ONCE ONE Administration As Directed Levothyroxine Sodium 175 mcg 09/02/18 10:45 09/09/18 06:50 Synthroid PO 03/01/19 10:44 175 mcg DAILY06 JAMES Administration Levothyroxine Sodium 150 mcg 09/10/18 06:00 Synthroid PO 03/09/19 05:59 DAILY06 JAMES Lidocaine HCl Confirm 09/03/18 12:24 Lidocaine Hcl 1% Administered 09/03/18 12:25 Dose 300 mg .ROUTE .STK-MED ONE Lidocaine HCl Confirm 09/03/18 16:08 Lidocaine Hcl 2% Administered 09/03/18 16:09 Dose 2 ml .ROUTE .STK-MED ONE Lidocaine HCl Confirm 09/03/18 16:09 Lidocaine Hcl 2% Administered 09/03/18 16:10 Dose 2 ml .ROUTE .STK-MED ONE Lorazepam 0.5 - 1 mg 08/31/18 19:38 Ativan Injection IVP 02/27/19 19:37 Q8HRS PRN Anxiety, Unable to Take PO Naloxone HCl 0.1 mg 09/03/18 17:39 Narcan IVP 09/03/18 18:39 Q2M PRN PACU Resp Rate <10/min Ondansetron HCl 4 mg 08/31/18 18:51 08/31/18 19:02 Zofran IVP 08/31/18 18:52 4 mg EDNOW ONE Administration Ondansetron HCl 4 mg 08/31/18 19:38 08/31/18 22:18 Zofran IVP 02/27/19 19:37 4 mg Q4HRS PRN Administration Nausea/Vomiting, Can't Take PO Pantoprazole Sodium 80 mg 08/31/18 18:48 08/31/18 19:06 Protonix IVP 08/31/18 18:49 80 mg EDNOW ONE Administration Pantoprazole Sodium 40 mg 09/01/18 00:00 09/05/18 14:27 Protonix IVP 02/28/19 00:00 Not Given Q6HRS JAMES Pantoprazole Sodium 40 mg 09/05/18 13:00 09/05/18 14:19 Protonix IVP 09/05/18 13:01 40 mg ONCE ONE Administration Phenylephrine HCl Confirm 08/31/18 22:53 Neosynephrine Administered 08/31/18 22:54 Dose 1,000 mcg .ROUTE .STK-MED ONE Phenylephrine HCl Confirm 09/03/18 17:01 Neosynephrine Administered 09/03/18 17:02 Dose 1,000 mcg .ROUTE .STK-MED ONE Potassium Chloride 20 meq 09/04/18 15:33 09/04/18 16:32 Potassium Chloride Oral Liquid PO 09/04/18 15:34 20 meq ONCE ONE Administration Potassium Chloride 40 meq 09/08/18 11:15 09/08/18 11:10 Klor-Con PO 09/08/18 11:16 40 meq ONCE ONE Administration Potassium Chloride 40 meq 09/09/18 08:37 09/09/18 10:01 Klor-Con PO 09/09/18 08:38 40 meq ONCE ONE Administration Propofol Confirm 08/31/18 22:53 Diprivan 10 Mg/Ml (Premix) Administered 08/31/18 22:54 Dose 500 mg IV .STK-MED ONE Propofol Confirm 09/03/18 16:08 Diprivan Administered 09/03/18 16:09 Dose 200 mg .ROUTE .STK-MED ONE Spironolactone 50 mg 09/07/18 09:15 09/07/18 10:21 Aldactone PO 03/06/19 09:14 Not Given DAILY JAMES Spironolactone 25 mg 09/07/18 09:30 09/08/18 08:31 Aldactone PO 03/06/19 09:29 25 mg DAILY JAMES Administration Succinylcholine Chloride Confirm 09/03/18 17:01 Quelicin Administered 09/03/18 17:02 Dose 200 mg IVP .STK-MED ONE Physical Exam - Physical Exam General Appearance: alert, no apparent distress Respiratory: lungs clear Cardiac/Chest: regular rate, rhythm Abdomen: distended Skin: jaundice Extremities: swelling Neuro/Psych: alert, normal mood/affect, oriented x 3 ICD10 Worksheet Patient Problems: Problems Problem Status Onset Upper GI hemorrhage Acute Fever Acute Hyperbilirubinemia Acute Thyroid cancer Acute Weakness Acute
[2018-09-09] MEDS ORDERED: FUROSEMIDE 40 MG/4 ML VIAL IVP SCH (15:00)
--- NOTE | 2018-09-09 16:58 | PDCARCONS ---
Cardiology Consult Reason for Consult: Electrophysiology consultation for supraventricular tachycardia Chief Complaint: 3 recent episodes of SVT requiring chemical cardioversion with Adenosine Requesting Physician: Dr. Tenzin Ma History of Present Illness: Mr. Cullen Rojas is a 73yo male with a h/o CAD, primary sclerosing cholangitis, cirrhosis, and esophageal varices. He is currently admitted for ongoing management of his PSC, GI bleed, and decompensated cirrhosis. He has had 3 recent episodes of asymptomatic SVT, which ultimately terminated with Adenosine each time. His initial episode occurred 08/12 at [facility] following an ERCP. His subsequent 2 episodes occurred during his current hospitalization, most recently 09/08 around 0445. No associated symptoms during these episodes. No history of syncope or pre-syncope. Longstanding history of brief, infrequent palpitations occurring every 2-3 years since age 20. History Information - Allergies/Home Medication List Allergies/Adverse Reactions: No Known Allergies Allergy (Verified 08/31/18 19:48) Home Medications: azaTHIOprine [Imuran 50 mg (*)] 100 mg PO DAILY 01/27/18 [Last Taken 08/31/18] Levothyroxine [Synthroid 175 mcg (*)] 175 mcg PO DAILY06 06/07/18 [Last Taken ] Pantoprazole Sodium [Protonix 40mg (*)] 40 mg PO DAILY 06/07/18 [Last Taken ] Propranolol HCl [Inderal 20mg (*)] 20 mg PO BID 06/07/18 [Last Taken 08/31/18 08 :00] amLODIPine BESYLATE [Amlodipine Besylate] 5 mg PO DAILY 08/31/18 [Last Taken ] I have personally reviewed and updated: family history, medical history, social history, surgical history Past Medical History: - Past Medical History Additional medical history: As above, see HPI. PmHx also includes thyroid resection and Crohn's. - Surgical History Additional surgical history: Vasectomy, thyroid resection, appendix and gallbladder removal - Family History Additional family history: Grandfather second to trauma after driving his car into a tree, unknown cause - Social History Smoking Status: Never smoked Alcohol Use: Sober (patient with history of "alcoholism" many years prior - sober for >30 years) Drug Use: None ( lives with his ) Additional social history: He is and lives at home with his and 39yo disabled son. He also has a daughter who lives out of state. Cardiac History - Cardiac History Past Cardiac History: CAD Associated Symptoms: denies symptoms Physical Exam Physical Exam: Temp Pulse Resp BP Pulse Ox 36.6 C 79 18 89/65 L 95 09/09/18 16:00 09/09/18 16:00 09/09/18 16:00 09/09/18 16:00 09/09/18 16:00 O2 (L/minute) 6 Ears, Nose, Mouth, Throat: moist mucous membranes, hearing normal Cardiovascular: regular rate and rhythym Gastrointestinal: ascites, distension Skin: other (Jaundiced) Musculoskeletal: normal joint ROM, no joint effusions, generalized weakness Neurologic: AAOx3 Psychiatric: interacting appropriately, not anxious, not encephalopathic, thought process linear Lab and Imaging 09/09/18 03:25 09/09/18 03:25 WBC 5.19 10^3/uL (3.80-9.50) 09/04/18 03:52 RBC 2.45 10^6/uL (4.40-6.38) L 09/04/18 03:52 Hgb 8.6 g/dL (13.7-17.5) L 09/09/18 03:25 POC Hgb 8.5 gm/dL (13.7-17.5) L 08/31/18 18:57 Hct 25.1 % (40.0-51.0) L 09/09/18 03:25 POC Hct 25 % (40-51) L 08/31/18 18:57 MCV 104.1 fL (81.5-99.8) H 09/04/18 03:52 MCH 35.5 pg (27.9-34.1) H 09/04/18 03:52 MCHC 34.1 g/dL (32.4-36.7) 09/04/18 03:52 RDW 21.8 % (11.5-15.2) H 09/04/18 03:52 Plt Count 121 10^3/uL (150-400) L 09/04/18 03:52 MPV 9.9 fL (8.7-11.7) 09/04/18 03:52 Neut % (Auto) 66.0 % (39.3-74.2) 09/04/18 03:52 Lymph % (Auto) 21.2 % (15.0-45.0) 09/04/18 03:52 [place] % (Auto) 5.6 % (4.5-13.0) 09/04/18 03:52 Eos % (Auto) 5.2 % (0.6-7.6) 09/04/18 03:52 Baso % (Auto) 1.2 % (0.3-1.7) 09/04/18 03:52 Nucleat RBC Rel Count 0.8 % (0.0-0.2) H 09/04/18 03:52 Absolute Neuts (auto) 3.43 10^3/uL (1.70-6.50) 09/04/18 03:52 Absolute Lymphs (auto) 1.10 10^3/uL (1.00-3.00) 09/04/18 03:52 Absolute Monos (auto) 0.29 10^3/uL (0.30-0.80) L 09/04/18 03:52 Absolute Eos (auto) 0.27 10^3/uL (0.03-0.40) 09/04/18 03:52 Absolute Basos (auto) 0.06 10^3/uL (0.02-0.10) 09/04/18 03:52 Absolute Nucleated RBC 0.04 10^3/uL (0-0.01) H 09/04/18 03:52 Immature Gran % 0.8 % (0.0-1.1) 09/04/18 03:52 Immature Gran # 0.04 10^3/uL (0.00-0.10) 09/04/18 03:52 Platelet Estimate DECREASED (ADEQ) L 09/04/18 03:52 Polychromasia 1+ H 09/04/18 03:52 Hypochromasia 1+ H 09/04/18 03:52 Tear Drop Cells 1+ H 09/04/18 03:52 Oval Macrocytes 2+ H 09/04/18 03:52 Keratocytes 1+ H 09/04/18 03:52 Schistocytes 1+ H 09/04/18 03:52 PT 16.9 SEC (12.0-15.0) H 09/03/18 15:05 INR 1.44 (0.83-1.16) H 09/03/18 15:05 APTT 41.2 SEC (23.0-38.0) H 09/03/18 04:50 VBG Lactic Acid 2.4 mmol/L (0.7-2.1) H 08/31/18 20:00 POC Sodium 146 mEq/L (135-145) H 08/31/18 18:57 Sodium 140 mEq/L (135-145) 09/08/18 07:04 POC Potassium 3.8 mEq/L (3.3-5.0) 08/31/18 18:57 Potassium 3.3 mEq/L (3.5-5.2) L 09/09/18 03:25 POC Chloride 115 mEq/L (97-110) H 08/31/18 18:57 Chloride 108 mEq/L (97-110) 09/08/18 07:04 Carbon Dioxide 22 mEq/l (22-31) 09/08/18 07:04 POC Total CO2 17 mEq/L (22-31) L 08/31/18 18:57 Anion Gap 10 mEq/L (6-14) 09/08/18 07:04 POC BUN 24 mg/dL (7-23) H 08/31/18 18:57 BUN 16 mg/dL (7-23) 09/08/18 07:04 Creatinine 1.2 mg/dL (0.7-1.3) 09/08/18 07:04 POC Creatinine 1.3 mg/dL (0.7-1.3) 08/31/18 18:57 Estimated GFR 60 09/08/18 07:04 Glucose 99 mg/dL (70-100) 09/08/18 07:04 POC Glucose 135 mg/dL (70-100) H 08/31/18 18:57 Calcium 7.8 mg/dL (8.5-10.4) L 09/08/18 07:04 Phosphorus 4.6 mg/dL (2.5-4.5) H 09/01/18 05:35 Magnesium 1.9 mg/dL (1.6-2.3) 09/08/18 07:04 Total Bilirubin 26.0 mg/dL (0.1-1.4) H 09/08/18 07:04 Conjugated Bilirubin 23.0 mg/dL (0.0-0.5) H 09/08/18 07:04 Unconjugated Bilirubin 3.0 mg/dL (0.0-1.1) H 09/08/18 07:04 Icterus Index > 25 09/08/18 07:04 AST 170 IU/L (17-59) H 09/08/18 07:04 ALT 66 IU/L (21-72) 09/08/18 07:04 Alkaline Phosphatase 718 IU/L (38-126) H 09/08/18 07:04 Ammonia 43.0 uMOL/L (9.0-30.0) H 09/04/18 03:52 Total Protein 5.7 g/dL (6.3-8.2) L 09/08/18 07:04 Albumin 2.6 g/dL (3.5-5.0) L 09/08/18 07:04 TSH < 0.015 uIU/mL (0.465-4.680) L 09/09/18 03:25 Free T4 3.05 ng/dL (0.59-2.19) H 09/09/18 03:25 Free T3 2.61 pg/mL (2.77-5.27) L 09/09/18 03:25 Patient ABO/Rh O POSITIVE 08/31/18 18:52 Antibody Screen NEGATIVE 08/31/18 18:52 Crossmatch IS Only See Detail 08/31/18 18:52 A/P Assessment: 73yo male with asymptomatic supraventricular tachycardia, CAD, PSC, cirrhosis, and esophageal varices. Episodes of SVT have converted with adenosine x3. First documented episode 3/5 at [facility] with 2 subsequent episodes during his current hospitalization at [facility]. Episodes are completely asymptomatic. With his complicated GI and liver issues, Mr. Rojas is not a candidate for SVT ablation at this time. In addition, a number of antiarrhythmic medications not viable options related to hepatic metabolism. He will start low-dose atenolol at this time. His case was discussed with Dr. William Mercedes, who is in agreement with this plan. Plan: 1. Start Atenolol 12.5mg daily (ok per GI) 2. EP will continue to follow
[2018-09-10] MEDS ORDERED: LEVOTHYROXINE 150 MCG TAB PO SCH (06:00)
[2018-09-10] MEDS ORDERED: LEVOTHYROXINE 125 MCG TAB PO SCH (06:00)
--- NOTE | 2018-09-10 07:50 | SOAPPROG ---
SOAP Progress Note Assessment/Plan: Assessment: Crohns disease, PSC, Cirrhosis, portal HTN and ascites. SVT, cardiology started on low dose atenolol. Jaundice with liver failure, edema and ascites. Hilar stricture with HGD, worrisome for cholangiocarcinoma. l Lasix increased yesterday. Plan: 1. Pantoprazole 40 mg PO BID 2. Continue low sodium diet. 3. Monitor weight 4. Closely monitor renal function with increase in diuretics. 5. Antibiotics for 7 - 10 days post bleed. 5. Repeat large volume paracentesis as needed with SPA 6. Repeat EGD with banding in 4 weeks 7. Continue supportive care. 09/10/18 07:50 Subjective: CC: GI bleed. PSC, Cirrhosis, portal HTN and Esophageal varices Had a bad night, could not sleep. Appetite poor. Objective: Vital Signs Temp Pulse Resp BP Pulse Ox 36.4 C 72 16 92/63 L 95 09/10/18 04:00 09/10/18 04:00 09/10/18 04:00 09/10/18 04:00 09/10/18 04:00 Laboratory Results 09/09/18 03:25 09/10/18 04:18 09/09/18 09/10/18 09/11/18 05:59 05:59 05:59 Intake Total 1425 1870 Output Total 2075 3725 300 Balance -650 -1855 -300 PT 16.9 SEC (12.0-15.0) H 09/03/18 15:05 INR 1.44 (0.83-1.16) H 09/03/18 15:05 Generic Name Dose Route Start Last Admin Trade Name Freq PRN Reason Stop Dose Admin Acetaminophen 650 mg 08/31/18 19:38 09/03/18 18:35 Tylenol PO 02/27/19 19:37 650 mg Q4HRS PRN Administration Pain, Mild/Fever, Can Take PO Atenolol 12.5 mg 09/10/18 09:00 Tenormin PO 03/09/19 08:59 DAILY JAMES Azathioprine 100 mg 09/07/18 11:30 09/09/18 08:24 Imuran PO 03/06/19 11:29 100 mg DAILY JAMES Administration Furosemide 40 mg 09/09/18 15:00 09/09/18 14:56 Lasix Injection IVP 03/08/19 14:59 40 mg BID@0900,1500 JAMES Administration Levothyroxine Sodium 125 mcg 09/10/18 06:00 09/10/18 04:03 Synthroid PO 03/09/19 05:59 125 mcg DAILY06 JAMES Administration Ondansetron HCl 4 mg 08/31/18 19:38 Zofran Odt PO 02/27/19 19:37 Q4HRS PRN Nausea/Vomiting, Use 1st Pantoprazole Sodium 40 mg 09/05/18 21:00 09/09/18 21:16 Protonix PO 03/04/19 20:59 40 mg BID JAMES Administration Promethazine HCl 6.25 - 12.5 mg 08/31/18 19:38 09/01/18 08:46 Phenergan IVP 02/27/19 19:37 6.25 mg Q6HRS PRN Administration Nausea/Vomiting, Use 2nd Spironolactone 100 mg 09/09/18 09:00 09/09/18 08:24 Aldactone PO 03/08/19 08:59 100 mg DAILY JAMES Administration Discontinued Medications Generic Name Dose Route Start Last Admin Trade Name Freq PRN Reason Stop Dose Admin Adenosine 6 mg 09/03/18 09:00 09/03/18 09:28 Adenosine IVP 09/03/18 09:01 Not Given ONCE ONE Adenosine 6 mg 09/08/18 05:09 09/08/18 05:26 Adenosine IVP 09/08/18 05:10 6 mg ONCE ONE Administration Atenolol 12.5 mg 09/09/18 11:54 09/09/18 12:22 Tenormin PO 09/09/18 11:55 12.5 mg ONCE ONE Administration Fentanyl Confirm 08/31/18 23:01 Sublimaze Administered 08/31/18 23:02 Dose 100 mcg .ROUTE .STK-MED ONE Furosemide 40 mg 09/07/18 09:15 09/09/18 08:23 Lasix PO 03/06/19 09:14 40 mg DAILY JAMES Administration Hydromorphone HCl 0.2 - 0.4 mg 08/31/18 19:38 09/01/18 05:32 Dilaudid IVP 09/10/18 19:37 0.2 mg Q4HRS PRN Administration pain, moderate to severe Hydromorphone HCl 0.2 mg 09/02/18 21:36 09/03/18 02:25 Dilaudid IVP 09/12/18 21:35 0.2 mg Q2HRS PRN Administration Severe pain Ceftriaxone Sodium/Dextrose 50 mls @ 100 mls/hr 08/31/18 18:48 08/31/18 19:03 Rocephin 1 Gm (Premix) IV 08/31/18 19:17 50 mls EDNOW ONE Administration Protocol Octreotide Acetate 500 mcg/ 51 mls @ 5 mls/hr 08/31/18 19:00 08/31/18 19:15 Sodium Chloride IV 09/01/18 05:00 51 mls CONT JAMES Administration Sodium Chloride 1,000 mls @ 0 mls/hr 08/31/18 18:49 08/31/18 19:02 Ns IV 08/31/18 18:50 1,000 mls EDNOW ONE Administration Protocol Wide Open Ceftriaxone Sodium/Dextrose 50 mls @ 100 mls/hr 09/01/18 09:00 09/08/18 08:31 Rocephin 1 Gm (Premix) IV 10/01/18 08:59 50 mls DAILY JAMES Administration Protocol Sodium Chloride 1,000 mls @ 75 mls/hr 08/31/18 19:45 09/02/18 06:22 Ns IV 02/27/19 19:44 1,000 mls CONT JAMES Administration Octreotide Acetate 500 mcg/ 51 mls @ 5 mls/hr 09/01/18 02:00 09/06/18 02:46 Sodium Chloride IV 02/28/19 01:59 51 mls CONT JAMES Administration Sodium Chloride 500 mls @ 1,500 mls/hr 09/03/18 07:53 09/03/18 08:00 Ns IV 09/03/18 08:12 500 mls ONCE ONE Administration Lactated Ringer's 1,000 mls @ 0 mls/hr 09/03/18 16:47 09/03/18 18:13 Lr IV 09/03/18 16:48 Not Given ONCE ONE Per Protocol Albumin Human 200 mls @ 0 mls/hr 09/07/18 09:18 09/07/18 10:26 Flexbumin 25 % (Premix) IV 09/07/18 09:19 200 mls ONCE ONE Administration As Directed Levothyroxine Sodium 175 mcg 09/02/18 10:45 09/09/18 06:50 Synthroid PO 03/01/19 10:44 175 mcg DAILY06 JAMES Administration Levothyroxine Sodium 150 mcg 09/10/18 06:00 Synthroid PO 03/09/19 05:59 DAILY06 JAMES Lidocaine HCl Confirm 09/03/18 12:24 Lidocaine Hcl 1% Administered 09/03/18 12:25 Dose 300 mg .ROUTE .STK-MED ONE Lidocaine HCl Confirm 09/03/18 16:08 Lidocaine Hcl 2% Administered 09/03/18 16:09 Dose 2 ml .ROUTE .STK-MED ONE Lidocaine HCl Confirm 09/03/18 16:09 Lidocaine Hcl 2% Administered 09/03/18 16:10 Dose 2 ml .ROUTE .STK-MED ONE Lorazepam 0.5 - 1 mg 08/31/18 19:38 Ativan Injection IVP 02/27/19 19:37 Q8HRS PRN Anxiety, Unable to Take PO Naloxone HCl 0.1 mg 09/03/18 17:39 Narcan IVP 09/03/18 18:39 Q2M PRN PACU Resp Rate <10/min Ondansetron HCl 4 mg 08/31/18 18:51 08/31/18 19:02 Zofran IVP 08/31/18 18:52 4 mg EDNOW ONE Administration Ondansetron HCl 4 mg 08/31/18 19:38 08/31/18 22:18 Zofran IVP 02/27/19 19:37 4 mg Q4HRS PRN Administration Nausea/Vomiting, Can't Take PO Pantoprazole Sodium 80 mg 08/31/18 18:48 08/31/18 19:06 Protonix IVP 08/31/18 18:49 80 mg EDNOW ONE Administration Pantoprazole Sodium 40 mg 09/01/18 00:00 09/05/18 14:27 Protonix IVP 02/28/19 00:00 Not Given Q6HRS JAMES Pantoprazole Sodium 40 mg 09/05/18 13:00 09/05/18 14:19 Protonix IVP 09/05/18 13:01 40 mg ONCE ONE Administration Phenylephrine HCl Confirm 08/31/18 22:53 Neosynephrine Administered 08/31/18 22:54 Dose 1,000 mcg .ROUTE .STK-MED ONE Phenylephrine HCl Confirm 09/03/18 17:01 Neosynephrine Administered 09/03/18 17:02 Dose 1,000 mcg .ROUTE .STK-MED ONE Potassium Chloride 20 meq 09/04/18 15:33 09/04/18 16:32 Potassium Chloride Oral Liquid PO 09/04/18 15:34 20 meq ONCE ONE Administration Potassium Chloride 40 meq 09/08/18 11:15 09/08/18 11:10 Klor-Con PO 09/08/18 11:16 40 meq ONCE ONE Administration Potassium Chloride 40 meq 09/09/18 08:37 09/09/18 10:01 Klor-Con PO 09/09/18 08:38 40 meq ONCE ONE Administration Propofol Confirm 08/31/18 22:53 Diprivan 10 Mg/Ml (Premix) Administered 08/31/18 22:54 Dose 500 mg IV .STK-MED ONE Propofol Confirm 09/03/18 16:08 Diprivan Administered 09/03/18 16:09 Dose 200 mg .ROUTE .STK-MED ONE Spironolactone 50 mg 09/07/18 09:15 09/07/18 10:21 Aldactone PO 03/06/19 09:14 Not Given DAILY JAMES Spironolactone 25 mg 09/07/18 09:30 09/08/18 08:31 Aldactone PO 03/06/19 09:29 25 mg DAILY JAMES Administration Succinylcholine Chloride Confirm 09/03/18 17:01 Quelicin Administered 09/03/18 17:02 Dose 200 mg IVP .STK-MED ONE Physical Exam - Physical Exam General Appearance: alert, no apparent distress Respiratory: lungs clear Cardiac/Chest: regular rate, rhythm, edema Abdomen: distended Skin: normal color, jaundice Neuro/Psych: alert, normal mood/affect, oriented x 3 ICD10 Worksheet Patient Problems: Problems Problem Status Onset Upper GI hemorrhage Acute Fever Acute Hyperbilirubinemia Acute Thyroid cancer Acute Weakness Acute
[2018-09-10] MEDS: PANTOPRAZOLE SODIUM 40 MG TAB PO SCH ×2 (08:44→20:00)
[2018-09-10] MEDS: azaTHIOprine 50 MG TAB PO SCH (08:45)
[2018-09-10] MEDS ORDERED: ATENOLOL 25 MG TAB PO SCH (09:00)
[2018-09-10] MEDS ORDERED: NS 1,000 ML IV SCH (12:45)
--- NOTE | 2018-09-10 14:30 | HOSPPROG ---
Hospitalist Progress Note Assessment/Plan: #BIN: from diuresis vs intermittent hypotension with SVT. Hold diuretics today. Monitor BP and Cr. Discussed with Dr. Greer #Goals: had lengthy conversation with he and about plans for next steps. I broached Palliative/Hospice care. His prognosis is poor and has significantly declined during this hospitalization. Concern for cholangiocarcinoma at [facility]. Explained we can continue comfort treatment like paracentesis and diuretics -Palliative will meet with them tomorrow morning #Acute GIB: due to known varices. s/p banding 09/01 & 09/03 -s/p Octreotide. Cont PPI #Recurrent SVT: 09/03, 09/08. Responded to Adenosine. Dr. Ma evaluated will have EP consult -TSH <0.015. h/o thyroidectomy. Spoke with Will d/w Dr. Guzman who recs TSH 0.4-2 with h/o cancer. Decrease to 150mcg -Atenolol added. Ablation would be risky with esophageal varices #ABLA: due to above. 2 units blood 09/01. H/H remains stable #PSC with decompensated cirrhosis: followed by Hepatology at [facility] -3.3L paracentesis 09/03 -change to IV Lasix for more aggressive diuresis, follow BMP #Acute metabolic encephalopathy: resolved h/o Crohn's: Imuran #h/o CAD #HTN: hold BP with ABLA #Hypokalemia: from diuresis, repleting #Diet: regular #DVT ppx: SCDs Inpatient admission for telemetry, diuresis. bedside and questions answered. Subjective: mild dizziness after walk today Objective: Vital Signs Temp Pulse Resp BP Pulse Ox 36.3 C 65 18 83/55 L 96 09/10/18 11:50 09/10/18 11:50 09/10/18 11:50 09/10/18 12:10 09/10/18 11:50 Laboratory Results 09/09/18 03:25 09/10/18 04:18 09/09/18 09/10/18 09/11/18 05:59 05:59 05:59 Intake Total 1425 1870 450 Output Total 2075 3725 300 Balance -650 -1855 150 PT 16.9 SEC (12.0-15.0) H 09/03/18 15:05 INR 1.44 (0.83-1.16) H 09/03/18 15:05 - Time Spent With Patient Time Spent with Patient: greater than 35 minutes Time Spent with Patient: Greater than 35 minutes spent on this patients care, greater than 50% of time spent counseling, educating, and coordinating care regarding the above mentioned plan. - Physical Exam Constitutional: chronically ill appearing Eyes: icteric sclera Ears, Nose, Mouth, Throat: moist mucous membranes Cardiovascular: regular rate and rhythym, edema (+2-3 pitting edema BL legs) Respiratory: no respiratory distress Gastrointestinal: normoactive bowel sounds, distension (soft, no pain), No tenderness Genitourinary: No núñez in urethra Skin: warm Neurologic: AAOx3, CN II-XII Intact Psychiatric: interacting appropriately ICD10 Worksheet Patient Problems: Problems Problem Status Onset Upper GI hemorrhage Acute Fever Acute Hyperbilirubinemia Acute Thyroid cancer Acute Weakness Acute
--- NOTE | 2018-09-10 14:56 | ASMTCMCOM ---
CM Note CM Note Notes: Pts case discussed w/ Dr. Chauhan and Greyson w/ palliative. There will be a palliative tomorrow at 10:30AM w/ the family and [facility] palliative team. Pt is not medically stable to d/c at this time. Referral made to [facility]. CM to follow. Plan: [facility] Date Signed: 09/10/2018 02:55 PM Electronically Signed By:MAGALYS Patrick
[2018-09-10] MEDS ORDERED: POTASSIUM CL 20 MEQ TAB PO ONE (15:55)
[2018-09-10] MEDS ORDERED: ADENOSINE 6 MG/2 ML VIAL IVP ONE (22:18)
--- NOTE | 2018-09-10 23:08 | HOSPPROG ---
Hospitalist Progress Note Assessment/Plan: Called as patients heart rate at around 150. Patient has had numerous episodes of SVT that have responded to adenosine pushes. EKG with a tachycardia consistent with SVT. Patient is asymptomatic but blood pressure is mildly low. EKG showed tachycardia with rates in the 150s consistent with an SVT. Ordered 6 mg IV push of adenosine., after 6 mg push patient's heart rate returned to the 70s. Blood pressure still mildly low. Will give 250 cc bolus. Objective: Vital Signs Temp Pulse Resp BP Pulse Ox 36.8 C 67 16 99/63 L 95 09/10/18 20:00 09/10/18 20:00 09/10/18 20:00 09/10/18 20:00 09/10/18 20:00 Laboratory Results 09/09/18 03:25 09/10/18 04:18 09/09/18 09/10/18 09/11/18 05:59 05:59 05:59 Intake Total 1425 1870 450 Output Total 0965 6155 500 Balance -650 -1855 -50 PT 16.9 SEC (12.0-15.0) H 09/03/18 15:05 INR 1.44 (0.83-1.16) H 09/03/18 15:05 ICD10 Worksheet Patient Problems: Problems Problem Status Onset Upper GI hemorrhage Acute Fever Acute Hyperbilirubinemia Acute Thyroid cancer Acute Weakness Acute
[2018-09-11] MEDS ORDERED: ALBUMIN 5% 250 ML IV ONE ×2 (04:05→14:09)
[2018-09-11] MEDS: LEVOTHYROXINE 150 MCG TAB PO SCH (04:44)
[2018-09-11] MEDS ORDERED: NS 1,000 ML IV SCH (08:00)
[2018-09-11] MEDS: PANTOPRAZOLE SODIUM 40 MG TAB PO SCH ×2 (08:18→22:28)
[2018-09-11] MEDS: azaTHIOprine 50 MG TAB PO SCH (08:19)
--- NOTE | 2018-09-11 09:27 | SOAPPROG ---
SOAP Progress Note Assessment/Plan: Assessment: Crohn's disease, PSC, Cirrhosis, portal HTN and ascites. Jaundice with liver failure, edema and ascites. Hilar stricture with HGD, worrisome for cholangiocarcinoma. Patient with increase in creatine to 1.4 yesterday and 1.7 today. Patient with recurrent episodes of SVT. Plan: Worsening renal function with diuresis, D/C Diuretics. Daily BMP Would consider IV SPA Would recommend renal consult. 09/11/18 09:13 Subjective: CC: PSC, Crohn's disease, GI bleed from esophageal varices Had another episode of SVT, Patient had Lasix increased and had bump in creatine. Objective: Vital Signs Temp Pulse Resp BP Pulse Ox 36.2 C 72 18 78/55 L 93 09/11/18 07:38 09/11/18 07:38 09/11/18 07:38 09/11/18 08:22 09/11/18 07:38 Laboratory Results 09/11/18 03:52 09/11/18 03:52 09/10/18 09/11/18 09/12/18 05:59 05:59 05:59 Intake Total 1870 650 Output Total 3725 800 Balance -1855 -150 PT 16.9 SEC (12.0-15.0) H 09/03/18 15:05 INR 1.44 (0.83-1.16) H 09/03/18 15:05 Generic Name Dose Route Start Last Admin Trade Name Freq PRN Reason Stop Dose Admin Acetaminophen 650 mg 08/31/18 19:38 09/03/18 18:35 Tylenol PO 02/27/19 19:37 650 mg Q4HRS PRN Administration Pain, Mild/Fever, Can Take PO Atenolol 12.5 mg 09/10/18 09:00 09/10/18 08:44 Tenormin PO 03/09/19 08:59 12.5 mg DAILY JAMES Administration Azathioprine 100 mg 09/07/18 11:30 09/11/18 08:19 Imuran PO 03/06/19 11:29 100 mg DAILY JAMES Administration Sodium Chloride 1,000 mls @ 75 mls/hr 09/11/18 08:00 09/11/18 08:37 Ns IV 09/11/18 10:59 1,000 mls CONT JAMES Administration Levothyroxine Sodium 150 mcg 09/11/18 06:00 09/11/18 04:44 Synthroid PO 03/10/19 05:59 150 mcg DAILY AT 6AM JAMES Administration Ondansetron HCl 4 mg 08/31/18 19:38 Zofran Odt PO 02/27/19 19:37 Q4HRS PRN Nausea/Vomiting, Use 1st Pantoprazole Sodium 40 mg 09/05/18 21:00 09/11/18 08:18 Protonix PO 03/04/19 20:59 40 mg BID JAMES Administration Promethazine HCl 6.25 - 12.5 mg 08/31/18 19:38 09/01/18 08:46 Phenergan IVP 02/27/19 19:37 6.25 mg Q6HRS PRN Administration Nausea/Vomiting, Use 2nd Spironolactone 100 mg 09/09/18 09:00 09/09/18 08:24 Aldactone PO 03/08/19 08:59 100 mg DAILY JAMES Administration Discontinued Medications Generic Name Dose Route Start Last Admin Trade Name Daveq PRN Reason Stop Dose Admin Adenosine 6 mg 09/03/18 09:00 09/03/18 09:28 Adenosine IVP 09/03/18 09:01 Not Given ONCE ONE Adenosine 6 mg 09/08/18 05:09 09/08/18 05:26 Adenosine IVP 09/08/18 05:10 6 mg ONCE ONE Administration Adenosine 6 mg 09/10/18 22:18 09/10/18 22:30 Adenosine IVP 09/10/18 22:19 6 mg ONCE ONE Administration Atenolol 12.5 mg 09/09/18 11:54 09/09/18 12:22 Tenormin PO 09/09/18 11:55 12.5 mg ONCE ONE Administration Fentanyl Confirm 08/31/18 23:01 Sublimaze Administered 08/31/18 23:02 Dose 100 mcg .ROUTE .STK-MED ONE Furosemide 40 mg 09/07/18 09:15 09/09/18 08:23 Lasix PO 03/06/19 09:14 40 mg DAILY JAMES Administration Furosemide 40 mg 09/09/18 15:00 09/09/18 14:56 Lasix Injection IVP 03/08/19 14:59 40 mg BID@0900,1500 JAMES Administration Hydromorphone HCl 0.2 - 0.4 mg 08/31/18 19:38 09/01/18 05:32 Dilaudid IVP 09/10/18 19:37 0.2 mg Q4HRS PRN Administration pain, moderate to severe Hydromorphone HCl 0.2 mg 09/02/18 21:36 09/03/18 02:25 Dilaudid IVP 09/12/18 21:35 0.2 mg Q2HRS PRN Administration Severe pain Ceftriaxone Sodium/Dextrose 50 mls @ 100 mls/hr 08/31/18 18:48 08/31/18 19:03 Rocephin 1 Gm (Premix) IV 08/31/18 19:17 50 mls EDNOW ONE Administration Protocol Octreotide Acetate 500 mcg/ 51 mls @ 5 mls/hr 08/31/18 19:00 08/31/18 19:15 Sodium Chloride IV 09/01/18 05:00 51 mls CONT JAMES Administration Sodium Chloride 1,000 mls @ 0 mls/hr 08/31/18 18:49 08/31/18 19:02 Ns IV 08/31/18 18:50 1,000 mls EDNOW ONE Administration Protocol Wide Open Ceftriaxone Sodium/Dextrose 50 mls @ 100 mls/hr 09/01/18 09:00 09/08/18 08:31 Rocephin 1 Gm (Premix) IV 10/01/18 08:59 50 mls DAILY JAMES Administration Protocol Sodium Chloride 1,000 mls @ 75 mls/hr 08/31/18 19:45 09/02/18 06:22 Ns IV 02/27/19 19:44 1,000 mls CONT JAMES Administration Octreotide Acetate 500 mcg/ 51 mls @ 5 mls/hr 09/01/18 02:00 09/06/18 02:46 Sodium Chloride IV 02/28/19 01:59 51 mls CONT JAMES Administration Sodium Chloride 500 mls @ 1,500 mls/hr 09/03/18 07:53 09/03/18 08:00 Ns IV 09/03/18 08:12 500 mls ONCE ONE Administration Lactated Ringer's 1,000 mls @ 0 mls/hr 09/03/18 16:47 09/03/18 18:13 Lr IV 09/03/18 16:48 Not Given ONCE ONE Per Protocol Albumin Human 200 mls @ 0 mls/hr 09/07/18 09:18 09/07/18 10:26 Flexbumin 25 % (Premix) IV 09/07/18 09:19 200 mls ONCE ONE Administration As Directed Sodium Chloride 1,000 mls @ 100 mls/hr 09/10/18 12:45 Ns IV 09/10/18 15:44 CONT JAMES Albumin Human 250 mls @ 0 mls/hr 09/11/18 04:05 09/11/18 04:44 Alburx 5 IV 09/11/18 04:06 250 mls ONCE ONE Administration As Directed Levothyroxine Sodium 175 mcg 09/02/18 10:45 09/09/18 06:50 Synthroid PO 03/01/19 10:44 175 mcg DAILY06 JAMES Administration Levothyroxine Sodium 150 mcg 09/10/18 06:00 Synthroid PO 03/09/19 05:59 DAILY06 JAMES Levothyroxine Sodium 125 mcg 09/10/18 06:00 09/10/18 04:03 Synthroid PO 03/09/19 05:59 125 mcg DAILY06 JAMES Administration Lidocaine HCl Confirm 09/03/18 12:24 Lidocaine Hcl 1% Administered 09/03/18 12:25 Dose 300 mg .ROUTE .STK-MED ONE Lidocaine HCl Confirm 09/03/18 16:08 Lidocaine Hcl 2% Administered 09/03/18 16:09 Dose 2 ml .ROUTE .STK-MED ONE Lidocaine HCl Confirm 09/03/18 16:09 Lidocaine Hcl 2% Administered 09/03/18 16:10 Dose 2 ml .ROUTE .STK-MED ONE Lorazepam 0.5 - 1 mg 08/31/18 19:38 Ativan Injection IVP 02/27/19 19:37 Q8HRS PRN Anxiety, Unable to Take PO Naloxone HCl 0.1 mg 09/03/18 17:39 Narcan IVP 09/03/18 18:39 Q2M PRN PACU Resp Rate <10/min Ondansetron HCl 4 mg 08/31/18 18:51 08/31/18 19:02 Zofran IVP 08/31/18 18:52 4 mg EDNOW ONE Administration Ondansetron HCl 4 mg 08/31/18 19:38 08/31/18 22:18 Zofran IVP 02/27/19 19:37 4 mg Q4HRS PRN Administration Nausea/Vomiting, Can't Take PO Pantoprazole Sodium 80 mg 08/31/18 18:48 08/31/18 19:06 Protonix IVP 08/31/18 18:49 80 mg EDNOW ONE Administration Pantoprazole Sodium 40 mg 09/01/18 00:00 09/05/18 14:27 Protonix IVP 02/28/19 00:00 Not Given Q6HRS [facility] Pantoprazole Sodium 40 mg 09/05/18 13:00 09/05/18 14:19 Protonix IVP 09/05/18 13:01 40 mg ONCE ONE Administration Phenylephrine HCl Confirm 08/31/18 22:53 Neosynephrine Administered 08/31/18 22:54 Dose 1,000 mcg .ROUTE .STK-MED ONE Phenylephrine HCl Confirm 09/03/18 17:01 Neosynephrine Administered 09/03/18 17:02 Dose 1,000 mcg .ROUTE .STK-MED ONE Potassium Chloride 20 meq 09/04/18 15:33 09/04/18 16:32 Potassium Chloride Oral Liquid PO 09/04/18 15:34 20 meq ONCE ONE Administration Potassium Chloride 40 meq 09/08/18 11:15 09/08/18 11:10 Klor-Con PO 09/08/18 11:16 40 meq ONCE ONE Administration Potassium Chloride 40 meq 09/09/18 08:37 09/09/18 10:01 Klor-Con PO 09/09/18 08:38 40 meq ONCE ONE Administration Potassium Chloride 20 meq 09/10/18 15:55 09/10/18 16:09 Klor-Con PO 09/10/18 15:56 20 meq ONCE ONE Administration Propofol Confirm 08/31/18 22:53 Diprivan 10 Mg/Ml (Premix) Administered 08/31/18 22:54 Dose 500 mg IV .STK-MED ONE Propofol Confirm 09/03/18 16:08 Diprivan Administered 09/03/18 16:09 Dose 200 mg .ROUTE .STK-MED ONE Spironolactone 50 mg 09/07/18 09:15 09/07/18 10:21 Aldactone PO 03/06/19 09:14 Not Given DAILY [facility] Spironolactone 25 mg 09/07/18 09:30 09/08/18 08:31 Aldactone PO 03/06/19 09:29 25 mg DAILY JAMES Administration Succinylcholine Chloride Confirm 09/03/18 17:01 Quelicin Administered 09/03/18 17:02 Dose 200 mg IVP .STK-MED ONE Physical Exam - Physical Exam Respiratory: lungs clear Cardiac/Chest: regular rate, rhythm Abdomen: distended Skin: warm/dry, jaundice Extremities: pedal edema, swelling Neuro/Psych: alert, normal mood/affect, oriented x 3 ICD10 Worksheet Patient Problems: Problems Problem Status Onset Upper GI hemorrhage Acute Fever Acute Hyperbilirubinemia Acute Thyroid cancer Acute Weakness Acute
--- NOTE | 2018-09-11 12:28 | CPEKG ---
Test Reason : OPEN Blood Pressure : / mmHG Vent. Rate : 136 BPM Atrial Rate : 000 BPM P-R Int : 000 ms QRS Dur : 114 ms QT Int : 346 ms P-R-T Axes : 000 -22 -02 degrees QTc Int : [address] Depression anterior-lateral leads. Prolonged QT interval Confirmed by Aldo Barber ([id number]) on 09/11/2018 12:27:55 PM Referred By: Brianne Richard Confirmed By:Aldo Barber
--- NOTE | 2018-09-11 13:09 | PDCARPN ---
Cardiology Progress Note Chief Complaint: SVT Assessment/Plan: Assessment: 1. Supraventricular tachycardia: 4-5 episodes of SVT this hospitalization requiring chemical cardioversion with Adenosine. Patient is extremely fearful of receiving additional doses of adenosine. Options for management of SVT are markedly limited by the presence of multiple comorbidities. Currently on Atenolol 12.5.mg daily, dose limited by BPs. 2. Primary sclerosing cholangitis 3. Cirrhosis 4. Acute kidney injury: Cr 1.4 5. GIB Plan: 1. For recurrent SVT, strongly recommend trial of carotid massage prior to proceeding with additional interventions 2. If SVT is hemodynamically stable, recommend holding off on additional intervention 3. For hemodynamically unstable SVT, adenosine may be required. May aso consider a bolus of Diltiazem 5mg 4. [facility] were contacted to request a trial of Etrimapil for compassionate care purposes (Right to Try Act) - awaiting call back 09/11/18 13:04 Subjective: Exhausted today, very fearful to receive additional adenosine for recurrent SVT Reviewed/Discussed With: multidisciplinary team Time Spent with Patient: greater than 25 minutes Time Spent with Patient: Greater than 25 minutes spent on this patients care, greater than 50% of time spent counseling, educating, and coordinating care regarding the above mentioned plan. Objective: Vital Signs (8 Hrs) Temp Pulse Resp BP Pulse Ox 09/11/18 12:03 73 18 86/63 L 93 09/11/18 08:22 78/55 L 09/11/18 07:38 36.2 C 72 18 78/55 L 93 09/11/18 06:25 81/58 L Intake/Output (24 Hrs) 09/10/18 09/11/18 09/12/18 05:59 05:59 05:59 Intake Total 1870 650 Output Total 3725 800 300 Balance -1855 -150 -300 Intake: Oral (ml) 1870 650 Output: Urine (ml) 3725 800 300 Bedside Commode 900 Toilet 2825 500 300 Urinal 300 Other: Weight 103.6 kg Output Comment Toilet Stool cox in color Number of Voids Toilet 2 1 Number of Stools Toilet 1 1 1 Result Diagrams: 09/11/18 03:52 09/11/18 03:52 - Physical Exam Constitutional: WDWN, no apparent distress Neurologic: AAOx3, CN II-XII grossly intact Psychiatric: cooperative, interactive, following commands ICD10 Worksheet Patient Problems: Problems Problem Status Onset Upper GI hemorrhage Acute Fever Acute Hyperbilirubinemia Acute Thyroid cancer Acute Weakness Acute
--- NOTE | 2018-09-11 14:06 | HOSPPROG ---
Hospitalist Progress Note Assessment/Plan: #BIN: from diuresis; have been on old. Hypotensive this AM. Give 250cc slowly. Stable onRA -urine studies pending, trial albumin. Concern hepatorenal vs ATN vs dehydration. Echo pending -appreciate Renal consultation #Recurrent SVT: x2 last night. Dosed once with Adenosine. Cards rec maneuver tx first rather than adenosine. Can give Dilt 5mg #Goals: had lengthy conversation with he and about plans for next steps. His prognosis is poor and has significantly declined during this hospitalization. Concern for cholangiocarcinoma at [facility]. Explained we can continue comfort treatment like paracentesis and diuretics -PC evaluated today and wants to continue therapies. Will discuss cor status with #Acute GIB: due to known varices. s/p banding 09/01 & 09/03 -s/p Octreotide. Cont PPI -h/o thyroid cancer: s/p thyroidectomy. Spoke with Dr. Guzman; goal TSH 0.4-2; decrease LT4 to 150mcg #ABLA: due to above. 2 units blood 09/01. H/H remains stable #PSC with decompensated cirrhosis: followed by Hepatology at [facility] -3.3L paracentesis 09/03 -consider another para once Cr stable #Acute metabolic encephalopathy: resolved h/o Crohn's: Imuran #h/o CAD: no chest pain #HTN: hold BP with ABLA #Hypokalemia: from diuresis, repleting #Diet: regular #DVT ppx: SCDs Inpatient admission for telemetry, diuresis. bedside and questions answered. Subjective: SVT x 2 last night. Did not have symptoms. Adenosine x 1 Objective: Vital Signs Temp Pulse Resp BP Pulse Ox 36.2 C 73 18 86/63 L 93 09/11/18 07:38 09/11/18 12:03 09/11/18 12:03 09/11/18 12:03 09/11/18 12:03 Laboratory Results 09/11/18 03:52 09/11/18 03:52 09/10/18 09/11/18 09/12/18 05:59 05:59 05:59 Intake Total 1870 650 Output Total 3725 800 300 Balance -1855 -150 -300 PT 16.9 SEC (12.0-15.0) H 09/03/18 15:05 INR 1.44 (0.83-1.16) H 09/03/18 15:05 - Time Spent With Patient Time Spent with Patient: greater than 35 minutes Time Spent with Patient: Greater than 35 minutes spent on this patients care, greater than 50% of time spent counseling, educating, and coordinating care regarding the above mentioned plan. - Physical Exam Constitutional: chronically ill appearing Eyes: PERRL, scleral injection Ears, Nose, Mouth, Throat: moist mucous membranes Cardiovascular: regular rate and rhythym, edema (+2-3 LE edema) Respiratory: no respiratory distress, No no rales or rhonchi, No expiratory wheeze Gastrointestinal: ascites, distension, No tenderness Genitourinary: no bladder fullness Skin: warm, other (jaundiced) Musculoskeletal: full muscle strength Neurologic: AAOx3, CN II-XII Intact Psychiatric: interacting appropriately ICD10 Worksheet Patient Problems: Problems Problem Status Onset Upper GI hemorrhage Acute Fever Acute Hyperbilirubinemia Acute Thyroid cancer Acute Weakness Acute
[2018-09-11] MEDS: MIDODRINE HCL 5 MG TAB PO SCH (15:20)
[2018-09-11] MEDS: OCTREOTIDE 100 MCG/1 ML INJ SC SCH ×2 (15:20→22:29)
--- NOTE | 2018-09-11 15:40 | ASMTCMCOM ---
CM Note CM Note Notes: 09/11/2018 Case Management Note Palliative meeting today. Please see note for updates. At request of Greyson from Palliative Care faxed referral to [facility] via [employer]. Case Management d/c poc: [facility]IATRIC vs [facility] with [facility] to follow. Case Management to follow. Date Signed: 09/11/2018 03:39 PM Electronically Signed By:Brianna Rnakin RN
[2018-09-12] MEDS ORDERED: ALBUMIN 5% 250 ML IV ONE (02:48)
[2018-09-12] MEDS: LEVOTHYROXINE 150 MCG TAB PO SCH ×2 (05:43→05:45)
[2018-09-12] MEDS ORDERED: NOREPINEPHRINE BITARTRATE 4 MG in NS 500 ML IV SCH (07:30)
[2018-09-12] MEDS: MIDODRINE HCL 5 MG TAB PO SCH ×3 (07:32→16:48)
[2018-09-12] MEDS ORDERED: ALTEPLASE 2 MG VIAL IVP PRN (08:24)
--- NOTE | 2018-09-12 08:28 | SOAPPROG ---
SOAP Progress Note Assessment/Plan: Assessment: BIN, borderline oliguric despite IVF and IV albumin x 4 pre-renal urinary indices, possibly due to cardiac issues, echo ordered, but remains very tachy, hasn't been done. Other possibility would be hepatorenal syndrome renal U/S reviewed, no obstruction or stones hypotension despite fluids and albumin SVT, moving to ICU PSC associated with longstanding crohn's disease not a liver transplant candidate per his understanding, ? cholangiocarcinoma. [facility] Plan: agree with transfer to ICU continue midodrine, octreotide and albumin had discussion with patient and that if this is HRS, would not be candidate for dialysi all questions answered 09/12/18 08:21 Subjective: didn't sleep well, lots of interruptions due to bp and tacchycardia says he feels fine today no cp sob nausea or vomiting about to eat his breakfast spirits good today Objective: Vital Signs Temp Pulse Resp BP Pulse Ox 36.9 C 137 H 18 62/51 L 91 L 09/12/18 07:07 09/12/18 07:07 09/12/18 07:07 09/12/18 07:07 09/12/18 07:07 Laboratory Results 09/11/18 03:52 09/12/18 04:10 09/11/18 09/12/18 09/13/18 05:59 05:59 05:59 Intake Total 650 950 Output Total 800 625 Balance -150 325 PT 16.9 SEC (12.0-15.0) H 09/03/18 15:05 INR 1.44 (0.83-1.16) H 09/03/18 15:05 Physical Exam - Physical Exam General Appearance: alert Neck: other (JVD) Respiratory: No rhonchi, No wheezing Cardiac/Chest: tachycardia (regular, no rub) Abdomen: other (bs+ distended with ascites) Skin: warm/dry, jaundice Extremities: swelling Neuro/Psych: alert, normal mood/affect, oriented x 3 ICD10 Worksheet Patient Problems: Problems Problem Status Onset Upper GI hemorrhage Acute Fever Acute Hyperbilirubinemia Acute Thyroid cancer Acute Weakness Acute
--- NOTE | 2018-09-12 09:03 | GCON ---
[f rep st] CONSULTATION DATE OF CONSULTATION: 09/11/2018 REASON FOR CONSULTATION: Opinion regarding acute kidney injury. HISTORY OF PRESENT ILLNESS: The patient is a very pleasant 73-year-old gentleman diagnosed with Croh n disease approximately 20 years ago, and subsequently about 2 years ago, was diagnosed with sclerosi ng cholangitis with cirrhosis, portal hypertension, and esophageal varices. The patient was admitted on 08/31/2018, with upper gastrointestinal bleed. He underwent upper endoscopy. He was noted to felix ve esophageal varices, they were banded. A couple of days later, he had another esophageal bleed aft er vomiting. He had to have another endoscopy and banding at that time. He received several units o f packed red blood cells. Through this, his creatinine was reasonable in the low 1s; however, over t he course of the past several days, his serum creatinine is increased from his baseline of 1.2 up to 1.7. Serum creatinine was 1.2 on 09/09, on 09/10, it was 1.4 on 09/11, 1.7. We have been asked to s for further evaluation and management of his rising creatinine. The patient did have some difficulty the night of 09/10/2018, with supraventricular tachycardia and s ome low blood pressures. He was given adenosine without much improvement, he did not like the way he felt with the adenosine. He has not been having fevers, chills, nausea, vomiting, chest pain. He d oes have some chronic shortness of breath due to ascites. No cough or sputum production. No hemopty sis. He did have hematemesis on admission. No epistaxis. No melena, hematochezia, blurry vision, d ouble vision, headache, orthopnea, paroxysmal nocturnal dyspnea, palpitations, or syncope. PAST MEDICAL HISTORY: Significant for: 1. Crohn disease for which he takes Imuran. 2. Chronic immunosuppression (Imuran). 3. Primary sclerosing cholangitis diagnosed about 2 years ago. 4. Cirrhosis due to his PSC. 5. Hypertension for approximately 20 years. 6. Coronary artery disease. 7. History of a stented bile duct. 8. Not a transplant candidate per [facility]. ALLERGIES: None known. MEDICATIONS: Include normal saline at 75 cc an hour, atenolol 12.5 mg daily, Imuran 100 mg daily, Sy nthroid 150 mcg daily, Protonix 40 mg twice daily, Phenergan, albumin 250 cc. FAMILY HISTORY: Negative for renal disease. SOCIAL HISTORY: He is . He has 2 children. 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 He does not use tob acco. 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 He col lects [place] and silver watch bands. REVIEW OF SYSTEMS: A complete 12-point review of systems were performed with the pertinent positives and negatives as per the previous sections. PHYSICAL EXAMINATION: VITAL SIGNS: Blood pressure 86/63, pulse 73, respirations 18, temperature 36. 2. Urine output 800 cc over the course of the past 24 hours. His systolic blood pressures are a bit low, generally speaking, they have been in the low 100s. GENERAL: He is alert, cooperative, but is somewhat ill appearing. HEENT: He does have some scleral icterus. NECK: Positive for some JVD. No lymphadenopathy. HEART: Tachycardic, regular. No rub. No S3. LUNGS: Decreased breath sounds in the bases. Occasional rales. No rhonchi or wheezes. ABDOMEN: Distended with ascites. Bowel so unds are positive. The abdomen is nontender. EXTREMITIES: Positive for edema. No cyanosis or club latrice. NEUROLOGIC: Mild asterixis. SKIN: Jaundiced. LYMPH: No palpable lymphadenopathy. MUSCULO SKELETAL: No effusions or tenderness. LABORATORY: Serum sodium 139, potassium 4.4, chloride 111, CO2 16, BUN 20, creatinine 1.7 up from 1. 4 the day prior and 1.2 the day prior to that. Total bilirubin of 26, albumin 2.6, AST 170, ALT 66. Hemoglobin 9.1, hematocrit 27.5, platelet count 121,000. TSH is less than 0.015, free T4 of 3.05. IMPRESSION: 1. Acute kidney injury. Certainly has a number of reasons, including possible hepatic renal syndrom e, possible hypotension from his supraventricular tachycardia with hypoperfusion of his kidneys. 2. Vascular volume depletion in the face of total body water access. RECOMMENDATIONS: 1. I am concerned that this is hepatorenal syndrome from his cirrhosis. We will be checking urine c hemistries. We will may some diuresis, although with his hypotension and SVC, that might be problema tic. 2. Continue with his IV albumin. 3. We will start some midodrine 5 mg 3 times daily, as well as octreotide 100 mcg subcutaneously 3 t imes daily. 4. Check an echocardiogram. 5. Check an abdominal ultrasound. Thank you for allowing me to participate in the care of your patient. If there are any questions, pl ease do not hesitate to contact us. We will be following along with you. /[id number]/MODL
--- NOTE | 2018-09-12 09:41 | SOAPPROG ---
SOAP Progress Note Assessment/Plan: Assessment: Crohn's disease, PSC, Cirrhosis, portal HTN and ascites. Jaundice with liver failure, edema and ascites. Hilar stricture with HGD, worrisome for cholangiocarcinoma. Bilirubin 26. Previous bilirubin at [facility] 26. Last stent placement was in July. Azotemia in setting of diuresis and cirrhosis/ascites. Seen by Nephrology, appreciate there input. Creatinine elevated but did not rise significantly over night. Started on Midodrine, SPA and Octreotide. Patient with recurrent episodes of SVT, transferred to ICU. Plan: 1. Fluid management per Nephrology, appreciate their assistance 2. Prior variceal bleed, stable 3. PSC, Jaundice. Previous biliary stent. Prior Cholangitis in 05/27. Bilirubin elevated but stable from 07/29. 4. 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 Overall prognosis poor. 09/12/18 09:44 Subjective: CC: UGI Bleed. PSC, Crohn's disease, portal HTN with recent variceal bleed s/p banding. Transferred to ICU for recurrent runs of SVT. Worsening renal function started on IV albumin, Octreotide and Midodrine. Patient feeling somewhat better today. Objective: Vital Signs Temp Pulse Resp BP Pulse Ox 36.9 C 67 30 H 111/73 95 09/12/18 07:07 09/12/18 09:15 09/12/18 09:15 09/12/18 09:15 09/12/18 09:15 Laboratory Results 09/11/18 03:52 09/12/18 04:10 09/11/18 09/12/18 09/13/18 05:59 05:59 05:59 Intake Total 650 950 Output Total 800 625 Balance -150 325 PT 16.9 SEC (12.0-15.0) H 09/03/18 15:05 INR 1.44 (0.83-1.16) H 09/03/18 15:05 Generic Name Dose Route Start Last Admin Trade Name Freq PRN Reason Stop Dose Admin Acetaminophen 650 mg 08/31/18 19:38 09/03/18 18:35 Tylenol PO 02/27/19 19:37 650 mg Q4HRS PRN Administration Pain, Mild/Fever, Can Take PO Alteplase, Recombinant 2 mg 09/12/18 08:24 Cathflo Activase IVP 03/11/19 08:23 PRN PRN Per PICC line policy Atenolol 12.5 mg 09/10/18 09:00 09/10/18 08:44 Tenormin PO 03/09/19 08:59 12.5 mg DAILY JAMES Administration Azathioprine 100 mg 09/07/18 11:30 09/11/18 08:19 Imuran PO 03/06/19 11:29 100 mg DAILY JAMES Administration Norepinephrine 4 mg/ Sodium 504 mls @ 0 mls/hr 09/12/18 07:30 09/12/18 08:46 Chloride IV 03/11/19 07:29 504 mls CONT JAMES Administration Protocol Per Protocol Levothyroxine Sodium 150 mcg 09/11/18 06:00 09/12/18 05:45 Synthroid PO 03/10/19 05:59 150 mcg DAILY AT 6AM JAMES Administration Midodrine 5 mg 09/11/18 16:00 09/12/18 07:32 Proamatine PO 03/10/19 15:59 5 mg TID@0800,1200,1600 JAMES Administration Octreotide Acetate 100 mcg 09/11/18 16:00 09/11/18 22:29 Sandostatin SC 03/10/19 15:59 100 mcg TID JAMES Administration Ondansetron HCl 4 mg 08/31/18 19:38 Zofran Odt PO 02/27/19 19:37 Q4HRS PRN Nausea/Vomiting, Use 1st Pantoprazole Sodium 40 mg 09/05/18 21:00 09/11/18 22:28 Protonix PO 03/04/19 20:59 40 mg BID JAMES Administration Promethazine HCl 6.25 - 12.5 mg 08/31/18 19:38 09/01/18 08:46 Phenergan IVP 02/27/19 19:37 6.25 mg Q6HRS PRN Administration Nausea/Vomiting, Use 2nd Discontinued Medications Generic Name Dose Route Start Last Admin Trade Name Freq PRN Reason Stop Dose Admin Adenosine 6 mg 09/03/18 09:00 09/03/18 09:28 Adenosine IVP 09/03/18 09:01 Not Given ONCE ONE Adenosine 6 mg 09/08/18 05:09 09/08/18 05:26 Adenosine IVP 09/08/18 05:10 6 mg ONCE ONE Administration Adenosine 6 mg 09/10/18 22:18 09/10/18 22:30 Adenosine IVP 09/10/18 22:19 6 mg ONCE ONE Administration Atenolol 12.5 mg 09/09/18 11:54 09/09/18 12:22 Tenormin PO 09/09/18 11:55 12.5 mg ONCE ONE Administration Fentanyl Confirm 08/31/18 23:01 Sublimaze Administered 08/31/18 23:02 Dose 100 mcg .ROUTE .STK-MED ONE Furosemide 40 mg 09/07/18 09:15 09/09/18 08:23 Lasix PO 03/06/19 09:14 40 mg DAILY JAMES Administration Furosemide 40 mg 09/09/18 15:00 09/09/18 14:56 Lasix Injection IVP 03/08/19 14:59 40 mg BID@0900,1500 JAMES Administration Hydromorphone HCl 0.2 - 0.4 mg 08/31/18 19:38 09/01/18 05:32 Dilaudid IVP 09/10/18 19:37 0.2 mg Q4HRS PRN Administration pain, moderate to severe Hydromorphone HCl 0.2 mg 09/02/18 21:36 09/03/18 02:25 Dilaudid IVP 09/12/18 21:35 0.2 mg Q2HRS PRN Administration Severe pain Ceftriaxone Sodium/Dextrose 50 mls @ 100 mls/hr 08/31/18 18:48 08/31/18 19:03 Rocephin 1 Gm (Premix) IV 08/31/18 19:17 50 mls EDNOW ONE Administration Protocol Octreotide Acetate 500 mcg/ 51 mls @ 5 mls/hr 08/31/18 19:00 08/31/18 19:15 Sodium Chloride IV 09/01/18 05:00 51 mls CONT JAMES Administration Sodium Chloride 1,000 mls @ 0 mls/hr 08/31/18 18:49 08/31/18 19:02 Ns IV 08/31/18 18:50 1,000 mls EDNOW ONE Administration Protocol Wide Open Ceftriaxone Sodium/Dextrose 50 mls @ 100 mls/hr 09/01/18 09:00 09/08/18 08:31 Rocephin 1 Gm (Premix) IV 10/01/18 08:59 50 mls DAILY JAMES Administration Protocol Sodium Chloride 1,000 mls @ 75 mls/hr 08/31/18 19:45 09/02/18 06:22 Ns IV 02/27/19 19:44 1,000 mls CONT JAMES Administration Octreotide Acetate 500 mcg/ 51 mls @ 5 mls/hr 09/01/18 02:00 09/06/18 02:46 Sodium Chloride IV 02/28/19 01:59 51 mls CONT JAMES Administration Sodium Chloride 500 mls @ 1,500 mls/hr 09/03/18 07:53 09/03/18 08:00 Ns IV 09/03/18 08:12 500 mls ONCE ONE Administration Lactated Ringer's 1,000 mls @ 0 mls/hr 09/03/18 16:47 09/03/18 18:13 Lr IV 09/03/18 16:48 Not Given ONCE ONE Per Protocol Albumin Human 200 mls @ 0 mls/hr 09/07/18 09:18 09/07/18 10:26 Flexbumin 25 % (Premix) IV 09/07/18 09:19 200 mls ONCE ONE Administration As Directed Sodium Chloride 1,000 mls @ 100 mls/hr 09/10/18 12:45 Ns IV 09/10/18 15:44 CONT JAMES Albumin Human 250 mls @ 0 mls/hr 09/11/18 04:05 09/11/18 04:44 Alburx 5 IV 09/11/18 04:06 250 mls ONCE ONE Administration As Directed Sodium Chloride 1,000 mls @ 75 mls/hr 09/11/18 08:00 09/11/18 08:37 Ns IV 09/11/18 10:59 1,000 mls CONT JAMES Administration Albumin Human 250 mls @ 0 mls/hr 09/11/18 14:09 09/11/18 15:17 Alburx 5 IV 09/11/18 14:10 250 mls ONCE ONE Administration As Directed Albumin Human 250 mls @ 0 mls/hr 09/12/18 02:48 09/12/18 03:21 Alburx 5 IV 09/12/18 02:49 250 mls ONCE ONE Administration As Directed Levothyroxine Sodium 175 mcg 09/02/18 10:45 09/09/18 06:50 Synthroid PO 03/01/19 10:44 175 mcg DAILY06 JAMES Administration Levothyroxine Sodium 150 mcg 09/10/18 06:00 Synthroid PO 03/09/19 05:59 DAILY06 JAMES Levothyroxine Sodium 125 mcg 09/10/18 06:00 09/10/18 04:03 Synthroid PO 03/09/19 05:59 125 mcg DAILY06 JAMES Administration Lidocaine HCl Confirm 09/03/18 12:24 Lidocaine Hcl 1% Administered 09/03/18 12:25 Dose 300 mg .ROUTE .STK-MED ONE Lidocaine HCl Confirm 09/03/18 16:08 Lidocaine Hcl 2% Administered 09/03/18 16:09 Dose 2 ml .ROUTE .STK-MED ONE Lidocaine HCl Confirm 09/03/18 16:09 Lidocaine Hcl 2% Administered 09/03/18 16:10 Dose 2 ml .ROUTE .STK-MED ONE Lorazepam 0.5 - 1 mg 08/31/18 19:38 Ativan Injection IVP 02/27/19 19:37 Q8HRS PRN Anxiety, Unable to Take PO Naloxone HCl 0.1 mg 09/03/18 17:39 Narcan IVP 09/03/18 18:39 Q2M PRN PACU Resp Rate <10/min Ondansetron HCl 4 mg 08/31/18 18:51 08/31/18 19:02 Zofran IVP 08/31/18 18:52 4 mg EDNOW ONE Administration Ondansetron HCl 4 mg 08/31/18 19:38 08/31/18 22:18 Zofran IVP 02/27/19 19:37 4 mg Q4HRS PRN Administration Nausea/Vomiting, Can't Take PO Pantoprazole Sodium 80 mg 08/31/18 18:48 08/31/18 19:06 Protonix IVP 08/31/18 18:49 80 mg EDNOW ONE Administration Pantoprazole Sodium 40 mg 09/01/18 00:00 09/05/18 14:27 Protonix IVP 02/28/19 00:00 Not Given Q6HRS JAMES Pantoprazole Sodium 40 mg 09/05/18 13:00 09/05/18 14:19 Protonix IVP 09/05/18 13:01 40 mg ONCE ONE Administration Phenylephrine HCl Confirm 08/31/18 22:53 Neosynephrine Administered 08/31/18 22:54 Dose 1,000 mcg .ROUTE .STK-MED ONE Phenylephrine HCl Confirm 09/03/18 17:01 Neosynephrine Administered 09/03/18 17:02 Dose 1,000 mcg .ROUTE .STK-MED ONE Potassium Chloride 20 meq 09/04/18 15:33 09/04/18 16:32 Potassium Chloride Oral Liquid PO 09/04/18 15:34 20 meq ONCE ONE Administration Potassium Chloride 40 meq 09/08/18 11:15 09/08/18 11:10 Klor-Con PO 09/08/18 11:16 40 meq ONCE ONE Administration Potassium Chloride 40 meq 09/09/18 08:37 09/09/18 10:01 Klor-Con PO 09/09/18 08:38 40 meq ONCE ONE Administration Potassium Chloride 20 meq 09/10/18 15:55 09/10/18 16:09 Klor-Con PO 09/10/18 15:56 20 meq ONCE ONE Administration Propofol Confirm 08/31/18 22:53 Diprivan 10 Mg/Ml (Premix) Administered 08/31/18 22:54 Dose 500 mg IV .STK-MED ONE Propofol Confirm 09/03/18 16:08 Diprivan Administered 09/03/18 16:09 Dose 200 mg .ROUTE .STK-MED ONE Spironolactone 50 mg 09/07/18 09:15 09/07/18 10:21 Aldactone PO 03/06/19 09:14 Not Given DAILY JAMES Spironolactone 25 mg 09/07/18 09:30 09/08/18 08:31 Aldactone PO 03/06/19 09:29 25 mg DAILY JAMES Administration Spironolactone 100 mg 09/09/18 09:00 09/09/18 08:24 Aldactone PO 03/08/19 08:59 100 mg DAILY JAMES Administration Succinylcholine Chloride Confirm 09/03/18 17:01 Quelicin Administered 09/03/18 17:02 Dose 200 mg IVP .STK-MED ONE Physical Exam - Physical Exam General Appearance: alert, no apparent distress Respiratory: lungs clear, normal breath sounds Cardiac/Chest: regular rate, rhythm Abdomen: distended Skin: jaundice Neuro/Psych: alert, normal mood/affect, oriented x 3 ICD10 Worksheet Patient Problems: Problems Problem Status Onset Upper GI hemorrhage Acute Fever Acute Hyperbilirubinemia Acute Thyroid cancer Acute Weakness Acute
[2018-09-12] MEDS: azaTHIOprine 50 MG TAB PO SCH (10:05)
[2018-09-12] MEDS: OCTREOTIDE 100 MCG/1 ML INJ SC SCH ×3 (10:05→21:02)
[2018-09-12] MEDS: PANTOPRAZOLE SODIUM 40 MG TAB PO SCH ×2 (10:05→21:02)
--- NOTE | 2018-09-12 10:48 | HOSPPROG ---
Hospitalist Progress Note Assessment/Plan: #Hypotension: persistent overnight despite albumin/IVFs. Midodrine started yesterday. SVT likely contributing -start Levophed. Cont midodrine, octreotide #BIN: mild bump Cr 1.7-->1.8. Near oliguric. Pre-renal vs HPS. Plan as above. -not a dialysis candidate #Recurrent SVT: converted spontaneously. Dosed once with Adenosine, but very long pause. Cards rec maneuver tx first rather than adenosine. Can give Dilt 5mg -atenolol on hold with hypotension #Goals: -now DNR, MOST form in chart -Palliative Care following #Acute GIB: due to known varices. s/p banding 09/01 & 09/03 -s/p Octreotide. Cont PPI, serial H/H -h/o thyroid cancer: s/p thyroidectomy. Spoke with Dr. Guzman; goal TSH 0.4-2; decrease LT4 to 150mcg #ABLA: due to above. 2 units blood 09/01. H/H remains stable #PSC with decompensated cirrhosis: followed by [facility]atology at [facility] -3.3L paracentesis 09/03 -consider another para once Cr stable #Acute metabolic encephalopathy: resolved h/o Crohn's: Imuran #h/o CAD: no chest pain #HTN: hold BP with ABLA #Hypokalemia: from diuresis, repleting #Diet: regular #DVT ppx: SCDs Critical care time spent: 60 min bedside, evaluating pt/labs. D/w Renal Advance care plannin min discussing goals and completed MOST form Subjective: Recurrent SVT and hypotension overnight. No sypmtoms Objective: Vital Signs Temp Pulse Resp BP Pulse Ox 36.9 C 65 16 95/64 L 95 09/12/18 07:07 09/12/18 10:00 09/12/18 10:00 09/12/18 10:00 09/12/18 10:00 Laboratory Results 09/11/18 03:52 09/12/18 04:10 09/11/18 09/12/18 09/13/18 05:59 05:59 05:59 Intake Total 650 950 Output Total 800 625 Balance -150 325 PT 16.9 SEC (12.0-15.0) H 09/03/18 15:05 INR 1.44 (0.83-1.16) H 09/03/18 15:05 - Time Spent With Patient Time Spent with Patient: greater than 35 minutes Time Spent with Patient: Greater than 35 minutes spent on this patients care, greater than 50% of time spent counseling, educating, and coordinating care regarding the above mentioned plan. - Physical Exam Constitutional: chronically ill appearing Eyes: PERRL, icteric sclera Ears, Nose, Mouth, Throat: moist mucous membranes Cardiovascular: regular rate and rhythym Respiratory: no respiratory distress Gastrointestinal: distension (soft, non-tender) Genitourinary: hemorrhoids, No núñez in urethra Skin: warm, other (jaundiced) Neurologic: AAOx3, CN II-XII Intact Psychiatric: interacting appropriately ICD10 Worksheet Patient Problems: Problems Problem Status Onset Upper GI hemorrhage Acute Fever Acute Hyperbilirubinemia Acute Thyroid cancer Acute Weakness Acute
--- NOTE | 2018-09-12 15:47 | ASMTCMCOM ---
CM Note CM Note Notes: CM met with patient and family. Patient continues to want to be flexible on rather he will go home with [facility] or [facility]. Family connected with [facility] yesterday. It is unclear when patient will be medically ready for discharge. Will continue to follow for discharge plan. Plan: [facility] vs [facility] with [facility] Date Signed: 09/12/2018 03:46 PM Electronically Signed By:Lori Sims
[2018-09-12] MEDS: ALBUMIN 5% 250 ML IV SCH (21:02)
[2018-09-13] MEDS: MIDODRINE HCL 5 MG TAB PO SCH ×4 (07:49→16:03)
[2018-09-13] MEDS: LEVOTHYROXINE 150 MCG TAB PO SCH (07:49)
[2018-09-13] MEDS: ALBUMIN 5% 250 ML IV SCH (09:27)
[2018-09-13] MEDS: OCTREOTIDE 100 MCG/1 ML INJ SC SCH ×3 (09:28→21:08)
[2018-09-13] MEDS: PANTOPRAZOLE SODIUM 40 MG TAB PO SCH ×2 (09:28→21:08)
[2018-09-13] MEDS: azaTHIOprine 50 MG TAB PO SCH (10:41)
[2018-09-13] MEDS: ALBUMIN 25% 100 ML IV SCH ×2 (11:26→17:48)
--- NOTE | 2018-09-13 11:30 | SOAPPROG ---
SOAP Progress Note Assessment/Plan: Assessment: 1. BIN - -Possible HRS, pre-renal urine indices -Starting to improve now s/p IVF and albumin, + midodrine and octreotide; still some relative hypotension, will increase midodrine to 10mg TID -Recheck urine chemistries to see if it has improved (more likely volume/cardiac ) or not (HRS) -Renal U/S showed no obstruction or stones 2. SVT - -Moved to ICU, transiently on levo now off 3. PSC associated with longstanding crohn's disease -Not a liver transplant candidate per his understanding, ? cholangiocarcinoma. follows closely with [facility] team Plan: 09/13/18 11:26 09/13/18 11:27 09/13/18 11:29 09/13/18 11:30 Subjective: Pt reports feeling better than he has in two weeks. Appetite improved. Objective: Vital Signs Temp Pulse Resp BP Pulse Ox 36.4 C 67 19 88/62 L 98 09/13/18 07:22 09/13/18 10:00 09/13/18 10:00 09/13/18 10:00 09/13/18 10:00 Laboratory Results 09/13/18 05:20 09/13/18 05:20 09/12/18 09/13/18 09/14/18 05:59 05:59 05:59 Intake Total 950 1131 Output Total 625 1250 Balance 325 -119 PT 16.9 SEC (12.0-15.0) H 09/03/18 15:05 INR 1.44 (0.83-1.16) H 09/03/18 15:05 Physical Exam - Physical Exam General Appearance: WD/WN, alert, no apparent distress Respiratory: lungs clear, normal breath sounds Cardiac/Chest: regular rate, rhythm Abdomen: non-tender, distended (+ascites) Skin: jaundice Extremities: No swelling ICD10 Worksheet Patient Problems: Problems Problem Status Onset Upper GI hemorrhage Acute Fever Acute Hyperbilirubinemia Acute Thyroid cancer Acute Weakness Acute
[2018-09-13 12:02] LABS: PLATELET COUNT 56 10^3/uL (150-400)
--- NOTE | 2018-09-13 12:29 | PDCARPN ---
Cardiology Progress Note Assessment/Plan: Assessment: 1. Supraventricular tachycardia: 4-5 episodes of SVT this hospitalization requiring chemical cardioversion with Adenosine with prolonged pause after most recent administration. Patient is extremely fearful of receiving additional doses of adenosine. Options for management of SVT are markedly limited by the presence of multiple comorbidities. Atenolol on hold 2nd to BPs 2. Primary sclerosing cholangitis 3. Cirrhosis 4. Acute kidney injury 5. GIB Plan: 1. If SVT is hemodynamically stable, recommend holding off on additional intervention 2. Recommend a trial of Adenosine 3mg if required for hemodynamically unstable SVT. May also consider a bolus of Diltiazem 5mg 3. Re-start home propranolol, DC atenolol 4. EP will continue to follow 09/13/18 12:28 Subjective: Feeling much better today after a great night's sleep Objective: Vital Signs (8 Hrs) Temp Pulse Resp BP Pulse Ox 09/13/18 12:00 67 16 92/60 L 95 09/13/18 10:00 67 19 88/62 L 98 09/13/18 08:00 78 25 H 93/63 L 97 09/13/18 07:22 36.4 C 65 17 92/56 L 95 09/13/18 06:00 71 19 92/56 L 97 Intake/Output (24 Hrs) 09/12/18 09/13/18 09/14/18 05:59 05:59 05:59 Intake Total 950 1131 Output Total 625 1250 Balance 325 -119 Intake: Oral (ml) 450 600 IV Intake (ml) 380 IV Infused (ml) 500 151 Albumin 5% 250 ml @ As 250 Directed IV ONCE ONE Rx#: [id number] Norepinephrine Bitartrate 151 4 mg In Ns 500 ml @ Per Protocol IV CONT JAMES Rx#: [id number] Ns 1,000 ml @ 75 mls/hr 250 IV CONT JAMES Rx#: [id number] Output: Urine (ml) 625 900 Toilet 350 600 Urinal 275 300 Urine/Stool Mix (ml) 350 Toilet 350 Other: Output Comment Toilet Stool cox in color Number of Voids Toilet 1 Urinal 1 Number of Stools Toilet 1 Result Diagrams: 09/13/18 11:45 09/13/18 05:20 - Physical Exam Constitutional: no apparent distress Ears, Nose, Mouth, Throat: moist mucous membranes Cardiovascular: regular rate and rhythm Peripheral Pulses: 2+: dorsalis-pedis (R), dorsalis-pedis (L) Skin: other (jaundiced) Neurologic: AAOx3, CN II-XII grossly intact Psychiatric: cooperative, interactive, following commands, not anxious ICD10 Worksheet Patient Problems: Problems Problem Status Onset Upper GI hemorrhage Acute Fever Acute Hyperbilirubinemia Acute Thyroid cancer Acute Weakness Acute
--- NOTE | 2018-09-13 12:37 | SOAPPROG ---
[facility] Progress Note Assessment/Plan: Assessment: 1. PSC 2. Cirrhosis 3. Ascites 4. Edema 5. Jaundice 6. SVT 7. Renal insufficiency 8. 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 Crohn's disease Plan: 1. Continue albumin but recommend 25% salt poor albumin infusions until serum albumin 3.0 or higher 2. Octreotide 100mcg TID 3. [id number] po TID 4. Consider stopping propranolol if only for variceal prophylaxis given renal insufficiency. I have seen beta blockers worsen renal function and worsen portal HTN related liver problems in advanced cirrhosis 5. Paracentesis only if distended with difficulty breathing or in abdominal pain 6. Low sodium 2gm diet 7. Maybe able to transition to rehab center soon. 09/13/18 12:41 Subjective: CC: Feels better. slept some more than usual overnight Less swollen he feels Objective: Vital Signs Temp Pulse Resp BP Pulse Ox 36.4 C 67 16 92/60 L 95 09/13/18 07:22 09/13/18 12:00 09/13/18 12:00 09/13/18 12:00 09/13/18 12:00 Laboratory Results 09/13/18 11:45 09/13/18 05:20 09/12/18 09/13/18 09/14/18 05:59 05:59 05:59 Intake Total 950 1131 Output Total 625 1250 Balance 325 -119 PT 16.9 SEC (12.0-15.0) H 09/03/18 15:05 INR 1.44 (0.83-1.16) H 09/03/18 15:05 Physical Exam - Physical Exam General Appearance: no apparent distress Neck: supple Respiratory: decreased breath sounds Cardiac/Chest: regular rate, rhythm Abdomen: non-tender, distended, ascites Skin: jaundice Extremities: pedal edema, swelling Neuro/Psych: alert, oriented x 3 ICD10 Worksheet Patient Problems: Problems Problem Status Onset Upper GI hemorrhage Acute Fever Acute Hyperbilirubinemia Acute Thyroid cancer Acute Weakness Acute
--- NOTE | 2018-09-13 14:27 | HOSPPROG ---
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 thurman regarding ICU plan abd us - positive for ascites - Physical Exam Constitutional: no apparent distress, appears nourished, not in pain Cardiovascular: regular rate and rhythym, no murmur, rub, or gallop, edema Respiratory: no respiratory distress, no rales or rhonchi, clear to auscultation Gastrointestinal: ascites, distension, No tenderness, No guarding, No rebound Skin: no rashes or abrasions, no fluctuance, no induration, other (jaundice) Neurologic: AAOx3, sensation intact bilaterally Psychiatric: interacting appropriately, not anxious, not encephalopathic, thought process linear ICD10 Worksheet Patient Problems: Problems Problem Status Onset Upper GI hemorrhage Acute Fever Acute Hyperbilirubinemia Acute Thyroid cancer Acute Weakness Acute
[2018-09-13] MEDS ORDERED: PROPRANOLOL HCL 10 MG TAB PO SCH (16:00)
[2018-09-13] MEDS: PROPRANOLOL HCL 10 MG TAB PO SCH ×2 (21:08→23:46)
[2018-09-14] MEDS: ALBUMIN 25% 100 ML IV SCH ×4 (01:13→17:49)
[2018-09-14] MEDS: LEVOTHYROXINE 150 MCG TAB PO SCH (06:17)
[2018-09-14 06:20] LABS: PLATELET COUNT 59 10^3/uL (150-400)
[2018-09-14] MEDS: MIDODRINE HCL 5 MG TAB PO SCH ×3 (08:11→17:08)
[2018-09-14] MEDS: PANTOPRAZOLE SODIUM 40 MG TAB PO SCH ×2 (08:11→21:29)
[2018-09-14] MEDS: azaTHIOprine 50 MG TAB PO SCH (08:18)
[2018-09-14] MEDS: OCTREOTIDE 100 MCG/1 ML INJ SC SCH ×3 (08:20→21:27)
--- NOTE | 2018-09-14 09:10 | PDCARPN ---
Cardiology Progress Note Chief Complaint: SVT Assessment/Plan: Assessment: 1. Supraventricular tachycardia: 4-5 episodes of SVT this hospitalization requiring chemical cardioversion with Adenosine with prolonged pause after most recent administration. Patient is extremely fearful of receiving additional doses of adenosine. Options for management of SVT are markedly limited by the presence of multiple comorbidities. Switched from atenolol back to propranolol yesterday 2. Primary sclerosing cholangitis 3. Cirrhosis 4. Acute kidney injury 5. GIB Plan: 1. If SVT is hemodynamically stable, recommend holding off on additional intervention 2. Recommend a trial of Adenosine 3mg if intervention is required for hemodynamically unstable SVT. May also consider a bolus of Diltiazem 5mg 3. EP will sign off for now, happy to consult for any recurrent SVT or new issues. SVT ablation may be considered as a last resort for recurrent SVT. With his multiple comorbidities, this would be completed without anesthesia and would carry a high risk of intraprocedure mortality. 09/14/18 11:03 Objective: Vital Signs (8 Hrs) Temp Pulse Resp BP Pulse Ox 09/14/18 07:52 36.1 C 60 17 87/59 L 97 09/14/18 04:00 36.7 C 63 17 87/59 L 94 09/14/18 03:00 64 15 93/63 L 93 Intake/Output (24 Hrs) 09/13/18 09/14/18 09/15/18 05:59 05:59 05:59 Intake Total 1131 1300 Output Total 1250 250 Balance -119 1050 Intake: Oral (ml) 600 850 IV Intake (ml) 380 450 IV Infused (ml) 151 Norepinephrine Bitartrate 151 4 mg In Ns 500 ml @ Per Protocol IV CONT JAMES Rx#: [id number] Output: Urine (ml) 900 250 Toilet 600 250 Urinal 300 Urine/Stool Mix (ml) 350 Toilet 350 Other: Weight 108.7 kg Number of Voids Toilet 1 1 1 Number of Stools Toilet 1 Result Diagrams: 09/14/18 06:10 09/14/18 06:10 - Physical Exam Skin: other (jaundiced) Neurologic: AAOx3, CN II-XII grossly intact Psychiatric: cooperative, interactive, following commands, not anxious ICD10 Worksheet Patient Problems: Problems Problem Status Onset Upper GI hemorrhage Acute Fever Acute Hyperbilirubinemia Acute Thyroid cancer Acute Weakness Acute
--- NOTE | 2018-09-14 16:19 | HOSPPROG ---
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 Avelar ICU rounds, stable for transfer to PCU ABD us - no bile duct dilation TELE - SVT x 2 last night, but brief - Physical Exam Constitutional: no apparent distress, appears nourished, not in pain Cardiovascular: regular rate and rhythym, no murmur, rub, or gallop Gastrointestinal: ascites, distension, No guarding, No rebound Skin: no rashes or abrasions, no fluctuance, no induration, other (severe jaundice) Neurologic: AAOx3, sensation intact bilaterally ICD10 Worksheet Patient Problems: Problems Problem Status Onset Thyroid cancer Acute Hyperbilirubinemia Acute Fever Acute Weakness Acute Upper GI hemorrhage Acute
--- NOTE | 2018-09-14 19:18 | SOAPPROG ---
SOAP Progress Note Assessment/Plan: Assessment: 1. BIN - -Initially concern for HRS with pre-renal urine indices -Starting to improve now s/p IVF and albumin, + midodrine and octreotide; still some relative hypotension, increased midodrine to 10mg TID -Recheck urine chemistries show improvement in urine sodium indicating this was likely volume/cardiac-mediated and not HRS -Renal U/S showed no obstruction or stones 2. SVT - -Moved to ICU, transiently on levo now off, now in PCU 3. PSC associated with longstanding crohn's disease -Not a liver transplant candidate per his understanding, ? cholangiocarcinoma. [facility] Plan: 09/14/18 19:17 09/14/18 19:17 Subjective: Slept well last night, fair appetite today, feels better overall Objective: Vital Signs Temp Pulse Resp BP Pulse Ox 36.6 C 55 L 20 97/63 L 97 09/14/18 16:00 09/14/18 16:00 09/14/18 16:00 09/14/18 16:00 09/14/18 16:00 Laboratory Results 09/14/18 12:30 09/14/18 06:10 09/13/18 09/14/18 09/15/18 05:59 05:59 05:59 Intake Total 1131 1300 900 Output Total 1250 250 Balance -119 1050 900 PT 16.9 SEC (12.0-15.0) H 09/03/18 15:05 INR 1.44 (0.83-1.16) H 09/03/18 15:05 ICD10 Worksheet Patient Problems: Problems Problem Status Onset Upper GI hemorrhage Acute Fever Acute Hyperbilirubinemia Acute Thyroid cancer Acute Weakness Acute
[2018-09-14] MEDS: PROPRANOLOL HCL 10 MG TAB PO SCH (21:47)
[2018-09-15] MEDS: ALBUMIN 25% 100 ML IV SCH ×4 (00:51→17:45)
[2018-09-15 05:12] LABS: PLATELET COUNT 57 10^3/uL (150-400)
[2018-09-15] MEDS: LEVOTHYROXINE 150 MCG TAB PO SCH (05:17)
[2018-09-15 05:20] LABS: INR 1.74 (0.83-1.16); PROTIME(PATIENT) 19.5 SEC (12.0-15.0)
[2018-09-15] MEDS: MIDODRINE HCL 5 MG TAB PO SCH ×3 (07:42→15:17)
[2018-09-15] MEDS: azaTHIOprine 50 MG TAB PO SCH (08:13)
[2018-09-15] MEDS: OCTREOTIDE 100 MCG/1 ML INJ SC SCH ×3 (08:14→21:17)
[2018-09-15] MEDS: PANTOPRAZOLE SODIUM 40 MG TAB PO SCH ×2 (08:14→21:17)
[2018-09-15] MEDS: PROPRANOLOL HCL 10 MG TAB PO SCH (08:14)
--- NOTE | 2018-09-15 08:46 | ECHO ---
[email or web address] [address] [address] Main: [phone] Echocardiography Examination Transthoracic Name: JUDY TERRY MR#: [id number] Study Date: 09/04/2018 Study Time: 11:01 AM Date of : 1945 Age: 73 year(s) Height: 177.8 cm (70 in.) Weight: 103.87 kg (229 lb.) BSA: 2.21 m2 Gender: Male Examination: Echo Contrast: Image Quality: Adequate Rhythm: Heart Rate: 85 bpm BP: 108 mmHg/71 mmHg Indication: GI Bleed, Hypotension during SVT episode Procedure Staff Referring Physician: Business Editor: Jaylen Reddy RDCS Reading Physician: Felix Hernandez MD Requesting Provider: Indication: GI Bleed, Hypotension during SVT episode Measurements Chambers AV/MV Label Value Normal Value Label Value Normal Value EF lower range (%) 75 % AV PGmax 10 mmHg EF upper range (%) 80 % AV PGmean 6 mmHg IVSd, 2D 1 cm (0.6cm - 1.1cm) AV Vmax 1.55 m/s LVDd, 2D 4.5 cm (4.2cm - 5.9cm) YVONNE (continuity eq. 1.7 cm2 LVDs, 2D 2.4 cm (2.1cm - 4cm) Vmax) LVEF, 2D 79 % (54% - 74%) YVONNE D (continuity eq. 2.4 cm2 LVOT PGmax 3 mmHg VTI) LVOT PGmean 2 mmHg MV A Vmax 0.76 m/s LVOT Vmax 0.83 m/s (0.7m/s - 1.1m/s) MV E' lateral 0.08 m/s LVOT Vmean 0.62 m/s MV E' mean 0.08 m/s LVOTd 2 cm (1.9cm - 2.1cm) MV E' septal 0.07 m/s LVPWd, 2D 1.2 cm (0.6cm - 1cm) MV E Vmax 0.54 m/s RVDd, 2D 2.4 cm (1.9cm - 3.8cm) MV E/A 0.71 LA Volume, BP 53 ml (18ml - 58ml) MV E/E' lateral 6.6 LAESV index, BP 24 ml/m2 MV E/E' mean 7.2 Additional Vessels MV E/E' septal 7.8 (0.45 - 1.25) Label Value Normal Value TV/PV AoRoot, MM 4.4 cm (2.2cm - 3.7cm) Label Value Normal Value OH End ramos Mihir 1.1 cm/s PV PGmax 6 mmHg Patient: JUDY TERRY Study Date: 09/04/2018 Page 1 of 2 11:01 AM PV Vmax, Caliper 1.26 m/s (0.6m/s - 0.9m/s) Conclusions Overall Conclusions: Limited study. Preserved LV systolic function with ejection fraction of 75-80%. No significant valvular abnormalities by Doppler 2 dimensional study. The aortic root may be dilated. It measures 4.4 cm by M-mode. Findings Left Ventricle: Left ventricle is normal in size. Global hypercontractility of the left ventricle. EF range is estimated at 75 % - 80 %. The LV wall thickness is at the upper limits of normal. Cannot determine LAP and Diastolic Dysfunction Grade. Right Ventricle: Normal size right ventricle. Right ventricular wall thickness is normal. Right ventricular systolic function is normal. Left Atrium: The left atrium is normal in size. Right Atrium: The right atrium is normal in size. Mitral Valve: Mitral valve appears structurally normal. No mitral regurgitation. No mitral valve stenosis. Aortic Valve: No aortic valve regurgitation. There is no aortic stenosis. Aortic leaflets exhibit no calcification. The aortic valve is trileaflet. Tricuspid Valve: No significant tricuspid regurgitation. Pulmonary artery pressure normal. Pulmonic Valve: Pulmonic leaflets are structurally normal. Trivial pulmonic valve regurgitation is present. Aorta: The aorta is normal. The aortic root size in M-mode measures 4.4 cm. Aorta Measurements AoRoot, MM is 4.4 cm. Pericardium: No pericardial effusion. Exam Details Procedure Ordered: Echo Procedure Status: Routine study Image Quality: Adequate Facility Location: Cardiac Echo 1 (No Signature Object) Patient: JUDY TERRY Study Date: 09/04/2018 Page 2 of 2 11:01 AM [id number]
[2018-09-15] MEDS ORDERED: LACTULOSE 20 GM/30 ML UDCUP PO SCH (09:15)
[2018-09-15] MEDS ORDERED: RIFAXIMIN 550 MG TAB PO SCH (11:15)
--- NOTE | 2018-09-15 12:14 | ECHO ---
[email or web address] [address] [address] Main: [phone] Echocardiography Examination Transthoracic Name: JUDY TERRY MR#: [id number] Study Date: 08/31/2018 Study Time: 10:09 AM Date of : 1945 Age: 73 year(s) Height: 177.8 cm (70 in.) Weight: 103.42 kg (228 lb.) BSA: 2.21 m2 Gender: Male Examination: Echo Contrast: Image Quality: Adequate Rhythm: Normal sinus rhythm Heart Rate: 68 bpm BP: 95 mmHg/64 mmHg Indication: CHF Procedure Staff Referring Physician: Scrap Preparer: Isabella Vergara [facility] Reading Physician: Justin Guevara MD Requesting Provider: Indication: CHF Measurements Chambers AV/MV Label Value Normal Value Label Value Normal Value LVOT Vmax 1.11 m/s (0.7m/s - 1.1m/s) AV PGmax 5 mmHg LVOTd 2.3 cm (1.9cm - 2.1cm) AV Vmax 1.17 m/s LVOT PGmax 5 mmHg YVONNE (Vmax) 3.9 cm2 LVDd, 2D 5 cm (4.2cm - 5.9cm) MV E Vmax 0.8 m/s LVDs, 2D 3.4 cm (2.1cm - 4cm) MV A Vmax 0.49 m/s IVSd, 2D 0.8 cm (0.6cm - 1.1cm) MV E/A 1.63 LVPWd, 2D 1 cm (0.6cm - 1cm) MV E/E' lateral 6.3 LVEF, BP 64 % (55% - 70%) MV E/E' septal 9.5 (0.45 - 1.25) LVEF, 2D 61 % (54% - 74%) MV DT 190 ms RVDd, 2D 4.3 cm (1.9cm - 3.8cm) MV E' septal 0.08 m/s TAPSE 2.1 cm MV E' lateral 0.13 m/s LA Volume, BP 83 ml (18ml - 58ml) MV E/E' mean 7.62 LADs, 2D 4.3 cm (3cm - 4cm) MV E' mean 0.1 m/s LAESV index, BP 37.6 ml/m2 TV/PV RA Area 16.6 cm2 Label Value Normal Value Additional Vessels RA Pressure 5 mmHg Label Value Normal Value RVSP 33 mmHg AoAsc 3.7 cm TR Pmax 28 mmHg AoRoot, 2D 4.2 cm (1.4cm - 2.6cm) TR Vmax 2.64 m/s PV PGmax 5 mmHg Patient: JUDY TERRY Study Date: 08/31/2018 Page 1 of 2 10:09 AM PV Vmax, Caliper 1.07 m/s (0.6m/s - 0.9m/s) Conclusions Normal left ventricular size and systolic function. LVEF visually estimated to be 65-70% and calculated at 60 4% by Castle's. No evidence of regional wall motion abnormalities. Large left pleural effusion. Mild left atrial enlargement. Normal-appearing valvular structures. Trivial mitral regurgitation. Mild tricuspid regurgitation. Normal estimated RVSP at 33 mmHg. Mildly dilated aortic root at 4.2 cm. The patient had a previous study 09/04/2018. There has been essentially no significant change. Findings Left Ventricle: Left ventricle is normal in size. Normal global systolic left ventricular function. EF evaluated by EF (biplane Castle's). The ejection fraction, measured by Simpsons method, is 64 %. EF range is estimated at 65 % - 70 %. Left ventricle wall thickness is normal. There are no regional wall motion abnormalities. Left ventricular diastolic function parameters are normal. Right Ventricle: Normal size right ventricle. Right ventricular systolic function is normal. Left Atrium: The left atrium is mildly dilated. Right Atrium: The right atrium is borderline dilated. Mitral Valve: Mitral valve appears structurally normal. Trivial mitral regurgitation. No mitral valve stenosis. Aortic Valve: The aortic valve is structurally normal and trileaflet. No aortic valve regurgitation. There is no aortic stenosis. Tricuspid Valve: Tricuspid valve leaflets are normal in appearance and function. Mild tricuspid regurgitation. Right Ventricular systolic pressure is measured at 33 mmHg. Pulmonary artery pressure slightly increased. Pulmonic Valve: Pulmonic valve is poorly visualized. Aorta: The aortic root size in 2D measures 4.2 cm. The aortic root exhibits mild dilatation. The ascending aorta measures 3.7 cm. Ascending aorta is normal in size. Aorta Measurements AoRoot, 2D is 4.2 cm. Pericardium: Trivial pericardial effusion. There is a pleural effusion present. Exam Details Procedure Ordered: Echo Procedure Status: Routine study Image Quality: Adequate Facility Location: Cardiac Echo 1 (No Signature Object) Patient: JUDY TERRY Study Date: 08/31/2018 Page 2 of 2 10:09 AM [id number]
--- NOTE | 2018-09-15 12:32 | PDPCPN ---
Palliative Care Progress Note Assessment/Plan: Assessment: 73 yo man who has primary sclerosing cholangitis related to a history of Crohn' s disease. He was admitted to the hospital on August 31 with an UGIB. His hospital course has been complicated by a rising bilirubin, encephalopathy and acute kidney injury. Plan: 1. Pruritus. Discussed likely related to rising bilirubin. Cholestyramine is an option. Will defer to GI. 2. Insomnia and anorexia. May benefit from low dose remeron (mirtazapine) at 7.5 mg PO QHS. While remeron generally benefits renal pruritus, may have some benefit in this setting as well. 3. Will follow up after discharge at rehab. Supported the patient's desire to pursue rehab. 09/15/18 12:24 Subjective: He has slept well for 3 nights in a row, but has had on and off problems with sleep. His appetite is poor. His confusion is improving. He denies problems with nausea. He does have new pruritus (just in the past few days). Objective: Vital Signs Temp Pulse Resp BP Pulse Ox 36.6 C 62 23 H 126/78 H 96 09/15/18 11:57 09/15/18 11:57 09/15/18 11:57 09/15/18 11:57 09/15/18 11:57 Laboratory Results 09/15/18 04:51 09/15/18 04:51 09/14/18 09/15/18 09/16/18 05:59 05:59 05:59 Intake Total 1300 1400 Output Total 250 3 Balance 1050 1397 PT 19.5 SEC (12.0-15.0) H 09/15/18 04:51 INR 1.74 (0.83-1.16) H 09/15/18 04:51 - Time Spent With Patient Time Spent With Patient: 20 minutes focused on review of chart and patient assessment and counseling. His and daughter were also present for the visit. ICD10 Worksheet Patient Problems: Problems Problem Status Onset Upper GI hemorrhage Acute Fever Acute Hyperbilirubinemia Acute Thyroid cancer Acute Weakness Acute
--- NOTE | 2018-09-15 13:28 | ASMTCMCOM ---
CM Note CM Note Notes: CM met with pt and family. They are advocating for discharge to [facility] SNF. At this time pt has been accepted to [place] pending bed availability. Pt is linked with [facility]. CM to follow. Plan: [facility] pending bed availability and [facility]. Date Signed: 09/15/2018 11:52 AM Electronically Signed By:MAGALYS Cavanaugh
--- NOTE | 2018-09-15 14:56 | SOAPPROG ---
SOAP Progress Note Assessment/Plan: Assessment/Plan: 73 y/o M with BIN possibly 2/2 to HRS vs pre-renal azotemia or ATN. 1. BIN - -Cr now stable at 1.4 -BP improved with midodrine tid -keep MAP>65, ideally SBP 10-20mmHg over baseline -agree with albumin -Renal U/S showed no obstruction or stones -continue to monitor UO 2. PSC associated with longstanding crohn's disease -following with [facility] -LFTs trending down -agree with palliative 3. Acidosis -possibly compensatory -hold bicarb supplement -abg prn, stable at 21 Will sign off, please contact if further ?'s. #[phone] 09/15/18 14:56 Subjective: UO less documented yesterday. Feeling a little improved. Discussed treatment of symptoms with palliative. Objective: Vital Signs Temp Pulse Resp BP Pulse Ox 36.6 C 62 23 H 126/78 H 96 09/15/18 11:57 09/15/18 11:57 09/15/18 11:57 09/15/18 11:57 09/15/18 11:57 Laboratory Results 09/15/18 04:51 09/15/18 04:51 09/14/18 09/15/18 09/16/18 05:59 05:59 05:59 Intake Total 1300 1400 1000 Output Total 250 3 Balance 1050 1397 1000 PT 19.5 SEC (12.0-15.0) H 09/15/18 04:51 INR 1.74 (0.83-1.16) H 09/15/18 04:51 Physical Exam - Physical Exam General Appearance: alert, mild distress EENT: PERRL/EOMI Neck: non-tender, supple Respiratory: decreased breath sounds Cardiac/Chest: regular rate, rhythm, tachycardia Abdomen: normal bowel sounds, soft, distended Skin: warm/dry, jaundice Extremities: non-tender Neuro/Psych: normal mood/affect ICD10 Worksheet Patient Problems: Problems Problem Status Onset Upper GI hemorrhage Acute Fever Acute Hyperbilirubinemia Acute Thyroid cancer Acute Weakness Acute
--- NOTE | 2018-09-15 16:54 | HOSPPROG ---
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 Tang GIBBS octreotide 3 days after renal improvement - DC tomorrow * Recurrent SVT -BP not tolerating propranolol -consider digoxin if recurrent SVT * UGIB due to varices s/p banding 09/01 and 09/03 -PPI -H/H decreasing - per Dr. 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 Objective: Vital Signs Temp Pulse Resp BP Pulse Ox 36.9 C 63 17 102/68 95 09/15/18 15:15 09/15/18 15:15 09/15/18 15:15 09/15/18 15:15 09/15/18 15:15 Laboratory Results 09/15/18 04:51 09/15/18 04:51 09/14/18 09/15/18 09/16/18 05:59 05:59 05:59 Intake Total 1300 1400 1000 Output Total 250 3 Balance 1050 1397 1000 PT 19.5 SEC (12.0-15.0) H 09/15/18 04:51 INR 1.74 (0.83-1.16) H 09/15/18 04:51 - Time Spent With Patient Time Spent with Patient: greater than 35 minutes (long discussion with patient and Dr. Beckwith regarding plan forward) Time Spent with Patient: Greater than 35 minutes spent on this patients care, greater than 50% of time spent counseling, educating, and coordinating care regarding the above mentioned plan. - Physical Exam Constitutional: no apparent distress, appears nourished, not in pain Cardiovascular: regular rate and rhythym, no murmur, rub, or gallop, edema Respiratory: no respiratory distress, no rales or rhonchi, clear to auscultation Gastrointestinal: ascites, No tenderness, No rebound, No distension Skin: no rashes or abrasions, no fluctuance, no induration Neurologic: AAOx3, sensation intact bilaterally Psychiatric: interacting appropriately, not anxious, not encephalopathic, thought process linear ICD10 Worksheet Patient Problems: Problems Problem Status Onset Thyroid cancer Acute Hyperbilirubinemia Acute Fever Acute Weakness Acute Upper GI hemorrhage Acute
[2018-09-16] MEDS: ALBUMIN 25% 100 ML IV SCH ×2 (00:07→06:16)
[2018-09-16] MEDS: MIRTAZAPINE 15 MG TAB PO SCH ×2 (04:06→21:06)
[2018-09-16 04:15] LABS: PLATELET COUNT 64 10^3/uL (150-400)
[2018-09-16 04:30] LABS: INR 1.74 (0.83-1.16); PROTIME(PATIENT) 19.5 SEC (12.0-15.0)
[2018-09-16] MEDS: LEVOTHYROXINE 150 MCG TAB PO SCH (06:18)
[2018-09-16] MEDS: LACTULOSE 20 GM/30 ML UDCUP PO SCH (08:43)
[2018-09-16] MEDS: azaTHIOprine 50 MG TAB PO SCH (08:44)
[2018-09-16] MEDS: OCTREOTIDE 100 MCG/1 ML INJ SC SCH (08:44)
[2018-09-16] MEDS: PANTOPRAZOLE SODIUM 40 MG TAB PO SCH ×2 (08:44→21:06)
[2018-09-16] MEDS: MIDODRINE HCL 5 MG TAB PO SCH ×3 (08:44→16:03)
[2018-09-16] MEDS ORDERED: PROTOCOL POTASSIUM 1 DOSE MISC PRN (08:50)
[2018-09-16] MEDS ORDERED: POTASSIUM CL 10 MEQ TAB PO ONE ×3 (08:54→20:04)
[2018-09-16] MEDS: SPIRONOLACTONE 50 MG TAB PO SCH (11:10)
--- NOTE | 2018-09-16 16:09 | HOSPPROG ---
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 Tang GIBBS octreotide 3 days after renal improvement - now off -restart diuretics gently * Recurrent SVT -BP not tolerating propranolol -consider digoxin if recurrent SVT * UGIB due to varices s/p banding 09/01 and 09/03 -PPI -H/H decreasing - per Dr. 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 -concern for possible cholangiocarcinoma -stent okay on imaging * Crohn's -Imuran * Insomnia/anorexia -try remeron qhs per palliative Subjective: No new complaints Objective: Vital Signs Temp Pulse Resp BP Pulse Ox 36.6 C 67 20 109/72 96 09/16/18 15:22 09/16/18 15:22 09/16/18 15:22 09/16/18 15:22 09/16/18 15:22 Laboratory Results 09/16/18 04:00 09/16/18 04:00 09/15/18 09/16/18 09/17/18 05:59 05:59 05:59 Intake Total 1400 1950 382 Output Total 3 1 300 Balance 1397 1949 82 PT 19.5 SEC (12.0-15.0) H 09/16/18 04:00 INR 1.74 (0.83-1.16) H 09/16/18 04:00 - Physical Exam Constitutional: no apparent distress, appears nourished, not in pain Cardiovascular: regular rate and rhythym, no murmur, rub, or gallop Respiratory: no respiratory distress, no rales or rhonchi, clear to auscultation Gastrointestinal: ascites, distension, No tenderness, No guarding, No rebound Skin: no rashes or abrasions, no fluctuance, no induration, other (extreme jaundice) Neurologic: AAOx3, sensation intact bilaterally Psychiatric: interacting appropriately, not anxious, not encephalopathic, thought process linear ICD10 Worksheet Patient Problems: Problems Problem Status Onset Thyroid cancer Acute Hyperbilirubinemia Acute Fever Acute Weakness Acute Upper GI hemorrhage Acute
[2018-09-17] MEDS ORDERED: NS 500 ML IV ONE (01:25)
[2018-09-17] MEDS ORDERED: DILTIAZEM 25 MG/5 ML VIAL IVP ONE (03:00)
[2018-09-17 03:20] LABS: PLATELET COUNT 66 10^3/uL (150-400)
--- NOTE | 2018-09-17 03:27 | HOSPPROG ---
Hospitalist Progress Note Assessment/Plan: XC: Notified by RN of recurrent SVT w/ HR>160. Per review of records this has occurred at least 5 times this admission. Previous episodes have terminated with adenosine but patient states cardiology told him he should no longer have this medication because of the length of pause it induced during the last administration. Instead I ordered diltiazem 5 mg IVP x1 as suggested by Dr Dianne Carlisle in his last note. This successfully terminated the arrhythmia and patient is now hemodynamically stable in sinus rhythm with HR in the 70s. He was asymptomatic throughout. Objective: Vital Signs Temp Pulse Resp BP Pulse Ox 36.5 C 157 H 15 90/70 L 94 09/17/18 02:44 09/17/18 03:09 09/17/18 02:44 09/17/18 02:44 09/17/18 02:44 Laboratory Results 09/17/18 02:55 09/15/18 09/16/18 09/17/18 05:59 05:59 05:59 Intake Total 1400 1950 2132 Output Total 3 1 525 Balance 1397 1949 1607 PT 19.5 SEC (12.0-15.0) H 09/16/18 04:00 INR 1.74 (0.83-1.16) H 09/16/18 04:00 ICD10 Worksheet Patient Problems: Problems Problem Status Onset Thyroid cancer Acute Hyperbilirubinemia Acute Fever Acute Weakness Acute Upper GI hemorrhage Acute
[2018-09-17] MEDS: LEVOTHYROXINE 150 MCG TAB PO SCH (06:13)
[2018-09-17] MEDS: MIDODRINE HCL 5 MG TAB PO SCH ×3 (09:42→16:58)
[2018-09-17] MEDS: PANTOPRAZOLE SODIUM 40 MG TAB PO SCH ×2 (09:42→20:57)
[2018-09-17] MEDS: azaTHIOprine 50 MG TAB PO SCH (09:42)
[2018-09-17] MEDS: SPIRONOLACTONE 50 MG TAB PO SCH (09:42)
[2018-09-17] MEDS: FUROSEMIDE 40 MG TAB PO SCH (09:42)
[2018-09-17] MEDS: LACTULOSE 20 GM/30 ML UDCUP PO SCH (09:43)
[2018-09-17] MEDS ORDERED: POTASSIUM CL 10 MEQ TAB PO ONE ×2 (11:20→20:20)
--- NOTE | 2018-09-17 13:32 | ASMTCMCOM ---
CM Note CM Note Notes: Pts case discussed w/ Dr. Rodriguez. [facility] has accepted pt. Anticipate d/c for tomorrow. Updates sent to [facility]. CM to follow. Plan: [facility] Date Signed: 09/17/2018 01:31 PM Electronically Signed By:MAGALYS Patrick
--- NOTE | 2018-09-17 14:01 | HOSPPROG ---
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 Tang GIBBS octreotide 3 days after renal improvement - now off -restart diuretics gently, will cont at current dose * Recurrent SVT with SVT overnight -BP not tolerating propranolol -consider digoxin if recurrent SVT but for now will monitor overnight * UGIB due to varices s/p banding 09/01 and 09/03 -PPI -H/H stable- per Dr. 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 Likely D/C tomorrow if remains stable Subjective: no cp or sob. no n/v. has SVT last night, none since Objective: Vital Signs Temp Pulse Resp BP Pulse Ox 36.6 C 67 17 105/67 96 09/17/18 11:55 09/17/18 11:55 09/17/18 11:55 09/17/18 11:55 09/17/18 11:55 Laboratory Results 09/17/18 02:55 09/17/18 02:55 09/16/18 09/17/18 09/18/18 05:59 05:59 05:59 Intake Total 1950 2132 500 Output Total 1 525 Balance 1949 1607 500 PT 19.5 SEC (12.0-15.0) H 09/16/18 04:00 INR 1.74 (0.83-1.16) H 09/16/18 04:00 - Physical Exam Constitutional: no apparent distress, chronically ill appearing Eyes: PERRL, EOMI Ears, Nose, Mouth, Throat: moist mucous membranes, hearing normal Cardiovascular: regular rate and rhythym, edema Respiratory: no respiratory distress, no rales or rhonchi Gastrointestinal: normoactive bowel sounds, distension, No tenderness Skin: warm Neurologic: AAOx3 Psychiatric: interacting appropriately, not anxious, not encephalopathic Lymph, Heme, Immunologic: No petechiae ICD10 Worksheet Patient Problems: Problems Problem Status Onset Upper GI hemorrhage Acute Fever Acute Hyperbilirubinemia Acute Thyroid cancer Acute Weakness Acute
[2018-09-17] MEDS: MIRTAZAPINE 15 MG TAB PO SCH (20:57)
[2018-09-18] MEDS: LEVOTHYROXINE 150 MCG TAB PO SCH (04:18)
[2018-09-18 04:44] LABS: PLATELET COUNT 68 10^3/uL (150-400)
[2018-09-18] MEDS ORDERED: POTASSIUM CL 10 MEQ TAB PO ONE (07:40)
[2018-09-18] MEDS: MIDODRINE HCL 5 MG TAB PO SCH ×3 (09:34→17:04)
[2018-09-18] MEDS: PANTOPRAZOLE SODIUM 40 MG TAB PO SCH ×2 (09:34→22:09)
[2018-09-18] MEDS: azaTHIOprine 50 MG TAB PO SCH (09:34)
[2018-09-18] MEDS: SPIRONOLACTONE 50 MG TAB PO SCH (09:34)
[2018-09-18] MEDS: FUROSEMIDE 40 MG TAB PO SCH (09:35)
[2018-09-18] MEDS: LACTULOSE 20 GM/30 ML UDCUP PO SCH (09:35)
--- NOTE | 2018-09-18 15:49 | HOSPPROG ---
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 Tang GIBBS octreotide 3 days after renal improvement - now off -restart diuretics gently, will cont at current dose * SVT -BP not tolerating propranolol -consider digoxin if recurrent SVT but will cont to monitor off it. * UGIB due to varices s/p banding 09/01 and 09/03 -PPI -H/H stable- per Dr. Beckwith no repeat scope until clinical evidence for GIB * Thyroid cancer s/p thyroidectomy -goal TSH 0.4-2, reduced Synthroid * Acute blood loss anemia -s/p 3 units PRBC -repeat EGD only if clinically bleeding * Metabolic encephalopathy -possible hepatic encephalopathy - cont low dose lactulose * Ascites -s/p paracentesis on August 31 -now with increasing distention, will get paracentesis. 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 needs paracentesis. Subjective: Feels a little sob. reports increased abd distention. Objective: Vital Signs Temp Pulse Resp BP Pulse Ox 36.6 C 77 19 112/78 97 09/18/18 15:36 09/18/18 15:36 09/18/18 15:36 09/18/18 15:36 09/18/18 15:36 Laboratory Results 09/18/18 04:25 09/18/18 04:25 09/17/18 09/18/18 09/19/18 05:59 05:59 05:59 Intake Total 2132 1750 670 Output Total 525 700 Balance 1607 1750 -30 PT 19.5 SEC (12.0-15.0) H 09/16/18 04:00 INR 1.74 (0.83-1.16) H 09/16/18 04:00 - Physical Exam Constitutional: no apparent distress, chronically ill appearing Eyes: PERRL Ears, Nose, Mouth, Throat: moist mucous membranes, hearing normal Cardiovascular: regular rate and rhythym Respiratory: no respiratory distress Gastrointestinal: distension Skin: warm Musculoskeletal: generalized weakness Neurologic: AAOx3 Psychiatric: interacting appropriately, not anxious, not encephalopathic Lymph, Heme, Immunologic: No petechiae ICD10 Worksheet Patient Problems: Problems Problem Status Onset Upper GI hemorrhage Acute Fever Acute Hyperbilirubinemia Acute Thyroid cancer Acute Weakness Acute
[2018-09-18] MEDS ORDERED: LIDOCAINE 1% 300 MG/30 ML SDV ONE (15:54)
[2018-09-18] MEDS: MIRTAZAPINE 15 MG TAB PO SCH (22:09)
[2018-09-18] MEDS ORDERED: DILTIAZEM 25 MG/5 ML VIAL IVP ONE ×2 (23:15→23:18)
--- NOTE | 2018-09-18 23:33 | HOSPPROG ---
Hospitalist Progress Note Assessment/Plan: XC: Patient again in SVT tonight, HR 160s. Patient is asymptomatic with SBP in the 90's. I ordered diltiazem 5 mg IVP x1 and SVT converted to NSR. Patient tolerated this well. Objective: Vital Signs Temp Pulse Resp BP Pulse Ox 36.7 C 158 H 17 87/57 L 95 09/18/18 23:21 09/18/18 23:28 09/18/18 23:21 09/18/18 23:21 09/18/18 23:21 Laboratory Results 09/18/18 04:25 09/18/18 04:25 09/17/18 09/18/18 09/19/18 05:59 05:59 05:59 Intake Total 2132 1750 670 Output Total 525 700 Balance 1607 1750 -30 PT 19.5 SEC (12.0-15.0) H 09/16/18 04:00 INR 1.74 (0.83-1.16) H 09/16/18 04:00 ICD10 Worksheet Patient Problems: Problems Problem Status Onset Thyroid cancer Acute Hyperbilirubinemia Acute Fever Acute Weakness Acute Upper GI hemorrhage Acute
[2018-09-19] MEDS: LEVOTHYROXINE 150 MCG TAB PO SCH (04:00)
[2018-09-19] MEDS: MIDODRINE HCL 5 MG TAB PO SCH ×3 (08:30→16:19)
[2018-09-19] MEDS: PANTOPRAZOLE SODIUM 40 MG TAB PO SCH ×2 (08:59→23:30)
[2018-09-19] MEDS: LACTULOSE 20 GM/30 ML UDCUP PO SCH (08:59)
[2018-09-19] MEDS: azaTHIOprine 50 MG TAB PO SCH (08:59)
[2018-09-19] MEDS ORDERED: POTASSIUM CL 10 MEQ TAB PO ONE ×2 (11:40→19:59)
--- NOTE | 2018-09-19 12:47 | ASMTCMCOM ---
CM Note CM Note Notes: 09/19/2018 Case Management Note Discussed with MD and RN. Anticipating d/c tomorrow, adjusting medications today. Faxed updates to [facility] rehab. Case Management d/c poc: [facility] rehab with [facility]. Case Management to follow. Date Signed: 09/19/2018 12:46 PM Electronically Signed By:Brianna Rankin RN
--- NOTE | 2018-09-19 13:36 | HOSPPROG ---
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 Mcguire in October -[facility] scheduled [facility] * Hypotension - weaned off IV Levophed -continue midodrine -lactate normalized -Stop IV albumin as albumin is > 3 * ARF, resolved -suspect pre-renal > HRS -per Dr. Beckwith DC octreotide 3 days after renal improvement - now off -restart diuretics gently, will cont at current dose * SVT -BP not tolerating propranolol -start digoxin. We discussed this today and went over the risk and benefits. We also went over some side effects. Initially they were leaning towards getting an glass mechanic consult, but after further discussion as to why a BB or CCB could not be used (Hypotension) they agreed to start the Digoxin w/ o a glass mechanic consult * UGIB due to varices s/p banding 09/01 and 09/03 -PPI -H/H stable- per Dr. Beckwith no repeat scope until clinical evidence for GIB -during f/u with Dr. Mcguire, a discussion about need repeat banding can occurr. 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 If clinically stable, will d/c to SNF tomorrow I discussed this plan with his Administrative Officer Dr. Mcguire today Subjective: no cp or sob. no n/v. BP stable. Had SVT last night Objective: Vital Signs Temp Pulse Resp BP Pulse Ox 36.5 C 79 22 H 103/62 97 09/19/18 11:12 09/19/18 11:12 09/19/18 11:12 09/19/18 11:12 09/19/18 11:12 Laboratory Results 09/19/18 04:00 09/19/18 04:00 09/18/18 09/19/18 09/20/18 05:59 05:59 05:59 Intake Total 1750 1070 Output Total 975 500 Balance 1750 95 -500 PT 19.5 SEC (12.0-15.0) H 09/16/18 04:00 INR 1.74 (0.83-1.16) H 09/16/18 04:00 - Time Spent With Patient Time Spent with Patient: greater than 35 minutes Time Spent with Patient: Greater than 35 minutes spent on this patients care, greater than 50% of time spent counseling, educating, and coordinating care regarding the above mentioned plan. - Physical Exam Constitutional: no apparent distress, chronically ill appearing Eyes: PERRL Ears, Nose, Mouth, Throat: moist mucous membranes, hearing normal Cardiovascular: regular rate and rhythym, edema Respiratory: no respiratory distress, no rales or rhonchi, clear to auscultation Gastrointestinal: normoactive bowel sounds, distension Skin: warm Neurologic: AAOx3 Psychiatric: interacting appropriately, not anxious, not encephalopathic Lymph, Heme, Immunologic: No petechiae ICD10 Worksheet Patient Problems: Problems Problem Status Onset Upper GI hemorrhage Acute Fever Acute Hyperbilirubinemia Acute Thyroid cancer Acute Weakness Acute
[2018-09-19] MEDS: DIGOXIN 125 MCG TAB PO SCH (14:26)
[2018-09-19] MEDS: FUROSEMIDE 40 MG TAB PO SCH (14:26)
[2018-09-19] MEDS: SPIRONOLACTONE 50 MG TAB PO SCH (14:26)
[2018-09-19] MEDS: diphenhydrAMINE 12.5 MG/5 ML UDCUP PO PRN ×2 (15:19→23:31)
[2018-09-19] MEDS: MIRTAZAPINE 15 MG TAB PO SCH (23:30)
[2018-09-19] MEDS ORDERED: POTASSIUM CL 20 MEQ TAB PO ONE (23:30)
[2018-09-20] MEDS: LEVOTHYROXINE 150 MCG TAB PO SCH (05:09)
[2018-09-20 05:38] LABS: PLATELET COUNT 55 10^3/uL (150-400)
[2018-09-20] MEDS ORDERED: POTASSIUM CL 10 MEQ TAB PO ONE (08:38)
[2018-09-20] MEDS: MIDODRINE HCL 5 MG TAB PO SCH ×2 (08:58→13:03)
[2018-09-20] MEDS: FUROSEMIDE 40 MG TAB PO SCH (08:58)
[2018-09-20] MEDS: azaTHIOprine 50 MG TAB PO SCH (08:58)
[2018-09-20] MEDS: PANTOPRAZOLE SODIUM 40 MG TAB PO SCH (08:58)
[2018-09-20] MEDS: DIGOXIN 125 MCG TAB PO SCH (08:59)
[2018-09-20] MEDS: SPIRONOLACTONE 50 MG TAB PO SCH (08:59)
[2018-09-20] MEDS: diphenhydrAMINE 12.5 MG/5 ML UDCUP PO PRN (08:59)
[2018-09-20] MEDS: LACTULOSE 20 GM/30 ML UDCUP PO SCH (08:59)
[2018-09-20 11:01] VITALS: BP 104/62
--- NOTE | 2018-09-20 12:29 | PDIAF ---
- Diagnosis Diagnosis: ASCITES, WEAKNESS Code Status: Do Not Resuscitate - Medication Management Discharge Medications: electronically signed and located in the Home Medication List. - Orders Isolation Type: Chemotherapy Isolation Diet Recommendation: sodium restricted Diet Texture: Regular Texture Diet Additional Instructions: Activity: as tolerated F/U: 1) With Dr Mcguire at [facility] in October 2) f/u ERCP, to be schedule by [facility] - Follow Up Care Current Providers and Referrals: Chuckie López MD [Primary Care Provider] - As per Instructions
--- NOTE | 2018-09-20 12:29 | PDDCSUM ---
Discharge Summary Discharge Summary: This is a 73 yo male who was admitted on 08/31 for a UGI bleed which was due to Varices. He was admitted. Dr. Beckwith consulted. He had banding on 09/01 and 09/03. Per GI no f/u scopes are needed unless there is a clinical e/o recurrent GIB. He has signficant ascites and he had ongoing hypotension which made volume mgmt difficult. He had therapeutic paracentesis on 08/31 and 09/18. He is currently on Lasix 40mg and Spironolactone 50mg daily which he has tolerated well. He has not tolerated further diuretics including restarting of a BB. He has required starting Midodrine TID. He required Albumin earlier in the course, but none for several days. He had BIN, but this resolved He has PSC with Cirrhosis. TB has been elevated for quite some time and he has had w/u at the [facility]. Here Bilirubin cont to increase slightly but there is no e/o stent malfunction. It is likely that this is due to progression of the PSC. He has f/u with Dr. Mcguire, his air carrier inspector, in October. He had issues with SVT and has been started on Digoxin. Due to hypotension, treatment options were limited He is being d/c to rehab. 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 Mcguire in October -[facility] will call him to scheduled a repeat ERCP * Hypotension - weaned off IV Levophed -continue midodrine -lactate normalized -Stop IV albumin several days ago * ARF, resolved -suspect pre-renal > HRS -per Dr. Beckwith DC octreotide 3 days after renal improvement - now off -restart diuretics gently, will cont at current dose * SVT -BP not tolerating propranolol -start digoxin. * UGIB due to varices s/p banding 09/01 and 09/03 -PPI -H/H stable- per Dr. Beckwith no repeat scope until clinical evidence for GIB -during f/u with Dr. Mcguire, a discussion about need repeat banding can be discussed at that time. 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 F/u at the [facility] -stent okay on imaging * Crohn's -Imuran * Insomnia/anorexia -try remeron qhs per palliative Exam: NAD, JAUNDICE RRR CTA B SOFT, DISTENDED TRACE TO 1+ EDEMA MEDS: SEE MED REC TOTAL TIME SPENT ON D/C IS 35 MIN
--- NOTE | 2018-09-20 12:43 | ASMTLACE ---
LACE Length of stay for Answers: 14 days or more current admission Acuity / Level of Answers: Yes Care: Did the patient have an inpatient admission? Comorbidities - select Answers: Other Notes: Primary sclerosing all that apply cholangitis; Chrohn's disease; HYN # of Emergency department Answers: 1-2 visits in the last 6 months Score: 12 Date Signed: 09/20/2018 12:42 PM Electronically Signed By:Erika Arteaga RN
--- NOTE | 2018-09-20 12:52 | ASMTDCNOTE ---
Case Management Discharge Discharge Order Complete? Answers: Yes Patient to Obtain Answers: Other Notes: [facility] Transportation Arranged Answers: Other Notes: [place] per [facility] Transport will Pick (Date 09/20/2018 03:00 PM & Time) Faxed Final Orders Answers: Yes Discharge Comments Notes: Patient discharged to [facility]. Transport arranged by Lisa at facility. [facility] notified of patient's discharge. LIAT Pelaez to call report Date Signed: 09/20/2018 12:51 PM Electronically Signed By:Erika Arteaga RN
--- NOTE | 2018-09-21 10:40 | ASDISCHSUM ---
Discharge Information Plan Status:SNF Medically Cleared to Leave: Discharge Date:09/20/2018 03:11 PM CM D/C Disposition: ADT D/C Disposition:Longterm Facility Projected Discharge Date:09/15/2018 11:00 AM Transportation at D/C: Discharge Delay Reason: Follow-Up Date:09/15/2018 11:00 AM Discharge Slot: Final Diagnosis: Placement Information Referral Type:*Prison/SNF Referral ID:[id number] Provider Name:[facility] Address 1:[address] [facility] [address] Address 2: City:[place] Selection Factors: State:[place] Referral Type:Palliative Care Referral ID:[id number] Provider Name:[facility] Address 1:[address] [place] Address 2: City:[place] Selection Factors: State:[place] Referral Type:*Home Health Care Services Referral ID:[id number] Provider Name: Address 1: Phone Number: Address 2: Fax Number: City: Selection Factors: State: Patient Contact Information Contact Name:YINKA Relationship: Address:[address] City:[place] Alternate Phone: [facility]/Zip Code:[place] [address] Email: Financial Information Financial Class:Medicare Primary Plan Desc:MEDICARE OUTPATIENT Primary Plan Number:[id number] Secondary Plan Desc:ADAN/COLT SUPPLEMENT Secondary Plan Number:[id number] Assessment Information LACE LACE Length of stay for Answers: 14 days or more current admission Acuity / Level of Answers: Yes Care: Did the patient have an inpatient admission? Comorbidities - select Answers: Other Notes: Primary sclerosing all that apply cholangitis; Chrohn's disease; HYN # of Emergency department Answers: 1-2 visits in the last 6 months Score: 12 Date Signed: 09/20/2018 12:42 PM Electronically Signed By:Erika Arteaga RN [facility] CM Progress Note CM Note CM Note Notes: Patient admitted after vomiting BRB at home. He has a hx of known varices w recent failed banding. Also hx of Crohn's and cirrhosis secondary to PSC. He lives with his Corin and is normally independent. PT/OT evals and GI consult ordered. Case Management will follow for d.c planning. Date Signed: 09/01/2018 11:16 AM Electronically Signed By:Erika Arteaga RN [facility] CM Progress Note CM Note CM Note Notes: Pts case discussed w/ LIAT Gimenez. Therapies are recommending SNF. CM met w/ pt and Corin for dispo planning. CM provided them w/ the senior blue book. Corin wants CM to hold off on making referrals to SNF. Corin wants to see how pt will progress. Corin ideally wants to have pt back home. CM to follow. Plan: TBD Date Signed: 09/04/2018 11:52 AM Electronically Signed By:MAGALYS Patrick [facility] CM Progress Note CM Note CM Note Notes: Spoke with OT and pt's in the room. Per MD wants to plan for SNF in the event pt is not well enough to dc home on Saturday or Saturday as planned. Referrals sent to [facility] per 's request. CM to follow. d/c Plan: SNF v [facility]. Date Signed: 09/05/2018 03:40 PM Electronically Signed By:Oksana Casillas [facility] CM Progress Note CM Note CM Note Notes: Spoke with the patient and his today. Cullen is hoping to go home with home health care vs. [facility]. They wondered if he is doing better, would it be an option and were reassured it would be an option. Patient's did visit [facility] this morning and it remains their first choice if he needs that level of care. CM will follow. Date Signed: 09/07/2018 04:10 PM Electronically Signed By:Tiffany Thrasher LCSW [facility] CM Progress Note CM Note CM Note Notes: Pts case discussed w/ Dr. Chauhan and Greyson w/ palliative. There will be a palliative tomorrow at 10:30AM w/ the family and [facility] palliative team. Pt is not medically stable to d/c at this time. Referral made to [facility]. CM to follow. Plan: [facility] Date Signed: 09/10/2018 02:55 PM Electronically Signed By:MAGALYS Patrick [facility] CM Progress Note CM Note CM Note Notes: 09/11/2018 Case Management Note Palliative meeting today. Please see note for updates. At request of Greyson from Palliative Care faxed referral to [facility] via [employer]. Case Management d/c poc: [facility] vs [facility] with [facility] to follow. Case Management to follow. Date Signed: 09/11/2018 03:39 PM Electronically Signed By:Brianna Rankin RN [facility] CM Progress Note CM Note CM Note Notes: CM met with patient and family. Patient continues to want to be flexible on rather he will go home with [facility] or [facility]. Family connected with [facility] yesterday. It is unclear when patient will be medically ready for discharge. Will continue to follow for discharge plan. Plan: [facility] vs [facility] with [facility] Date Signed: 09/12/2018 03:46 PM Electronically Signed By:Lori Sims [facility] CM Progress Note CM Note CM Note Notes: CM met with pt and family. They are advocating for discharge to [facility]. At this time pt has been accepted to [facility] pending bed availability. Pt is linked with [facility] palliative care. CM to follow. Plan: [facility] pending bed availability and [facility]. Date Signed: 09/15/2018 11:52 AM Electronically Signed By:MAGALYS Cavanaugh [facility] CM Progress Note CM Note CM Note Notes: Pts case discussed w/ Dr. Rodriguez. [facility] has accepted pt. Anticipate d/c for tomorrow. Updates sent to [facility]. CM to follow. Plan: [facility] w/ [facility] pal follow up Date Signed: 09/17/2018 01:31 PM Electronically Signed By:MAGALYS Patrick [facility] CM Progress Note CM Note CM Note Notes: 09/19/2018 Case Management Note Discussed with MD and RN. Anticipating d/c tomorrow, adjusting medications today. Faxed updates to [facility]. Case Management d/c poc: [facility] rehab with [facility] Palliative support. Case Management to follow. Date Signed: 09/19/2018 12:46 PM Electronically Signed By:Brianna Rankin RN Case Management Discharge Plan Note Case Management Discharge Discharge Order Complete? Answers: Yes Patient to Obtain Answers: Other Notes: [facility] Medications Transportation Arranged Answers: Other Notes: [facility] per [facility] Transport will Pick (Date 09/20/2018 03:00 PM & Time) Faxed Final Orders Answers: Yes Discharge Comments Notes: Patient discharged to [facility]. Transport arranged by Lisa at facility. [facility] notified of patient's discharge. LAIT Pelaez to call report Date Signed: 09/20/2018 12:51 PM Electronically Signed By:Erika Arteaga RN Intervention Information Intervention Type:*IM-Signed Date of Service:09/18/2018 11:20 AM Patient Type:Inpatient Staff Member:Fawn Blackwell Hours: Discipline: Severity: Comment:
== END 2018-09-20 15:11 | DRG 368 ==
LOC: F2N 21:43 → F3E 09-02 12:23 → F2W 09-03 09:05 → F2N 09-12 08:31 → F2W 09-16 13:07
PROVIDERS: ADMIT Internal Medicine; ATTEND Family Medicine
DX: I85.11 Secondary esophageal varices with bleeding (principal); K83.01 Primary sclerosing cholangitis; G93.41 Metabolic encephalopathy; K50.90 Crohn's disease, unspecified, without complications; D62 Acute posthemorrhagic anemia; I47.1 Supraventricular tachycardia; D68.4 Acquired coagulation factor deficiency; N17.9 Acute kidney failure, unspecified; R18.8 Other ascites; R17 Unspecified jaundice; E87.6 Hypokalemia; K74.60 Unspecified cirrhosis of liver; I10 Essential (primary) hypertension; I25.10 Atherosclerotic heart disease of native coronary artery without angina pectoris; E89.0 Postprocedural hypothyroidism; G47.00 Insomnia, unspecified; R63.0 Anorexia; I95.9 Hypotension, unspecified; Z66 Do not resuscitate
CPT/HCPCS: 82435-PO; 82565-PO; 82947-PO; 84132-PO; 84295-PO; 84481-90; 84520-PO; 85014-ER; 96365; 97110-GP; 97116-GP; 97162-GP; 97165-GO; 97168-GO; 97530-GO; 97530-GP; 97535-GO; C1751; J0153; J0330; J0696; J1170; J1940; J2354; J2370; J2405; J2550; J2704; J2997; J3010; J7500; P9016; P9017; P9040; P9041; P9047

== ENCOUNTER 2018-10-04 04:58 | Inpatient (IN) | payer OTHER, MEDICARE ==
--- NOTE | 2018-10-04 05:47 | EDPHY ---
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 Patient recent hospitalization was discharged on the of this month. He has been in rehab facility with plans of discharge back to home Saturday. Patient has had marked superior hull is mental status and the last 2 days. Laboratory evaluations for performing noticed increase in his creatinine and his bilirubin level. There has been some discussion with family about possible hospice care but the patient has been attempting to go home which is their wish. says that he is awake alert and oriented answering questions just 2 days ago. This is changed dramatically in the last day or 2. He has responded inpatient therapy well and they request the come here for further evaluation. ROS: 10 systems were reviewed and were negative except those elements noted in the HPI. PMH: Primary is closing cholangitis, soft group home varices, hepatic cirrhosis, ascites, acute kidney injury, SVT, thyroid cancer, metabolic encephalopathy Social History: No smoking, no alcohol, no recreational drug use Family History: non-contributory Physical Exam: Gen: Awake, disoriented, No Distress markedly jaundiced HEENT: Nose: no rhinorrhea Eyes: PERRLA, EOMI, marked scleral icterus Mouth: Moist mucosa Neck: Supple, no JVD Chest: nontender, lungs clear to auscultation Heart: S1, S2 normal, no murmur Abd: Soft, ascitic, nontender, no guarding Back: no CVA tenderness, no midline tenderness Ext: no edema, non-tender Skin: no rash Neuro: CN II-XII intact, Sensation grossly intact, Strength 5/5 in bilateral upper and lower extremities - Personal History Current Tetanus Diphtheria and Acellular Pertussis (TDAP): Unsure Tetanus Vaccine Date: unsure - Medical/Surgical History Hx Asthma: No Hx Chronic Respiratory Disease: No Hx Diabetes: No Hx Cardiac Disease: No Hx Renal Disease: No Hx Cirrhosis: Yes Hx Alcoholism: Yes Hx HIV/AIDS: No Hx Splenectomy or Spleen Trauma: No Other PMH: Appy x2, hypothyroid, Etoh, Cirrohsis, Hepatitis, HTN, thyroidectomy , gall bladder surgery cholecystectomy, crohns, herniated disk, kidney stones, esophageal varices, portal hypertension, retinal vein occlusion, primary sclerosing cholangitis. - Social History Smoking Status: Never smoked Constitutional: Initial Vital Signs Temperature (C) 36.4 C 10/04/18 05:00 Heart Rate 67 10/04/18 05:00 Respiratory Rate 16 10/04/18 05:00 Blood Pressure 110/68 10/04/18 05:00 O2 Sat (%) 98 10/04/18 05:00 O2 Delivery Mode Room Air Allergies/Adverse Reactions: No Known Allergies Allergy (Verified 10/04/18 05:02) Home Medications: Medication Instructions Recorded azaTHIOprine [Imuran 50 mg (*)] 100 mg PO DAILY 01/27/18 Digoxin [Lanoxin 125 mcg (RX)] 125 mcg PO DAILY AT 10AM tab 09/20/18 Furosemide [Lasix 40 MG (*)] 40 mg PO DAILY tab 09/20/18 Levothyroxine [Synthroid 150 mcg 150 mcg PO DAILY AT 6AM tab 09/20/18 (*)] Midodrine HCl [Proamatine/Midodrin] 5 mg PO TID@0800,1200,1600 tab 09/20/18 Ondansetron Odt [Zofran Odt 4 mg 4 mg PO Q4HRS PRN tab 09/20/18 (*)] Pantoprazole Sodium [Protonix 40mg 40 mg PO BID tab 09/20/18 (*)] Spironolactone [Aldactone] 50 mg PO DAILY tab 09/20/18 diphenhydrAMINE [Benadryl 12.5 mg PO Q6 PRN udcup 09/20/18 12.5MG/5ML Oral Liquid (*)] Medical Decision Making ED Course/Re-evaluation: 73-year-old male with a history of end-stage liver disease with symptoms consistent with worsening hepatic encephalopathy. Will send off laboratory evaluations here. Plan for admission to the hospitalist, . Patient is borderline hypotensive with systolic blood pressure 90 but this is baseline. Bilirubin is 42 which is raise been as well. Will send off an ammonia level here. Plan for admission to the [facility]. Departure - Departure Disposition: [facility] In[facility] Acute Clinical Impression: Hepatic encephalopathy Condition: Fair Referrals: Patient,NotPresent [Primary Care Provider] - As per Instructions
[2018-10-04] MEDS ORDERED: ONDANSETRON 4 MG/2 ML VIAL IVP PRN (06:13)
[2018-10-04 06:27] LABS: PLATELET COUNT 76 10^3/uL (150-400)
[2018-10-04 06:39] LABS: INR 1.9 (0.83-1.16); PROTIME(PATIENT) 20.9 SEC (12.0-15.0)
--- NOTE | 2018-10-04 08:10 | PDGENHP ---
History and Physical - Chief Complaint Confusion - History of Present Illness Source-patient is able to answer a few simple questions however is still confused. For is arrived at bedside and provides history. EMR was reviewed and case discussed with ED provider. HPI - is this is a 73-year-old gentleman with past medical history significant for primary sclerosing cholangitis, cirrhosis, history of esophageal varices, GI bleed, portal hypertension, Crohn's who was recently discharged after prolonged hospital stay 08/31/2018 through 09/20/2018 for GI bleed. Patient had known history of esophageal varices with previous banding. GI felt that conservative management was appropriate given patient's stability. He was monitored closely however subsequently developed decompensation of his cirrhosis and fluid overload. Additionally patient has had intermittent episodes of SVT worsened with his fluid status. Control was difficult to obtain and the due to hypotension but patient was subsequently placed on digoxin. Diuresis was complicated by patient's persistent hypotension. He did require transient to the ICU for pressor support and continue diuresis. Patient was subsequently transferred to [facility] were reports that he had been doing well with continued diuresis and was having improve mobility. Patient has had a decline in weight of 17 kg since his discharge on 09/20/2018. She also noted that patient's mentation was a non issue and he was entirely alert. Patient labs were obtained before patient was transferred to the ED. Findings were significant for acute kidney injury with creatinine at 2.7 and significantly elevated bilirubin 42.5. EMS was notified and evaluated the patient. They stated that he had a low blood pressures systolic in the 80s and so he was given the majority of 1 L bolus just over 900 cc. Patient denies any fevers, chills, shortness of breath, chest pain, abdominal pain. History Information - Allergies/Home Medication List Allergies/Adverse Reactions: No Known Allergies Allergy (Verified 10/04/18 05:02) Home Medications: azaTHIOprine [Imuran 50 mg (*)] 100 mg PO DAILY 01/27/18 [Last Taken 10/03/18] Azelastine [Astelin Nasal [place] (RX)] 2 sprays EACHNARE DAILY 10/04/18 [Last Taken 10/03/18] I have personally reviewed and updated: family history, medical history, social history, surgical history - Past Medical History coronary artery disease Additional medical history: As above, see HPI. PmHx also includes thyroid resection and Crohn's. - Surgical History Reports: appendectomy, cholecystectomy, thyroid surgery Additional surgical history: Vasectomy, thyroid resection, appendix and gallbladder removal, EGD with banding - Family History Positive for: non-pertinent Additional family history: Grandfather second to trauma after driving his car into a tree, unknown cause - Social History Smoking Status: Never smoked Additional social history: He is and lives at home with his and 39yo disabled son. He also has a daughter who lives out of state in [place], [place]. Cor-DNR DNI. Review of Systems Review of Systems: ROS: 10pt was reviewed & negative except for what was stated in HPI & below ( Unable to obtain majority due to confusion. supplements some details.) Constitutional: Reports: weakness. Denies: chills, fever Cardiac: Reports: no symptoms Respiratory: Reports: no symptoms Gastrointestinal: Reports: no symptoms Genitourinary: Reports: no symptoms Muscolosketal: Reports: other (Generalized weakness) Skin: Reports: other (Jaundice) Neurological: Reports: tremors (Twitching) Hematologic/Lymphatic: Reports: anemia, easy bruising Physical Exam Physical Exam: Selected Entries 10/04/18 10/04/18 05:00 06:00 Blood Pressure Automatic Automatic Method Heart Rate 67 69 Respiratory 16 17 Rate O2 Sat (%) 98 96 Temperature (C) 36.4 C Blood Pressure 110/68 95/55 L Mean Arterial 82 68 Pressure (MAP) O2 Delivery Room Air Room Air Mode Temperature Oral Source Temp Pulse Resp BP Pulse Ox 36.4 C 68 16 103/81 H 97 10/04/18 05:00 10/04/18 06:20 10/04/18 06:20 10/04/18 06:20 10/04/18 06:20 Constitutional: no apparent distress, chronically ill appearing, cachectic, other (NAD. Patient lays awake in bed. He is confused. Appears chronically ill. Severely jaundice.) Eyes: PERRL (slightly decreased reactivity to light bilterally but symmetric. ) , EOMI, icteric sclera, other, No scleral injection Ears, Nose, Mouth, Throat: dry mucous membranes, other (No nasal discharge) Cardiovascular: regular rate and rhythym, systolic murmur, pulses symmetric bilaterally, edema (Trace) Peripheral Pulses: 1+: dorsalis-pedis (R), dorsalis-pedis (L) Respiratory: no respiratory distress Gastrointestinal: ascites, distension, other (Abdomen remained soft. Hypoactive bowel sounds. No tenderness to palpation.) Genitourinary: no bladder tenderness, No núñez in urethra Skin: warm, abrasion (Forearm), other (severely Jaundiced), No rash Musculoskeletal: generalized weakness, other (patient able to move extremities while laying down but limited ability to reposition. ) Neurologic: sensation intact bilaterally, weakness (Generalized), asterixes, other, No AAOx3, No facial droop Psychiatric: not anxious, encephalopathic, flat affect, poor memory, No interacting appropriately, No thought process linear Lab Data & Imaging Review 10/04/18 06:20 10/04/18 06:20 Laboratory studies from [facility] on 10/03/2018 at 8:05 p.m. WBC 2.40, H&H 1.331.4, platelet count 91, sodium 135, potassium 3.2, chloride 100, CO2 19, glucose 98, BUN 39, creatinine 2.7, calcium 8.8, total bili 42.5, total protein 6.9, albumin 3.4, ALT 27, AST 109, alk-phos 370 WBC 2.03 10^3/uL (3.80-9.50) L 10/04/18 06:20 RBC 3.09 10^6/uL (4.40-6.38) L 10/04/18 06:20 Hgb 10.9 g/dL (13.7-17.5) L 10/04/18 06:20 Hct 31.3 % (40.0-51.0) L 10/04/18 06:20 MCV 101.3 fL (81.5-99.8) H 10/04/18 06:20 MCH 35.3 pg (27.9-34.1) H 10/04/18 06:20 MCHC 34.8 g/dL (32.4-36.7) 10/04/18 06:20 RDW 26.5 % (11.5-15.2) H 10/04/18 06:20 Plt Count 76 10^3/uL (150-400) L 10/04/18 06:20 MPV 10.1 fL (8.7-11.7) 10/04/18 06:20 Neut % (Auto) 63.1 % (39.3-74.2) 10/04/18 06:20 Lymph % (Auto) 19.7 % (15.0-45.0) 10/04/18 06:20 [place] % (Auto) 10.3 % (4.5-13.0) 10/04/18 06:20 Eos % (Auto) 5.4 % (0.6-7.6) 10/04/18 06:20 Baso % (Auto) 1.0 % (0.3-1.7) 10/04/18 06:20 Nucleat RBC Rel Count 0.0 % (0.0-0.2) 10/04/18 06:20 Absolute Neuts (auto) 1.28 10^3/uL (1.70-6.50) L 10/04/18 06:20 Absolute Lymphs (auto) 0.40 10^3/uL (1.00-3.00) L 10/04/18 06:20 Absolute Monos (auto) 0.21 10^3/uL (0.30-0.80) L 10/04/18 06:20 Absolute Eos (auto) 0.11 10^3/uL (0.03-0.40) 10/04/18 06:20 Absolute Basos (auto) 0.02 10^3/uL (0.02-0.10) 10/04/18 06:20 Absolute Nucleated RBC 0.00 10^3/uL (0-0.01) 10/04/18 06:20 Immature Gran % 0.5 % (0.0-1.1) 10/04/18 06:20 Immature Gran # 0.01 10^3/uL (0.00-0.10) 10/04/18 06:20 RBC/WBC/PLT Morphology TNP 10/04/18 06:20 Platelet Estimate DECREASED (ADEQ) L 10/04/18 06:20 Tear Drop Cells 1+ H 10/04/18 06:20 Oval Macrocytes 2+ H 10/04/18 06:20 Echinocytes 2+ H 10/04/18 06:20 PT 20.9 SEC (12.0-15.0) H 10/04/18 06:20 INR 1.90 (0.83-1.16) H 10/04/18 06:20 APTT 56.2 SEC (23.0-38.0) H 10/04/18 06:20 Sodium 137 mEq/L (135-145) 10/04/18 06:20 Potassium 3.4 mEq/L (3.5-5.2) L 10/04/18 06:20 Chloride 106 mEq/L (97-110) 10/04/18 06:20 Carbon Dioxide 16 mEq/l (22-31) L 10/04/18 06:20 Anion Gap 15 mEq/L (6-14) H 10/04/18 06:20 BUN 39 mg/dL (7-23) H 10/04/18 06:20 Creatinine 2.4 mg/dL (0.7-1.3) H 10/04/18 06:20 Estimated GFR 10/04/18 06:20 Glucose 90 mg/dL (70-100) 10/04/18 06:20 Calcium 8.5 mg/dL (8.5-10.4) 10/04/18 06:20 Total Bilirubin 43.3 mg/dL (0.1-1.4) H 10/04/18 06:20 Conjugated Bilirubin 39.1 mg/dL (0.0-0.5) H 10/04/18 06:20 Unconjugated Bilirubin 4.2 mg/dL (0.0-1.1) H 10/04/18 06:20 Icterus Index > 25 10/04/18 06:20 AST 104 IU/L (17-59) H 10/04/18 06:20 ALT 44 IU/L (21-72) 10/04/18 06:20 Alkaline Phosphatase 318 IU/L (38-126) H 10/04/18 06:20 Ammonia 86.0 uMOL/L (9.0-30.0) H 10/04/18 06:20 Total Protein 6.4 g/dL (6.3-8.2) 10/04/18 06:20 Albumin 3.2 g/dL (3.5-5.0) L 10/04/18 06:20 Digoxin 1.3 ng/mL (0.8-2.0) 10/04/18 06:20 Assessment & Plan Assessment: This this is a 73-year-old gentleman with past medical history significant for primary sclerosing cholangitis, cirrhosis, history of esophageal varices, GI bleed, portal hypertension, Crohn's who was recently discharged after prolonged hospital stay 08/31/2018 through 09/20/2018 for GI bleed. #Hepatic encephalopathy (Acute) - patient with elevated ammonia. Currently is not safe to swallow at this time. Discussed with the use of a lactulose enema she agrees to. She would like to give the patient an opportunity for his mentation to clear as he was doing relatively well up until this each evening. She is aware that it is quite possible patient will not have any reversal of his encephalopathy at this point. I did review the progressively worsening laboratory studies at this time but certainly could be related to patient's increased diuresis recently. A digoxin level was also evaluated in this was found to be within acceptable limits. Patient has not had any acute changes in other medications. Given the severity of patient's findings in his chronic condition I did discuss with the that hospice is likely to be in the near future. Patient seen the palliative care service during the last hospitalization but would likely benefit from consultation this morning. holding diuresis. s/p bolus in field. consider albumin if needed. #hyperammonemia - as above. 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 followed by hepatology at [place]. continued plan - as noted above. # acute kidney injury - suspect this is more likely related to patient's aggressive diuresis in the last several weeks more so than a paddle renal syndrome but also discuss this with the that this possibility and even slight recovery would not likely be possible thought the case. Patient did receive a 900 cc bolus on route via EMS and he does appear to be dehydrated. Patient's blood pressures are low normal. Will not add any additional fluids at this time given difficulties with patient's fluid balance as at this point. #hypotension - s/p IVF bolus. midodrine prn when med rec available. s/p IVF. albumin prn. #Pancytopenia - 2/2 liver failure. no evidence of acute blood loss anemia. #Coagulopathy - 2/2 liver failure. FEN - s/p 900 mls en route to ED. electrolyte monitoring and replacement prn. PPX - SCDs. no anticoagulation. contraindicated COR - DNR/DNI. pt sent with copy MOST form Dispo - Patient admitted to observation status on PCU floor for close cardiac monitoring with history of PSVT, hypotension pending reassessment with lactulose enemas. Palliative care consult.
[2018-10-04] MEDS: LACTULOSE 20 GM/30 ML UDCUP PO SCH ×3 (10:54→21:51)
[2018-10-04] MEDS ORDERED: LACTULOSE 200 GM in SODIUM CL IRRIG SOLUTION 700 ML PR SCH (12:00)
--- NOTE | 2018-10-04 15:39 | ASMTCMCOM ---
CM Note CM Note Notes: CM met with pt and . 73- year old male came back from [facility]. reports that they are saving his room at [facility] and have been working with [facility]. CM sent a referral to [facility] and [facility]. CM contacted [facility]. PT/OT evals pending. CM to follow. Plan:TBD Date Signed: 10/04/2018 03:38 PM Electronically Signed By:Lori Sims
--- NOTE | 2018-10-04 16:29 | HOSPPROG ---
Hospitalist Progress Note Assessment/Plan: # hepatic encephalopathy - likely triggered by renal failure - cont lactulose, consider Xifaxan # BIN - pre-renal vs HRS; very concerning - discussed informally with Dr Begum - will provide albumin, IVF, cont midodrine, start octreotide gtt - check ULytes # cirrhosis d/t PSC - markedly elevated bili - not a liver transplant per report - CBD stricture with high grade dysplasia - ?cholangiocarcinoma # recent variceal bleed 09/01 and 09/03 s/p banding # SVT - occurred on last hospitalization - if recurs, cards recommends adenosine 3mg for unstable SVT, otherwise could consider dilt 5mg IV or no intervention - currently on digoxin # thyroid cancer s/p thyroidectomy # Crohn's - Imuran # dispo - overall prognosis very guarded; discussed with his Subjective: possibly better today, but still very confused Objective: Vital Signs Temp Pulse Resp BP Pulse Ox 37.2 C 79 18 99/59 L 98 10/04/18 16:04 10/04/18 16:04 10/04/18 16:04 10/04/18 16:04 10/04/18 16:04 Laboratory Results 10/04/18 06:20 10/04/18 06:20 10/03/18 10/04/18 10/05/18 05:59 05:59 05:59 Intake Total 200 Balance 200 PT 20.9 SEC (12.0-15.0) H 10/04/18 06:20 INR 1.90 (0.83-1.16) H 10/04/18 06:20 40 minutes direct, prolonged patient care time - Physical Exam Constitutional: other (no LE edema; no ascites, abd S, NT) ICD10 Worksheet Patient Problems: Problems Problem Status Onset Hepatic encephalopathy Acute Fever Acute Hyperbilirubinemia Acute Thyroid cancer Acute Upper GI hemorrhage Acute Weakness Acute
[2018-10-04] MEDS: NS 1,000 ML IV SCH (17:52)
[2018-10-04] MEDS: ALBUMIN 25% 100 ML IV SCH (17:54)
[2018-10-04] MEDS: OCTREOTIDE ACETATE 500 MCG in NS 50 ML IV SCH (21:51)
[2018-10-04] MEDS: PANTOPRAZOLE SODIUM 40 MG TAB PO SCH (21:53)
[2018-10-05] MEDS: ALBUMIN 25% 100 ML IV SCH ×3 (01:03→13:07)
[2018-10-05] MEDS: LEVOTHYROXINE 150 MCG TAB PO SCH (05:46)
[2018-10-05 06:56] LABS: PLATELET COUNT 70 10^3/uL (150-400)
[2018-10-05] MEDS: OCTREOTIDE ACETATE 500 MCG in NS 50 ML IV SCH ×2 (07:39→17:34)
[2018-10-05] MEDS ORDERED: MIDODRINE HCL 5 MG TAB PO SCH ×2 (08:00→08:06)
[2018-10-05] MEDS ORDERED: POTASSIUM CL 20 MEQ TAB PO ONE (08:07)
[2018-10-05 08:08] LABS: INR 2.02 (0.83-1.16); PROTIME(PATIENT) 21.9 SEC (12.0-15.0)
[2018-10-05] MEDS: LACTULOSE 20 GM/30 ML UDCUP PO SCH ×3 (08:29→22:08)
[2018-10-05] MEDS: azaTHIOprine 50 MG TAB PO SCH (08:29)
[2018-10-05] MEDS: PANTOPRAZOLE SODIUM 40 MG TAB PO SCH ×2 (08:29→22:09)
[2018-10-05] MEDS: NS 1,000 ML IV SCH ×2 (08:37→22:08)
[2018-10-05] MEDS: AZELASTINE NASAL MDI EACHNARE SCH (10:02)
[2018-10-05] MEDS: MIDODRINE HCL 5 MG TAB PO SCH ×3 (10:02→15:45)
[2018-10-05] MEDS: DIGOXIN 125 MCG TAB PO SCH (10:02)
--- NOTE | 2018-10-05 10:03 | HOSPPROG ---
Hospitalist Progress Note Assessment/Plan: # hepatic encephalopathy - slight improvement today - cont lactulose, start Xifaxan # BIN - no improvement overnight with albumin, midodrine and octreotide - pre-renal with ATN vs HRS; very concerning - discussed informally with Dr Begum - will provide albumin, IVF, cont midodrine, start octreotide gtt - check ULytes - renal consult today # cirrhosis d/t PSC - markedly elevated bili - not a liver transplant candidate - CBD stricture with high grade dysplasia - ?cholangiocarcinoma - GI consult today # recent variceal bleed 09/01 and 09/03 s/p banding # SVT - occurred on last hospitalization - if recurs, cards recommends adenosine 3mg for unstable SVT, otherwise could consider dilt 5mg IV or no intervention - currently on digoxin # thyroid cancer s/p thyroidectomy # Crohn's - Imuran # dispo - prognosis poor; palliative care Subjective: slight improvement in mental status today Objective: Vital Signs Temp Pulse Resp BP Pulse Ox 37.1 C 79 17 92/56 L 94 10/05/18 07:56 10/05/18 07:56 10/05/18 07:56 10/05/18 07:56 10/05/18 07:56 Laboratory Results 10/05/18 06:46 10/05/18 06:46 10/04/18 10/05/18 10/06/18 05:59 05:59 05:59 Intake Total 2248 300 Output Total 150 Balance 2098 300 PT 21.9 SEC (12.0-15.0) H 10/05/18 06:46 INR 2.02 (0.83-1.16) H 10/05/18 06:46 high risk discussed with Sindy Begum and Percy - Physical Exam Constitutional: other (jaundiced) Cardiovascular: regular rate and rhythym, no murmur, rub, or gallop Respiratory: no respiratory distress, no rales or rhonchi, clear to auscultation Gastrointestinal: soft, non-tender abdomen, no palpable masses, No rebound, No distension Musculoskeletal: other (no LE edema) ICD10 Worksheet Patient Problems: Problems Problem Status Onset Thyroid cancer Acute Hyperbilirubinemia Acute Fever Acute Weakness Acute Upper GI hemorrhage Acute Hepatic encephalopathy Acute
[2018-10-05] MEDS: RIFAXIMIN 550 MG TAB PO SCH ×2 (10:11→22:09)
--- NOTE | 2018-10-05 11:24 | PDCONSULT ---
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 Duvall for mental status changes in the setting of cirrhosis, PSC and probable cholangiocarcinoma. Patient has a significant past medical history of primary sclerosing cholangitis, Crohn's colitis and cirrhosis. He has known esophageal varices. He has had previous GI bleeding due to esophageal varices and status post banding. He had a previous prolonged hospital stay in August through mid September for GI bleed. Developed fluid overload with ascites was started on diuretics at that admission. He also was having recurrent episodes of SVT difficult to control due to hypotension. Patient was treated with digoxin. Patient with liver failure, cirrhosis and ascites. 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 Worrisome for cholangiocarcinoma. Previous bilirubin of 26. Patient id has been followed at [facility]. Management of his ascites has been difficult with diuretics due to hypotension and also azotemia. From a GI had been consulted on the patient. Is he was discharged home to rehab. Has had progressive decline 3 that time. He was transferred to the emergency department. He was found to have acute kidney injury with a creatinine of 2.7. She has had worsening bilirubin of 42.5. Patient was hypotensive in the emergency department is admitted the hospital for further management. Past Medical History - Medical History Coronary artery disease, SVT, Crohn's disease, hypothyroidism, hypertension and PSC - Surgical History Reports: appendectomy, cholecystectomy, thyroid surgery Additional surgical history: Vasectomy, thyroid resection, appendix and gallbladder removal, EGD with banding - Family History Negative as pertains to CC Additional family history: Grandfather second to trauma after driving his car into a tree, unknown cause - Social History Smoking Status: Never smoked Additional social history: He is and lives at home with his and 39yo disabled son. He also has a daughter who lives out of state in [place], [place]. Cor-DNR DNI. - Allergies/Home Medication List Allergies/Adverse Reactions: No Known Allergies Allergy (Verified 10/04/18 05:02) Home Medications: azaTHIOprine [Imuran 50 mg (*)] 100 mg PO DAILY 01/27/18 [Last Taken 10/03/18] Azelastine [Astelin Nasal [place] (RX)] 2 sprays EACHNARE DAILY 10/04/18 [Last Taken 10/03/18] ROS: Comprehensive ROS negative other than mentioned in HPI Constitutional: no apparent distress, chronically ill appearing, cachectic, NAD. He is confused. Appears chronically ill. jaundice Eyes: PERRL, EOMI, icteric sclera, other, No scleral injection Ears, Nose, Mouth, Throat: dry mucous membranes, other (No nasal discharge) Cardiovascular: regular rate and rhythym, systolic murmur, pulses symmetric bilaterally, edema Respiratory: no respiratory distress Gastrointestinal: ascites, distension, other (Abdomen remained soft. Hypoactive bowel sounds. No tenderness to palpation.) Genitourinary: no bladder tenderness Skin: warm, abrasion (Forearm), other (severely Jaundiced), No rash Musculoskeletal: generalized weakness Neurologic: Non-focal, weakness (Generalized), asterixes, other, No AAOx3, No facial droop Psychiatric: not anxious, encephalopathic, flat affect, poor memory, No interacting appropriately, No thought process linear LABS: White count 1.48, hemoglobin 9.7, hematocrit 27.2, MCV of 100, [place] [id number] Chemistries: Serum sodium 139, potassium 2.8, chloride 103, BUN 35 creatinine 2.4, total bili 44.9, AST of 89, ALT of 40. PTT 21.9 with an INR of 2.02 This 73-year-old gentleman with cirrhosis probable underlying cholangiocarcinoma with worsening liver failure and jaundice. Patient with worsening mental status changes and dehydration as well as worsening renal failure. Recommendations: 1. Supportive care 2. IV fluids 3. Renal consult for worsening renal failure rule out prerenal azotemia versus hepatorenal syndrome 4. Patient dehydration would recommend Xifaxan 550 mg three times daily for management of cephalopathy. 5. Right upper quadrant ultrasound. 6. Overall prognosis is poor Will follow with you. Thank you for allowing me to participate in the care of your patient. Neel Greer MD [phone]
--- NOTE | 2018-10-05 15:11 | PDMN ---
Medical Necessity Medical necessity: [facility] [id number] Liver Disease Complications, A-2 days: 73 yo w/ acute hepatic encephalopathy w/ hyperammonemia, BIN Cr 2.4, Bili 43.3. Initially OBS for workup/tx but pt cont w/ only slight improvement of mental status overnight, need to cont lactulose and start xifaxan, remains in BIN w/ no change to renal status, Bili went up, pt is hypotensive, GI and renal consults. Prognosis poor. Palliative care consult. Meets [facility] IP criteria for hepatic encephalopathy insufficiently responsing to OBS care tx, hemodynamic instability and ongoing BIN. Change to IP status 10/05/18@1004 per MD order. Hx sclerosing cholangitis, cirrhosis, history of esophageal varices, GI bleed, portal hypertension, Crohn's who was recently discharged after prolonged hospital stay 08/31/2018 through 09/20/2018 for GI bleed w/ complications r/t SVT, fluid overload, hypotension requiring pressors. Patient had known history of esophageal varices with previous banding
--- NOTE | 2018-10-05 16:35 | SOAPPROG ---
SOAP Progress Note Assessment/Plan: Assessment/Plan: 73 y/o M with BIN possibly 2/2 to HRS vs pre-renal azotemia or ATN. 1. BIN - Cr elevated at 2.4 up from 1.3 at discharge mid September. Most likely pre- renal azotemia at this point -continue midodrine 10mg TID -agree with albumin and NS -hold lasix -urinalysis and Angelica pending -given that patient is end stage of a terminal illness and is not a transplant candidate, if renal function worsens and dialysis were indicated, would not recommend starting this. Discussed this with patient's who is in agreement -trend Cr -agree with octreotide 2. PSC associated with longstanding crohn's disease -following with [facility] -per primary team, does not appear to be a transplant candidate due to concern for cholangiocarcinoma *long discussion with patient's , that pursuing hospice at this point would be appropriate. She would like to speak with palliative care again on Saturday 3. Acidosis -likely 2/2 BIN 4. AMS- likely 2/2 hepatic encephalopathy --getting Rifaximin and lactulose 5. 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 Patient had BIN at that time which was felt to likely be 2/2 pre-renal Azotemia vs. HRS in setting of GIB. Cr at recent admission peaked at 1.8 and trended down to 1.3 after discharge. He was started on lasix and spironolactone for ascites. Patient now readmitted with AMS and worsening BIN. Cr 2.4 on admission and has remained there despite 1 day of volume resuscitation. Patient tired, but patient's thinks his mentation has cleared a little bit since admission. She reports that he was not eating much at all and that his legs, which at one point were very edematous, were "so thin that any 19 year girl would be envious" by the time he came back in. Objective: Vital Signs Temp Pulse Resp BP Pulse Ox 37.4 C 68 18 91/56 L 100 10/05/18 15:11 10/05/18 15:11 10/05/18 15:11 10/05/18 15:11 10/05/18 15:11 PT 21.9 SEC (12.0-15.0) H 10/05/18 06:46 INR 2.02 (0.83-1.16) H 10/05/18 06:46 LABORATORY 10/05/18 10/05/18 10/05/18 06:46 06:46 06:46 WBC 1.48 10^3/uL L 10^3/uL (3.80-9.50) RBC 2.72 10^6/uL L 10^6/uL (4.40-6.38) Hgb 9.7 g/dL L g/dL (13.7-17.5) Hct 27.2 % L % (40.0-51.0) MCV 100.0 fL H fL (81.5-99.8) MCH 35.7 pg H pg (27.9-34.1) MCHC 35.7 g/dL g/dL (32.4-36.7) RDW 26.5 % H % (11.5-15.2) Plt Count 70 10^3/uL L 10^3/uL (150-400) MPV 10.4 fL fL (8.7-11.7) Neut % (Auto) Not Reported Lymph % (Auto) Not Reported [place] % (Auto) Not Reported Eos % (Auto) Not Reported Baso % (Auto) Not Reported Nucleat RBC Rel Count Not Reported Absolute Neuts (auto) Not Reported Absolute Lymphs (auto) Not Reported Absolute Monos (auto) Not Reported Absolute Eos (auto) Not Reported Absolute Basos (auto) Not Reported Absolute Nucleated RBC Not Reported Immature Gran % Not Reported Seg Neutrophils % 78.0 % % Band Neutrophils % 4.0 % % Lymphocytes % 10.0 % % Monocytes % 3.0 % % Eosinophils % 3.0 % % Basophils % 1.0 % % Metamyelocytes % 0.0 % % Myelocytes % 0.0 % % Promyelocytes % 0.0 % % Blast Cells % 0.0 % % Immature Gran # Not Reported Absolute Seg Neuts 1.15 10^3/uL L 10^3/uL (1.70-6.50) Absolute Band Neuts 0.06 10^3/uL 10^3/uL (0.00-0.70) Absolute Lymphocytes 0.15 10^3/uL L 10^3/uL (1.00-3.00) Absolute Monocytes 0.04 10^3/uL L 10^3/uL (0.30-0.80) Absolute Eosinophils 0.04 10^3/uL 10^3/uL (0.03-0.40) Absolute Basophils 0.01 10^3/uL L 10^3/uL (0.02-0.10) Absolute Metamyelocyte 0.00 10^3/mL 10^3/mL (0.00-0.00) Absolute Myelocytes 0.00 10^3/mL 10^3/mL (0.00-0.00) Absolute Promyelocytes 0.00 10^3/uL 10^3/uL (0.00-0.00) Absolute Plasma Cells 0.00 10^3/uL 10^3/uL (0.00-0.00) Nucleated RBCs 1.0 /100 WBC H /100 WBC (0-0) RBC/WBC/PLT Morphology Absolute Blast Cells 0.00 10^3/uL 10^3/uL (0.00-0.00) Plasma Cells % 0.0 % % Platelet Estimate DECREASED L (ADEQ) Target Cells 1+ H Tear Drop Cells Oval Macrocytes 2+ H Echinocytes 2+ H Elliptocytes 1+ H Schistocytes 1+ H Smear Review By Pending PT 21.9 SEC H SEC (12.0-15.0) INR 2.02 H (0.83-1.16) APTT Sodium 139 mEq/L mEq/L (135-145) Potassium 2.8 mEq/L L mEq/L (3.5-5.2) Chloride 103 mEq/L mEq/L (97-110) Carbon Dioxide 17 mEq/l L mEq/l (22-31) Anion Gap 19 mEq/L H mEq/L (6-14) BUN 35 mg/dL H mg/dL (7-23) Creatinine 2.4 mg/dL H mg/dL (0.7-1.3) Estimated GFR 27 Glucose 102 mg/dL H mg/dL (70-100) Calcium 9.0 mg/dL mg/dL (8.5-10.4) Total Bilirubin 44.9 mg/dL H mg/dL (0.1-1.4) Conjugated Bilirubin 39.3 mg/dL H mg/dL (0.0-0.5) Unconjugated Bilirubin 5.6 mg/dL H mg/dL (0.0-1.1) Icterus Index > 25 AST 89 IU/L H IU/L (17-59) ALT 40 IU/L IU/L (21-72) Alkaline Phosphatase 303 IU/L H IU/L (38-126) Ammonia Total Protein 6.9 g/dL g/dL (6.3-8.2) Albumin 3.8 g/dL g/dL (3.5-5.0) Digoxin 10/04/18 10/04/18 10/04/18 06:20 06:20 06:20 WBC RBC Hgb Hct MCV MCH MCHC RDW Plt Count MPV Neut % (Auto) Lymph % (Auto) [place] % (Auto) Eos % (Auto) Baso % (Auto) Nucleat RBC Rel Count Absolute Neuts (auto) Absolute Lymphs (auto) Absolute Monos (auto) Absolute Eos (auto) Absolute Basos (auto) Absolute Nucleated RBC Immature Gran % Seg Neutrophils % Band Neutrophils % Lymphocytes % Monocytes % Eosinophils % Basophils % Metamyelocytes % Myelocytes % Promyelocytes % Blast Cells % Immature Gran # Absolute Seg Neuts Absolute Band Neuts Absolute Lymphocytes Absolute Monocytes Absolute Eosinophils Absolute Basophils Absolute Metamyelocyte Absolute Myelocytes Absolute Promyelocytes Absolute Plasma Cells Nucleated RBCs RBC/WBC/PLT Morphology Absolute Blast Cells Plasma Cells % Platelet Estimate Target Cells Tear Drop Cells Oval Macrocytes Echinocytes Elliptocytes Schistocytes Smear Review By PT 20.9 SEC H SEC (12.0-15.0) INR 1.90 H (0.83-1.16) APTT 56.2 SEC H SEC (23.0-38.0) Sodium 137 mEq/L mEq/L (135-145) Potassium 3.4 mEq/L L mEq/L (3.5-5.2) Chloride 106 mEq/L mEq/L (97-110) Carbon Dioxide 16 mEq/l L mEq/l (22-31) Anion Gap 15 mEq/L H mEq/L (6-14) BUN 39 mg/dL H mg/dL (7-23) Creatinine 2.4 mg/dL H mg/dL (0.7-1.3) Estimated GFR 27 Glucose 90 mg/dL mg/dL (70-100) Calcium 8.5 mg/dL mg/dL (8.5-10.4) Total Bilirubin 43.3 mg/dL H mg/dL (0.1-1.4) Conjugated Bilirubin 39.1 mg/dL H mg/dL (0.0-0.5) Unconjugated Bilirubin 4.2 mg/dL H mg/dL (0.0-1.1) Icterus Index > 25 AST 104 IU/L H IU/L (17-59) ALT 44 IU/L IU/L (21-72) Alkaline Phosphatase 318 IU/L H IU/L (38-126) Ammonia 86.0 uMOL/L H uMOL/L (9.0-30.0) Total Protein 6.4 g/dL g/dL (6.3-8.2) Albumin 3.2 g/dL L g/dL (3.5-5.0) Digoxin 1.3 ng/mL ng/mL (0.8-2.0) 10/04/18 06:20 WBC 2.03 10^3/uL L 10^3/uL (3.80-9.50) RBC 3.09 10^6/uL L 10^6/uL (4.40-6.38) Hgb 10.9 g/dL L g/dL (13.7-17.5) Hct 31.3 % L % (40.0-51.0) MCV 101.3 fL H fL (81.5-99.8) MCH 35.3 pg H pg (27.9-34.1) MCHC 34.8 g/dL g/dL (32.4-36.7) RDW 26.5 % H % (11.5-15.2) Plt Count 76 10^3/uL L 10^3/uL (150-400) MPV 10.1 fL fL (8.7-11.7) Neut % (Auto) 63.1 % % (39.3-74.2) Lymph % (Auto) 19.7 % % (15.0-45.0) [place] % (Auto) 10.3 % % (4.5-13.0) Eos % (Auto) 5.4 % % (0.6-7.6) Baso % (Auto) 1.0 % % (0.3-1.7) Nucleat RBC Rel Count 0.0 % % (0.0-0.2) Absolute Neuts (auto) 1.28 10^3/uL L 10^3/uL (1.70-6.50) Absolute Lymphs (auto) 0.40 10^3/uL L 10^3/uL (1.00-3.00) Absolute Monos (auto) 0.21 10^3/uL L 10^3/uL (0.30-0.80) Absolute Eos (auto) 0.11 10^3/uL 10^3/uL (0.03-0.40) Absolute Basos (auto) 0.02 10^3/uL 10^3/uL (0.02-0.10) Absolute Nucleated RBC 0.00 10^3/uL 10^3/uL (0-0.01) Immature Gran % 0.5 % % (0.0-1.1) Seg Neutrophils % Band Neutrophils % Lymphocytes % Monocytes % Eosinophils % Basophils % Metamyelocytes % Myelocytes % Promyelocytes % Blast Cells % Immature Gran # 0.01 10^3/uL 10^3/uL (0.00-0.10) Absolute Seg Neuts Absolute Band Neuts Absolute Lymphocytes Absolute Monocytes Absolute Eosinophils Absolute Basophils Absolute Metamyelocyte Absolute Myelocytes Absolute Promyelocytes Absolute Plasma Cells Nucleated RBCs RBC/WBC/PLT Morphology TNP Absolute Blast Cells Plasma Cells % Platelet Estimate DECREASED L (ADEQ) Target Cells Tear Drop Cells 1+ H Oval Macrocytes 2+ H Echinocytes 2+ H Elliptocytes Schistocytes Smear Review By Harris MOON MD PT INR APTT Sodium Potassium Chloride Carbon Dioxide Anion Gap BUN Creatinine Estimated GFR Glucose Calcium Total Bilirubin Conjugated Bilirubin Unconjugated Bilirubin Icterus Index AST ALT Alkaline Phosphatase Ammonia Total Protein Albumin Digoxin General- chronically ill-appearing, thin, jaundiced, drowsy Eyes- scleral icterus Pulm- anterior lung ruvalcaba CTAB, breathing comfortably on RA CV- NRRR, no g/m/r Abd- + ascites, non-tender Extrem- no edema Psych- drowsy but wakes with stimulation, very pleasant ICD10 Worksheet Patient Problems: Problems Problem Status Onset Hepatic encephalopathy Acute Fever Acute Hyperbilirubinemia Acute Thyroid cancer Acute Upper GI hemorrhage Acute Weakness Acute
--- NOTE | 2018-10-05 17:09 | ASMTCMCOM ---
CM Note CM Note Notes: Reviewed chart regarding discharge plan of care, pt's progress. Per unit rounds, pt transferred [facility] PT/OT were triggered, but evals are not currently appropriate. Per Dr. Duvall, GI and Nephrology consults today. Pt would benefit from Palliative vs Hospice Care. Currently open with [facility] Community Palliative Care. [facility] Palliative Care team notified for consult on Saturday10/06/18 to further discuss supportive care/hospice. CM will continue to follow. Discharge Plan: To be determined Date Signed: 10/05/2018 05:08 PM Electronically Signed By:Maria Guadalupe Lopez RN
[2018-10-06 04:32] LABS: PLATELET COUNT 56 10^3/uL (150-400)
[2018-10-06] MEDS: OCTREOTIDE ACETATE 500 MCG in NS 50 ML IV SCH ×2 (04:42→18:14)
[2018-10-06 04:44] LABS: INR 2.4 (0.83-1.16)
[2018-10-06] MEDS ORDERED: POTASSIUM CL 20 MEQ TAB PO ONE (05:20)
[2018-10-06] MEDS: LEVOTHYROXINE 150 MCG TAB PO SCH (05:59)
[2018-10-06] MEDS: azaTHIOprine 50 MG TAB PO SCH (09:00)
[2018-10-06] MEDS: MIDODRINE HCL 5 MG TAB PO SCH ×3 (09:00→16:09)
[2018-10-06] MEDS: RIFAXIMIN 550 MG TAB PO SCH ×2 (09:00→23:12)
[2018-10-06] MEDS: LACTULOSE 20 GM/30 ML UDCUP PO SCH ×3 (09:00→23:12)
[2018-10-06] MEDS: DIGOXIN 125 MCG TAB PO SCH (09:00)
[2018-10-06] MEDS: PANTOPRAZOLE SODIUM 40 MG TAB PO SCH ×2 (09:00→23:12)
--- NOTE | 2018-10-06 09:05 | SOAPPROG ---
SOAP Progress Note Assessment/Plan: Assessment: PSC with Cirrhosis, Crohn's colitis. Biliary hilar stricture c/w Cholangiocarcinoma. MS improved on Rifaximin 550 mg PO BID, Also on Lactulose Palliative care consult today. Plan: 1. Continue supportive care 2. Continue on Rifaximin 550 mg PO BID 3. Patient also on Lactulose, can continue however if causes significant diarrhea and dehydration would hold. Continue to monitor 4.Renal functions stable, management per Nephrology 10/06/18 09:03 Subjective: CC: Cirrhosis, PSC, Cholangiocarcinoma with dehydration and confusion. MS much improved today Objective: Vital Signs Temp Pulse Resp BP Pulse Ox 36.0 C 64 20 92/56 L 95 10/06/18 07:11 10/06/18 07:11 10/06/18 07:11 10/06/18 07:11 10/06/18 07:11 Laboratory Results 10/06/18 03:00 10/06/18 03:00 10/05/18 10/06/18 10/07/18 05:59 05:59 05:59 Intake Total 2210.8 350 Output Total 750 Balance 1460.8 350 PT 25.0 SEC (12.0-15.0) H 10/06/18 03:00 INR 2.40 (0.83-1.16) H 10/06/18 03:00 Generic Name Dose Route Start Last Admin Trade Name Freq PRN Reason Stop Dose Admin Azathioprine 100 mg 10/05/18 09:00 10/05/18 08:29 Imuran PO 04/03/19 08:59 100 mg DAILY JAMES Administration Azelastine HCl 2 sprays 10/05/18 09:00 10/05/18 10:02 Astelin EACHNARE 04/03/19 08:59 Not Given DAILY JAMES Digoxin 125 mcg 10/05/18 10:00 10/05/18 10:02 Lanoxin PO 04/03/19 09:59 125 mcg DAILY AT 10AM JAMES Administration Sodium Chloride 1,000 mls @ 75 mls/hr 10/04/18 17:15 10/05/18 22:08 Ns IV 04/02/19 17:14 1,000 mls CONT JAMES Administration Octreotide Acetate 500 mcg/ 51 mls @ 5 mls/hr 10/04/18 17:15 10/06/18 04:42 Sodium Chloride IV 04/02/19 17:14 51 mls CONT JAMES Administration Lactulose 30 gm 10/04/18 10:30 10/05/18 22:08 Cephulac PO 04/02/19 10:29 30 gm TID JAMES Administration Levothyroxine Sodium 150 mcg 10/05/18 06:00 10/06/18 05:59 Synthroid PO 04/03/19 05:59 150 mcg DAILY AT 6AM JAMES Administration Midodrine 10 mg 10/05/18 09:00 10/05/18 15:45 Proamatine PO 04/03/19 08:59 10 mg TID@0800,1200,1600 JAMES Administration Ondansetron HCl 4 mg 10/04/18 06:13 Zofran IVP 04/02/19 06:12 Q4HRS PRN Nausea/Vomiting, Can't Take PO Pantoprazole Sodium 40 mg 10/04/18 21:00 10/05/18 22:09 Protonix PO 04/02/19 20:59 40 mg BID JAMES Administration Rifaximin 550 mg 10/05/18 10:00 10/05/18 22:09 Xifaxan PO 11/04/18 09:59 550 mg BID JAMES Administration Protocol Discontinued Medications Generic Name Dose Route Start Last Admin Trade Name Freq PRN Reason Stop Dose Admin Lactulose 200 gm/ Sodium 1,000 mls @ 0 mls/hr 10/04/18 12:00 10/04/18 10:56 Chloride RI 10/05/18 11:59 Not Given Q6HRS JAMES As Directed Albumin Human 100 mls @ 0 mls/hr 10/04/18 18:00 10/05/18 13:07 Flexbumin 25 % (Premix) IV 10/05/18 17:59 100 mls Q6HRS JMAES Administration As Directed Midodrine 5 mg 10/05/18 08:00 10/05/18 08:29 Proamatine PO 04/03/19 07:59 Not Given TID@0800,1200,1600 JAMES Midodrine 10 mg 10/05/18 08:06 Proamatine PO 04/03/19 07:59 TID@0800,1200,1600 JAMES Potassium Chloride 40 meq 10/05/18 08:07 10/05/18 08:25 Klor-Con PO 10/05/18 08:08 40 meq ONCE ONE Administration Potassium Chloride 40 meq 10/06/18 05:20 10/06/18 05:59 Klor-Con PO 10/06/18 05:21 40 meq ONCE ONE Administration Generic Name Dose Route Start Last Admin Trade Name Carin PRN Reason Stop Dose Admin Azathioprine 100 mg 10/05/18 09:00 10/05/18 08:29 Imuran PO 04/03/19 08:59 100 mg DAILY JAMES Administration Azelastine HCl 2 sprays 10/05/18 09:00 10/05/18 10:02 Astelin EACHNARE 04/03/19 08:59 Not Given DAILY JAMES Digoxin 125 mcg 10/05/18 10:00 10/05/18 10:02 Lanoxin PO 04/03/19 09:59 125 mcg DAILY AT 10AM JAMES Administration Sodium Chloride 1,000 mls @ 75 mls/hr 10/04/18 17:15 10/05/18 22:08 Ns IV 04/02/19 17:14 1,000 mls CONT JAMES Administration Octreotide Acetate 500 mcg/ 51 mls @ 5 mls/hr 10/04/18 17:15 10/06/18 04:42 Sodium Chloride IV 04/02/19 17:14 51 mls CONT JAMES Administration Lactulose 30 gm 10/04/18 10:30 10/05/18 22:08 Cephulac PO 04/02/19 10:29 30 gm TID JAMES Administration Levothyroxine Sodium 150 mcg 10/05/18 06:00 10/06/18 05:59 Synthroid PO 04/03/19 05:59 150 mcg DAILY AT 6AM JAMES Administration Midodrine 10 mg 10/05/18 09:00 10/05/18 15:45 Proamatine PO 04/03/19 08:59 10 mg TID@0800,1200,1600 JAMES Administration Ondansetron HCl 4 mg 10/04/18 06:13 Zofran IVP 04/02/19 06:12 Q4HRS PRN Nausea/Vomiting, Can't Take PO Pantoprazole Sodium 40 mg 10/04/18 21:00 10/05/18 22:09 Protonix PO 04/02/19 20:59 40 mg BID JAMES Administration Rifaximin 550 mg 10/05/18 10:00 10/05/18 22:09 Xifaxan PO 11/04/18 09:59 550 mg BID JAMES Administration Protocol Discontinued Medications Generic Name Dose Route Start Last Admin Trade Name Carin PRN Reason Stop Dose Admin Lactulose 200 gm/ Sodium 1,000 mls @ 0 mls/hr 10/04/18 12:00 10/04/18 10:56 Chloride RI 10/05/18 11:59 Not Given Q6HRS JAMES As Directed Albumin Human 100 mls @ 0 mls/hr 10/04/18 18:00 10/05/18 13:07 Flexbumin 25 % (Premix) IV 10/05/18 17:59 100 mls Q6HRS JAMES Administration As Directed Midodrine 5 mg 10/05/18 08:00 10/05/18 08:29 Proamatine PO 04/03/19 07:59 Not Given TID@0800,1200,1600 JAMES Midodrine 10 mg 10/05/18 08:06 Proamatine PO 04/03/19 07:59 TID@0800,1200,1600 JAMES Potassium Chloride 40 meq 10/05/18 08:07 10/05/18 08:25 Klor-Con PO 10/05/18 08:08 40 meq ONCE ONE Administration Potassium Chloride 40 meq 10/06/18 05:20 10/06/18 05:59 Klor-Con PO 10/06/18 05:21 40 meq ONCE ONE Administration Physical Exam - Physical Exam General Appearance: alert Respiratory: lungs clear Cardiac/Chest: regular rate, rhythm Abdomen: distended Skin: jaundice Neuro/Psych: alert, normal mood/affect, oriented x 3 ICD10 Worksheet Patient Problems: Problems Problem Status Onset Hepatic encephalopathy Acute Fever Acute Hyperbilirubinemia Acute Thyroid cancer Acute Upper GI hemorrhage Acute Weakness Acute
[2018-10-06] MEDS: AZELASTINE NASAL MDI EACHNARE SCH (09:10)
--- NOTE | 2018-10-06 09:32 | HOSPPROG ---
Hospitalist Progress Note Assessment/Plan: # acute hepatic encephalopathy - much improved today - cont lactulose, Xifaxan # BIN - still has not improved with midodrine, octreotide and NS; ULytes c/w pre-renal - pre-renal with ATN vs HRS; very concerning overall # cirrhosis d/t PSC - markedly elevated bili - not a liver transplant candidate - CBD stricture with high grade dysplasia - ?cholangiocarcinoma - recent variceal bleed 09/01 and 09/03 s/p banding # SVT - occurred on last hospitalization - if recurs, cards recommends adenosine 3mg for unstable SVT, otherwise could consider dilt 5mg IV or no intervention - currently on digoxin # thyroid cancer s/p thyroidectomy # Crohn's - Imuran # dispo - prognosis poor; palliative care today Subjective: much more mentally clear today; Objective: Vital Signs Temp Pulse Resp BP Pulse Ox 36.0 C 64 20 92/56 L 95 10/06/18 07:11 10/06/18 07:11 10/06/18 07:11 10/06/18 07:11 10/06/18 07:11 Laboratory Results 10/06/18 03:00 10/06/18 03:00 10/05/18 10/06/18 10/07/18 05:59 05:59 05:59 Intake Total 2210.8 350 Output Total 750 Balance 1460.8 350 PT 25.0 SEC (12.0-15.0) H 10/06/18 03:00 INR 2.40 (0.83-1.16) H 10/06/18 03:00 high risk - Physical Exam Constitutional: other (jaundice) Cardiovascular: regular rate and rhythym, no murmur, rub, or gallop Respiratory: no respiratory distress, no rales or rhonchi, clear to auscultation Gastrointestinal: soft, non-tender abdomen, distension, No guarding, No rebound ICD10 Worksheet Patient Problems: Problems Problem Status Onset Thyroid cancer Acute Hyperbilirubinemia Acute Fever Acute Weakness Acute Upper GI hemorrhage Acute Hepatic encephalopathy Acute
[2018-10-06] MEDS: NS 1,000 ML IV SCH (11:45)
--- NOTE | 2018-10-06 12:55 | SOAPPROG ---
SOAP Progress Note Assessment/Plan: Assessment/Plan: 73 y/o M with BIN possibly 2/2 to HRS vs pre-renal azotemia or ATN. 1. BIN -Cr stable at 2.4, baseline 1.3mg/dl -continue midodrine 10mg TID -agree with albumin and NS for now -hold lasix for now -urinalysis shows WBCs, low Do -not a candidate for txp as discussed today with patient and his , planning palliative meeting -may hold octreotide -continue to monitor 2. PSC associated with longstanding crohn's disease -following with [facility] -per primary team, does not appear to be a transplant candidate due to concern for cholangiocarcinoma 3. Acidosis -likely 2/2 BIN 4. AMS -likely 2/2 hepatic encephalopathy -improved on rifampin and lactulose 5. Hypokalemia- -replete prn Please contact if further ?s, #[phone]. 10/06/18 12:52 10/06/18 12:54 Subjective: Patient more alert today. not ready to go to hospice but agrees to palliative meeting. Long discussion that patient is not an HD candidate. Objective: Vital Signs Temp Pulse Resp BP Pulse Ox 36.6 C 64 16 92/59 L 96 10/06/18 11:15 10/06/18 11:15 10/06/18 11:15 10/06/18 11:15 10/06/18 11:15 Laboratory Results 10/06/18 03:00 10/06/18 03:00 10/05/18 10/06/18 10/07/18 05:59 05:59 05:59 Intake Total 2210.8 350 Output Total 750 Balance 1460.8 350 PT 25.0 SEC (12.0-15.0) H 10/06/18 03:00 INR 2.40 (0.83-1.16) H 10/06/18 03:00 Physical Exam - Physical Exam General Appearance: alert, thin EENT: scleral icterus (R) Neck: non-tender Respiratory: chest non-tender, lungs clear Cardiac/Chest: regular rate, rhythm Abdomen: normal bowel sounds, non-tender, soft, distended Skin: jaundice Extremities: normal range of motion Neuro/Psych: oriented x 3 ICD10 Worksheet Patient Problems: Problems Problem Status Onset Hepatic encephalopathy Acute Fever Acute Hyperbilirubinemia Acute Thyroid cancer Acute Upper GI hemorrhage Acute Weakness Acute
--- NOTE | 2018-10-06 15:04 | ASMTCMCOM ---
CM Note CM Note Notes: Pts case discussed in tx rounds. Elisa met w/ pt and . Pt and has decided to d/c to a SNF with hospice. does not want pt to be home and doesn't feel like she can manage even with 24/7 supervision. CM provided pts w/ laision's phone number to Jordin. 's reports that food is important. is inquiring about getting pt into [facility]. CM informed that [facility] is difficult to get into. will go tour and speak to sylvie individually about self paying for room and board. reports that they have oil [employer] care insurance that they've purchased through [employer]. Pts has a call to their personal lines insurance agent to see if itll pay for room and board at SNF. CM to follow. Plan: Hospice at a SNF Date Signed: 10/06/2018 03:03 PM Electronically Signed By:MAGALYS Patrick
[2018-10-07 04:12] LABS: PLATELET COUNT 67 10^3/uL (150-400)
[2018-10-07 04:23] LABS: INR 2.13 (0.83-1.16); PROTIME(PATIENT) 22.8 SEC (12.0-15.0)
[2018-10-07] MEDS: OCTREOTIDE ACETATE 500 MCG in NS 50 ML IV SCH (04:59)
[2018-10-07] MEDS: LEVOTHYROXINE 150 MCG TAB PO SCH (05:00)
[2018-10-07] MEDS: NS 1,000 ML IV SCH ×2 (05:02→15:46)
[2018-10-07] MEDS: LACTULOSE 20 GM/30 ML UDCUP PO SCH ×2 (08:44→15:45)
[2018-10-07] MEDS: MIDODRINE HCL 5 MG TAB PO SCH ×3 (08:44→15:45)
[2018-10-07] MEDS: RIFAXIMIN 550 MG TAB PO SCH ×2 (08:44→21:13)
[2018-10-07] MEDS: DIGOXIN 125 MCG TAB PO SCH (08:45)
[2018-10-07] MEDS: PANTOPRAZOLE SODIUM 40 MG TAB PO SCH ×2 (08:45→21:13)
[2018-10-07] MEDS: azaTHIOprine 50 MG TAB PO SCH (08:45)
[2018-10-07] MEDS: AZELASTINE NASAL MDI EACHNARE SCH (08:46)
[2018-10-07] MEDS ORDERED: POTASSIUM CL 20 MEQ TAB PO ONE (12:00)
--- NOTE | 2018-10-07 12:43 | HOSPPROG ---
Hospitalist Progress Note Assessment/Plan: # acute hepatic encephalopathy - much improved today - cont lactulose, Xifaxan # BIN - some improvement today; will stop octreotide, cont NS # cirrhosis d/t PSC - markedly elevated bili - not a liver transplant candidate - CBD stricture with high grade dysplasia - ?cholangiocarcinoma - recent variceal bleed 09/01 and 09/03 s/p banding # SVT - occurred on last hospitalization - if recurs, cards recommends adenosine 3mg for unstable SVT, otherwise could consider dilt 5mg IV or no intervention - currently on digoxin # thyroid cancer s/p thyroidectomy # Crohn's - Imuran # dispo - have agreed on hospice; will stop following labs - patient and in agreement; will continue NS today - looking at [place] with hospice - likely ready for dc tomorrow Subjective: long discussion with and patient regarding goals of care Objective: Vital Signs Temp Pulse Resp BP Pulse Ox 36.4 C 63 16 102/60 98 10/07/18 10:58 10/07/18 10:58 10/07/18 10:58 10/07/18 10:58 10/07/18 10:58 Laboratory Results 10/07/18 03:20 10/07/18 03:20 10/06/18 10/07/18 10/08/18 05:59 05:59 05:59 Intake Total 2210.8 2490 240 Output Total 750 950 200 Balance 1460.8 1540 40 PT 22.8 SEC (12.0-15.0) H 10/07/18 03:20 INR 2.13 (0.83-1.16) H 10/07/18 03:20 - Time Spent With Patient Time Spent with Patient: greater than 35 minutes Time Spent with Patient: Greater than 35 minutes spent on this patients care, greater than 50% of time spent counseling, educating, and coordinating care regarding the above mentioned plan. - Physical Exam Constitutional: other (comfortable, in bed) Eyes: icteric sclera Ears, Nose, Mouth, Throat: hearing normal ICD10 Worksheet Patient Problems: Problems Problem Status Onset Thyroid cancer Acute Hyperbilirubinemia Acute Fever Acute Weakness Acute Upper GI hemorrhage Acute Hepatic encephalopathy Acute
--- NOTE | 2018-10-07 14:13 | SOAPPROG ---
[facility] Progress Note Assessment/Plan: Assessment: renal brief note-- chart reviewed and family has decided on hospice course. We will sign off now but please call any questions. thanks for consulting us [facility] [phone] Objective: Vital Signs Temp Pulse Resp BP Pulse Ox 36.4 C 63 16 102/60 98 10/07/18 10:58 10/07/18 10:58 10/07/18 10:58 10/07/18 10:58 10/07/18 10:58 Laboratory Results 10/07/18 03:20 10/07/18 03:20 10/06/18 10/07/18 10/08/18 05:59 05:59 05:59 Intake Total 2210.8 2490 640 Output Total 750 950 200 Balance 1460.8 1540 440 PT 22.8 SEC (12.0-15.0) H 10/07/18 03:20 INR 2.13 (0.83-1.16) H 10/07/18 03:20 ICD10 Worksheet Patient Problems: Problems Problem Status Onset Hepatic encephalopathy Acute Fever Acute Hyperbilirubinemia Acute Thyroid cancer Acute Upper GI hemorrhage Acute Weakness Acute
--- NOTE | 2018-10-07 15:36 | ASMTCMCOM ---
CM Note CM Note Notes: Pts case discussed in tx rounds. Pts is going to tour [place] today. Pts has been in touch w/ Sangeetha Eriwn at [facility]. Pt will have a meeting w/ EZ this afternoon at 4PM. Pts is planning to stop by [place] today to collect his belongings. Pts will let CM know what she wants to do. CM to follow. Date Signed: 10/07/2018 03:36 PM Electronically Signed By:MAGALYS Patrick
[2018-10-08] MEDS: LACTULOSE 20 GM/30 ML UDCUP PO SCH ×2 (00:18→07:24)
[2018-10-08] MEDS: LEVOTHYROXINE 150 MCG TAB PO SCH (05:48)
[2018-10-08] MEDS: MIDODRINE HCL 5 MG TAB PO SCH ×2 (08:06→12:26)
[2018-10-08] MEDS: RIFAXIMIN 550 MG TAB PO SCH (08:06)
[2018-10-08] MEDS: PANTOPRAZOLE SODIUM 40 MG TAB PO SCH (08:06)
[2018-10-08] MEDS: azaTHIOprine 50 MG TAB PO SCH (08:06)
[2018-10-08] MEDS: AZELASTINE NASAL MDI EACHNARE SCH (08:09)
[2018-10-08] MEDS: DIGOXIN 125 MCG TAB PO SCH (10:32)
--- NOTE | 2018-10-08 11:32 | PDIAF ---
- Diagnosis Diagnosis: hepatic encephalopathy, primary sclerosing cholangitis, cirrhosis of liver Code Status: Do Not Resuscitate - Medication Management Discharge Medications: electronically signed and located in the Home Medication List. - Orders Isolation Type: Chemotherapy Isolation Diet Recommendation: no restrictions on diet Diet Texture: Regular Texture Diet Additional Instructions: to SNF with Home Hospice - Follow Up Care Current Providers and Referrals: Patient,NotPresent [Unknown] - 1-2 days (Follow up with Hospice and [facility] providers)
--- NOTE | 2018-10-08 11:39 | PDDCSUM ---
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 Greer Nephrology - Dr. 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 He was treated with lactulose and Rifaximin, which helped. With other medical complex comorbidities and recurrent hospitalizations/complications from his liver disease, he was considered hospice appropriate. He and his family opted for hospice after meeting with Palliative care. Patient was discharged to a custodial facility with home hospice in fair condition. Physical Exam: Gen - alert, in NAD. MSK: ambulating w/ assistance. Skin: jaundiced. Condition: Fair. Prognosis: Poor. Pertinent tests/labs/imaging: Creatinine on DC - 2.1 Last ammonia level- 86 Medications: Please see med rec form. Special instructions: None. Follow up: Hospice or SNF provider in 1-2 days > 30 minutes of total time was spent on counseling and coordination of care for this patient's discharge.
[2018-10-08 12:02] VITALS: BP 98/55
--- NOTE | 2018-10-08 12:13 | ASMTLACE ---
LACE Length of stay for Answers: 4-6 days current admission Acuity / Level of Answers: Yes Care: Did the patient have an inpatient admission? Comorbidities - select Answers: Cerebrovascular disease all that apply (CVA, TIA, aneurysms, vasc ular dementia) Other Notes: Crohn's disease # of Emergency department Answers: 3-4 visits in the last 6 months Score: 12 Date Signed: 10/08/2018 12:12 PM Electronically Signed By:MAGALYS Patrick
--- NOTE | 2018-10-08 12:20 | ASMTDCNOTE ---
Case Management Discharge Discharge Order Complete? Answers: Yes Patient to Obtain Answers: Other Notes: [facility] Medications Transportation Arranged Answers: Family/Friends EMTALA Complete Answers: No Case Management Transport Answers: No Form Complete Faxed Final Orders Answers: Yes Agency/Facility Transfer Answers: Yes Report Printed & Faxed to Receiving Agency Family Notified Answers: Yes Discharge Comments Notes: Pts case discussed in tx rounds. CM spoke to Sangeetha Erwin at [facility]. Pts toured yesterday and signed contract. Pt is being d/c'd today to [facility]. Pts would like to transport him. Per Renee RN that is ok. Our DESCRIPTIVE CATALOG LIBRARIAN will wheelchair pt down to the lobby and assist pt into car. Pts can call [facility] once she arrives to have staff assist pt into a wheelchair. CM provided w/ the [facility] unit number to call. Renee will call to give report. DC orders sent to [facility]. CM notified Taunie at [facility] of the d/c as well as sending DC orders.. [facility] will be at [facility] to meet w/ pt and at 2PM today. CM available for changes. Plan: [facility] Date Signed: 10/08/2018 12:19 PM Electronically Signed By:MAGALYS Patrick
--- NOTE | 2018-10-08 12:20 | ASDISCHSUM ---
Discharge Information Plan Status:Hospice-SNF Medically Cleared to Leave:10/08/2018 Discharge Date:10/08/2018 CM D/C Disposition: ADT D/C Disposition:Senior Living Facility Projected Discharge Date:10/08/2018 11:00 AM Transportation at D/C: Discharge Delay Reason: Follow-Up Date:10/08/2018 11:00 AM Discharge Slot: Final Diagnosis: Placement Information Referral Type:Palliative Care Referral ID:[id number] Provider Name: Address 1: Phone Number: Address 2: Fax Number: City: Selection Factors: State: Referral Type:*Snf/SNF Referral ID:[id number] Provider Name: Address 1: Phone Number: Address 2: Fax Number: City: Selection Factors: State: Referral Type:*Snf/SNF Referral ID:[id number] Provider Name:[facility] Address 1:[address] Address 2: City:[place] Selection Factors: State:[place] Referral Type:*Hospice Referral ID:[id number] Provider Name:[facility] Address 1:[address] Address 2: City:[place] Selection Factors: State:[place] Patient Contact Information Contact Name:YINKA Relationship: [address] City:[place] Alternate Phone: State/Zip Code:[place] [address] Email: Financial Information Financial Class:Medicare Primary Plan Desc:MEDICARE INPATIENT Primary Plan Number:[id number] Secondary Plan Desc:ADAN/COLT SUPPLEMENT Secondary Plan Number:[id number] Assessment Information LACE LACE Length of stay for Answers: 4-6 days current admission Acuity / Level of Answers: Yes Care: Did the patient have an inpatient admission? Comorbidities - select Answers: Cerebrovascular disease all that apply (CVA, TIA, aneurysms, vasc ular dementia) Other Notes: Crohn's disease # of Emergency department Answers: 3-4 visits in the last 6 months Score: 12 Date Signed: 10/08/2018 12:12 PM Electronically Signed By:MAGALYS Patrick [facility] CM Progress Note CM Note CM Note Notes: CM met with pt and . 73- year old male came back from [facility]. reports that they are saving his room at [facility] and have been working with [facility] Palliative Care. CM sent a referral to [facility] and [facility] Palliative Care. CM contacted [facility] Palliative Care. PT/OT evals pending. CM to follow. Plan:TBD Date Signed: 10/04/2018 03:38 PM Electronically Signed By:Lori Sims [facility] CM Progress Note CM Note CM Note Notes: Reviewed chart regarding discharge plan of care, pt's progress. Per unit rounds, pt transferred to [facility]. PT/OT were triggered, but evals are not currently appropriate. Per Dr. Duvall, GI and Nephrology consults today. Pt would benefit from Palliative vs Hospice Care. Currently open with [facility] Palliative [facility]. [facility] Palliative Care team notified for consult on Saturday10/06/18 to further discuss supportive care/hospice. CM will continue to follow. Discharge Plan: To be determined Date Signed: 10/05/2018 05:08 PM Electronically Signed By:Maria Guadalupe Lopez RN [facility] Progress Note CM Note CM Note Notes: Pts case discussed in tx rounds. [facility] met w/ pt and . Pt and has decided to d/c to a SNF with hospice. does not want pt to be home and doesn't feel like she can manage even with 31/12 supervision. CM provided pts w/ jak's phone number to [facility]. 's reports that food is important. is inquiring about getting pt into [facility]. CM informed that [facility] is difficult to get into. will go tour and speak to sylvie individually about self paying for room and board. reports that they have custodial care insurance that they've purchased through [employer]. Pts has a call to their insurance operations rep to see if itll pay for room and board at SNF. CM to follow. Plan: Hospice at a SNF Date Signed: 10/06/2018 03:03 PM Electronically Signed By:MAGALYS Patrick [facility] ROMAN Progress Note ROMAN Note ROMAN Note Notes: Pts case discussed in tx rounds. Pts is going to tour [facility] today. Pts has been in touch w/ Sangeetha Erwin at [facility]. Pt will have a meeting w/ [facility] this afternoon at 4PM. Pts is planning to stop by [facility] today to collect his belongings. Pts will let CM know what she wants to do. CM to follow. Date Signed: 10/07/2018 03:36 PM Electronically Signed By:MAGALYS Patrick Case Management Discharge Plan Note Case Management Discharge Discharge Order Complete? Answers: Yes Patient to Obtain Answers: Other Notes: [facility] Medications Transportation Arranged Answers: Family/Friends EMTALA Complete Answers: No Case Management Transport Answers: No Form Complete Faxed Final Orders Answers: Yes Agency/Facility Transfer Answers: Yes Report Printed & Faxed to Receiving Agency Family Notified Answers: Yes Discharge Comments Notes: Pts case discussed in tx rounds. CM spoke to Sangeetha Erwin at [facility]. Pts toured yesterday and signed contract. Pt is being d/c'd today to [facility]. Pts would like to transport him. Per Renee RN that is ok. Our ASSOCIATE ATTORNEY will wheelchair pt down to the lobby and assist pt into car. Pts can call [facility] once she arrives to have staff assist pt into a wheelchair. CM provided w/ the [facility] unit number to call. Renee will call to give report. DC orders sent to [facility]. CM notified Douge at [facility] of the d/c as well as sending DC orders.. [facility] will be at [facility] to meet w/ pt and at 2PM today. CM available for changes. Plan: [facility] Date Signed: 10/08/2018 12:19 PM Electronically Signed By:MAGALYS Patrick Intervention Information Intervention Type:*IM-Signed Date of Service:10/08/2018 10:36 AM Patient Type:Inpatient Staff Member:Fawn Blackwell Hours: Discipline: Severity: Comment:
== END 2018-10-08 13:24 | DRG 442 ==
LOC: EDUNIT# → F2W 08:29 → OBSVTOIN 10-05 10:04
PROVIDERS: ADMIT Family Medicine; ATTEND Family Medicine
DX: K72.90 Hepatic failure, unspecified without coma (principal); N17.9 Acute kidney failure, unspecified; K74.5 Biliary cirrhosis, unspecified; K83.01 Primary sclerosing cholangitis; D61.818 Other pancytopenia; E87.2 Acidosis; E87.6 Hypokalemia; I10 Essential (primary) hypertension; I25.10 Atherosclerotic heart disease of native coronary artery without angina pectoris; E03.9 Hypothyroidism, unspecified; I47.1 Supraventricular tachycardia; K50.90 Crohn's disease, unspecified, without complications; Z87.442 Personal history of urinary calculi; Z85.850 Personal history of malignant neoplasm of thyroid
CPT/HCPCS: G0378; J2354; J7500; P9047